=== PATIENT | male | born 1950 | race Caucasian/White ===

== ENCOUNTER → 2019-12-13 14:56 | Outpatient (BNVA) | payer MEDICARE, OTHER, SELFPAY | PROVIDERS: PCP Family Medicine; Referring Provider Family Medicine; Visit Provider Internal Medicine Cardiovascular Disease | DX: I49.5 Sick sinus syndrome (principal); I48.0 Paroxysmal atrial fibrillation; I10 Essential (primary) hypertension; Z79.01 Long term (current) use of anticoagulants | CPT/HCPCS: 99212 ==

== ENCOUNTER → 2020-01-29 14:05 | Outpatient (REF) | payer MEDICARE, OTHER, SELFPAY | LOC: HO.SL 14:05 | PROVIDERS: PCP Family Medicine; Visit Provider Family Medicine | DX: G47.30 Sleep apnea, unspecified (principal); R53.83 Other fatigue | CPT/HCPCS: 95806 ==

== ENCOUNTER 2020-05-28 13:26 | Outpatient (REF) | payer MEDICARE, OTHER, SELFPAY ==
--- NOTE | ~2020-05-28 | CT_ITS ---
EXAMINATION: CT CHEST WITHOUT CONTRAST CLINICAL INFORMATION: History cryoablation lower pole lesion left kidney. History benign pulmonary nodules. COMPARISON: CT chest 07/04/2019, 12/25/2018, 04/05/2017; CT abdomen and pelvis 01/26/2019. TECHNIQUE: Multidetector volumetric CT imaging of the chest is performed without intravenous contrast. Axial MIP volume rendering provided. Sagittal and coronal reformatted images were obtained. This CT examination was performed using dose optimization techniques as appropriate, variously including the following: *Automated exposure control *Adjustment of mA and/or kV according to patient size (this includes techniques or standardized protocols for targeted exams where dose is matched to indication/reason for exam; i.e. 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 There is no endobronchial lesion or bronchiectasis. There is no airspace consolidation or groundglass opacities. Some accentuated reticular markings are again noted posterior lateral upper zones. Small bilateral nodularity are stable from both prior exam and remote CT dating back to 04/05/2017 consistent with benign nodules. There is no new nodule or increasing size or mass. Right lung has stable nodularity along the right minor fissure and small nodule subpleural posterior apical upper lobe as before (series 5 images 98, 240, 283). Left lung has 6 small nodules stable from prior exams, two not previously described, punctate calcified granuloma lateral apex series 6/51 and subpleural anterior apex under 4 mm series 6 image 67. Other small nodularity stable as before (series 6 images 98, 116, 138, 313). MEDIASTINUM: No hilar or mediastinal adenopathy. Thoracic aorta normal in caliber. PLEURA: There is no pleural effusion. No pleural mass or thickening. AXILLA: No lymphadenopathy. UPPER ABDOMEN: Unremarkable. OSSEOUS STRUCTURES: No acute bony abnormality. Prior vertebral augmentation L1. CT/CT chest wo con IMPRESSION: Stable nodularity dating back to 2018 consistent with benign nodules. No adenopathy or effusion.
== END 2020-05-28 13:27 | disposition home or self-care (01) ==
LOC: HO.CT 13:26
PROVIDERS: PCP Family Medicine; Visit Provider Family Medicine
DX: R91.8 Other nonspecific abnormal finding of lung field (principal)
CPT/HCPCS: 71250

== ENCOUNTER 2020-07-01 16:19 | Outpatient (REF) | payer MEDICARE, OTHER, SELFPAY ==
--- NOTE | ~2020-07-01 | MR_ITS ---
EXAMINATION: MR LUMBAR SPINE WITHOUT CONTRAST CLINICAL INFORMATION: Worsening severe low back pain. Bilateral lower extremity pain and weakness. COMPARISON: Lumbar spine radiographs 01/22/2015. TECHNIQUE: MRI of the lumbar spine was obtained using routine sequences without contrast. FINDINGS: There is a chronic wedge compression deformity of the L1 vertebral body with impaction of the upper endplate resulting in 50% vertebral height loss centrally. There is bone cement material within the L1 vertebral body represent chronic changes of a vertebral augmentation. Alignment is otherwise normal. There is disc desiccation at multiple levels without substantial loss of intervertebral disc height. The tip of the conus medullaris is located at the level of L1. No mass effect on the conus. Visualized distal cord signal intensity is normal. At L1-L2 the annular contour is normal. No canal or neuroforaminal compromise. At L2-L3 there is an asymmetrically bulging disc to the left. No canal stenosis. No mass effect on the traversing or foraminal nerve roots. At L3-L4 there is a slightly bulging disc. Bilateral facet degenerative change. No canal stenosis. No mass effect the traversing or foraminal nerve roots. At L4-L5 there is a diffusely bulging disc. Bilateral facet degenerative change. No canal stenosis. No mass effect on the traversing or foraminal nerve roots. At L5-S1 there is a slightly bulging disc. Bilateral facet degenerative change. No canal stenosis. No mass effect on the traversing or foraminal nerve roots. Limited visualization the retroperitoneal anatomy reveals no abnormal finding. Psoas and paraspinal muscle groups are symmetric. 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 No canal stenosis. No mass effect on the traversing or foraminal nerve roots. Of note there is a chronic compression deformity of the L1 vertebral body.
== END 2020-07-01 16:20 | disposition home or self-care (01) ==
LOC: HO.MRI 16:19
PROVIDERS: Visit Provider Family Medicine
DX: M54.5 Low back pain (principal)
CPT/HCPCS: 72148

== ENCOUNTER → 2020-07-21 13:24 | Outpatient (BNVA) | payer MEDICARE, OTHER, SELFPAY | PROVIDERS: PCP Family Medicine; Referring Provider Family Medicine; Visit Provider Internal Medicine Cardiovascular Disease | DX: I48.91 Unspecified atrial fibrillation (principal); R06.02 Shortness of breath; Z79.899 Other long term (current) drug therapy | CPT/HCPCS: 93005; 99212 ==

== ENCOUNTER 2020-07-21 14:06 | Emergency (ER) | payer MEDICARE, OTHER, SELFPAY ==
--- NOTE | ~2020-07-21 | XR_ITS ---
EXAMINATION: XR CHEST CLINICAL INFORMATION: Atrial fibrillation COMPARISON: Chest x-ray 08/09/2019. CT chest 05/28/2020 TECHNIQUE: Frontal view of the chest was obtained. 2:42 PM FINDINGS: No significant abnormality is noted involving the heart, lungs, mediastinum, bony thorax or soft tissues. XR/XR chest 1V IMPRESSION: Unremarkable examination.
[2020-07-21 14:20] VITALS: BP 74/57; PULSE 112; RESP 22; TEMP 36.9; O2SAT 96; BMI 35.2
--- NOTE | 2020-07-21 14:29 | ECG_ITS ---
Test Reason : CHEST PAIN Blood Pressure : / mmHG Vent. Rate : 138 BPM Atrial Rate : 120 BPM P-R Int : 000 ms QRS Dur : 082 ms QT Int : 336 ms P-R-T Axes : 000 -18 009 degrees QTc Int : 509 ms Atrial fibrillation with rapid ventricular response Abnormal ECG When compared with ECG of 09-AUG-2019 19:35, Atrial fibrillation has replaced Sinus rhythm Vent. rate has increased BY 73 BPM Referred By: Generic ED Physician Electronically Signed By:PAZ DAVIS
[2020-07-21 15:30] VITALS: BP 104/74; PULSE 130
[2020-07-21] MEDS: dilTIAZem HCL 50 MG/10 ML VIAL 20 MG IVPUSH (15:30)
[2020-07-21 15:35] VITALS: BP 97/63; PULSE 96; RESP 14; O2SAT 99
[2020-07-21 15:43] LABS: MANUAL DIFF FLAG NO
[2020-07-21 15:44] VITALS: BP 104/69; PULSE 87; RESP 10; O2SAT 96
[2020-07-21 15:48] LABS: Basophils Absolute Auto 0.1 X10*3/uL (0.0-0.2); Basophils Percent Auto 0.9 % (0-2); Eosinophils Absolute Auto 2.1 X10*3/uL (0.0-0.4); Eosinophils Percent Auto 22.2 % (0-4); Hematocrit 43.9 % (42-52); Hemoglobin 14.9 g/dl (14.0-18.0); Imm Gran Abs Auto 0.03 X10*3/uL (0.00-0.03); Imm Gran Pct Auto 0.3 % (0.0-0.4); Lymphocytes Absolute Auto 1.4 X10*3/uL (1.2-4.9); Mean Corpuscular HGB Conc 33.9 g/dl (31.0-36.0); Mean Corpuscular Volume 94.2 fL (80-98); Mean Platelet Volume 11.7 fL (9.4-12.4); Monocytes Absolute Auto 0.7 X10*3/uL (0.1-1.2); Monocytes Percent Auto 7.8 % (2-11); Neutrophils Absolute Auto 5.1 X10*3/uL (2.0-8.3); Neutrophils Percent Auto 53.8 % (45-73); Platelet Count 169 X10*3/uL (160-400); Red Blood Count 4.66 X10*6/uL (4.60-5.80); Red Cell Distribution Width 12.8 % (11.0-16.0); White Blood Count 9.5 X10*3/uL (4.8-10.8)
[2020-07-21 16:05] LABS: Anion Gap 14 (12-20); Blood Urea Nitrogen 18 mg/dL (9-16); Carbon Dioxide 26 mmol/L (22-29); Chloride 105 mmol/L (96-108); Creatinine Clr Calc Pharmacy 91.6; Estimated Glomerular Filt Rate > 60; Glucose Random 95 mg/dL (60-115); Potassium 3.9 mmol/L (3.3-5.1); Sodium 141 mmol/L (135-145)
[2020-07-21 16:13] LABS: B Type Natriuretic Peptide 193 pg/mL (<100); Troponin-I High Sensitivity < 3.5 ng/L (<3.5-35.0)
--- NOTE | 2020-07-21 16:55 | ED_ITS ---
HPI - Arrhythmia/Palpitations General Chief Complaint: Arrhythmia/Palpitations Stated Complaint: rapid A fib Time Seen by Provider: 07/21/20 14:57 Source: patient Mode of arrival: ambulatory Limitations: no limitations History of Present Illness HPI narrative: 69-year-old male who was sent to the emergency department from his feed project engineer's office for evaluation of atrial fibrillation with a rapid ventricular response. Patient states that he has been feeling sick for approximately 3 days secondary to an asthma exacerbation. He states that he has had a cough which has been mainly nonproductive with an occasional clear to yellow sputum. He has been having shortness of breath at rest as well as dyspnea on exertion. He denied chest pain or palpitations. He has not noticed any swelling in his lower extremities. He states however he had 2 bouts of gout over the last 2 weeks which was treated with steroids. The patient had a routine visit today with his feed project engineer, Dr Vides. The patient has a history of paroxysmal atrial fibrillation he was found to be in atrial fibrillation with a rapid ventricular response, therefore he was sent to the emergency department for evaluation. The patient does take Xareltor (rivaroxaban). Related Data Home Medications Medication Instructions Recorded Confirmed atorvastatin 10 mg tablet 10 mg PO DAILY tab 12/13/19 07/21/20 gabapentin 300 mg capsule 300 mg PO cap 12/13/19 07/21/20 hydrochlorothiazide 12.5 mg tablet 12.5 mg PO DAILY tab 12/13/19 07/21/20 tamsulosin 0.4 mg capsule 0.4 mg PO DAILY cap 12/13/19 07/21/20 budesonide-formoterol HFA 160 INHALATION 07/21/20 07/21/20 mcg-4.5 mcg/actuation aerosol inhaler fluoxetine 20 mg capsule 20 mg PO cap 07/21/20 07/21/20 naloxone 4 mg/actuation nasal spray INTRANASAL 07/21/20 07/21/20 oxycodone-acetaminophen 7.5 mg-325 tab PO 07/21/20 07/21/20 mg tablet Previous Rx's Medication Instructions Recorded rivaroxaban 20 mg tablet 20 mg PO DAILY #30 tab 02/11/20 amlodipine 2.5 mg tablet 2.5 mg PO DAILY #90 tab 05/01/20 diltiazem HCl 120 mg PO DAILY #30 cap 07/21/20 Allergies Allergy/AdvReac Type Severity Reaction Status Date / Time No Known Allergies Allergy Unverified 10/25/19 15:01 [No Known Allergies*] Review of Systems Review of Systems: Yes all other systems are reviewed and are negative [facility] Past Medical History [facility] Narrative: Social history: The patient denies tobacco use, he is a former smoker. He states that he drinks alcohol daily anywhere from 2-4 beers, occasional hard liquor as well. He denies drug use. Medical History HTN (hypertension) Paroxysmal atrial fibrillation Sick sinus syndrome Surgical History History of back surgery History of tonsillectomy and adenoidectomy Hx of sinus surgery Family History Family History Father Lung cancer Mother Cancer Social History Social History Years Smoked: stopped 30 years ago Advance Directives: Yes Advance Directives Information Provided: No Advance Directives on File: No Physical Exam Vital Signs: Vital Signs: Last Vital Signs Temp 98.4 F 07/21/20 14:20 Pulse 87 07/21/20 15:44 Resp 10 L 07/21/20 15:44 BP 104/69 07/21/20 15:44 Pulse Ox 96 07/21/20 15:44 Body Mass Index 35.2 Const: General: cooperative and healthy appearing Orientation/consciousness: oriented to person and oriented to place Limitations: no limitations HENMT: Head: Yes normal to inspection, Yes normocephalic and Yes atraumatic Ears: external ears normal General nose exam: Normal external nose present Face and sinus: Yes normal facial exam Mouth: Normal oral and palatal mucosa present Throat: Yes posterior oropharynx normal Eyes: Periorbital: periorbital findings normal Eyelids: Yes eyelids normal Conjunctivae: conjunctivae normal Sclerae: sclerae normal Corneas: corneas normal Pupils: Equal, round and reactive pupils present Direct Ophthalmoscopy: normal light reflex Neck: Neck: Yes full ROM, Yes no lymphadenopathy, Yes no meningeal signs, Yes trachea midline and Yes supple Chest: Chest palpation & inspection: normal inspection of the chest and normal palpation of entire chest wall Resp: Effort & Inspection: normal respiratory effort and able to speak in complete sentences Auscultation: rales bilateral in the lower lung samaniego (Bases) and rhonchi throughout Cardio: Rate: tachycardic Rhythm: abnormal rhythm irregularly irregular Heart sounds: S1 normal heart sound present, S2 normal heart sound present and no murmurs GI: Inspection: Yes normal to inspection Palpation (GI): Soft to palpation, nontender, no guarding, not rigid and No hepatosplenomegaly present : General: Yes no CVA tenderness Back/Spine/Pelvis: Back: no CVA tenderness Cervical Spine: normal cervical lordosis Thoracic/Lumbar Spine: thoracic and lumbar spine normal to inspection Skin: Lesions: no lesions Rashes: no rashes Wounds: no wounds Neuro: General: oriented to person, oriented to place and no meningeal signs Cranial nerves: Yes CN's II-XII intact bilaterally and Yes Equal, round and reactive pupils present Cognition (Neuro): normal cognition Motor exam (neuro): 5/5 motor strength present throughout Extrem: Other: Trace pitting edema bilateral symmetric lower extremities General: Yes normal to inspection and Yes full ROM Psych: Appearance: well kempt Mental Status: mental status grossly normal Speech and movement: Normal speech and movement present Affect: normal affect Attitude: cooperative Thought process: Normal thought process present Thought content: Normal thought content present Course Course Course Narrative: 69-year-old male who presents emergency department for evaluation several days of ?asthma exacerbation ?with shortness of breath, dyspnea on exertion and cough which is occasionally productive. The patient saw his feed project engineer today for routine visit was found to be in atrial fibrillation with a rapid ventricular response and sent to emergency department. On presentation, the patient was hypotensive with a blood pressure of 74/57, pulse varied from 120-150 , he was tachypneic with a respiratory rate of 22, temperature no to saturation normal. Physical examination revealed rales at the bases with diffuse rhonchi in his lung exam and some trace pitting edema otherwise was unremarkable. I ordered a cardiac workup and chest x-ray. Patient's rapid ventricular rate was treated with diltiazem 20 mg IV. 1704: The patient's laboratory evaluation did reveal a slight elevation in his BNP of 193, troponin was below detectable limits. The patient's chest x-ray revealed no evidence of pneumonia or congestive heart failure. The patient is feeling better after he has had rate control with diltiazem. I will discuss the patient's presentation with the patient's feed project engineer. 1808: I did discuss the patient's presentation with the covering feed project engineer, Dr. Alvarez. He recommended that the patient stop his amlodipine and be started on Cardizem ER 120 mg daily. He was given his 1st dose here in the emergency department and discharged home. The patient was given verbal and printed instructions prior to discharge. The patient was advised to follow-up with their cardiology in 2 days and to return to the emergency department if the ir symptoms get worse or if they develop any new symptoms that are concerning to them MDM - Arrhythmia/Palpitations Lab Data Result diagrams: 07/21/20 15:28 07/21/20 15:28 Labs: Lab Results 07/21/20 07/21/20 07/21/20 Range/Units 15:28 15:28 15:28 WBC 9.5 (4.8-10.8) X10*3/uL RBC 4.66 (4.60-5.80) X10*6/uL Hgb 14.9 (14.0-18.0) g/dl Hct 43.9 (42-52) % MCV 94.2 (80-98) fL MCH 32.0 (27.0-33.0) pg MCHC 33.9 (31.0-36.0) g/dl RDW 12.8 (11.0-16.0) % Plt Count 169 (160-400) X10*3/uL MPV 11.7 (9.4-12.4) fL Immature Gran % (Auto) 0.3 (0.0-0.4) % Neut % (Auto) 53.8 (45-73) % Lymph % (Auto) 15.0 L (20-40) % Hand % (Auto) 7.8 (2-11) % Eos % (Auto) 22.2 H (0-4) % Baso % (Auto) 0.9 (0-2) % Lymph # (Auto) 1.4 (1.2-4.9) X10*3/uL Hand # (Auto) 0.7 (0.1-1.2) X10*3/uL Eos # (Auto) 2.1 H (0.0-0.4) X10*3/uL Baso # (Auto) 0.1 (0.0-0.2) X10*3/uL Abs Immat Gran (auto) 0.03 (0.00-0.03) X10*3/uL Absolute Neuts (auto) 5.1 (2.0-8.3) X10*3/uL Absolute Nucleated RBC 0.000 (0.0-0.012) X10*3/uL Nucleated RBC % (auto) 0.0 (0.0-0.2) /100WBC Hold Blue Top SEE NOTE Sodium 141 (135-145) mmol/L Potassium 3.9 (3.3-5.1) mmol/L Chloride 105 (96-108) mmol/L Carbon Dioxide 26 (22-29) mmol/L Anion Gap 14 (12-20) BUN 18 H (9-16) mg/dL Creatinine 0.98 (0.5-1.4) mg/dL Estim Creat Clear Calc 91.6 Estimated GFR > 60 Random Glucose 95 (60-115) mg/dL Calcium 9.0 (8.4-10.2) mg/dL Troponin I High Sens (<3.5-35.0) ng/L B-Natriuretic Peptide (<100) pg/mL 07/21/20 07/21/20 Range/Units 15:28 15:28 WBC (4.8-10.8) X10*3/uL RBC (4.60-5.80) X10*6/uL Hgb (14.0-18.0) g/dl Hct (42-52) % MCV (80-98) fL MCH (27.0-33.0) pg MCHC (31.0-36.0) g/dl RDW (11.0-16.0) % Plt Count (160-400) X10*3/uL MPV (9.4-12.4) fL Immature Gran % (Auto) (0.0-0.4) % Neut % (Auto) (45-73) % Lymph % (Auto) (20-40) % Hand % (Auto) (2-11) % Eos % (Auto) (0-4) % Baso % (Auto) (0-2) % Lymph # (Auto) (1.2-4.9) X10*3/uL Hand # (Auto) (0.1-1.2) X10*3/uL Eos # (Auto) (0.0-0.4) X10*3/uL Baso # (Auto) (0.0-0.2) X10*3/uL Abs Immat Gran (auto) (0.00-0.03) X10*3/uL Absolute Neuts (auto) (2.0-8.3) X10*3/uL Absolute Nucleated RBC (0.0-0.012) X10*3/uL Nucleated RBC % (auto) (0.0-0.2) /100WBC Hold Blue Top Sodium (135-145) mmol/L Potassium (3.3-5.1) mmol/L Chloride (96-108) mmol/L Carbon Dioxide (22-29) mmol/L Anion Gap (12-20) BUN (9-16) mg/dL Creatinine (0.5-1.4) mg/dL Estim Creat Clear Calc Estimated GFR Random Glucose (60-115) mg/dL Calcium (8.4-10.2) mg/dL Troponin I High Sens < 3.5 (<3.5-35.0) ng/L B-Natriuretic Peptide 193 H Cancelled (<100) pg/mL Discharge Plan Discharge Clinical Impression: Atrial fibrillation with RVR Patient Disposition: Home, Self-Care Instructions: A-fib (Atrial Fibrillation) (ED) Additional Instructions: Your laboratory evaluation was unremarkable. You had a slight elevation in your BNP of 193 which suggests you do not have significant amount of fluid in her lungs. Your troponin which is a marker of heart damage was below detectable limits which is reassuring. At this time I suspect that the symptoms that you are experiencing were caused by atrial fibrillation with a rapid heart rate. You received Cardizem (diltiazem) 20 mg IV and this did slow your heart rate down but your still in atrial fibrillation. I spoke to the on-call feed project engineer, Dr. Skelton who recommended that we stop your amlodipine and start you on Cardizem ER 120 mg daily. Your given a dose of Cardizem 120 mg orally. Start this prescription medication tomorrow evening. Call Dr. Vides's office in the morning to schedule a follow-up as soon as possible to determine how to get you out of atrial fibrillation. Please return to the emergency department if your symptoms get worse or if you develop any symptoms that are concerning to you. Prescriptions: New diltiazem HCl 120 mg capsule,extended release 24 hr 120 mg PO DAILY Qty: 30 RF: 0 No Action rivaroxaban 20 mg tablet 20 mg PO DAILY Qty: 30 RF: 5 amlodipine 2.5 mg tablet 2.5 mg PO DAILY Qty: 90 RF: 1 atorvastatin 10 mg tablet 10 mg PO DAILY RF: 0 gabapentin 300 mg capsule 300 mg PO RF: 0 hydrochlorothiazide 12.5 mg tablet 12.5 mg PO DAILY RF: 0 tamsulosin 0.4 mg capsule 0.4 mg PO DAILY RF: 0 fluoxetine 20 mg capsule 20 mg PO RF: 0 Narcan 4 mg/actuation spray,non-aerosol intranasal RF: 0 oxycodone-acetaminophen 7.5-325 mg tablet PO RF: 0 budesonide-formoterol 160-4.5 mcg/actuation HFA aerosol inhaler inhalation RF: 0
[2020-07-21 18:00] VITALS: BP 135/84; PULSE 105; RESP 16; O2SAT 99
[2020-07-21 18:22] VITALS: BP 135/84; PULSE 105
[2020-07-21] MEDS: dilTIAZem HCL CD 120 MG CAP.ER.DEG PO (18:22)
== END 2020-07-21 18:31 | disposition home or self-care (01) ==
PROVIDERS: Emergency Provider Emergency Medicine Emergency Medical Services; PCP Family Medicine
DX: I48.0 Paroxysmal atrial fibrillation (principal); R06.02 Shortness of breath; I10 Essential (primary) hypertension; Z79.01 Long term (current) use of anticoagulants
CPT/HCPCS: 36415; 71045; 80048; 83880; 84484; 85025; 93005; 96374; 99284

== ENCOUNTER 2020-07-23 17:39 | Emergency (ER) | payer MEDICARE, OTHER, SELFPAY ==
[2020-07-23] VITALS (7 sets, daily range): BP systolic 107–126; BP diastolic 53–76; PULSE 89–144; RESP 20–24; TEMP 36.6–36.8; O2SAT 94–95; BMI 35.2
--- NOTE | 2020-07-23 | ECG_ITS ---
Test Reason : CHEST PAIN Blood Pressure : / mmHG Vent. Rate : 125 BPM Atrial Rate : 125 BPM P-R Int : 000 ms QRS Dur : 084 ms QT Int : 340 ms P-R-T Axes : 000 -19 032 degrees QTc Int : 490 ms Atrial fibrillation with rapid ventricular response Nonspecific ST and T wave abnormality Abnormal ECG When compared with ECG of 21-JUL-2020 14:28, No significant change was found Referred By: Generic ED Physician Electronically Signed By:PAZ DAVIS
--- NOTE | ~2020-07-23 | XR_ITS ---
EXAMINATION: XR CHEST CLINICAL INFORMATION: Shortness of breath COMPARISON: Chest x-ray 07/21/2020 TECHNIQUE: 2 views of the chest were obtained. FINDINGS: Lungs are clear. No pulmonary vascular congestion. There is no pleural effusion. The heart size is normal. The cardiac and mediastinal contours are normal. There are multilevel degenerative changes of dorsal spine. Status post thoracoplasty of L1 vertebrae. XR/XR chest 2V IMPRESSION: Unremarkable examination.
--- NOTE | 2020-07-23 18:48 | ED.GENADULT ---
HPI - General Adult General Chief complaint: Dyspnea Stated complaint: sob Time Seen by Provider: 07/23/20 18:32 Source: patient Mode of arrival: ambulatory Limitations: no limitations History of Present Illness HPI narrative: 69-year-old male who presents emergency department for evaluation of shortness of breath and cough. Patient was seen in the emergency department by me 2 days prior, 07/21/2020 for 3 days of asthma exacerbation with shortness of breath dyspnea on exertion and occasional productive cough. The patient has a history of paroxysmal atrial fibrillation at that time was found to be in AFib with a rapid ventricular response. His workup revealed a slight elevated proBNP, nondetectable troponin and an unremarkable chest x-ray. The patient's ventricular rate improved with IV diltiazem and he was started on diltiazem ER 120 mg once a day. Patient states that he has taken 2 doses medication but is not feeling better. He states that he has continued to have a cough which is occasionally productive but mainly nonproductive. He states that he is feeling short of breath and is having dyspnea on exertion. He states that he occasionally feels palpitations. He has been using his albuterol nebulizer and used it 2 times today. He denied chest pain, fever, chills, myalgias, arthralgias, nausea, vomiting or diarrhea. The patient's son, Eliecer is here in the emergency department. He states that he and his mother were concerned since the patient had an episode where he was staring, his hands were shaking and he did not seem to respond. Patient states that he was in bed and he was falling asleep and he felt like everything was distant and had difficulty hearing his . This episode was brief and then resolved. Related Data Home Medications Medication Instructions Recorded Confirmed atorvastatin 10 mg tablet 10 mg PO DAILY tab 12/13/19 07/21/20 gabapentin 300 mg capsule 300 mg PO cap 12/13/19 07/21/20 hydrochlorothiazide 12.5 mg tablet 12.5 mg PO DAILY tab 12/13/19 07/21/20 tamsulosin 0.4 mg capsule 0.4 mg PO DAILY cap 12/13/19 07/21/20 budesonide-formoterol HFA 160 INHALATION 07/21/20 07/21/20 mcg-4.5 mcg/actuation aerosol inhaler fluoxetine 20 mg capsule 20 mg PO cap 07/21/20 07/21/20 naloxone 4 mg/actuation nasal spray INTRANASAL 07/21/20 07/21/20 oxycodone-acetaminophen 7.5 mg-325 tab PO 07/21/20 07/21/20 mg tablet Previous Rx's Medication Instructions Recorded rivaroxaban 20 mg tablet 20 mg PO DAILY #30 tab 02/11/20 amlodipine 2.5 mg tablet 2.5 mg PO DAILY #90 tab 05/01/20 diltiazem HCl 120 mg PO DAILY #30 cap 07/21/20 benzonatate 200 mg PO TID PRN #14 cap 07/23/20 doxycycline hyclate 100 mg PO Q12H 7 Days #14 tab 07/23/20 prednisone 60 mg PO DAILY 5 Days #15 tab 07/23/20 Allergies Allergy/AdvReac Type Severity Reaction Status Date / Time No Known Allergies Allergy Verified 07/23/20 17:58 [No Known Allergies*] Review of Systems Review of Systems: Yes all other systems are reviewed and are negative [facility] Past Medical History [facility] Narrative: Social history: The patient denies tobacco use, he is a former smoker and stop smoking 30 years prior. He states that he drinks alcohol daily anywhere from 2-4 beers, occasional hard liquor as well. He denies drug use. Medical History HTN (hypertension) Paroxysmal atrial fibrillation Sick sinus syndrome Surgical History History of back surgery History of tonsillectomy and adenoidectomy Hx of sinus surgery Family History Family History Father Lung cancer Mother Cancer Social History Social History Years Smoked: stopped 30 years ago Advance Directives: No Advance Directives Information Provided: Yes Physical Exam Vital Signs: Vital Signs: Last Vital Signs Temp 98.2 F 07/23/20 18:14 Pulse 89 07/23/20 19:31 Resp 20 07/23/20 19:31 BP 109/53 L 07/23/20 19:31 Pulse Ox 94 07/23/20 19:31 Body Mass Index 35.2 Const: General: cooperative Orientation/consciousness: oriented to person and oriented to place Limitations: no limitations HENMT: Head: Yes normal to inspection, Yes normocephalic and Yes atraumatic Ears: external ears normal General nose exam: Normal external nose present Face and sinus: Yes normal facial exam Mouth: Normal oral and palatal mucosa present Throat: Yes posterior oropharynx normal Eyes: Periorbital: periorbital findings normal Eyelids: Yes eyelids normal Conjunctivae: conjunctivae normal Sclerae: sclerae normal Corneas: corneas normal Pupils: Equal, round and reactive pupils present Direct Ophthalmoscopy: normal light reflex Neck: Neck: Yes full ROM, Yes no lymphadenopathy, Yes no meningeal signs, Yes trachea midline and Yes supple Chest: Chest palpation & inspection: normal inspection of the chest and normal palpation of entire chest wall Resp: Effort & Inspection: normal respiratory effort and able to speak in complete sentences Auscultation: rales bilateral at the base and wheezes expiratory wheezes and throughout Cardio: Rate: tachycardic Rhythm: abnormal rhythm irregularly irregular Heart sounds: S1 normal heart sound present, S2 normal heart sound present and no murmurs GI: Inspection: Yes normal to inspection Palpation (GI): Soft to palpation, nontender, no guarding, not rigid and No hepatosplenomegaly present : General: Yes no CVA tenderness Back/Spine/Pelvis: Back: no CVA tenderness Cervical Spine: normal cervical lordosis Thoracic/Lumbar Spine: thoracic and lumbar spine normal to inspection Skin: Lesions: no lesions Rashes: no rashes Wounds: no wounds Neuro: General: oriented to person, oriented to place and no meningeal signs Cranial nerves: Yes CN's II-XII intact bilaterally and Yes Equal, round and reactive pupils present Cognition (Neuro): normal cognition Motor exam (neuro): 5/5 motor strength present throughout Extrem: General: Yes normal to inspection and Yes full ROM Psych: Appearance: well kempt Mental Status: mental status grossly normal Speech and movement: Normal speech and movement present Affect: normal affect Attitude: cooperative Thought process: Normal thought process present Thought content: Normal thought content present Course Course Course Narrative: 69-year-old male with history of paroxysmal atrial fibrillation on Pradaxa, seen in the emergency department 2 days prior for atrial fibrillation with rapid ventricular response and shortness of breath treated with IV diltiazem and started on diltiazem 120 mg ER, who returns with increased cough, persistent shortness of breath and atrial fibrillation with rapid ventricular response. Patient's heart rate ranged from 110-140 beats per minute. Lung exam did reveal rales at the bases with expiratory wheezing throughout. Exam was otherwise unremarkable. I did order laboratory evaluation to include CBC, CMP, troponin, BNP, chest x-ray two view. Patient was ordered to get Solu-Medrol 120 mg IV, albuterol nebulizer and diltiazem 20 mg IV. 2107: The patient's laboratory evaluation did reveal a slight elevation in his white blood cell count 11,000, slightly low platelet count of a [id number] otherwise was unremarkable. BNP was normal. Troponin was below detectable limits. Patient's chest x-ray revealed no evidence of pneumonia congestive heart failure. Patient's heart rate did improve after the IV diltiazem. He is feeling better. The patient does have a history of asthma and at this time I suspect that he may have acute bronchitis which may be causing his cough. The patient will be treated with doxycycline 100 mg twice a day for 7 days, prednisone 60 mg once a day for 5 days and Tessalon Perles 1 pill 3 times a day for cough. He was given his 1st dose of these medications here in the emergency department. The patient was given verbal and printed instructions prior to discharge. The patient was advised to follow-up with their PCP in 2 days and to return to the emergency department if there symptoms get worse or if they develop any new symptoms that are concerning to them Medical Decision Making Lab Data Result diagrams: 07/23/20 19:08 07/23/20 19:08 Labs: Lab Results 07/23/20 07/23/20 07/23/20 Range/Units 19:08 19:08 19:08 WBC 11.0 H (4.8-10.8) X10*3/uL RBC 4.38 L (4.60-5.80) X10*6/uL Hgb 14.3 (14.0-18.0) g/dl Hct 41.2 L (42-52) % MCV 94.1 (80-98) fL MCH 32.6 (27.0-33.0) pg MCHC 34.7 (31.0-36.0) g/dl RDW 12.6 (11.0-16.0) % Plt Count 155 L (160-400) X10*3/uL MPV 11.3 (9.4-12.4) fL Immature Gran % (Auto) 0.4 (0.0-0.4) % Neut % (Auto) 60.2 (45-73) % Lymph % (Auto) 11.7 L (20-40) % Wilkes % (Auto) 9.3 (2-11) % Eos % (Auto) 17.5 H (0-4) % Baso % (Auto) 0.9 (0-2) % Lymph # (Auto) 1.3 (1.2-4.9) X10*3/uL Wilkes # (Auto) 1.0 (0.1-1.2) X10*3/uL Eos # (Auto) 1.9 H (0.0-0.4) X10*3/uL Baso # (Auto) 0.1 (0.0-0.2) X10*3/uL Abs Immat Gran (auto) 0.04 H (0.00-0.03) X10*3/uL Absolute Neuts (auto) 6.6 (2.0-8.3) X10*3/uL Absolute Nucleated RBC 0.000 (0.0-0.012) X10*3/uL Nucleated RBC % (auto) 0.0 (0.0-0.2) /100WBC Sodium 140 (135-145) mmol/L Potassium 3.5 (3.3-5.1) mmol/L Chloride 103 (96-108) mmol/L Carbon Dioxide 27 (22-29) mmol/L Anion Gap 14 (12-20) BUN 19 H (9-16) mg/dL Creatinine 0.98 (0.5-1.4) mg/dL Estim Creat Clear Calc 91.6 Estimated GFR > 60 Random Glucose 102 (60-115) mg/dL Calcium 8.8 (8.4-10.2) mg/dL Total Bilirubin 1.0 (0.0-1.0) mg/dL AST 23 (5-37) U/L ALT 24 (0-40) U/L Alkaline Phosphatase 86 (39-117) U/L Troponin I High Sens < 3.5 (<3.5-35.0) ng/L B-Natriuretic Peptide 92 (<100) pg/mL Total Protein 6.6 (6.5-8.0) g/dL Albumin 4.0 (3.5-5.0) g/dL Discharge Plan Discharge Clinical Impression: Atrial fibrillation with rapid ventricular response, Acute bronchitis Patient Disposition: Home, Self-Care Instructions: Acute Bronchitis (ED) Additional Instructions: Continue using your inhalers as prescribed by your doctor. Take prednisone 20 mg pills, 3 pills once a day for 5 days. Your given your 1st dose here in the emergency department. Take your next dose tomorrow morning. Take doxycycline 100 mg pills, 1 pill twice a day for 7 days. Your given your 1st dose here in the emergency department. Take your next dose tomorrow morning. Take Tessalon Perles 200 mg pills, 1 pill 3 times a day as needed for cough. Your given your 1st dose here in the emergency department. Your next dose tomorrow morning. Continue taking your diltiazem ER 120 mg once a day. Follow-up with your doctor in 2 days. Please return to the emergency department if your symptoms get worse or if you develop any symptoms that are concerning to you. Prescriptions: New doxycycline hyclate 100 mg tablet 100 mg PO Q12H 7 Days Qty: 14 RF: 0 prednisone 20 mg tablet 60 mg PO DAILY 5 Days Qty: 15 RF: 0 benzonatate 200 mg capsule 200 mg PO TID PRN (Reason: cough) Qty: 14 RF: 0 No Action rivaroxaban 20 mg tablet 20 mg PO DAILY Qty: 30 RF: 5 amlodipine 2.5 mg tablet 2.5 mg PO DAILY Qty: 90 RF: 1 diltiazem HCl 120 mg capsule,extended release 24 hr 120 mg PO DAILY Qty: 30 RF: 0 atorvastatin 10 mg tablet 10 mg PO DAILY RF: 0 gabapentin 300 mg capsule 300 mg PO RF: 0 hydrochlorothiazide 12.5 mg tablet 12.5 mg PO DAILY RF: 0 tamsulosin 0.4 mg capsule 0.4 mg PO DAILY RF: 0 fluoxetine 20 mg capsule 20 mg PO RF: 0 Narcan 4 mg/actuation spray,non-aerosol intranasal RF: 0 oxycodone-acetaminophen 7.5-325 mg tablet PO RF: 0 budesonide-formoterol 160-4.5 mcg/actuation HFA aerosol inhaler inhalation RF: 0
[2020-07-23] MEDS: methylPREDNISolone Sod Succ 125 MG/2 ML VIAL IVPUSH (19:09)
[2020-07-23] MEDS: dilTIAZem HCL 50 MG/10 ML VIAL 20 MG IVPUSH (19:16)
[2020-07-23 19:18] LABS: MANUAL DIFF FLAG NO
[2020-07-23 19:21] LABS: Basophils Absolute Auto 0.1 X10*3/uL (0.0-0.2); Basophils Percent Auto 0.9 % (0-2); Eosinophils Absolute Auto 1.9 X10*3/uL (0.0-0.4); Eosinophils Percent Auto 17.5 % (0-4); Hematocrit 41.2 % (42-52); Hemoglobin 14.3 g/dl (14.0-18.0); Imm Gran Abs Auto 0.04 X10*3/uL (0.00-0.03); Imm Gran Pct Auto 0.4 % (0.0-0.4); Lymphocytes Absolute Auto 1.3 X10*3/uL (1.2-4.9); Lymphocytes Percent Auto 11.7 % (20-40); Mean Corpuscular HGB Conc 34.7 g/dl (31.0-36.0); Mean Corpuscular Hemoglobin 32.6 pg (27.0-33.0); Mean Corpuscular Volume 94.1 fL (80-98); Mean Platelet Volume 11.3 fL (9.4-12.4); Monocytes Percent Auto 9.3 % (2-11); Neutrophils Absolute Auto 6.6 X10*3/uL (2.0-8.3); Neutrophils Percent Auto 60.2 % (45-73); Platelet Count 155 X10*3/uL (160-400); Red Blood Count 4.38 X10*6/uL (4.60-5.80); Red Cell Distribution Width 12.6 % (11.0-16.0)
--- NOTE | 2020-07-23 19:22 | PC.NURSE ---
IV established, labs obtained. Pt medicated per APR. VSS at this time. Continue to monitor.
[2020-07-23] MEDS: Albuterol Sulfate (0.083%) 2.5 MG/3 ML VIAL.NEB INHALE (19:52)
--- NOTE | 2020-07-23 19:54 | PC.NURSE ---
Pt medicated per MAR with Nebulizer. Per RT, no more viral nebulizers [place] [facility] [place].
[2020-07-23 19:56] LABS: Alanine Aminotransferase 24 U/L (0-40); Alkaline Phosphatase 86 U/L (39-117); Anion Gap 14 (12-20); Aspartate Amino Transferase 23 U/L (5-37); Blood Urea Nitrogen 19 mg/dL (9-16); Calcium 8.8 mg/dL (8.4-10.2); Carbon Dioxide 27 mmol/L (22-29); Chloride 103 mmol/L (96-108); Creatinine Clr Calc Pharmacy 91.6; Estimated Glomerular Filt Rate > 60; Glucose Random 102 mg/dL (60-115); Potassium 3.5 mmol/L (3.3-5.1); Sodium 140 mmol/L (135-145); Total Protein 6.6 g/dL (6.5-8.0)
[2020-07-23 20:00] LABS: B Type Natriuretic Peptide 92 pg/mL (<100); Troponin-I High Sensitivity < 3.5 ng/L (<3.5-35.0)
[2020-07-23] MEDS: predniSONE 20 MG TABLET 60 MG PO (21:29)
[2020-07-23] MEDS: Benzonatate 100 MG CAPSULE 200 MG PO (21:29)
--- NOTE | 2020-07-23 21:40 | PC.NURSE ---
Pt medicated per MAR. IV removed. VSS. Pt provided with DC paperwork. Pt calling son for a ride home.
== END 2020-07-23 21:47 | disposition home or self-care (01) ==
PROVIDERS: Emergency Provider Emergency Medicine Emergency Medical Services; PCP Family Medicine
DX: J20.9 Acute bronchitis, unspecified (principal); I48.0 Paroxysmal atrial fibrillation; R06.02 Shortness of breath; I10 Essential (primary) hypertension; Z79.02 Long term (current) use of antithrombotics/antiplatelets; Z79.899 Other long term (current) drug therapy
CPT/HCPCS: 36415; 71046; 80053; 83880; 84484; 85025; 93005; 96374; 96375; 99284; J2930

== ENCOUNTER → 2020-07-30 08:46 | Outpatient (BNVA) | payer MEDICARE, OTHER, SELFPAY | PROVIDERS: PCP Family Medicine; Referring Provider Family Medicine; Visit Provider Internal Medicine Cardiovascular Disease | DX: R06.02 Shortness of breath (principal); R53.83 Other fatigue; I48.0 Paroxysmal atrial fibrillation; I49.5 Sick sinus syndrome; I10 Essential (primary) hypertension; Z79.01 Long term (current) use of anticoagulants; Z79.52 Long term (current) use of systemic steroids; Z79.899 Other long term (current) drug therapy | CPT/HCPCS: 93005; 99212 ==

== ENCOUNTER 2020-08-01 11:35 | Day surgery (SDC) | payer MEDICARE, OTHER, SELFPAY ==
[2020-08-01 12:05] VITALS: BMI 35.2
--- NOTE | 2020-08-01 12:06 | MHC.SHP ---
Pre-Procedural Eval Section A Date of Service: 08/01/20 The patient is an INPATIENT: No Changes since office visit: Yes Patient answered all questions; No Cold of Flu in the past 2 weeks, No New Medical Problems and No Changes in Medication Section B Chief Complaint: afib Allergies: Allergies Allergy/AdvReac Type Severity Reaction Status Date / Time No Known Allergies Allergy Verified 08/01/20 11:42 [No Known Allergies*] Plan I have reviewed the history and physical and performed a pertinent physical examination on my patient. No changes have occurred unless specified.
--- NOTE | 2020-08-01 12:14 | PC.NURSE ---
Patient states he did not take his normal dose of Xarelto this am. He normally takes it daily at 1000. Last dose was yesterday, 07/31, at 1000am. Dr. Vides notified. New order for Xarelto 20mg PO Once. This to be administered as ordered.
[2020-08-01 12:17] VITALS: BP 118/73; PULSE 139; RESP 16; TEMP 36.3; O2SAT 96
[2020-08-01] MEDS: Rivaroxaban 20 MG TABLET PO (12:33)
[2020-08-01] MEDS: Lactated Ringers 500 ML 20 ML IVCONT (13:10)
--- NOTE | 2020-08-01 13:20 | P.CONAN_ITS ---
[facility] Active Problems Active Problems: All Active Problems (Updated 07/24/20 @ 00:01 by Corine Gallardo) SOB (shortness of breath) (Acute) Atrial fibrillation with RVR (Acute) Sick sinus syndrome (Acute) Paroxysmal atrial fibrillation (Acute) HTN (hypertension) (Acute) Past Medical History Medical History HTN (hypertension) Paroxysmal atrial fibrillation Sick sinus syndrome Family History Family History Father Lung cancer Mother Cancer Surgical History Surgical History History of back surgery History of tonsillectomy and adenoidectomy Hx of sinus surgery Social History Social History Patient Tobacco Use Status: Former Tobacco user Years Smoked: stopped 30 years ago Smoked in Last 30 Days: No Use of substances other than those prescribed or required for medical reasons: No Are you DNR?: No Advance Directives: No Advance Directives Information Provided: Yes Meds Allergies Allergy/AdvReac Type Severity Reaction Status Date / Time No Known Allergies Allergy Verified 08/01/20 11:42 [No Known Allergies*] Active Medications: Current Medications Generic Name Dose Route Start Last Admin Trade Name Freq PRN Reason Stop Dose Admin Sodium Chloride 3 ml 08/01/20 16:00 0.9 % Sodium Chloride Flush 3 Ml Syringe [facility] [place] Home Medications Medication Instructions Recorded Confirmed Last Taken Type atorvastatin 10 mg tablet 10 mg PO DAILY tab 12/13/19 07/30/20 Unknown History gabapentin 300 mg capsule 300 mg PO cap 12/13/19 07/30/20 Unknown History hydrochlorothiazide 12.5 mg tablet 12.5 mg PO DAILY tab 12/13/19 07/30/20 Unknown History tamsulosin 0.4 mg capsule 0.4 mg PO DAILY cap 12/13/19 07/30/20 Unknown History budesonide-formoterol HFA 160 INHALATION 07/21/20 07/30/20 Unknown History mcg-4.5 mcg/actuation aerosol inhaler fluoxetine 20 mg capsule 20 mg PO cap 07/21/20 07/30/20 Unknown History naloxone 4 mg/actuation nasal spray INTRANASAL 07/21/20 07/30/20 Unknown History oxycodone-acetaminophen 7.5 mg-325 tab PO 07/21/20 07/30/20 08/01/20 05:00 History mg tablet Exam Exam Date and Time: August 01, 2020 1320 Height,Weight and Vital Signs: Height 6 ft Weight 117.934 kg Last Vital Signs Temp 97.4 F 08/01/20 12:17 Pulse 139 H 08/01/20 12:17 Resp 16 08/01/20 12:17 BP 118/73 08/01/20 12:17 Pulse Ox 96 08/01/20 12:17 Airway TM Dist: >3cm Neck ROM: Full Denture: Upper and Lower Heart: Irreg. Lungs: CTA
--- NOTE | 2020-08-01 13:26 | HO.CARDIVERS ---
Cardioversion Procedure Note Cardioversion Date of Procedure: Today Ordering Provider: Myself Performing Provider: Myself Indication for Procedure: Symptomatic persistent atrial fibrillation with difficult to control rate Pre-Op Diagnosis: Same Post-Op Diagnosis: Sinus rhythm Performed with Transesophageal Echo: No History: See my note Consent: Verbal and Written consent was obtained from the patient before starting and after confirming oral anticoagulation dose. Patient was given 1 dose of Xarelto.. The patient was made aware of the risk of of the procedure including benefits, alternatives a 2nd opinion. Procedure: After consent obtained, cardioversion pads were attached in AP configuration and the patient was sedated by the anesthesia team. Once adequate sedation achieved, patient was delivered 200 joules of biphasic synchronized energy in anteroposterior configuration Complications: None Impression: Converted successfully to sinus rhythm Recommendations: 1. Continue full oral anticoagulation 2. Continue all other medical therapy 3. Twelve lead EKG 4. Follow up in the office in 4 weeks time
--- NOTE | 2020-08-01 13:28 | ECG_ITS ---
Test Reason : S/P CARDIOVERSION Blood Pressure : / mmHG Vent. Rate : 085 BPM Atrial Rate : 085 BPM P-R Int : 214 ms QRS Dur : 088 ms QT Int : 422 ms P-R-T Axes : 040 -15 028 degrees QTc Int : 502 ms Sinus rhythm with 1st degree A-V block with occasional Premature ventricular complexes Nonspecific ST abnormality Prolonged QT Abnormal ECG When compared with ECG of 23-JUL-2020 18:01, Sinus rhythm has replaced Atrial fibrillation Referred By: Oziel Vides Electronically Signed By:Destin Marin
[2020-08-01 13:30] VITALS: BP 136/77; PULSE 83; RESP 16; TEMP 36.4; O2SAT 99
[2020-08-01 13:35] VITALS: BP 118/82; PULSE 83; RESP 17; O2SAT 97
--- NOTE | 2020-08-01 13:38 | HO.POSTANES ---
Post Anesthesia Evaluation Post Anesthesia Evaluation Vital Signs: Vital Signs Temp Pulse Resp BP Pulse Ox 08/01/20 13:30 97.6 F 83 16 136/77 99 08/01/20 12:17 97.4 F 139 H 16 118/73 96 Anesthesia: General Mental Status: Awake Pain Control: Satisfactory Nausea/Vomiting: None Hydration: Adequate Anesthesia-Related Issues: No Anes. Related Issues
[2020-08-01 13:40] VITALS: BP 116/80; PULSE 86; RESP 17; O2SAT 98
[2020-08-01 13:45] VITALS: BP 109/75; PULSE 86; RESP 17; O2SAT 99
[2020-08-01 14:00] VITALS: BP 110/73; PULSE 81; RESP 17; TEMP 36.4; O2SAT 98
== END 2020-08-01 15:08 | disposition home or self-care (01) ==
PROVIDERS: PCP Family Medicine; Visit Provider Internal Medicine Cardiovascular Disease
PROC: 5A2204Z Restoration of Cardiac Rhythm, Single (ICD-10-PCS; principal; 2020-08-01 13:00)
DX: I48.19 Other persistent atrial fibrillation (principal); Z79.01 Long term (current) use of anticoagulants; I10 Essential (primary) hypertension; I49.5 Sick sinus syndrome; Z87.891 Personal history of nicotine dependence
CPT/HCPCS: 92960; 93005; J0461

== ENCOUNTER 2020-08-25 13:42 | Inpatient (IN) | payer MEDICARE, OTHER, SELFPAY ==
[2020-08-25] VITALS (13 sets, daily range): BP systolic 89–129; BP diastolic 44–81; PULSE 59–145; RESP 16–18; TEMP 36.4–36.9; O2SAT 94–98; BMI 33.5
--- NOTE | ~2020-08-25 | XR_ITS ---
EXAMINATION: XR CHEST CLINICAL INFORMATION: Atrial fibrillation COMPARISON: Previous chest x-ray most recent July 23 2020 TECHNIQUE: Frontal view of the chest was obtained. FINDINGS: The cardiac silhouette is enlarged but stable. Hilar and mediastinal contours are unremarkable. The lungs are clear. There is no pleural effusion or pneumothorax. There are degenerative changes of the spine. XR/XR chest 1V IMPRESSION: Stable enlargement of the cardiac silhouette. No evidence for acute disease in the chest.
--- NOTE | 2020-08-25 13:49 | ECG_ITS ---
Test Reason : RAPID A-FIB Blood Pressure : / mmHG Vent. Rate : 127 BPM Atrial Rate : 416 BPM P-R Int : 000 ms QRS Dur : 080 ms QT Int : 340 ms P-R-T Axes : 000 -14 083 degrees QTc Int : 494 ms Atrial fibrillation with rapid ventricular response Inferior-posterior infarct , age undetermined Abnormal ECG When compared with ECG of 01-AUG-2020 13:33, Atrial fibrillation has replaced Sinus rhythm Vent. rate has increased BY 42 BPM Nonspecific T wave abnormality now evident in Lateral leads Referred By: Giovanna Benavidez Electronically Signed By:MAGGI PRABHAKAR MD
--- NOTE | 2020-08-25 14:12 | ED.ARRPALP ---
HPI - Arrhythmia/Palpitations General Chief Complaint: Arrhythmia/Palpitations Stated Complaint: A FIB Time Seen by Provider: 08/25/20 13:56 Source: patient Mode of arrival: ambulatory History of Present Illness HPI narrative: 69-year-old female with a past medical history of HTN, proximal AFib on Cardizem and Xarelto, SSS, recently cardioverted on 08/01, presenting to the ED c/o generalized fatigue, lightheadedness since Tuesday noted to be in rapid AFib with RVR at [facility] [employer] sent to ED for further eval. Denies missing any doses of his Cardizem/Xarelto. Reports multiple near syncopal episodes over the past couple days. Also reports acute on chronic SOB, recently treated for bronchitis. Denies chest pain, abdominal pain, nausea/vomiting, LE edema MD complaint: atrial fibrillation Related Data Home Medications Medication Instructions Recorded Confirmed atorvastatin 10 mg tablet 10 mg PO DAILY tab 12/13/19 08/25/20 gabapentin 300 mg capsule 300 mg PO DAILY cap 12/13/19 08/25/20 hydrochlorothiazide 12.5 mg tablet 12.5 mg PO DAILY tab 12/13/19 08/25/20 tamsulosin 0.4 mg capsule 0.4 mg PO DAILY cap 12/13/19 08/25/20 budesonide-formoterol HFA 160 1 puff INHALATION BID 07/21/20 08/25/20 mcg-4.5 mcg/actuation aerosol inhaler fluoxetine 20 mg capsule 20 mg PO DAILY cap 07/21/20 08/25/20 naloxone 4 mg/actuation nasal spray 4 mg INTRANASAL DAILY PRN 07/21/20 08/25/20 oxycodone-acetaminophen 7.5 mg-325 1 tab PO Q12H 07/21/20 08/25/20 mg tablet albuterol sulfate [ProAir HFA] 2 puff PO Q4H PRN 08/25/20 08/25/20 budesonide 1 amp INHALATION BID 08/25/20 08/25/20 ergocalciferol (vitamin D2) 1 cap PO SA 08/25/20 08/25/20 lidocaine 1 patch TOPICAL DAILY PRN 08/25/20 08/25/20 loratadine 1 tab PO DAILY 08/25/20 08/25/20 oxybutynin chloride 1 tab PO QAM 08/25/20 08/25/20 Previous Rx's Medication Instructions Recorded rivaroxaban 20 mg tablet 20 mg PO DAILY #30 tab 02/11/20 diltiazem HCl 120 mg PO DAILY #30 cap 07/21/20 amlodipine 2.5 mg tablet 2.5 mg PO DAILY #90 tab 07/30/20 Allergies Allergy/AdvReac Type Severity Reaction Status Date / Time No Known Allergies Allergy Verified 08/01/20 11:42 [No Known Allergies*] Review of Systems Review of Systems: Constitutional: No Fever, No Chills, + Fatigue, + Malaise ENT/Mouth: No Ear Pain, No Rhinorrhea Eyes: No Eye Pain, No Vision Changes Cardiovascular: No Chest Pain, + SOB, No Dyspnea on Exertion, No Edema, No Palpitations Respiratory: No Cough, No Sputum, No Dyspnea Gastrointestinal: No Nausea, No Vomiting, No Diarrhea, No Constipation, No Abdominal pain Musculoskeletal: No joint pain, No Myalgias, No Joint Swelling Skin: No Skin Lesions, No rash Neuro: + Weakness, No Numbness, No Paresthesias, +Lightheadedness/ Dizziness, No Headache Yes all other systems are reviewed and are negative Neurologic: Denies Abnormal speech present PMFSH Past Medical History Attestation statement: The following information was validated with the patient. Medical History HTN (hypertension) Paroxysmal atrial fibrillation Sick sinus syndrome Surgical History History of back surgery History of tonsillectomy and adenoidectomy Hx of sinus surgery Family History Family History Father Lung cancer Mother Cancer Social History Social History Alcohol intake: current Alcohol intake frequency: holidays/special occasions only Patient Tobacco Use Status: Former Tobacco user Years Smoked: stopped 30 years ago Use of substances other than those prescribed or required for medical reasons: No Advance Directives: No Advance Directives Information Provided: No Physical Exam Vital Signs: Vital Signs: Last Vital Signs Temp 97.5 F 08/25/20 13:45 Pulse 83 08/25/20 15:41 Resp 18 08/25/20 14:31 BP 95/61 08/25/20 15:41 Pulse Ox 94 08/25/20 14:31 Body Mass Index 33.5 Const: General: cooperative, healthy appearing and no acute distress Orientation/consciousness: patient oriented x3 Limitations: no limitations HENMT: Head: Yes normal to inspection Ears: hearing grossly normal bilaterally General nose exam: Normal external nose present Face and sinus: Yes normal facial exam Eyes: General: appearance normal, both eyes and all related structures Pupils: Equal, round and reactive pupils present EOM: EOMs intact bilaterally Neck: Neck: Yes normal visual inspection and Yes no meningeal signs Resp: Effort & Inspection: normal respiratory effort Auscultation: clear to auscultation bilaterally, no rales, no rhonchi and no wheezes Cardio: Rate: tachycardic Rhythm: abnormal rhythm GI: Inspection: Yes normal to inspection Palpation (GI): Soft to palpation, nontender, no guarding and not rigid Skin: Rashes: no rashes Wounds: no wounds Neuro: General: patient oriented x3, gait normal, tone normal, moves all extremities, no meningeal signs, no focal motor deficits and CN's II-XI intact bilaterally Cranial nerves: Yes Equal, round and reactive pupils present Cognition (Neuro): normal cognition Speech: No Abnormal speech present Gait exam (Neuro): Normal gait present Motor exam (neuro): 5/5 motor strength present throughout and Pronator motor function not present Coordination: [id number] test normal Romberg Test: Negative Extrem: General: Yes normal to inspection, Yes no pedal edema and Yes no calf tenderness Course Course Course Narrative: Patient was given 20 mg of IV diet till as them with heart rate now ranging between 86-103. Patient hypotensive after administration of diltiazem, additional IVF ordered. Low concern for severe sepsis Contacted Dr. Vides make aware, he recommended admission -mild leukocytosis of 11.3, potassium low at 3.1 > p.o. repletion ordered, BUN elevated at 32, ALT mildly elevated at 48. Troponin negative. BNP mildly elevated at 260 XR chest 1V IMPRESSION: Stable enlargement of the cardiac silhouette. No evidence for acute disease in the chest. -1551-- very orthostatic MDM - Arrhythmia/Palpitations MDM Narrative Medical decision making narrative: 69-year-old female with a past medical history of HTN, proximal AFib on Cardizem and Xarelto, SSS, recently cardioverted on 08/01, presenting to the ED c/o generalized fatigue, lightheadedness since Tuesday noted to be in rapid AFib with RVR at [facility] [employer] sent to ED for further eval. Reports multiple near syncopal episodes over the past couple days. On exam in rapid AFib with RVR heart rate ranging between 120-150, NAD/nontoxic, lungs CTA, no pedal edema/calf tenderness, no focal neuro deficits. Concern for metabolic/infectious etiology vs ACS vs CHF Low concern for severe sepsis patient's vital sign abnormalities due to AFib Plan: EKG, labs, CXR, IV diltiazem, reassess Medical Records Attestation: I reviewed the patient's medical records. Lab Data Attestation: I reviewed the patient's lab results. Result diagrams: 08/25/20 14:21 08/25/20 14:21 Labs: Lab Results 08/25/20 08/25/20 08/25/20 Range/Units 14:21 14:21 14:21 WBC 11.3 H (4.8-10.8) X10*3/uL RBC 5.06 (4.60-5.80) X10*6/uL Hgb 16.4 (14.0-18.0) g/dl Hct 47.4 (42-52) % MCV 93.7 (80-98) fL MCH 32.4 (27.0-33.0) pg MCHC 34.6 (31.0-36.0) g/dl RDW 13.0 (11.0-16.0) % Plt Count 238 D (160-400) X10*3/uL MPV 11.6 (9.4-12.4) fL Immature Gran % (Auto) 1.1 H (0.0-0.4) % Neut % (Auto) 68.8 (45-73) % Lymph % (Auto) 21.6 (20-40) % Duval % (Auto) 6.4 (2-11) % Eos % (Auto) 1.1 (0-4) % Baso % (Auto) 1.0 (0-2) % Lymph # (Auto) 2.5 (1.2-4.9) X10*3/uL Duval # (Auto) 0.7 (0.1-1.2) X10*3/uL Eos # (Auto) 0.1 (0.0-0.4) X10*3/uL Baso # (Auto) 0.1 (0.0-0.2) X10*3/uL Abs Immat Gran (auto) 0.12 H (0.00-0.03) X10*3/uL Absolute Neuts (auto) 7.8 (2.0-8.3) X10*3/uL Absolute Nucleated RBC 0.000 (0.0-0.012) X10*3/uL Nucleated RBC % (auto) 0.0 (0.0-0.2) /100WBC PT 23.5 H (9.9-13.0) SEC INR 2.0 H (0.9-1.1) APTT 44.2 H (24.1-38.0) SEC Sodium 140 (135-145) mmol/L Potassium 3.1 L (3.3-5.1) mmol/L Chloride 101 (96-108) mmol/L Carbon Dioxide 28 (22-29) mmol/L Anion Gap 14 (12-20) BUN 32 H D (9-16) mg/dL Creatinine 1.40 (0.5-1.4) mg/dL Estim Creat Clear Calc 62.5 Estimated GFR 50 Random Glucose 120 H (60-115) mg/dL Calcium 9.4 D (8.4-10.2) mg/dL Magnesium 2.1 (1.6-2.6) mg/dL Total Bilirubin 1.0 (0.0-1.0) mg/dL Direct Bilirubin 0.4 (0.0-0.5) mg/dL AST 27 (5-37) U/L ALT 48 H (0-40) U/L Alkaline Phosphatase 73 (39-117) U/L Troponin I High Sens (<3.5-35.0) ng/L B-Natriuretic Peptide (<100) pg/mL Total Protein 6.9 (6.5-8.0) g/dL Albumin 4.1 (3.5-5.0) g/dL COVID-19 ([facility]) (Negative) COVID-19 Clin Com 08/25/20 08/25/20 Range/Units 14:21 14:55 WBC (4.8-10.8) X10*3/uL RBC (4.60-5.80) X10*6/uL Hgb (14.0-18.0) g/dl Hct (42-52) % MCV (80-98) fL MCH (27.0-33.0) pg MCHC (31.0-36.0) g/dl RDW (11.0-16.0) % Plt Count (160-400) X10*3/uL MPV (9.4-12.4) fL Immature Gran % (Auto) (0.0-0.4) % Neut % (Auto) (45-73) % Lymph % (Auto) (20-40) % Duval % (Auto) (2-11) % Eos % (Auto) (0-4) % Baso % (Auto) (0-2) % Lymph # (Auto) (1.2-4.9) X10*3/uL Duval # (Auto) (0.1-1.2) X10*3/uL Eos # (Auto) (0.0-0.4) X10*3/uL Baso # (Auto) (0.0-0.2) X10*3/uL Abs Immat Gran (auto) (0.00-0.03) X10*3/uL Absolute Neuts (auto) (2.0-8.3) X10*3/uL Absolute Nucleated RBC (0.0-0.012) X10*3/uL Nucleated RBC % (auto) (0.0-0.2) /100WBC PT (9.9-13.0) SEC INR (0.9-1.1) APTT (24.1-38.0) SEC Sodium (135-145) mmol/L Potassium (3.3-5.1) mmol/L Chloride (96-108) mmol/L Carbon Dioxide (22-29) mmol/L Anion Gap (12-20) BUN (9-16) mg/dL Creatinine (0.5-1.4) mg/dL Estim Creat Clear Calc Estimated GFR Random Glucose (60-115) mg/dL Calcium (8.4-10.2) mg/dL Magnesium (1.6-2.6) mg/dL Total Bilirubin (0.0-1.0) mg/dL Direct Bilirubin (0.0-0.5) mg/dL AST (5-37) U/L ALT (0-40) U/L Alkaline Phosphatase (39-117) U/L Troponin I High Sens < 3.5 (<3.5-35.0) ng/L B-Natriuretic Peptide 260 H (<100) pg/mL Total Protein (6.5-8.0) g/dL Albumin (3.5-5.0) g/dL COVID-19 ([facility]) Negative (Negative) COVID-19 Clin Com See Note Discharge Plan Discharge Prescriptions: No Action rivaroxaban 20 mg tablet 20 mg PO DAILY Qty: 30 RF: 5 amlodipine 2.5 mg tablet 2.5 mg PO DAILY Qty: 90 RF: 1 lidocaine 5 % adhesive patch,medicated 1 patch topical DAILY PRN (Reason: Pain) RF: 0 oxybutynin chloride 5 mg tablet extended release 24hr 1 tab PO QAM RF: 0 budesonide 0.5 mg/2 mL suspension for nebulization 1 amp inhalation BID RF: 0 ergocalciferol (vitamin D2) 1,250 mcg (50,000 unit) capsule 1 cap PO SA RF: 0 albuterol sulfate [ProAir HFA] 90 mcg/actuation HFA aerosol inhaler 2 puff PO Q4H PRN (Reason: wheezing) RF: 0 loratadine 10 mg tablet 1 tab PO DAILY RF: 0 diltiazem HCl 120 mg capsule,extended release 24 hr 120 mg PO DAILY Qty: 30 RF: 0 atorvastatin 10 mg tablet 10 mg PO DAILY RF: 0 gabapentin 300 mg capsule 300 mg PO DAILY RF: 0 hydrochlorothiazide 12.5 mg tablet 12.5 mg PO DAILY RF: 0 tamsulosin 0.4 mg capsule 0.4 mg PO DAILY RF: 0 fluoxetine 20 mg capsule 20 mg PO DAILY RF: 0 Narcan 4 mg/actuation spray,non-aerosol 4 mg intranasal DAILY PRN (Reason: Opioid Overdose) RF: 0 oxycodone-acetaminophen 7.5-325 mg tablet 1 tab PO Q12H RF: 0 budesonide-formoterol 160-4.5 mcg/actuation HFA aerosol inhaler 1 puff inhalation BID RF: 0
[2020-08-25] MEDS: 0.9 % Sodium Chloride 500 ML 999 ML IV ×2 (14:23→14:57)
[2020-08-25] MEDS: dilTIAZem HCL 50 MG/10 ML VIAL 20 MG IVPUSH (14:23)
[2020-08-25 14:38] LABS: MANUAL DIFF FLAG NO
[2020-08-25 14:39] LABS: Basophils Absolute Auto 0.1 X10*3/uL (0.0-0.2); Eosinophils Absolute Auto 0.1 X10*3/uL (0.0-0.4); Eosinophils Percent Auto 1.1 % (0-4); Hematocrit 47.4 % (42-52); Hemoglobin 16.4 g/dl (14.0-18.0); Imm Gran Abs Auto 0.12 X10*3/uL (0.00-0.03); Imm Gran Pct Auto 1.1 % (0.0-0.4); Lymphocytes Absolute Auto 2.5 X10*3/uL (1.2-4.9); Lymphocytes Percent Auto 21.6 % (20-40); Mean Corpuscular HGB Conc 34.6 g/dl (31.0-36.0); Mean Corpuscular Hemoglobin 32.4 pg (27.0-33.0); Mean Corpuscular Volume 93.7 fL (80-98); Mean Platelet Volume 11.6 fL (9.4-12.4); Monocytes Absolute Auto 0.7 X10*3/uL (0.1-1.2); Monocytes Percent Auto 6.4 % (2-11); Neutrophils Absolute Auto 7.8 X10*3/uL (2.0-8.3); Neutrophils Percent Auto 68.8 % (45-73); Platelet Count 238 X10*3/uL (160-400); Red Blood Count 5.06 X10*6/uL (4.60-5.80); White Blood Count 11.3 X10*3/uL (4.8-10.8)
[2020-08-25 14:45] LABS: Prothrombin Time 23.5 SEC (9.9-13.0)
[2020-08-25 14:48] LABS: Partial Thromboplastin Time 44.2 SEC (24.1-38.0)
[2020-08-25 15:01] LABS: Alanine Aminotransferase 48 U/L (0-40); Albumin Level 4.1 g/dL (3.5-5.0); Alkaline Phosphatase 73 U/L (39-117); Anion Gap 14 (12-20); Aspartate Amino Transferase 27 U/L (5-37); Bilirubin Direct 0.4 mg/dL (0.0-0.5); Blood Urea Nitrogen 32 mg/dL (9-16); Calcium 9.4 mg/dL (8.4-10.2); Carbon Dioxide 28 mmol/L (22-29); Chloride 101 mmol/L (96-108); Creatinine Clr Calc Pharmacy 62.5; Estimated Glomerular Filt Rate 50; Glucose Random 120 mg/dL (60-115); Magnesium 2.1 mg/dL (1.6-2.6); Potassium 3.1 mmol/L (3.3-5.1); Sodium 140 mmol/L (135-145); Total Protein 6.9 g/dL (6.5-8.0)
[2020-08-25 15:05] LABS: B Type Natriuretic Peptide 260 pg/mL (<100); Troponin-I High Sensitivity < 3.5 ng/L (<3.5-35.0)
[2020-08-25] MEDS: Potassium Chloride Packet 20 MEQ PACKET 40 MEQ PO (15:13)
[2020-08-25 15:26] LABS: COVID-19 Test Negative (Negative); IDNOW Serial# 9DD0AD1C
--- NOTE | 2020-08-25 15:28 | PHA.MEDREC ---
Pharmacy Consult ? Medication Reconciliation Pharmacy has completed the medication reconciliation. Patient unsure if taking Atorvastatin, diltiazem, budesonide nebulizer, and tamsulosin however he has recent fill history and he mentions that he takes any medication that has been filled. He only takes Gabapentin once daily, but think it should be TID. Raya Hope, PharmD
[2020-08-25 15:51] LABS: Glucose Urine UA NEG (NEG); Leukocyte Esterase Urine NEG (NEG); Nitrite Urine NEG (NEG); Specific Gravity - Urine 1.025 (1.005-1.025); Urine Blood NEG (NEG); Urine Ketones NEG (NEG); Urine Protein NEG (NEG-TRACE)
[2020-08-25 15:52] LABS: Appearance Urine CLEAR; Color Urine YELLOW
--- NOTE | 2020-08-25 17:39 | PM.IMHP ---
History of Present Illness Date of Service: 08/25/20 Chief Complaint: presyncope 69-year-old man presented to the ER with complaints of dizziness and feeling like he was going to pass out. He reports a history paroxysmal atrial fibrillation on Cardizem and Xarelto. He was recently cardioverted on August 01. He reports since Tuesday he has had generalized fatigue, dizziness and feeling like he was going to pass out as well as feeling off balance (this has been present for one year). He denied chest pain, nausea, vomiting, diarrhea. Did report some shortness of breath. Denied any loss of consciousness at any point. In the ER his heart rate ranged from 80s to low 150s and he was noted to be hypotensive with systolic blood pressure as low as 80s. He was given IV fluids and also given Cardizem IV for rapid heart rate. He was noted to have a low potassium of 3.1, other than that all his labs are within acceptable limits. Chest x-ray negative for consolidation effusion. COVID-19 negative. He be admitted for further management and treatment of atrial fibrillation with rapid ventricular response and hypotension. Review of Systems Review of Systems: Denies any recent fever chills or decrease in appetite respiratory denies any shortness of breath coverage production cardiovascular See HPI gastrointestinal denies any dysphagia abdominal pain nausea vomiting or diarrhea genitourinary denies any dysuria frequency or hematuria musculoskeletal denies any joint pain or swelling neuropsych denies any weakness or seizures all other systems reviewed are negative [facility] Medical History HTN (hypertension) Paroxysmal atrial fibrillation Sick sinus syndrome Family History Father Lung cancer Mother Cancer Surgical History History of back surgery History of tonsillectomy and adenoidectomy Hx of sinus surgery Social History Household Members: Spouse Housing: House Alcohol intake: current Alcohol intake frequency: holidays/special occasions only Patient Tobacco Use Status: Former Tobacco user Years Smoked: stopped 30 years ago Use of substances other than those prescribed or required for medical reasons: No Currently Displaying Signs/Symptoms of Drug Intoxication Withdrawal: No Have you been hit, kicked, punched, or otherwise hurt by someone within the past year? If so, by whom?: No Do you feel safe in your current relationship?: Yes Is there a partner from a previous relationship who is making you feel unsafe now?: No Are you made to feel afraid or neglected: No Advance Directives: No Advance Directives Information Provided: No Do you have thoughts of harming others: None Do you have a plan to hurt others: No Plan Recently lost weight without trying: Yes How much weight loss: 2-13 pounds Eating poorly because of decreased appetite: No Nutrition screen score: 3 Nutrition Risks: No Nutritional Risk service: No Meds Allergies Allergy/AdvReac Type Severity Reaction Status Date / Time No Known Allergies Allergy Verified 08/01/20 11:42 [No Known Allergies*] Active Medications: Current Medications Generic Name Dose Route Start Last Admin Trade Name Freq PRN Reason Stop Dose Admin Pharmacy Consult 1 each 08/25/20 14:49 Consult Rx Perform Med Rec MISCELLANE ONCE PRN Consult order Home Medications Medication Instructions Recorded Confirmed Last Taken Type atorvastatin 10 mg tablet 10 mg PO DAILY tab 12/13/19 08/25/20 Unknown History gabapentin 300 mg capsule 300 mg PO DAILY cap 12/13/19 08/25/20 08/25/20 History hydrochlorothiazide 12.5 mg tablet 12.5 mg PO DAILY tab 12/13/19 08/25/20 08/25/20 History tamsulosin 0.4 mg capsule 0.4 mg PO DAILY cap 12/13/19 08/25/20 08/25/20 History budesonide-formoterol HFA 160 1 puff INHALATION BID 07/21/20 08/25/20 Unknown History mcg-4.5 mcg/actuation aerosol inhaler fluoxetine 20 mg capsule 20 mg PO DAILY cap 07/21/20 08/25/20 08/25/20 History naloxone 4 mg/actuation nasal spray 4 mg INTRANASAL DAILY PRN 07/21/20 08/25/20 Unknown History oxycodone-acetaminophen 7.5 mg-325 1 tab PO Q12H 07/21/20 08/25/20 08/01/20 05:00 History mg tablet albuterol sulfate [ProAir HFA] 2 puff PO Q4H PRN 08/25/20 08/25/20 Unknown History budesonide 1 amp INHALATION BID 08/25/20 08/25/20 Unknown History ergocalciferol (vitamin D2) 1 cap PO SA 08/25/20 08/25/20 08/23/20 History lidocaine 1 patch TOPICAL DAILY PRN 08/25/20 08/25/20 Unknown History loratadine 1 tab PO DAILY 08/25/20 08/25/20 Unknown History oxybutynin chloride 1 tab PO QAM 08/25/20 08/25/20 08/25/20 History Physical Exam Vital Signs and Narrative: Vital Signs: Last Vital Signs Temp 97.5 F 08/25/20 13:45 Pulse 98 08/25/20 16:48 Resp 16 08/25/20 16:48 BP 110/63 08/25/20 16:48 Pulse Ox 95 08/25/20 16:48 Body Mass Index 33.5 Appearing in no acute distress head is normocephalic atraumatic eyes pupils are PERRLA sclera is anicteric mouth throat mucous membranes are intact and moist neck is supple no lymphadenopathy, no JVD noted lung sounds are clear to auscultation heart regular irregularly irregular positive bowel sounds, abdomen is soft, nontender neuro patient is alert x3, no focal deficits Results Labs CBC and Chem 7: 08/26/20 05:55 08/26/20 05:55 Labs: Laboratory Results - last 24 hr 08/25/20 08/25/20 08/25/20 14:21 14:21 14:21 MCV 93.7 MCH 32.4 MCHC 34.6 RDW 13.0 Plt Count 238 D MPV 11.6 Immature Gran % (Auto) 1.1 H Neut % (Auto) 68.8 Lymph % (Auto) 21.6 Gillespie % (Auto) 6.4 Eos % (Auto) 1.1 Baso % (Auto) 1.0 Lymph # (Auto) 2.5 Gillespie # (Auto) 0.7 Eos # (Auto) 0.1 Baso # (Auto) 0.1 Abs Immat Gran (auto) 0.12 H Absolute Neuts (auto) 7.8 Absolute Nucleated RBC 0.000 Nucleated RBC % (auto) 0.0 PT 23.5 H INR 2.0 H APTT 44.2 H Anion Gap 14 Estim Creat Clear Calc 62.5 Estimated GFR 50 Random Glucose 120 H Calcium 9.4 D Magnesium 2.1 Total Bilirubin 1.0 Direct Bilirubin 0.4 AST 27 ALT 48 H Alkaline Phosphatase 73 Troponin I High Sens B-Natriuretic Peptide Total Protein 6.9 Albumin 4.1 Urine Color Urine Appearance Urine pH Ur Specific Boyd Urine Protein Urine Glucose (UA) Urine Ketones Urine Blood Urine Nitrite Ur Leukocyte Esterase COVID-19 ([facility]) COVID-19 Clin Com 08/25/20 08/25/20 08/25/20 14:21 14:55 15:43 MCV MCH MCHC RDW Plt Count MPV Immature Gran % (Auto) Neut % (Auto) Lymph % (Auto) Gillespie % (Auto) Eos % (Auto) Baso % (Auto) Lymph # (Auto) Gillespie # (Auto) Eos # (Auto) Baso # (Auto) Abs Immat Gran (auto) Absolute Neuts (auto) Absolute Nucleated RBC Nucleated RBC % (auto) PT INR APTT Anion Gap Estim Creat Clear Calc Estimated GFR Random Glucose Calcium Magnesium Total Bilirubin Direct Bilirubin AST ALT Alkaline Phosphatase Troponin I High Sens < 3.5 B-Natriuretic Peptide 260 H Total Protein Albumin Urine Color YELLOW Urine Appearance CLEAR Urine pH 6.0 Ur Specific Boyd 1.025 Urine Protein NEG Urine Glucose (UA) NEG Urine Ketones NEG Urine Blood NEG Urine Nitrite NEG Ur Leukocyte Esterase NEG COVID-19 ([facility]) Negative COVID-19 Clin Com See Note Imaging Radiologist's Impressions: Impressions Chest X-Ray 08/25/20 14:07 IMPRESSION: Stable enlargement of the cardiac silhouette. No evidence for acute disease in the chest. Assessment and Plan (1) Atrial fibrillation with RVR: Status: Acute 69-year-old man admitted with atrial fibrillation with rapid ventricular response and noted to be hypotensive. Patient reports since Tuesday has had symptoms of feeling off balance and dizziness although the off balance feeling has been present for more than ER. He reports that he stopped drinking alcohol approximately 1 month ago. In the ER he was noted to be in atrial fibrillation with rapid ventricular response and given a dose of IV Cardizem. Atrial fibrillation with rapid ventricular response. Recent cardioversion on August 01. Noted to be in atrial fibrillation, heart rate little better controlled Continue Cardizem home dose consider Cardizem drip if he goes back into a rapid rate Cardiology to follow Echocardiogram continue rivaroxaban Hypotension. Will hold hydrochlorothiazide and amlodipine. Monitor blood pressure closely specially with administration of calcium channel kumar. Hypokalemia. Repleted in the ER Follow BMP. History of alcohol abuse. Patient reports his last drink was approximately 1 month ago Reports a history of feeling off balance over the last year denies more recent heavy alcohol abuse PT eval Obesity. BMI 33.5 Discussed the importance of weight loss as this may contribute to worsening of other comorbidities DVT prophylaxis with rivaroxaban Attending Dr. Moore Full code Quality Stroke Does the patient have a stroke diagnosis?: No VTE Prior VTE?: No VTE Risk Level:: Medical - moderate - high VTE Device Contraindication: Treatment Not Indicated VTE Drug Contraindication: N/A - Med Ordered
--- NOTE | 2020-08-25 18:30 | PM.EVENT ---
Event Note Date of Service: 08/25/20 Event Note: Patient seen examined case discussed with APC 69-year-old male with past medical history of HTN, proximal AFib on Cardizem and Xarelto, SSS, recently cardioverted on 08/01, presenting to the ED c/o generalized fatigue, lightheadedness, near syncopal episode, unsteady gait since Tuesday noted to be in rapid AFib with RVR in emergency room noted to have ventricular rate in 120-150 treated with IV Cardizem heart rate improved to 90s blood pressure dropped but stable On examination awake alert Lungs clear to auscultation Heart irregularly irregular Extremities no edema Assessment and plan Paroxysmal atrial fibrillation status post recent cardioversion presented with recurrent bout of atrial fibrillation with RVR/near syncopal episode, no evidence of acute coronary syndrome, no acute CHF patient also has history of unsteady gait for 1 year. Agree with above treatment plan as per APC will obtain orthostatic blood pressure, obtain TSH B12 folate rule out peripheral neuropathy, obtain care team eval for history of alcohol abuse question contributing to unsteady, further treatment plan as per Cardiology
[2020-08-26] VITALS (10 sets, daily range): BP systolic 120–137; BP diastolic 59–96; PULSE 78–113; RESP 17–20; TEMP 36.3–37.1; O2SAT 92–96
[2020-08-26] MEDS: 0.9 % Sodium Chloride Flush 3 ML SYRINGE IVFLUSH ×3 (00:13→16:44)
[2020-08-26 06:53] LABS: MANUAL DIFF FLAG NO
[2020-08-26 07:04] LABS: Basophils Absolute Auto 0.1 X10*3/uL (0.0-0.2); Eosinophils Absolute Auto 0.3 X10*3/uL (0.0-0.4); Hemoglobin 14.5 g/dl (14.0-18.0); Imm Gran Abs Auto 0.13 X10*3/uL (0.00-0.03); Imm Gran Pct Auto 1.5 % (0.0-0.4); Lymphocytes Absolute Auto 2.3 X10*3/uL (1.2-4.9); Lymphocytes Percent Auto 26.3 % (20-40); Mean Corpuscular HGB Conc 33.7 g/dl (31.0-36.0); Mean Corpuscular Hemoglobin 31.8 pg (27.0-33.0); Mean Corpuscular Volume 94.3 fL (80-98); Mean Platelet Volume 12.2 fL (9.4-12.4); Monocytes Absolute Auto 0.9 X10*3/uL (0.1-1.2); Monocytes Percent Auto 9.8 % (2-11); Neutrophils Absolute Auto 5.2 X10*3/uL (2.0-8.3); Neutrophils Percent Auto 58.4 % (45-73); Platelet Count 188 X10*3/uL (160-400); Red Blood Count 4.56 X10*6/uL (4.60-5.80); Red Cell Distribution Width 12.9 % (11.0-16.0); White Blood Count 8.9 X10*3/uL (4.8-10.8)
[2020-08-26 07:42] LABS: Anion Gap 12 (12-20); Blood Urea Nitrogen 21 mg/dL (9-16); Calcium 8.4 mg/dL (8.4-10.2); Carbon Dioxide 29 mmol/L (22-29); Chloride 103 mmol/L (96-108); Creatinine Clr Calc Pharmacy 87.5; Estimated Glomerular Filt Rate > 60; Glucose Random 90 mg/dL (60-115); Potassium 3.9 mmol/L (3.3-5.1); Sodium 140 mmol/L (135-145)
[2020-08-26 07:43] LABS: Thyroid Stimulating Hormone 1.05 uIU/mL (0.32-4.0)
[2020-08-26] MEDS: dilTIAZem HCL CD 120 MG CAP.ER.DEG PO (08:28)
[2020-08-26] MEDS: Rivaroxaban 20 MG TABLET PO (08:28)
[2020-08-26] MEDS: Gabapentin 300 MG CAPSULE PO (08:28)
[2020-08-26] MEDS: FLUoxetine HCl 20 MG CAPSULE PO (08:28)
[2020-08-26] MEDS: Loratadine 10 MG TABLET PO (08:28)
--- NOTE | 2020-08-26 09:30 | CA_ITS ---
Transthoracic Echocardiogram Patient (Last, First, Middle): Cirilo Ruiz A Gender: Male Date of : 1950 Age: 69 Procedure Date: 08/26/2020 Procedure Type: Transthoracic Echocardiogram Location: [facility] [place] Height: 182.88 cm Weight: 111.59 kg BSA: 2.33 m2 Heart Rate: bpm BP: 124 / 70 mmHg Lap Checker: CANDACE Smith MD: Vani Florian NP Protein Purification Scientist: Oziel Vides MD Symptoms: afib rvr Study Quality: Technically Difficult ECG Rhythm: Atrial Fibrillation Conclusions: - 1. Low normal LV ejection fraction with LVEF of 50-55% 2. Moderately dilated left atrium 3. Mild mitral regurgitation 4. Normal RV systolic pressure 5. No pericardial effusion Findings Left Ventricle Normal left ventricular cavity size. There is mildly increased left ventricular wall thickness. The left ventricular systolic function is low normal. The visually estimated ejection fraction is between 50-55%. Diastolic function is indeterminate on the basis of available data. Right Ventricle Mildly increased right ventricular cavity size. There is low normal right ventricular systolic function. Atria The left atrium is moderately dilated. Interatrial shunt cannot be excluded. The right atrium was not well visualized. Aortic Valve Normal aortic valve structure and function. There is no aortic valve stenosis. There is no aortic valve regurgitation. Mitral Valve There is mild anterior mitral leaflet thickening. There is mild mitral valve regurgitation. There is no mitral valve stenosis. Pulmonic Valve The pulmonic valve was not well visualized. Tricuspid Valve Likely normal tricuspid valve structure and function. There is trace tricuspid valve regurgitation. The right ventricular systolic pressure is normal. The right ventricular systolic pressure is 29 mmHg. Normal right atrial pressure. Great Vessels All visible segments of the aorta are normal in size. The pulmonary artery was not well visualized. Venous The inferior vena cava is normal in size and collapses greater than 50% with inspiration. Pericardium/Pleural There is no evidence of pericardial effusion. Prior Study Comparison Changes noted compared to prior study dated: 10/09/2019. LV systolic function is reduced to 50-55%. Left atrium appears moderately enlarged Measurements 2D Linear Measurements RVIDd: 3.30 RVIDd Index: 1.42 IVSd: 1.21 0.6-0.9/0.6-1.0 cm LVIDd: 5.09 3.9-5.3/4.2-5.9 cm LVIDd Index: 2.18 2.4-3.2/2.2-3.1 cm/m2 LVIDs: 3.77 2.0-3.6 cm LVPWd: 1.49 0.7-1.1 cm Ao Root: 3.60 2.1-3.5 cm LA Diam: 6.30 2.7-3.8/3.0-4.0 cm LAIDs Index: 2.70 1.5-2.3 cm/m2 LV Mass: 354.49 67-162/88-224 g LV Mass Index: 152.14 43-95/49-115 g/m2 LVOT Diam: 2.20 3.0+(-)1.3 cm 2D Systolic Function EF 4C: 53.20 >55% EF 2C: 46.00 >55% EF BiP: 49.70 >55% Aortic Valve AoV Pk Dex: 0.93 AoV Mn Dex: 0.81 AoV VTI: 0.18 AoV Pk Grad: 3.00 Aov Mn Grad: 3.00 VAIBHAV Cont.VTI: 2.32 LVOT LVOT Pk Dex: 0.59 LVOT Mn Dex: 0.40 LVOT VTI: 0.11 LVOT Pk Grad: 1.00 LVOT Mn Grad: 1.00 LVOT Diam: 2.20 LVOT Area: 3.80 Tricuspid Valve TR Pk Dex: 2.29 TR Pk Grad: 21.00 RA Press: 8.00 RVSP: 29.00 Great Vessels Aorta Ao Root-2D: 3.60 2.0-3.7 cm Ao Asc: 3.50 2.1-3.4 cm Ao Arch: 3.40 Updated in Other Vendor System with Status of Final Oziel Vides MD electronically signed on 08/26/2020 4:18:41 PM with status of Final
[2020-08-26 09:43] LABS: Folate 10.8 ng/mL (> or = 4.0); Vitamin B12 416 pg/mL (200-900)
--- NOTE | 2020-08-26 10:50 | PM.CNCAR ---
History of Present Illness History of Present Illness Date of Service: 08/26/20 Requesting physician: Vani Florian Consult reason: atrial fibrillation Chief complaint: AFIB RVR Narrative: I was requested to see Cirilo in cardiology consultation today for recurrent atrial fibrillation. He is a 69-year-old male with prior history of recurrent atrial fibrillation most recently cardioverted on 08/01/2020 for persistent difficult control atrial fibrillation with symptoms shortness of breath and fatigue. This last episode of atrial fibrillation seem to have been triggered by acute bronchitis for which she was treated. He never had significant overt congestive heart failure although his BMP on initial presentation with atrial fibrillation last time was mildly elevated. He comes to the hospital with symptoms of dizziness, near-syncope and may be palpitations he is not really clear about it. This symptoms started over the weekend. He says he has been drinking adequate amount of fluids. He has been taking amlodipine, Cardizem, hydrochlorothiazide as well as religiously taking Xarelto. He did not clearly over the weekend feel like his heart rate was in atrial fibrillation was monitored by his granddaughter with the nurse. But is not sure. He does feel rapid heart rate. Came to the hospital yesterday was noted to be in atrial fibrillation rapid ventricular response and with low blood pressure. He was hydrated and given IV Cardizem with better rate control. However still remains in atrial fibrillation and as soon as he got out of bed his heart rate up to 160 beats per minute. His amlodipine and hydrochlorothiazide have been appropriately withheld. He denies any lightheadedness currently. No orthopnea, PND, leg edema. No exertional chest pain. No full syncopal episodes. Review of Systems Constitutional: Constitutional: Denies body ache(s), Denies chills, Denies fever(s), Reports lethargy, Denies weight gain and Denies weight loss Cardiovascular: Cardiovascular: Denies chest pain, Reports irregular heart rhythm, Reports lightheadedness, Denies Loss of Consciousness and Reports dyspnea Respiratory: Respiratory: Reports cough, Denies excessive phlegm production and Reports dyspnea Gastrointestinal: Gastrointestinal: Reports no additional gastrointestinal complaints Genitourinary: Genitourinary: Reports no additional male genitourinary complaints Musculoskeletal: Musculoskeletal: Reports no additional musculoskeletal complaints Integumentary/Breasts: Skin/Breast: Reports system reviewed and no additional complaints, except as docu Neurologic: Reports system reviewed and no additional complaints, except as documented Psychiatric: Psychiatric: Reports no additional psychiatric complaints Endocrine: Endocrine: Reports no additional endocrine complaints Hematologic/Lymphatic: Hematologic/Lymphatic: Reports no additional hematologic/lymphatic complaints [facility] Past Medical History Medical History HTN (hypertension) Paroxysmal atrial fibrillation Sick sinus syndrome Family History Family History Father Lung cancer Mother Cancer Surgical History Surgical History History of back surgery History of tonsillectomy and adenoidectomy Hx of sinus surgery Social History Social History Household Members: Spouse Housing: House Alcohol intake: current Alcohol intake frequency: holidays/special occasions only Patient Tobacco Use Status: Former Tobacco user Years Smoked: stopped 30 years ago Use of substances other than those prescribed or required for medical reasons: No Currently Displaying Signs/Symptoms of Drug Intoxication Withdrawal: No Have you been hit, kicked, punched, or otherwise hurt by someone within the past year? If so, by whom?: No Do you feel safe in your current relationship?: Yes Is there a partner from a previous relationship who is making you feel unsafe now?: No Are you made to feel afraid or neglected: No Advance Directives: No Advance Directives Information Provided: No Do you have thoughts of harming others: None Do you have a plan to hurt others: No Plan Recently lost weight without trying: Yes How much weight loss: 2-13 pounds Eating poorly because of decreased appetite: No Nutrition screen score: 3 Nutrition Risks: No Nutritional Risk Meds Allergies Allergy/AdvReac Type Severity Reaction Status Date / Time No Known Allergies Allergy Verified 08/01/20 11:42 [No Known Allergies*] Active Medications: Current Medications Generic Name Dose Route Start Last Admin Trade Name Freq PRN Reason Stop Dose Admin Acetaminophen 650 mg 08/25/20 17:35 Acetaminophen 325 Mg Tablet PO Q6H PRN Pain, Mild (Pain Scale 1-3) Albuterol Sulfate 2 puff 08/25/20 17:36 Albuterol Sulfate 90 Mcg 8 Gm Inhaler INHALE Q4H PRN wheezing Albuterol/Ipratropium 1 ml 08/25/20 18:41 Albuterol/Iprat 2.5/0.5mg 3 Ml Ampul.Neb INHALE Q4H PRN Wheezing Atorvastatin Calcium 10 mg 08/26/20 21:00 Atorvastatin Calcium 10 Mg Tablet PO BEDTIME [facility] Diltiazem HCl 120 mg 08/26/20 09:00 08/26/20 08:28 Diltiazem Hcl Cd 120 Mg Cap.Er.Deg PO 120 mg DAILY RACHID Administration Protocol Dronedarone 400 mg 08/26/20 10:50 Dronedarone Hcl 400 Mg Tablet PO BID [facility] Ergocalciferol 1,250 mcg 08/30/20 09:00 Ergocalciferol (Vitamin D2) 1,250 Mcg Capsule PO SA [facility] Fluoxetine HCl 20 mg 08/26/20 09:00 08/26/20 08:28 Fluoxetine Hcl 20 Mg Capsule PO 20 mg DAILY [facility] Administration Fluticasone/Vilanterol 1 puff 08/26/20 08:00 08/26/20 08:13 Fluticasone/Vilanterol 200/25 Blst.W.Dev INHALE Not Given RDAILY [facility] Gabapentin 300 mg 08/26/20 09:00 08/26/20 08:28 Gabapentin 300 Mg Capsule PO 300 mg DAILY [facility] Administration Lidocaine 1 patch 08/25/20 17:46 Lidocaine 4 % Patch Adh..Patch TRANSDERMA DAILY PRN Pain Loratadine 10 mg 08/26/20 09:00 08/26/20 08:28 Loratadine 10 Mg Tablet PO 10 mg DAILY [facility] Administration Ondansetron HCl 4 mg 08/25/20 17:35 Ondansetron Hcl 4 Mg/2 Ml Vial IVPUSH Q8H PRN Nausea and Vomiting Oxycodone HCl 7.5 mg 08/25/20 17:50 Oxycodone Hcl Immed Release 5 Mg Tablet PO Q12H PRN Pain, Moderate (Pain Scale 4-6 Pharmacy Consult 1 each 08/25/20 14:49 Consult Rx Perform Med Rec MISCELLANE ONCE PRN Consult order Rivaroxaban 20 mg 08/26/20 09:00 08/26/20 08:28 Rivaroxaban 20 Mg Tablet PO 20 mg DAILY [facility] Administration Sodium Chloride 3 ml 08/26/20 00:00 08/26/20 08:28 0.9 % Sodium Chloride Flush 3 Ml Syringe IVFLUSH 3 ml QSHIFT [facility] Administration Tamsulosin HCl 0.4 mg 08/26/20 21:00 Tamsulosin Hcl 0.4 Mg Capsule PO BEDTIME [facility] Home Medications Medication Instructions Recorded Confirmed Last Taken Type atorvastatin 10 mg tablet 10 mg PO DAILY tab 12/13/19 08/25/20 Unknown History gabapentin 300 mg capsule 300 mg PO DAILY cap 12/13/19 08/25/20 08/25/20 History hydrochlorothiazide 12.5 mg tablet 12.5 mg PO DAILY tab 12/13/19 08/25/20 08/25/20 History tamsulosin 0.4 mg capsule 0.4 mg PO DAILY cap 12/13/19 08/25/20 08/25/20 History budesonide-formoterol HFA 160 1 puff INHALATION BID 07/21/20 08/25/20 Unknown History mcg-4.5 mcg/actuation aerosol inhaler fluoxetine 20 mg capsule 20 mg PO DAILY cap 07/21/20 08/25/20 08/25/20 History naloxone 4 mg/actuation nasal spray 4 mg INTRANASAL DAILY PRN 07/21/20 08/25/20 Unknown History oxycodone-acetaminophen 7.5 mg-325 1 tab PO Q12H 07/21/20 08/25/20 08/01/20 05:00 History mg tablet albuterol sulfate [ProAir HFA] 2 puff PO Q4H PRN 08/25/20 08/25/20 Unknown History budesonide 1 amp INHALATION BID 08/25/20 08/25/20 Unknown History ergocalciferol (vitamin D2) 1 cap PO SA 08/25/20 08/25/20 08/23/20 History lidocaine 1 patch TOPICAL DAILY PRN 08/25/20 08/25/20 Unknown History loratadine 1 tab PO DAILY 08/25/20 08/25/20 Unknown History oxybutynin chloride 1 tab PO QAM 08/25/20 08/25/20 08/25/20 History Physical Exam Vital Signs: Vital Signs: Last Vital Signs Temp 97.7 F 08/26/20 07:00 Pulse 97 08/26/20 09:30 Resp 18 08/26/20 07:00 BP 133/96 H 08/26/20 09:30 Pulse Ox 96 08/26/20 09:30 Body Mass Index 33.5 Const: General: cooperative, comfortable, no acute distress, alert and awake Nutritional Appearance: obese Orientation/consciousness: patient oriented x3 Limitations: no limitations HENMT: Head: Yes normocephalic and Yes atraumatic Neck: Neck: Yes trachea midline, Yes supple and Yes no JVD Resp: Effort & Inspection: normal respiratory effort Auscultation: clear to auscultation bilaterally and diminished lung sounds Cardio: Jugular venous distension: no JVD Palpation: normal PMI Rate: tachycardic Rhythm: abnormal rhythm irregularly irregular Heart sounds: S1 normal heart sound present and S2 normal heart sound present GI: Auscultation: normal bowel sounds Skin: General skin exam: no rashes or lesions noted Neuro: General: patient oriented x3 and no focal motor deficits Extrem: General: Yes no clubbing, cyanosis or edema Psych: Appearance: grossly normal Results Labs and Meds Result diagrams: 08/26/20 05:55 08/26/20 05:55 Lab results: Laboratory Results - last 24 hr 08/25/20 08/25/20 08/25/20 14:21 14:21 14:21 WBC 11.3 H RBC 5.06 Hgb 16.4 Hct 47.4 MCV 93.7 MCH 32.4 MCHC 34.6 RDW 13.0 Plt Count 238 D MPV 11.6 Immature Gran % (Auto) 1.1 H Neut % (Auto) 68.8 Lymph % (Auto) 21.6 [place] % (Auto) 6.4 Eos % (Auto) 1.1 Baso % (Auto) 1.0 Lymph # (Auto) 2.5 [place] # (Auto) 0.7 Eos # (Auto) 0.1 Baso # (Auto) 0.1 Abs Immat Gran (auto) 0.12 H Absolute Neuts (auto) 7.8 Absolute Nucleated RBC 0.000 Nucleated RBC % (auto) 0.0 PT 23.5 H INR 2.0 H APTT 44.2 H Sodium 140 Potassium 3.1 L Chloride 101 Carbon Dioxide 28 Anion Gap 14 BUN 32 H D Creatinine 1.40 Estim Creat Clear Calc 62.5 Estimated GFR 50 Random Glucose 120 H Calcium 9.4 D Magnesium 2.1 Total Bilirubin 1.0 Direct Bilirubin 0.4 AST 27 ALT 48 H Alkaline Phosphatase 73 Troponin I High Sens B-Natriuretic Peptide Total Protein 6.9 Albumin 4.1 Vitamin B12 Folate TSH Urine Color Urine Appearance Urine pH Ur Specific [place] Urine Protein Urine Glucose (UA) Urine Ketones Urine Blood Urine Nitrite Ur Leukocyte Esterase COVID-19 ([facility]) COVID-19 Clin Com 08/25/20 08/25/20 08/25/20 14:21 14:55 15:43 WBC RBC Hgb Hct MCV MCH MCHC RDW Plt Count MPV Immature Gran % (Auto) Neut % (Auto) Lymph % (Auto) [place] % (Auto) Eos % (Auto) Baso % (Auto) Lymph # (Auto) [place] # (Auto) Eos # (Auto) Baso # (Auto) Abs Immat Gran (auto) Absolute Neuts (auto) Absolute Nucleated RBC Nucleated RBC % (auto) PT INR APTT Sodium Potassium Chloride Carbon Dioxide Anion Gap BUN Creatinine Estim Creat Clear Calc Estimated GFR Random Glucose Calcium Magnesium Total Bilirubin Direct Bilirubin AST ALT Alkaline Phosphatase Troponin I High Sens < 3.5 B-Natriuretic Peptide 260 H Total Protein Albumin Vitamin B12 Folate TSH Urine Color YELLOW Urine Appearance CLEAR Urine pH 6.0 Ur Specific [place] 1.025 Urine Protein NEG Urine Glucose (UA) NEG Urine Ketones NEG Urine Blood NEG Urine Nitrite NEG Ur Leukocyte Esterase NEG COVID-19 ([facility]NA) Negative COVID-19 Clin Com See Note 08/26/20 08/26/20 08/26/20 05:55 05:55 05:55 WBC 8.9 RBC 4.56 L Hgb 14.5 Hct 43.0 MCV 94.3 MCH 31.8 MCHC 33.7 RDW 12.9 Plt Count 188 MPV 12.2 Immature Gran % (Auto) 1.5 H Neut % (Auto) 58.4 Lymph % (Auto) 26.3 [place] % (Auto) 9.8 Eos % (Auto) 3.0 Baso % (Auto) 1.0 Lymph # (Auto) 2.3 [place] # (Auto) 0.9 Eos # (Auto) 0.3 Baso # (Auto) 0.1 Abs Immat Gran (auto) 0.13 H Absolute Neuts (auto) 5.2 Absolute Nucleated RBC 0.000 Nucleated RBC % (auto) 0.0 PT INR APTT Sodium 140 Potassium 3.9 D Chloride 103 Carbon Dioxide 29 Anion Gap 12 BUN 21 H Creatinine 1.00 Estim Creat Clear Calc 87.5 Estimated GFR > 60 Random Glucose 90 Calcium 8.4 D Magnesium Total Bilirubin Direct Bilirubin AST ALT Alkaline Phosphatase Troponin I High Sens B-Natriuretic Peptide Total Protein Albumin Vitamin B12 Folate TSH 1.05 Urine Color Urine Appearance Urine pH Ur Specific [place] Urine Protein Urine Glucose (UA) Urine Ketones Urine Blood Urine Nitrite Ur Leukocyte Esterase COVID-19 (MENA) COVID-19 Clin Com 08/26/20 05:55 WBC RBC Hgb Hct MCV MCH MCHC RDW Plt Count MPV Immature Gran % (Auto) Neut % (Auto) Lymph % (Auto) [place] % (Auto) Eos % (Auto) Baso % (Auto) Lymph # (Auto) [place] # (Auto) Eos # (Auto) Baso # (Auto) Abs Immat Gran (auto) Absolute Neuts (auto) Absolute Nucleated RBC Nucleated RBC % (auto) PT INR APTT Sodium Potassium Chloride Carbon Dioxide Anion Gap BUN Creatinine Estim Creat Clear Calc Estimated GFR Random Glucose Calcium Magnesium Total Bilirubin Direct Bilirubin AST ALT Alkaline Phosphatase Troponin I High Sens B-Natriuretic Peptide Total Protein Albumin Vitamin B12 416 Folate 10.8 TSH Urine Color Urine Appearance Urine pH Ur Specific [place] Urine Protein Urine Glucose (UA) Urine Ketones Urine Blood Urine Nitrite Ur Leukocyte Esterase COVID-19 (MENA) COVID-19 Clin Com EKG shows atrial fibrillation rapid ventricular response with suggestion of infra posterior infarct Imaging Radiologist's impression: Impressions Chest X-Ray 08/25/20 14:07 IMPRESSION: Stable enlargement of the cardiac silhouette. No evidence for acute disease in the chest. Assessment and Plan (1) Near syncope: Status: Acute Near syncope which appears to be secondary to over corrected blood pressure as well as atrial fibrillation rapid ventricular response. He has been hydrated. Would agree with discontinuing hydrochlorothiazide as amlodipine in the group home. He is already on Cardizem therapy and there is no role for additional amlodipine therapy. Advised to maintain adequate hydration. Avoid alcohol and caffeine use. This was discussed with him. His blood pressure is currently optimal. (2) Atrial fibrillation with RVR: Status: Acute Recurrent atrial fibrillation with rapid ventricular response with possible symptoms of dizziness as near-syncope and low blood pressure as well as shortness of breath. Difficult control rate and recurrent atrial fibrillation despite Cardizem therapy. He does have mild left atrial enlargement and this recurrent atrial fibrillation most suggestive resistant atrial fibrillation. Will most likely require antiarrhythmic drug therapy to support rhythm control. Given his EKG although he had normal myocardial perfusion imaging in 2018 will prefer to use Multaq for rhythm control. Will start Multaq today. Plan for synchronized cardioversion tomorrow after initiation of Multaq therapy. This was discussed with him. He was not very happy overall due to recurrent atrial fibrillation but understands and agrees. Risks, benefits, alternatives 2nd opinion pursue was discussed. Continue Xarelto. Will continue Cardizem for now, post cardioversion will most likely require discontinuation Cardizem therapy due to prior history of bradycardia. Will follow-up closely. Workup for sleep apnea. His BNP is elevated most likely due to recurrent atrial fibrillation. Will follow with the patient. Thank you for allowing me to partake in his care Procedures Date of Service Date of Service: 08/26/20
--- NOTE | 2020-08-26 11:18 | MHC.CM.PN ---
met with pt who prior to admission had albert and jamarcus garciais thru [facility] he does not feel addiotnal services will be needed
[2020-08-26] MEDS: Dronedarone HCl 400 MG TABLET PO ×2 (12:31→20:49)
--- NOTE | 2020-08-26 14:59 | P.PNIM_ITS ---
Subjective Subjective Date of Service: 08/26/20 <Vani Florian NP - Last Filed: 08/26/20 15:07> 08/26/20 <Michael Ruelas MD - Last Filed: 08/26/20 15:12> Interval History: Follow up afib rvr Feeling fine today Still with afib and high hr <Vani Florian NP - Last Filed: 08/26/20 15:07> Physical Exam Vital Signs: Vital Signs: Last Vital Signs Temp 97.8 F 08/26/20 11:08 Pulse 113 H 08/26/20 11:08 Resp 20 08/26/20 11:08 BP 120/59 L 08/26/20 11:08 Pulse Ox 95 08/26/20 11:08 Body Mass Index 33.5 <Vani Florian NP - Last Filed: 08/26/20 15:07> Appearing in no acute distress lung sounds are clear to auscultation heart IRIR positive bowel sounds, abdomen is soft, nontender neuro patient is alert x3, no focal deficits <Vani Florian NP - Last Filed: 08/26/20 15:07> Objective Data Current Medications Generic Name Dose Route Start Last Admin Trade Name Freq PRN Reason Stop Dose Admin Acetaminophen 650 mg 08/25/20 17:35 Acetaminophen 325 Mg Tablet PO Q6H PRN Pain, Mild (Pain Scale 1-3) Albuterol Sulfate 2 puff 08/25/20 17:36 Albuterol Sulfate 90 Mcg 8 Gm Inhaler INHALE Q4H PRN wheezing Albuterol/Ipratropium 1 ml 08/25/20 18:41 Albuterol/Iprat 2.5/0.5mg 3 Ml Ampul.Neb INHALE Q4H PRN Wheezing Atorvastatin Calcium 10 mg 08/26/20 21:00 Atorvastatin Calcium 10 Mg Tablet PO BEDTIME RACHID Diltiazem HCl 120 mg 08/26/20 09:00 08/26/20 08:28 Diltiazem Hcl Cd 120 Mg Cap.Er.Deg PO 120 mg DAILY RACHID Administration Protocol Dronedarone 400 mg 08/26/20 10:50 08/26/20 12:31 Dronedarone Hcl 400 Mg Tablet PO 400 mg BID RACHID Administration Ergocalciferol 1,250 mcg 08/30/20 09:00 Ergocalciferol (Vitamin D2) 1,250 Mcg Capsule PO SA [facility] Fluoxetine HCl 20 mg 08/26/20 09:00 08/26/20 08:28 Fluoxetine Hcl 20 Mg Capsule PO 20 mg DAILY RACHID Administration Fluticasone/Vilanterol 1 puff 08/26/20 08:00 08/26/20 08:13 Fluticasone/Vilanterol 200/25 Blst.W.Dev INHALE Not Given RDAILY [facility] Gabapentin 300 mg 08/26/20 09:00 08/26/20 08:28 Gabapentin 300 Mg Capsule PO 300 mg DAILY RACHID Administration Lidocaine 1 patch 08/25/20 17:46 Lidocaine 4 % Patch Adh..Patch TRANSDERMA DAILY PRN Pain Loratadine 10 mg 08/26/20 09:00 08/26/20 08:28 Loratadine 10 Mg Tablet PO 10 mg DAILY RACHID Administration Oxycodone HCl 7.5 mg 08/25/20 17:50 Oxycodone Hcl Immed Release 5 Mg Tablet PO Q12H PRN Pain, Moderate (Pain Scale 4-6 Pharmacy Consult 1 each 08/25/20 14:49 Consult Rx Perform Med Rec MISCELLANE ONCE PRN Consult order Rivaroxaban 20 mg 08/26/20 09:00 08/26/20 08:28 Rivaroxaban 20 Mg Tablet PO 20 mg DAILY [facility] Administration Sodium Chloride 3 ml 08/26/20 00:00 08/26/20 08:28 0.9 % Sodium Chloride Flush 3 Ml Syringe IVFLUSH 3 ml QSHIFT [facility] Administration Tamsulosin HCl 0.4 mg 08/26/20 21:00 Tamsulosin Hcl 0.4 Mg Capsule PO BEDTIME [facility] <Vani Florian NP - Last Filed: 08/26/20 15:07> Labs CBC & Chem 7: : 08/26/20 05:55 08/26/20 05:55 <Vani Florian NP - Last Filed: 08/26/20 15:07> Labs: Laboratory Results - last 24 hr 08/25/20 08/25/20 08/25/20 14:21 14:21 14:55 MCV MCH MCHC RDW Plt Count MPV Immature Gran % (Auto) Neut % (Auto) Lymph % (Auto) [place] % (Auto) Eos % (Auto) Baso % (Auto) Lymph # (Auto) [place] # (Auto) Eos # (Auto) Baso # (Auto) Abs Immat Gran (auto) Absolute Neuts (auto) Absolute Nucleated RBC Nucleated RBC % (auto) Anion Gap 14 Estim Creat Clear Calc 62.5 Estimated GFR 50 Random Glucose 120 H Calcium 9.4 D Magnesium 2.1 Total Bilirubin 1.0 Direct Bilirubin 0.4 AST 27 ALT 48 H Alkaline Phosphatase 73 Troponin I High Sens < 3.5 B-Natriuretic Peptide 260 H Total Protein 6.9 Albumin 4.1 Vitamin B12 Folate TSH Urine Color Urine Appearance Urine pH Ur Specific [place] Urine Protein Urine Glucose (UA) Urine Ketones Urine Blood Urine Nitrite Ur Leukocyte Esterase COVID-19 (MENA) Negative COVID-19 Clin Com See Note 08/25/20 08/26/20 08/26/20 15:43 05:55 05:55 MCV 94.3 MCH 31.8 MCHC 33.7 RDW 12.9 Plt Count 188 MPV 12.2 Immature Gran % (Auto) 1.5 H Neut % (Auto) 58.4 Lymph % (Auto) 26.3 [place] % (Auto) 9.8 Eos % (Auto) 3.0 Baso % (Auto) 1.0 Lymph # (Auto) 2.3 [place] # (Auto) 0.9 Eos # (Auto) 0.3 Baso # (Auto) 0.1 Abs Immat Gran (auto) 0.13 H Absolute Neuts (auto) 5.2 Absolute Nucleated RBC 0.000 Nucleated RBC % (auto) 0.0 Anion Gap 12 Estim Creat Clear Calc 87.5 Estimated GFR > 60 Random Glucose 90 Calcium 8.4 D Magnesium Total Bilirubin Direct Bilirubin AST ALT Alkaline Phosphatase Troponin I High Sens B-Natriuretic Peptide Total Protein Albumin Vitamin B12 Folate TSH Urine Color YELLOW Urine Appearance CLEAR Urine pH 6.0 Ur Specific [place] 1.025 Urine Protein NEG Urine Glucose (UA) NEG Urine Ketones NEG Urine Blood NEG Urine Nitrite NEG Ur Leukocyte Esterase NEG COVID-19 (MENA) COVID-19 Clin Com 08/26/20 08/26/20 05:55 05:55 MCV MCH MCHC RDW Plt Count MPV Immature Gran % (Auto) Neut % (Auto) Lymph % (Auto) [place] % (Auto) Eos % (Auto) Baso % (Auto) Lymph # (Auto) [place] # (Auto) Eos # (Auto) Baso # (Auto) Abs Immat Gran (auto) Absolute Neuts (auto) Absolute Nucleated RBC Nucleated RBC % (auto) Anion Gap Estim Creat Clear Calc Estimated GFR Random Glucose Calcium Magnesium Total Bilirubin Direct Bilirubin AST ALT Alkaline Phosphatase Troponin I High Sens B-Natriuretic Peptide Total Protein Albumin Vitamin B12 416 Folate 10.8 TSH 1.05 Urine Color Urine Appearance Urine pH Ur Specific [place] Urine Protein Urine Glucose (UA) Urine Ketones Urine Blood Urine Nitrite Ur Leukocyte Esterase COVID-19 (MENA) COVID-19 Clin Com <Vani Florian NP - Last Filed: 08/26/20 15:07> Progress Note: A&P (1) Near syncope: Status: Acute <Vani Florian NP - Last Filed: 08/26/20 15:07> (2) Orthostatic hypotension: Status: Acute <Vani Florian NP - Last Filed: 08/26/20 15:07> Assessment and Plan: 69-year-old man admitted with atrial fibrillation with rapid ventricular response and noted to be hypotensive. Patient reports since Tuesday has had symptoms of feeling off balance and dizziness although the off balance feeling has been present for more than ER. He reports that he stopped drinking alcohol approximately 1 month ago. In the ER he was noted to be in atrial fibrillation with rapid ventricular response and given a dose of IV Cardizem. Atrial fibrillation with rapid ventricular response. Recent cardioversion on August 01. Noted to be in atrial fibrillation, heart rate little better controlled Continue Cardizem home dose, likely dc after cardioversion Multaq started cardioversion tomorrow, NPO continue rivaroxaban Hypotension. stable now Will hold hydrochlorothiazide and amlodipine. Monitor blood pressure closely specially with administration of calcium channel kumar. Hypokalemia. Repleted in the ER Follow BMP. History of alcohol abuse. Patient reports his last drink was approximately 1 month ago Reports a history of feeling off balance over the last year denies more recent heavy alcohol abuse PT eval Obesity. BMI 33.5 Discussed the importance of weight loss as this may contribute to worsening of other comorbidities DVT prophylaxis with rivaroxaban Attending Dr. Ruelas Full code <Vani Florian NP - Last Filed: 08/26/20 15:07> (3) Atrial fibrillation with RVR: Status: Acute <Vani Florian NP - Last Filed: 08/26/20 15:07> Assessment and Plan: I saw and examined patient and discussed finding, assessment, plan and disposition with mario and aries I agree with the above, except as otherwise stated <Michael Ruelas MD - Last Filed: 08/26/20 15:12> Quality Stroke Does the patient have a stroke diagnosis?: No <Vani Florian NP - Last Filed: 08/26/20 15:07> VTE Prior VTE?: No <Vani Florian NP - Last Filed: 08/26/20 15:07> VTE Risk Level:: Medical - moderate - high <Vani Florian NP - Last Filed: 08/26/20 15:07> VTE Device Contraindication: Treatment Not Indicated <Vani Florian NP - Last Filed: 08/26/20 1 5:07> VTE Drug Contraindication: N/A - Med Ordered <Vani Florian NP - Last Filed: 08/26/20 15:07>
[2020-08-26] MEDS: guaiFENesin 100 MG/5 ML LIQUID PO (18:01)
[2020-08-26] MEDS: Tamsulosin HCL 0.4 MG CAPSULE PO (20:49)
[2020-08-26] MEDS: Atorvastatin Calcium 10 MG TABLET PO (20:49)
[2020-08-27] VITALS (11 sets, daily range): BP systolic 99–143; BP diastolic 45–87; PULSE 52–95; RESP 17–20; TEMP 36.1–36.8; O2SAT 92–97
[2020-08-27] MEDS: 0.9 % Sodium Chloride Flush 3 ML SYRINGE IVFLUSH ×2 (00:01→10:34)
[2020-08-27 06:28] LABS: Hematocrit 40.5 % (42-52); Hemoglobin 13.7 g/dl (14.0-18.0); Mean Corpuscular HGB Conc 33.8 g/dl (31.0-36.0); Mean Corpuscular Hemoglobin 32.1 pg (27.0-33.0); Mean Corpuscular Volume 94.8 fL (80-98); Mean Platelet Volume 11.9 fL (9.4-12.4); Platelet Count 186 X10*3/uL (160-400); Red Blood Count 4.27 X10*6/uL (4.60-5.80); Red Cell Distribution Width 12.9 % (11.0-16.0); White Blood Count 8.9 X10*3/uL (4.8-10.8)
[2020-08-27 07:02] LABS: Anion Gap 13 (12-20); Blood Urea Nitrogen 19 mg/dL (9-16); Calcium 8.4 mg/dL (8.4-10.2); Carbon Dioxide 28 mmol/L (22-29); Chloride 104 mmol/L (96-108); Creatinine Clr Calc Pharmacy 86.6; Estimated Glomerular Filt Rate > 60; Glucose Random 93 mg/dL (60-115); Potassium 3.5 mmol/L (3.3-5.1); Sodium 141 mmol/L (135-145)
[2020-08-27] MEDS: Loratadine 10 MG TABLET PO (10:33)
[2020-08-27] MEDS: dilTIAZem HCL CD 120 MG CAP.ER.DEG PO (10:33)
[2020-08-27] MEDS: Gabapentin 300 MG CAPSULE PO (10:33)
[2020-08-27] MEDS: Dronedarone HCl 400 MG TABLET PO (10:33)
[2020-08-27] MEDS: FLUoxetine HCl 20 MG CAPSULE PO (10:33)
[2020-08-27] MEDS: Rivaroxaban 20 MG TABLET PO (10:33)
--- NOTE | 2020-08-27 11:28 | P.PNCA_ITS ---
Subjective Subjective Date of Service: 08/27/20 Principal diagnosis: Near syncope, atrial fibrillation Interval history: Patient does not have any more symptoms of lightheadedness or feeling like is going to pass out. Atrial fibrillation is persistent and with occasional rapid ventricular response especially when he is moving around. Blood pressure is stabilized. Denies any new neurologic symptoms. Review of Systems Constitutional: Reports no additional constitutional complaints Cardiovascular: Reports no additional cardiovascular complaints Respiratory: Reports no additional respiratory complaints Gastrointestinal: Reports no additional gastrointestinal complaints Reports system reviewed and no additional complaints, except as documented Psychiatric: Reports no additional psychiatric complaints Physical Exam Vital Signs: Last Vital Signs Temp 97.1 F 08/27/20 11:22 Pulse 72 08/27/20 11:22 Resp 20 08/27/20 11:22 BP 129/84 08/27/20 11:22 Pulse Ox 92 08/27/20 11:22 Body Mass Index 33.5 Const General: cooperative, comfortable, no acute distress, alert and awake Nutritional Appearance: obese Orientation/consciousness: patient oriented x3 Neck Neck: Yes trachea midline, Yes supple and Yes no JVD Resp Effort & Inspection: normal respiratory effort Cardio Jugular venous distension: no JVD Rate: tachycardic Rhythm: abnormal rhythm irregularly irregular Heart sounds: S1 normal heart sound present and S2 normal heart sound present GI Auscultation: normal bowel sounds Skin General skin exam: no rashes or lesions noted Neuro General: patient oriented x3 Extrem General: Yes pedal edema Results Labs and Meds Result diagrams: 08/27/20 05:14 08/27/20 05:14 Lab results: Laboratory Results - last 24 hr 08/27/20 08/27/20 05:14 05:14 WBC 8.9 RBC 4.27 L Hgb 13.7 L Hct 40.5 L MCV 94.8 MCH 32.1 MCHC 33.8 RDW 12.9 Plt Count 186 MPV 11.9 Absolute Nucleated RBC 0.000 Nucleated RBC % (auto) 0.0 Sodium 141 Potassium 3.5 Chloride 104 Carbon Dioxide 28 Anion Gap 13 BUN 19 H Creatinine 1.01 Estim Creat Clear Calc 86.6 Estimated GFR > 60 Random Glucose 93 Calcium 8.4 Progress Note: A&P Assessment and plan (1) Near syncope: Status: Acute Assessment and Plan: Near syncope due to low blood pressure probably due to dehydration and over medication. Hydrochlorothiazide amlodipine on hold. Continue to hold them on discharge. Will most likely require antihypertensive therapy with Cardizem on discharge unless he develops bradycardia post cardioversion. Will follow closely. Adequate hydration needs to be maintained. (2) Atrial fibrillation with RVR: Status: Acute Assessment and Plan: Persistent atrial fibrillation rapid ventricular response which is not tolerate in the past. Scheduled for cardioversion later today. Continue Multaq. Continue full oral anticoagulation with Xarelto. Risk and benefits of cardioversion were discussed with him. He understands agrees. Will follow the patient. Fall Risk Details Current Medications: Current Medications Generic Name Dose Route Start Last Admin Trade Name Freq PRN Reason Stop Dose Admin Acetaminophen 650 mg 08/25/20 17:35 Acetaminophen 325 Mg Tablet PO Q6H PRN Pain, Mild (Pain Scale 1-3) Albuterol Sulfate 2 puff 08/25/20 17:36 Albuterol Sulfate 90 Mcg 8 Gm Inhaler INHALE Q4H PRN wheezing Albuterol/Ipratropium 1 ml 08/25/20 18:41 Albuterol/Iprat 2.5/0.5mg 3 Ml Ampul.Neb INHALE Q4H PRN Wheezing Atorvastatin Calcium 10 mg 08/26/20 21:00 08/26/20 20:49 Atorvastatin Calcium 10 Mg Tablet PO 10 mg BEDTIME RACHID Administration Diltiazem HCl 120 mg 08/26/20 09:00 08/27/20 10:33 Diltiazem Hcl Cd 120 Mg Cap.Er.Deg PO 120 mg DAILY RACHID Administration Protocol Dronedarone 400 mg 08/26/20 10:50 08/27/20 10:33 Dronedarone Hcl 400 Mg Tablet PO 400 mg BID RACHID Administration Ergocalciferol 1,250 mcg 08/30/20 09:00 Ergocalciferol (Vitamin D2) 1,250 Mcg Capsule PO SA [facility] Fluoxetine HCl 20 mg 08/26/20 09:00 08/27/20 10:33 Fluoxetine Hcl 20 Mg Capsule PO 20 mg DAILY RACHID Administration Fluticasone/Vilanterol 1 puff 08/26/20 08:00 08/27/20 07:40 Fluticasone/Vilanterol 200/25 Blst.W.Dev INHALE Not Given RDAILY [facility] Gabapentin 300 mg 08/26/20 09:00 08/27/20 10:33 Gabapentin 300 Mg Capsule PO 300 mg DAILY RACHID Administration Guaifenesin 5 ml 08/26/20 17:48 08/26/20 18:01 Guaifenesin 100 Mg/5 Ml Liquid PO 5 ml Q6H PRN Administration Cough Lidocaine 1 patch 08/25/20 17:46 Lidocaine 4 % Patch Adh..Patch TRANSDERMA DAILY PRN Pain Loratadine 10 mg 08/26/20 09:00 08/27/20 10:33 Loratadine 10 Mg Tablet PO 10 mg DAILY RACHID Administration Oxycodone HCl 7.5 mg 08/25/20 17:50 Oxycodone Hcl Immed Release 5 Mg Tablet PO Q12H PRN Pain, Moderate (Pain Scale 4-6 Pharmacy Consult 1 each 08/25/20 14:49 Consult Rx Perform Med Rec MISCELLANE ONCE PRN Consult order Rivaroxaban 20 mg 08/26/20 09:00 08/27/20 10:33 Rivaroxaban 20 Mg Tablet PO 20 mg DAILY RACHID Administration Sodium Chloride 3 ml 08/26/20 00:00 08/27/20 10:34 0.9 % Sodium Chloride Flush 3 Ml Syringe IVFLUSH 3 ml QSHIFT RACHID Administration Tamsulosin HCl 0.4 mg 08/26/20 21:00 08/26/20 20:49 Tamsulosin Hcl 0.4 Mg Capsule PO 0.4 mg BEDTIME RACHID Administration Time Spent With Patient Time: Total time spent is greater than 50% in coordination of care (as documented) at patient's floor/unit and/or counseling patient: Time with patient: 15 - 24 minutes Progress Note: Quality Stroke Does the patient have a stroke diagnosis?: No Procedures Date of Service Date of Service: 08/27/20
--- NOTE | 2020-08-27 13:54 | HO.ANESPROP2 ---
HPI - Anesthesia Eval Consult details Narrative: afib [facility] Active Problems Active Problems: All Active Problems (Updated 08/26/20 @ 10:58 by Oziel Vides MD) Near syncope (Acute) Orthostatic hypotension (Acute) SOB (shortness of breath) (Acute) Atrial fibrillation with RVR (Acute) Sick sinus syndrome (Acute) Paroxysmal atrial fibrillation (Acute) HTN (hypertension) (Acute) Past Medical History Medical History HTN (hypertension) Paroxysmal atrial fibrillation Sick sinus syndrome Family History Family History Father Lung cancer Mother Cancer Surgical History Surgical History History of back surgery History of tonsillectomy and adenoidectomy Hx of sinus surgery Social History Social History Household Members: Spouse Housing: House Alcohol intake: current Alcohol intake frequency: holidays/special occasions only Patient Tobacco Use Status: Former Tobacco user Years Smoked: stopped 30 years ago Use of substances other than those prescribed or required for medical reasons: No Currently Displaying Signs/Symptoms of Drug Intoxication Withdrawal: No Have you been hit, kicked, punched, or otherwise hurt by someone within the past year? If so, by whom?: No Do you feel safe in your current relationship?: Yes Is there a partner from a previous relationship who is making you feel unsafe now?: No Are you made to feel afraid or neglected: No Are you DNR?: No Advance Directives: No Advance Directives Information Provided: No Do you have thoughts of harming others: None Do you have a plan to hurt others: No Plan Recently lost weight without trying: No How much weight loss: 2-13 pounds Eating poorly because of decreased appetite: No Nutrition screen score: 1 Nutrition Risks: No Nutritional Risk service: No Meds Allergies Allergy/AdvReac Type Severity Reaction Status Date / Time No Known Allergies Allergy Verified 08/01/20 11:42 [No Known Allergies*] Active Medications: Current Medications Generic Name Dose Route Start Last Admin Trade Name Freq PRN Reason Stop Dose Admin Acetaminophen 650 mg 08/25/20 17:35 Acetaminophen 325 Mg Tablet PO Q6H PRN Pain, Mild (Pain Scale 1-3) Albuterol Sulfate 2 puff 08/25/20 17:36 Albuterol Sulfate 90 Mcg 8 Gm Inhaler INHALE Q4H PRN wheezing Albuterol/Ipratropium 1 ml 08/25/20 18:41 Albuterol/Iprat 2.5/0.5mg 3 Ml Ampul.Neb INHALE Q4H PRN Wheezing Atorvastatin Calcium 10 mg 08/26/20 21:00 08/26/20 20:49 Atorvastatin Calcium 10 Mg Tablet PO 10 mg BEDTIME RACHID Administration Diltiazem HCl 120 mg 08/26/20 09:00 08/27/20 10:33 Diltiazem Hcl Cd 120 Mg Cap.Er.Deg PO 120 mg DAILY RACHID Administration Protocol Dronedarone 400 mg 08/26/20 10:50 08/27/20 10:33 Dronedarone Hcl 400 Mg Tablet PO 400 mg BID RACHID Administration Ergocalciferol 1,250 mcg 08/30/20 09:00 Ergocalciferol (Vitamin D2) 1,250 Mcg Capsule PO SA [facility] Fluoxetine HCl 20 mg 08/26/20 09:00 08/27/20 10:33 Fluoxetine Hcl 20 Mg Capsule PO 20 mg DAILY RACHID Administration Fluticasone/Vilanterol 1 puff 08/26/20 08:00 08/27/20 07:40 Fluticasone/Vilanterol 200/25 Blst.W.Dev INHALE Not Given RDAILY [facility] Gabapentin 300 mg 08/26/20 09:00 08/27/20 10:33 Gabapentin 300 Mg Capsule PO 300 mg DAILY RACHID Administration Guaifenesin 5 ml 08/26/20 17:48 08/26/20 18:01 Guaifenesin 100 Mg/5 Ml Liquid PO 5 ml Q6H PRN Administration Cough Lidocaine 1 patch 08/25/20 17:46 Lidocaine 4 % Patch Adh..Patch TRANSDERMA DAILY PRN Pain Loratadine 10 mg 08/26/20 09:00 08/27/20 10:33 Loratadine 10 Mg Tablet PO 10 mg DAILY RACHID Administration Oxycodone HCl 7.5 mg 08/25/20 17:50 Oxycodone Hcl Immed Release 5 Mg Tablet PO Q12H PRN Pain, Moderate (Pain Scale 4-6 Pharmacy Consult 1 each 08/25/20 14:49 Consult Rx Perform Med Rec MISCELLANE ONCE PRN Consult order Rivaroxaban 20 mg 08/26/20 09:00 08/27/20 10:33 Rivaroxaban 20 Mg Tablet PO 20 mg DAILY RACHID Administration Sodium Chloride 3 ml 08/26/20 00:00 08/27/20 10:34 0.9 % Sodium Chloride Flush 3 Ml Syringe IVFLUSH 3 ml QSHIFT RACHID Administration Tamsulosin HCl 0.4 mg 08/26/20 21:00 08/26/20 20:49 Tamsulosin Hcl 0.4 Mg Capsule PO 0.4 mg BEDTIME RACHID Administration Home Medications Medication Instructions Recorded Confirmed Last Taken Type atorvastatin 10 mg tablet 10 mg PO DAILY tab 12/13/19 08/25/20 Unknown History gabapentin 300 mg capsule 300 mg PO DAILY cap 12/13/19 08/25/20 08/25/20 History hydrochlorothiazide 12.5 mg tablet 12.5 mg PO DAILY tab 12/13/19 08/25/20 08/25/20 History tamsulosin 0.4 mg capsule 0.4 mg PO DAILY cap 12/13/19 08/25/20 08/25/20 History budesonide-formoterol HFA 160 1 puff INHALATION BID 07/21/20 08/25/20 Unknown History mcg-4.5 mcg/actuation aerosol inhaler fluoxetine 20 mg capsule 20 mg PO DAILY cap 07/21/20 08/25/20 08/25/20 History naloxone 4 mg/actuation nasal spray 4 mg INTRANASAL DAILY PRN 07/21/20 08/25/20 Unknown History oxycodone-acetaminophen 7.5 mg-325 1 tab PO Q12H 07/21/20 08/25/20 08/01/20 05:00 History mg tablet albuterol sulfate [ProAir HFA] 2 puff PO Q4H PRN 08/25/20 08/25/20 Unknown History budesonide 1 amp INHALATION BID 08/25/20 08/25/20 Unknown History ergocalciferol (vitamin D2) 1 cap PO SA 08/25/20 08/25/20 08/23/20 History lidocaine 1 patch TOPICAL DAILY PRN 08/25/20 08/25/20 Unknown History loratadine 1 tab PO DAILY 08/25/20 08/25/20 Unknown History oxybutynin chloride 1 tab PO QAM 08/25/20 08/25/20 08/25/20 History Exam Exam Date and Time: August 27, 2020 1354 Height,Weight and Vital Signs: Height 6 ft Weight 112 kg Last Vital Signs Temp 97.5 F 08/27/20 12:40 Pulse 78 08/27/20 12:40 Resp 18 08/27/20 12:40 BP 113/68 08/27/20 12:40 Pulse Ox 97 08/27/20 12:40 Pertinent Lab Results Pertinent Lab Results: Laboratory Tests 08/25/20 08/25/20 08/25/20 14:21 14:21 14:21 WBC 11.3 H RBC 5.06 Hgb 16.4 Hct 47.4 MCV 93.7 MCH 32.4 MCHC 34.6 RDW 13.0 Plt Count 238 D MPV 11.6 Immature Gran % (Auto) 1.1 H Neut % (Auto) 68.8 Lymph % (Auto) 21.6 [place] % (Auto) 6.4 Eos % (Auto) 1.1 Baso % (Auto) 1.0 Lymph # (Auto) 2.5 [place] # (Auto) 0.7 Eos # (Auto) 0.1 Baso # (Auto) 0.1 Abs Immat Gran (auto) 0.12 H Absolute Neuts (auto) 7.8 Absolute Nucleated RBC 0.000 Nucleated RBC % (auto) 0.0 PT 23.5 H INR 2.0 H APTT 44.2 H Sodium 140 Potassium 3.1 L Chloride 101 Carbon Dioxide 28 Anion Gap 14 BUN 32 H D Creatinine 1.40 Estim Creat Clear Calc 62.5 Estimated GFR 50 Random Glucose 120 H Calcium 9.4 D Magnesium 2.1 Total Bilirubin 1.0 Direct Bilirubin 0.4 AST 27 ALT 48 H Alkaline Phosphatase 73 Troponin I High Sens B-Natriuretic Peptide Total Protein 6.9 Albumin 4.1 Vitamin B12 Folate TSH Urine Color Urine Appearance Urine pH Ur Specific [place] Urine Protein Urine Glucose (UA) Urine Ketones Urine Blood Urine Nitrite Ur Leukocyte Esterase COVID-19 (MENA) COVID-19 Clin Com 08/25/20 08/25/20 08/25/20 14:21 14:55 15:43 WBC RBC Hgb Hct MCV MCH MCHC RDW Plt Count MPV Immature Gran % (Auto) Neut % (Auto) Lymph % (Auto) [place] % (Auto) Eos % (Auto) Baso % (Auto) Lymph # (Auto) [place] # (Auto) Eos # (Auto) Baso # (Auto) Abs Immat Gran (auto) Absolute Neuts (auto) Absolute Nucleated RBC Nucleated RBC % (auto) PT INR APTT Sodium Potassium Chloride Carbon Dioxide Anion Gap BUN Creatinine Estim Creat Clear Calc Estimated GFR Random Glucose Calcium Magnesium Total Bilirubin Direct Bilirubin AST ALT Alkaline Phosphatase Troponin I High Sens < 3.5 B-Natriuretic Peptide 260 H Total Protein Albumin Vitamin B12 Folate TSH Urine Color YELLOW Urine Appearance CLEAR Urine pH 6.0 Ur Specific [place] 1.025 Urine Protein NEG Urine Glucose (UA) NEG Urine Ketones NEG Urine Blood NEG Urine Nitrite NEG Ur Leukocyte Esterase NEG COVID-19 (MENA) Negative COVID-19 Clin Com See Note 08/26/20 08/26/20 08/26/20 05:55 05:55 05:55 WBC 8.9 RBC 4.56 L Hgb 14.5 Hct 43.0 MCV 94.3 MCH 31.8 MCHC 33.7 RDW 12.9 Plt Count 188 MPV 12.2 Immature Gran % (Auto) 1.5 H Neut % (Auto) 58.4 Lymph % (Auto) 26.3 [place] % (Auto) 9.8 Eos % (Auto) 3.0 Baso % (Auto) 1.0 Lymph # (Auto) 2.3 [place] # (Auto) 0.9 Eos # (Auto) 0.3 Baso # (Auto) 0.1 Abs Immat Gran (auto) 0.13 H Absolute Neuts (auto) 5.2 Absolute Nucleated RBC 0.000 Nucleated RBC % (auto) 0.0 PT INR APTT Sodium 140 Potassium 3.9 D Chloride 103 Carbon Dioxide 29 Anion Gap 12 BUN 21 H Creatinine 1.00 Estim Creat Clear Calc 87.5 Estimated GFR > 60 Random Glucose 90 Calcium 8.4 D Magnesium Total Bilirubin Direct Bilirubin AST ALT Alkaline Phosphatase Troponin I High Sens B-Natriuretic Peptide Total Protein Albumin Vitamin B12 Folate TSH 1.05 Urine Color Urine Appearance Urine pH Ur Specific [place] Urine Protein Urine Glucose (UA) Urine Ketones Urine Blood Urine Nitrite Ur Leukocyte Esterase COVID-19 (MENA) COVID-[employer] Com 08/26/20 08/27/20 08/27/20 05:55 05:14 05:14 WBC 8.9 RBC 4.27 L Hgb 13.7 L Hct 40.5 L MCV 94.8 MCH 32.1 MCHC 33.8 RDW 12.9 Plt Count 186 MPV 11.9 Immature Gran % (Auto) Neut % (Auto) Lymph % (Auto) [place] % (Auto) Eos % (Auto) Baso % (Auto) Lymph # (Auto) [place] # (Auto) Eos # (Auto) Baso # (Auto) Abs Immat Gran (auto) Absolute Neuts (auto) Absolute Nucleated RBC 0.000 Nucleated RBC % (auto) 0.0 PT INR APTT Sodium 141 Potassium 3.5 Chloride 104 Carbon Dioxide 28 Anion Gap 13 BUN 19 H Creatinine 1.01 Estim Creat Clear Calc 86.6 Estimated GFR > 60 Random Glucose 93 Calcium 8.4 Magnesium Total Bilirubin Direct Bilirubin AST ALT Alkaline Phosphatase Troponin I High Sens B-Natriuretic Peptide Total Protein Albumin Vitamin B12 416 Folate 10.8 TSH Urine Color Urine Appearance Urine pH Ur Specific [place] Urine Protein Urine Glucose (UA) Urine Ketones Urine Blood Urine Nitrite Ur Leukocyte Esterase COVID-19 (MENA) COVID-19 Clin Com Airway Mallampati Class: III TM Dist: >3cm Neck ROM: Full Denture: Upper and Lower Heart: irreg irreg s1s2 Lungs: cta b/l Assessment and Plan Assessment Anesthesia Assessment: Anesthesia Plan Discussed and Chart Reviewed Final Anesthetic Review NPO: Yes ASA Class: III Final Preanesthetic Review: No Changes in Pt Med Stat, Meds/Allgs Chart Reviewed, Consent Obtained/Reviewed and Anes Risks/Benef Reviewed Patient Risk: Intermediate Procedure Risk: Low Assessment/Block/Sedation in SS: Assess/Block/Sedation-SS Anesthetic Plan Anesthetic Plan: MAC: and Agree w/ Assess. and Plan Disposition: Standard PACU
--- NOTE | 2020-08-27 13:55 | P.PNIM_ITS ---
Subjective Subjective Date of Service: 08/27/20 Interval History: Follow up afibr rvr Cardioversion pending no dizziness Physical Exam Vital Signs: Vital Signs: Last Vital Signs Temp 97.5 F 08/27/20 12:40 Pulse 78 08/27/20 12:40 Resp 18 08/27/20 12:40 BP 113/68 08/27/20 12:40 Pulse Ox 97 08/27/20 12:40 Body Mass Index 33.5 Appearing in no acute distress lung sounds are clear to auscultation heart IRIR positive bowel sounds, abdomen is soft, nontender neuro patient is alert x3, no focal deficits Objective Data Current Medications Generic Name Dose Route Start Last Admin Trade Name Freq PRN Reason Stop Dose Admin Acetaminophen 650 mg 08/25/20 17:35 Acetaminophen 325 Mg Tablet PO Q6H PRN Pain, Mild (Pain Scale 1-3) Albuterol Sulfate 2 puff 08/25/20 17:36 Albuterol Sulfate 90 Mcg 8 Gm Inhaler INHALE Q4H PRN wheezing Albuterol/Ipratropium 1 ml 08/25/20 18:41 Albuterol/Iprat 2.5/0.5mg 3 Ml Ampul.Neb INHALE Q4H PRN Wheezing Atorvastatin Calcium 10 mg 08/26/20 21:00 08/26/20 20:49 Atorvastatin Calcium 10 Mg Tablet PO 10 mg BEDTIME RACHID Administration Diltiazem HCl 120 mg 08/26/20 09:00 08/27/20 10:33 Diltiazem Hcl Cd 120 Mg Cap.Er.Deg PO 120 mg DAILY RACHID Administration Protocol Dronedarone 400 mg 08/26/20 10:50 08/27/20 10:33 Dronedarone Hcl 400 Mg Tablet PO 400 mg BID RACHID Administration Ergocalciferol 1,250 mcg 08/30/20 09:00 Ergocalciferol (Vitamin D2) 1,250 Mcg Capsule PO [facility] Fluoxetine HCl 20 mg 08/26/20 09:00 08/27/20 10:33 Fluoxetine Hcl 20 Mg Capsule PO 20 mg DAILY RACHID Administration Fluticasone/Vilanterol 1 puff 08/26/20 08:00 08/27/20 07:40 Fluticasone/Vilanterol 200/25 Blst.W.Dev INHALE Not Given RDAILY [facility] Gabapentin 300 mg 08/26/20 09:00 08/27/20 10:33 Gabapentin 300 Mg Capsule PO 300 mg DAILY RACHID Administration Guaifenesin 5 ml 08/26/20 17:48 08/26/20 18:01 Guaifenesin 100 Mg/5 Ml Liquid PO 5 ml Q6H PRN Administration Cough Lidocaine 1 patch 08/25/20 17:46 Lidocaine 4 % Patch Adh..Patch TRANSDERMA DAILY PRN Pain Loratadine 10 mg 08/26/20 09:00 08/27/20 10:33 Loratadine 10 Mg Tablet PO 10 mg DAILY RACHID Administration Oxycodone HCl 7.5 mg 08/25/20 17:50 Oxycodone Hcl Immed Release 5 Mg Tablet PO Q12H PRN Pain, Moderate (Pain Scale 4-6 Pharmacy Consult 1 each 08/25/20 14:49 Consult Rx Perform Med Rec MISCELLANE ONCE PRN Consult order Rivaroxaban 20 mg 08/26/20 09:00 08/27/20 10:33 Rivaroxaban 20 Mg Tablet PO 20 mg DAILY RACHID Administration Sodium Chloride 3 ml 08/26/20 00:00 08/27/20 10:34 0.9 % Sodium Chloride Flush 3 Ml Syringe IVFLUSH 3 ml QSHIFT RACHID Administration Tamsulosin HCl 0.4 mg 08/26/20 21:00 08/26/20 20:49 Tamsulosin Hcl 0.4 Mg Capsule PO 0.4 mg BEDTIME RACHID Administration Labs CBC & Chem 7: 08/27/20 05:14 08/27/20 05:14 Labs: Laboratory Results - last 24 hr 08/27/20 08/27/20 05:14 05:14 MCV 94.8 MCH 32.1 MCHC 33.8 RDW 12.9 Plt Count 186 MPV 11.9 Absolute Nucleated RBC 0.000 Nucleated RBC % (auto) 0.0 Anion Gap 13 Estim Creat Clear Calc 86.6 Estimated GFR > 60 Random Glucose 93 Calcium 8.4 Progress Note: A&P (1) Atrial fibrillation with RVR: Status: Acute Assessment and Plan: 69-year-old man admitted with atrial fibrillation with rapid ventricular response and noted to be hypotensive. Patient reports since Tuesday has had symptoms of feeling off balance and dizziness although the off balance feeling has been present for more than ER. He reports that he stopped drinking alcohol approximately 1 month ago. In the ER he was noted to be in atrial fibrillation with rapid ventricular response and given a dose of IV Cardizem. Atrial fibrillation with rapid ventricular response. Recent cardioversion on August 01. Noted to be in atrial fibrillation, heart rate little better controlled Continue Cardizem home dose, likely dc after cardioversion Multaq started continue rivaroxaban Hypotension. stable now Will hold hydrochlorothiazide and amlodipine. Monitor blood pressure closely specially with administration of calcium channel kumar. Hypokalemia. Repleted in the ER Follow BMP. History of alcohol abuse. Patient reports his last drink was approximately 1 month ago Reports a history of feeling off balance over the last year denies more recent heavy alcohol abuse PT eval Obesity. BMI 33.5 Discussed the importance of weight loss as this may contribute to worsening of other comorbidities DISPO likely home tomorrow if stable after cardioversion DVT prophylaxis with rivaroxaban Attending Dr. Sims Full code Quality Stroke Does the patient have a stroke diagnosis?: No VTE Prior VTE?: No VTE Risk Level:: Medical - moderate - high VTE Device Contraindication: Treatment Not Indicated VTE Drug Contraindication: N/A - Med Ordered
--- NOTE | 2020-08-27 14:01 | ECG_ITS ---
Test Reason : CARDIOVERSION Blood Pressure : / mmHG Vent. Rate : 062 BPM Atrial Rate : 062 BPM P-R Int : 216 ms QRS Dur : 088 ms QT Int : 476 ms P-R-T Axes : 033 -21 008 degrees QTc Int : 483 ms Sinus rhythm with 1st degree A-V block with Premature atrial complexes Moderate voltage criteria for LVH, may be normal variant Prolonged QT Abnormal ECG When compared with ECG of 25-AUG-2020 13:49, Sinus rhythm has replaced Atrial fibrillation Vent. rate has decreased BY 65 BPM Nonspecific T wave abnormality no longer evident in Lateral leads Referred By: Oziel Vides Electronically Signed By:OZIEL VIDES MD
--- NOTE | 2020-08-27 14:02 | HO.CARDIVERS ---
Cardioversion Procedure Note Cardioversion Date of Procedure: 08/27/2020 Ordering Provider: myself Performing Provider: myself Indication for Procedure: Recurrent and persistent symptomatic atrial fibrillation with difficult control rate Pre-Op Diagnosis: Atrial fibrillation Post-Op Diagnosis: Normal sinus rhythm Performed with Transesophageal Echo: No History: See my consult note from yesterday Consent: Verbal and Written consent was obtained from the patient before starting and confirming oral anticoagulation. The patient was made aware of the risk of synchronized cardioversion including risks, benefits, alternatives a 2nd opinion to procedure. Procedure: After consent obtained, cardioversion pads were attached in AP configuration and the patient was sedated by the anesthesia team. Once adequate sedation achieved, patient was delivered 200 joules of biphasic synchronized energy in anteroposterior configuration. Complications: None Impression: Successful conversion to sinus rhythm Recommendations: 1. 12 lead EKG 2. Continue Multaq 400 mg b.i.d. 3. Continue full oral anticoagulation, Xarelto 20 mg daily 4. Patient may be discharged later today after 12 lead EKG and will set up for followup as outpatient.
--- NOTE | 2020-08-27 14:22 | P.DS_ITS ---
DS: Providers Provider Date of Service: 08/27/20 Date of admission: 08/25/20 17:30 Date of discharge: 08/27/20 Primary care physician: Isabel Ayala DO Admitting clinician: Vani Florian Attending physician on admission: Ashlyn Moore Consults: 08/25/20 17:54 Consult to Cardiology Routine Consulting Provider: Oziel Vides Reason for consultation: afib rvr Has provider been notified: No Attending physician on discharge: Binh Sims Discharging clinician: Vani Florian DS: Diagnosis Discharge Diagnosis (1) Atrial fibrillation with RVR: Status: Acute DS: Medications Discharge Medications Home Medications: Home Medications Medication Instructions Recorded Confirmed atorvastatin 10 mg tablet 10 mg PO DAILY tab 12/13/19 08/25/20 gabapentin 300 mg capsule 300 mg PO DAILY cap 12/13/19 08/25/20 tamsulosin 0.4 mg capsule 0.4 mg PO DAILY cap 12/13/19 08/25/20 budesonide-formoterol HFA 160 1 puff INHALATION BID 07/21/20 08/25/20 mcg-4.5 mcg/actuation aerosol inhaler fluoxetine 20 mg capsule 20 mg PO DAILY cap 07/21/20 08/25/20 naloxone 4 mg/actuation nasal spray 4 mg INTRANASAL DAILY PRN 07/21/20 08/25/20 oxycodone-acetaminophen 7.5 mg-325 1 tab PO Q12H 07/21/20 08/25/20 mg tablet albuterol sulfate [ProAir HFA] 2 puff PO Q4H PRN 08/25/20 08/25/20 budesonide 1 amp INHALATION BID 08/25/20 08/25/20 ergocalciferol (vitamin D2) 1 cap PO SA 08/25/20 08/25/20 lidocaine 1 patch TOPICAL DAILY PRN 08/25/20 08/25/20 loratadine 1 tab PO DAILY 08/25/20 08/25/20 oxybutynin chloride 1 tab PO QAM 08/25/20 08/25/20 Previous Rx's Medication Instructions Recorded rivaroxaban 20 mg tablet 20 mg PO DAILY #30 tab 02/11/20 diltiazem HCl 120 mg PO DAILY #30 cap 07/21/20 dronedarone [Multaq] 400 mg PO BID #60 tab 08/27/20 DS: Summary Hospital Course Hospital Course: 69-year-old man presented to the ER with complaints of dizziness and feeling like he was going to pass out. He reports a history paroxysmal atrial fibrillation on Cardizem and Xarelto. He was recently cardioverted on August 01. He reports since Tuesday he has had generalized fatigue, dizziness and fee ling like he was going to pass out as well as feeling off balance (this has been present for one year). He denied chest pain, nausea, vomiting, diarrhea. Did report some shortness of breath. Denied any loss of consciousness at any point. In the ER his heart rate ranged from 80s to low 150s and he was noted to be hypotensive with systolic blood pressure as low as 80s. He was given IV fluids and also given Cardizem IV for rapid heart rate. He was noted to have a low potassium of 3.1, other than that all his labs are within acceptable limits. Chest x-ray negative for consolidation effusion. COVID-19 negative. He be admitted for further management and treatment of atrial fibrillation with rapid ventricular response and hypotension. Afib rvr. Recent unsuccessful cardioversion in July. Patient reported dizziness and feeling off balance. He was started on Multaq while inpatient and had successful cardioversion back to normal sinus rhythm. He will be discharged home on Multaq and Cardizem and follow up with Cardiology. He was noted to be hypotensive during his admission a.m. hydrochlorothiazide and amlodipine were held and will be held on discharge. He can follow up with his primary care provider for medication management of his blood pressure. Time Spent with Patient Time attestation: Total time spent providing and/or coordinating discharge services: Discharge coordination time: Greater than 30 minutes Quality: Stroke Does the patient have a stroke diagnosis?: No Physical Exam Vital Signs: Vital Signs: Last Vital Signs Temp 97 F 08/27/20 14:04 Pulse 66 08/27/20 14:04 Resp 17 08/27/20 14:04 BP 128/74 08/27/20 14:04 Pulse Ox 92 08/27/20 14:04 Body Mass Index 33.5 Appearing in no acute distress head is normocephalic atraumatic eyes pupils are PERRLA sclera is anicteric mouth throat mucous membranes are intact and moist neck is supple no lymphadenopathy, no JVD noted lung sounds are clear to auscultation heart regular rate rhythm, clear S1, S2 positive bowel sounds, abdomen is soft, nontender neuro patient is alert x3, no focal deficits DS: Data Data Completed and Pending Labs on day of discharge: Laboratory Results - last 24 hr 08/27/20 08/27/20 05:14 05:14 WBC 8.9 RBC 4.27 L Hgb 13.7 L Hct 40.5 L MCV 94.8 MCH 32.1 MCHC 33.8 RDW 12.9 Plt Count 186 MPV 11.9 Absolute Nucleated RBC 0.000 Nucleated RBC % (auto) 0.0 Sodium 141 Potassium 3.5 Chloride 104 Carbon Dioxide 28 Anion Gap 13 BUN 19 H Creatinine 1.01 Estim Creat Clear Calc 86.6 Estimated GFR > 60 Random Glucose 93 Calcium 8.4 Discharge Plan Discharge Anticipated Discharge Date/Time: 08/27/20 14:08 Patient Disposition: Home, Self-Care Discharge Diagnosis: Atrial fibrillation with rapid ventricular response Referrals: Isabel Ayala DO [Primary Care Provider] - 1 Week ( follow-up regarding blood pressure medications) Oziel Vides MD [Physician] - 1 Week Discharge Medications: New Multaq 400 mg Tablet 400 mg PO BID Qty: 60 RF: 0 Continued rivaroxaban 20 mg tablet 20 mg PO DAILY Qty: 30 RF: 5 lidocaine 5 % adhesive patch,medicated 1 patch topical DAILY PRN (Reason: Pain) RF: 0 oxybutynin chloride 5 mg tablet extended release 24hr 1 tab PO QAM RF: 0 budesonide 0.5 mg/2 mL suspension for nebulization 1 amp inhalation BID RF: 0 ergocalciferol (vitamin D2) 1,250 mcg (50,000 unit) capsule 1 cap PO SA RF: 0 albuterol sulfate [ProAir HFA] 90 mcg/actuation HFA aerosol inhaler 2 puff PO Q4H PRN (Reason: wheezing) RF: 0 loratadine 10 mg tablet 1 tab PO DAILY RF: 0 diltiazem HCl 120 mg capsule,extended release 24 hr 120 mg PO DAILY Qty: 30 RF: 0 atorvastatin 10 mg tablet 10 mg PO DAILY RF: 0 gabapentin 300 mg capsule 300 mg PO DAILY RF: 0 tamsulosin 0.4 mg capsule 0.4 mg PO DAILY RF: 0 fluoxetine 20 mg capsule 20 mg PO DAILY RF: 0 naloxone 4 mg/actuation spray,non-aerosol 4 mg intranasal DAILY PRN (Reason: Opioid Overdose) RF: 0 oxycodone-acetaminophen 7.5-325 mg tablet 1 tab PO Q12H RF: 0 budesonide-formoterol 160-4.5 mcg/actuation HFA aerosol inhaler 1 puff inhalation BID RF: 0 Discontinued amlodipine 2.5 mg tablet 2.5 mg PO DAILY Qty: 90 RF: 1 hydrochlorothiazide 12.5 mg tablet 12.5 mg PO DAILY RF: 0 Discharge Orders: Discharge Order (Routine); Ordered 08/27/20 Ordered By: Vani Florian Diet: advance to usual diet Activity on Discharge: As tolerated Stand Alone Forms: Patient Portal Discharge page Care Plan Goals: Resolution of atrial fibrillation Health Concerns: Atrial fibrillation with rapid ventricular response Plan of Treatment: Continue all medications as prescribed 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
--- NOTE | 2020-08-27 15:07 | MHC.CM.PN ---
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
== END 2020-08-27 16:56 | disposition home or self-care (01) | DRG 310 ==
LOC: HO.ED 15:54 → HO.EDOVER 18:02 → HO.IMC 19:51
PROVIDERS: Internal Medicine Cardiovascular Disease; Physician Assistant; Admitting Provider Nurse Practitioner Acute Care; Emergency Provider Internal Medicine; PCP Family Medicine; Visit Provider Family Medicine
PROC: 5A2204Z Restoration of Cardiac Rhythm, Single (ICD-10-PCS; principal; 2020-08-27 13:30)
DX: I48.0 Paroxysmal atrial fibrillation (principal); I49.5 Sick sinus syndrome; I10 Essential (primary) hypertension; Z20.822 Contact with and (suspected) exposure to COVID-19; E87.6 Hypokalemia; I95.9 Hypotension, unspecified; F10.10 Alcohol abuse, uncomplicated; E66.9 Obesity, unspecified; Z87.891 Personal history of nicotine dependence; Z68.33 Body mass index [BMI] 33.0-33.9, adult; Z79.01 Long term (current) use of anticoagulants; Z79.899 Other long term (current) drug therapy
CPT/HCPCS: 36415; 71045; 80048; 80076; 81003; 82607; 82746; 83735; 83880; 84443; 84484; 85025; 85027; 85610; 85730; 87635; 92960; 93005; 93306; 99285

== ENCOUNTER → 2020-09-08 11:29 | Outpatient (REF) | payer MEDICARE, OTHER, SELFPAY ==
--- NOTE | 2020-09-08 11:34 | HM_ITS ---
Total monitoring. Three days and 1 hour. Underlying rhythm is sinus. Average heart rate 56/Min. Minimal 36/Min. Maximum 122/Min. No atrial fibrillation or flutter. No AV blocks. No pauses. No VT episodes. 26 supraventricular episodes. Longest 18 beats. Total burden of PACs-0.24%. [place] of PVCs-1%. Three morphologies noted. Sixteen couplets noted. No patient events. MTDD
== END ==
LOC: HO.CARD 11:29
PROVIDERS: Visit Provider Internal Medicine Cardiovascular Disease
DX: I48.0 Paroxysmal atrial fibrillation (principal)
CPT/HCPCS: 93242

== ENCOUNTER → 2020-09-29 11:19 | Outpatient (BNVA) | payer MEDICARE, OTHER, SELFPAY | PROVIDERS: PCP Family Medicine; Referring Provider Family Medicine; Visit Provider Internal Medicine Cardiovascular Disease | DX: I48.0 Paroxysmal atrial fibrillation (principal); I10 Essential (primary) hypertension; R42 Dizziness and giddiness; Z79.01 Long term (current) use of anticoagulants; Z79.899 Other long term (current) drug therapy | CPT/HCPCS: 93005; 99212 ==

== ENCOUNTER 2020-11-12 15:00 | Outpatient (REF) | payer MEDICARE, OTHER, SELFPAY ==
--- NOTE | ~2020-11-12 | MR_ITS ---
EXAMINATION: MR BRAIN WITHOUT CONTRAST CLINICAL INFORMATION: Dizziness and giddiness. COMPARISON: CT head from 08/09/2019. TECHNIQUE: MRI of the brain was obtained using routine sequences without contrast. FINDINGS: No focal restricted diffusion is demonstrated to suggest acute or subacute cerebral ischemia. No evidence of acute or chronic hemorrhagic products on heme-sensitive imaging. Scattered periventricular, deep white matter, and brainstem T2 FLAIR hyperintensities consistent with moderate underlying microangiopathy. Etat crible. Proportional prominence of the ventricles and sulcal spaces without evidence of obstructive hydrocephalus. No abnormal mass effect. No midline shift. Normal appearance of the pituitary gland. Normal positioning of the cerebellar tonsils. Normal arterial and venous vascular flow voids are present. Normal, homogeneous marrow signal. Moderate mucosal thickening of the paranasal sinuses. No signal abnormalities within the mastoids. MR/MR head/brain wo con IMPRESSION: 1. No acute intracranial abnormalities. 2. Moderate underlying microangiopathy and generalized cerebral volume loss. 3. Moderate sinonasal mucosal disease.
== END 2020-11-12 15:01 | disposition home or self-care (01) ==
LOC: HO.MRI 15:00
PROVIDERS: Visit Provider Family Medicine
DX: R42 Dizziness and giddiness (principal)
CPT/HCPCS: 70551

== ENCOUNTER 2020-12-09 14:00 | Outpatient (RCR) | payer MEDICARE, OTHER, SELFPAY ==
[2020-11-11 12:53] VITALS: BP 142/80; PULSE 50; O2SAT 96
== END 2021-02-23 10:16 | disposition home or self-care (01) ==
LOC: HO.PTWFD 14:00
PROVIDERS: PCP Family Medicine; Visit Provider Family Medicine
DX: R42 Dizziness and giddiness (principal)
CPT/HCPCS: 97110; 97163; 97535

== ENCOUNTER → 2020-12-30 13:18 | Outpatient (BNVA) | payer MEDICARE, OTHER, SELFPAY | PROVIDERS: PCP Family Medicine; Referring Provider Family Medicine; Visit Provider Internal Medicine Cardiovascular Disease | DX: I48.0 Paroxysmal atrial fibrillation (principal); I49.5 Sick sinus syndrome; I95.1 Orthostatic hypotension | CPT/HCPCS: 93005; 99212 ==

== ENCOUNTER 2021-02-24 14:01 | Outpatient (REF) | payer MEDICARE, OTHER, SELFPAY ==
--- NOTE | ~2021-02-24 | US_ITS ---
EXAMINATION: US EXTRACRANIAL CAROTID DUPLEX, BILATERAL CLINICAL INFORMATION: Dizziness COMPARISON: Ultrasound carotid from 09/04/2019 TECHNIQUE: Real-time ultrasound and Doppler techniques (integrating B-mode 2-D vascular images, Doppler spectral analysis and color-flow Doppler imaging) were utilized to interrogate the extracranial carotid arteries, the vertebral arteries and proximal subclavian arteries bilaterally. The degree of stenosis is determined by criteria similar to NASCET. FINDINGS: Right Side: 1. There is mild atherosclerotic plaque seen in the bifurcation/proximal ICA region. 2. The common carotid artery PSV proximally is 57.0 cm/s and distally 58.1 cm/s. 3. The proximal internal carotid artery velocities are 51.7 cm/s systolic and 12.1 cm/s diastolic. 4. The proximal external carotid artery PSV is 76.2 cm/s. 5. The vertebral artery shows antegrade flow. Left Side: 1. There is mild atherosclerotic plaque seen in the bifurcation/proximal ICA region. 2. The common carotid artery PSV proximally is 67.6 cm/s and distally 56.2 cm/s. 3. The proximal internal carotid artery velocities are 47.4 cm/s systolic and 11.7 cm/s diastolic. 4. The proximal external carotid artery PSV is 84.5 cm/s. 5. The vertebral artery shows antegrade flow. US/US carotid duplex BI IMPRESSION: 1. RIGHT: Minimal, non-hemodynamically significant stenosis of the proximal right internal carotid artery corresponding to a 0-49% stenosis by velocity criteria. 2. LEFT: Minimal, non-hemodynamically significant stenosis of the proximal left internal carotid artery corresponding to a 0-49% stenosis by velocity criteria.
== END 2021-02-24 14:02 | disposition home or self-care (01) ==
LOC: HO.US 14:01
PROVIDERS: PCP Family Medicine; Visit Provider Family Medicine
DX: R42 Dizziness and giddiness (principal)
CPT/HCPCS: 93880

== ENCOUNTER → 2021-03-20 12:51 | Outpatient (REF) | payer MEDICARE, OTHER, SELFPAY ==
--- NOTE | 2021-03-20 12:54 | CA_ITS ---
Transthoracic Echocardiogram Patient (Last, First, Middle): Cirilo Ruiz A Gender: Male Date of : 1950 Age: 70 Procedure Date: 03/20/2021 Procedure Type: Transthoracic Echocardiogram Location: OP Height: 182.88 cm Weight: 110.22 kg BSA: 2.31 m2 Heart Rate: bpm BP: 125 / 79 mmHg Retail Cashier: FREIDA Referring MD: Isabel Ayala DO Symptoms: R42 DIZZINESS GIDDINESS Study Quality: Fair Conclusions: - Normal left ventricular size and systolic function. There is mildly increased left ventricular wall thickness. The visually estimated ejection fraction is between 55-60%. - Normal right ventricular cavity size and systolic function. - The left atrium is severely dilated. - There is mild dilatation of the ascending aorta measuring 3.80 cm and mild dilatation of the aortic arch. Findings Left Ventricle Normal left ventricular size and systolic function. There is mildly increased left ventricular wall thickness. The visually estimated ejection fraction is between 55-60%. Diastolic function is normal for age. Spectral Doppler is indicative of an impaired relaxation filling pattern. E/E prime ratio is between 8 and 15 consistent with indeterminate filling pressures. Right Ventricle Normal right ventricular cavity size and systolic function. Atria The left atrium is severely dilated. Aortic Valve Normal aortic valve structure and function. There is no aortic valve stenosis. There is no aortic valve regurgitation. Mitral Valve There is no mitral valve regurgitation. There is no mitral valve stenosis. Pulmonic Valve Normal pulmonic valve structure and function. There is trace pulmonic valve regurgitation. Tricuspid Valve Normal tricuspid valve structure and function. There is no tricuspid valve regurgitation. The pulmonary artery systolic pressure is over estimated. Normal right atrial pressure. There is no evidence of pulmonary hypertension. Great Vessels There is mild dilatation of the ascending aorta measuring 3.80 cm and mild dilatation of the aortic arch. The visualized portions of the pulmonary artery and branches are normal. Venous The inferior vena cava is normal in size and collapses greater than 50% with inspiration. Pericardium/Pleural Normal pericardial structure. There is no evidence of pericardial effusion. Prior Study Comparison Changes noted compared to prior study dated: 08/26/2020. LA severely dilated. Measurements 2D Linear Measurements IVSd: 1.23 0.6-0.9/0.6-1.0 cm LVIDd: 4.95 3.9-5.3/4.2-5.9 cm LVIDd Index: 2.14 2.4-3.2/2.2-3.1 cm/m2 LVIDs: 3.00 2.0-3.6 cm LVPWd: 1.07 0.7-1.1 cm Ao Root: 4.10 2.1-3.5 cm LA Diam: 5.40 2.7-3.8/3.0-4.0 cm LAIDs Index: 2.34 1.5-2.3 cm/m2 LV Mass: 270.18 67-162/88-224 g LV Mass Index: 116.96 43-95/49-115 g/m2 LVOT Diam: 2.10 3.0+(-)1.3 cm 2D Systolic Function EF 4C: 57.10 >55% EF 2C: 67.00 >55% EF BiP: 63.70 >55% Mitral Valve MV Pk E: 0.70 MV PK A: 1.06 MV Decel Time: 256.00 E/A: 0.70 E'Lateral: 6.74 E'Medial: 6.53 E/E' Med: 10.70 E/E' Lat: 10.40 PHT: 75.00 MVA PHT: 2.93 Decel [place]: 2.73 Aortic Valve AoV Pk Dex: 1.14 AoV Mn Dex: 0.71 AoV VTI: 0.31 AoV Pk Grad: 5.00 Aov Mn Grad: 2.00 VAIBHAV Cont.VTI: 3.17 LVOT LVOT Pk Dex: 1.15 LVOT Mn Dex: 0.72 LVOT VTI: 0.28 LVOT Pk Grad: 5.00 LVOT Mn Grad: 3.00 LVOT Diam: 2.10 LVOT Area: 3.46 Diastolic Function MV Pk E: 0.70 MV Pk A: 1.06 E/A: 0.70 E'Medial: 6.53 E/E' Med: 10.70 E' Laterial: 6.74 E/E' Lat: 10.40 Right Ventricle TAPSE (mm): 20.80 TVS' Dex: 12.30 Tricuspid Valve TR Pk Dex: 2.32 TR Pk Grad: 22.00 RA Press: 3.00 RVSP: 25.00 Great Vessels Aorta Ao Root-2D: 4.10 2.0-3.7 cm Ao Asc: 3.80 2.1-3.4 cm Ao Arch: 3.70 Updated in Other Vendor System with Status of Final Destin Marin MD electronically signed on 03/23/2021 1:42:15 PM with status of Final
== END ==
LOC: HO.CARD 12:51
PROVIDERS: PCP Family Medicine; Visit Provider Family Medicine
DX: R42 Dizziness and giddiness (principal)
CPT/HCPCS: 93306

== ENCOUNTER → 2021-04-09 15:31 | Outpatient (BNVA) | payer MEDICARE, OTHER, SELFPAY | PROVIDERS: PCP Family Medicine; Referring Provider Family Medicine; Visit Provider Internal Medicine Cardiovascular Disease | DX: I10 Essential (primary) hypertension (principal); I48.0 Paroxysmal atrial fibrillation; I49.5 Sick sinus syndrome; R53.83 Other fatigue; Z87.891 Personal history of nicotine dependence | CPT/HCPCS: 93005; 99212 ==

== ENCOUNTER → 2021-06-09 14:10 | Outpatient (BNVA) | payer MEDICARE, OTHER, SELFPAY | PROVIDERS: PCP Family Medicine; Visit Provider Nurse Practitioner Family | DX: S32.010A Wedge compression fracture of first lumbar vertebra, initial encounter for closed fracture (principal); M47.816 Spondylosis without myelopathy or radiculopathy, lumbar region; M62.838 Other muscle spasm; M53.3 Sacrococcygeal disorders, not elsewhere classified; Z79.01 Long term (current) use of anticoagulants | CPT/HCPCS: 99202 ==

== ENCOUNTER 2021-08-12 06:14 | Outpatient (REF) | payer MEDICARE, SELFPAY ==
--- NOTE | ~2021-08-12 | FL_ITS ---
EXAMINATION: XR FLUOROSCOPY WITH IMAGES CLINICAL INFORMATION: Fluoroscopy for disc degeneration procedure COMPARISON: None. TECHNIQUE: Fluoroscopy performed by spine surgery. Fluoroscopy time: 0.4 minutes DAP: 4.83 Gycm2 Images: 3 FINDINGS: Submitted images demonstrate the presence of radiopaque contrast, overlying the left L4-L5 and L5-S1 and superior right and left SI joints disc spaces. FL/FL guidance in treatment room IMPRESSION: Intraoperative fluoroscopy provided.
== END 2021-08-12 06:15 | disposition home or self-care (01) ==
LOC: HO.RADIR 06:14
PROVIDERS: Visit Provider Internal Medicine
DX: M47.816 Spondylosis without myelopathy or radiculopathy, lumbar region (principal); M51.37 Other intervertebral disc degeneration, lumbosacral region
CPT/HCPCS: 64493; 64494; J2795

== ENCOUNTER → 2021-08-14 11:22 | Outpatient (BNVA) | payer MEDICARE, SELFPAY | PROVIDERS: PCP Family Medicine; Visit Provider Nurse Practitioner Family | DX: M47.816 Spondylosis without myelopathy or radiculopathy, lumbar region (principal); M62.838 Other muscle spasm; M53.3 Sacrococcygeal disorders, not elsewhere classified; S32.010A Wedge compression fracture of first lumbar vertebra, initial encounter for closed fracture | CPT/HCPCS: Q3014 ==

== ENCOUNTER 2021-10-14 06:18 | Outpatient (REF) | payer MEDICARE, OTHER, SELFPAY ==
--- NOTE | ~2021-10-14 | FL_ITS ---
EXAMINATION: XR FLUOROSCOPY WITH IMAGES CLINICAL INFORMATION: Spondylosis without myelopathy or radiculopathy. COMPARISON: None. TECHNIQUE: Fluoroscopy performed by Kelly Reynoso. Fluoroscopy time: 0.2 minutes. Cumulative Dose: 8.16 mGy. DAP: 1.26 Gy-cm2. Images: 3. FINDINGS: There are 3 digital images obtained revealing needle positioned adjacent to the bilateral L4, L5 and S1 pedicles and contrast opacifying the soft tissues. No gross bony pneumonitis seen on the visualized images. FL/FL guidance in treatment room IMPRESSION: Fluoroscopy guidance was provided to referrer for pain management.
== END 2021-10-14 06:19 | disposition home or self-care (01) ==
LOC: HO.RADIR 06:18
PROVIDERS: Visit Provider Internal Medicine
DX: M47.816 Spondylosis without myelopathy or radiculopathy, lumbar region (principal)
CPT/HCPCS: 64493; 64494

== ENCOUNTER → 2021-10-19 13:42 | Outpatient (BNVA) | payer MEDICARE, SELFPAY | PROVIDERS: PCP Family Medicine; Visit Provider Internal Medicine | DX: M47.816 Spondylosis without myelopathy or radiculopathy, lumbar region (principal); M54.50 Low back pain, unspecified; G89.29 Other chronic pain | CPT/HCPCS: Q3014 ==

== ENCOUNTER → 2021-10-22 13:41 | Outpatient (BNVA) | payer MEDICARE, OTHER, SELFPAY | PROVIDERS: PCP Family Medicine; Referring Provider Family Medicine; Visit Provider Internal Medicine Cardiovascular Disease | DX: I48.19 Other persistent atrial fibrillation (principal); Z79.01 Long term (current) use of anticoagulants | CPT/HCPCS: 93005; 99212 ==

== ENCOUNTER → 2021-11-13 07:20 | Outpatient (REF) | payer MEDICARE, OTHER, SELFPAY ==
--- NOTE | 2021-11-13 07:22 | HM_ITS ---
Conclusion: 1. Patient was monitored for total period of 3 days and 1 hour 2. Baseline was atrial fibrillation with average heart of 75 beats per minute with good rate control 3. No significant pauses noted 4. Total of 543 PVCs accounting for 0.17% of total beats accounting for occasional PVCs 5. No patient reported symptoms MTDD
== END ==
LOC: HO.CARD 07:20
PROVIDERS: PCP Family Medicine; Visit Provider Internal Medicine Cardiovascular Disease
DX: I48.19 Other persistent atrial fibrillation (principal)
CPT/HCPCS: 93242

== ENCOUNTER 2021-11-25 13:54 | Day surgery (SDC) | payer MEDICARE, OTHER, SELFPAY ==
--- NOTE | ~2021-11-25 | FL_ITS ---
EXAMINATION: XR FLUOROSCOPY WITH IMAGES CLINICAL INFORMATION: Spondylosis. Low back pain. Sprint PNS. COMPARISON: MR lumbar spine 07/01/2020 TECHNIQUE: Fluoroscopy performed by Dr. Julio César Alanis. Fluoroscopy time: 0.2 minutes. Cumulative Dose: 5.86 mGy. DAP: 1.59 Gycm2. Images: 3. FINDINGS: There is an electrode with tip overlying the right L5 lamina just inferior to the pedicle. The electrode wires shows no kinking or defect. FL/FL guidance in OR IMPRESSION: Fluoroscopy for pain management procedure.
[2021-11-25 13:48] VITALS: BMI 34.8
[2021-11-25 14:16] VITALS: BP 145/87; PULSE 81; RESP 18; TEMP 36.6; O2SAT 96
--- NOTE | 2021-11-25 14:55 | PC.NURSE ---
pt moved to pacu report to jennifer ramesh
[2021-11-25 16:26] VITALS: BP 156/81; PULSE 66; RESP 20; TEMP 36.5; O2SAT 96
--- NOTE | 2021-11-26 11:26 | PM.OP ---
Brief Operative Note Date of Service: 11/25/21 Pre-op diagnosis: Lumbar spondylosis, chronic low back pain Post-op diagnosis: same Procedure: Temporary right L3 medial branch nerve stimulator placement Implants: Sprint temporary PNS system Surgeon: Julio César Alanis MD Anesthesia: local Was an Air Pollution Control Engineer used for this Procedure?: No Estimated blood loss (mL): 3 Pathology: none sent Condition: stable Disposition: same day
--- NOTE | 2021-11-27 08:41 | MHC.SHP ---
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 Relevant Family History (Specify if Yes): No Relevant Social History: None Present Medications: see Short Stay Collaborative assessment Medical History: No relevant PMH History of Previous Operations: No relevant previous surgery Allergies: Allergies Allergy/AdvReac Type Severity Reaction Status Date / Time No Known Allergies Allergy Verified 10/14/21 08:41 [No Known Allergies*] Review of Systems Sugical H&P ROS: Negative: Constitution, Cardiovascular and Respiratory Exam Surgical H&P Exam: Normal: HEENT, Normal: Heart and Normal: Lungs Plan Diagnosis/Plan: Unchanged I have reviewed the history and physical and performed a pertinent physical examination on my patient. No changes have occurred unless specified.
--- NOTE | 2021-11-27 08:42 | W.PM.OPN ---
Operative Note Operative Note Date of Service: 11/25/21 Narrative: Lumbar Medial Branch Nerve Stimulation Lead Placement, SPR (Sprint) System, Right L4 Medial Branch Nerve ? After the risks, benefits and alternatives were discussed with the patient and informed consent was obtained, patient was placed in the prone position and padded to foster comfort. The skin overlying the lumbosacral spine was prepped and draped in sterile fashion. Fluoroscopy was used to identify the spinous process and lamina in the center of the patient?s region of pain. After identifying and marking the intended target along the course of the medial branch nerve, the skin around the planned entry point and the subcutaneous tissues were injected with lidocaine 0.75%. An introducer needle and stimulating probe were assembled, inserted and advanced along the intended course of the L4 medial branch nerve as it traverses the lamina medial and inferior to the zygapophyseal joint, taking care to maintain the proper depth of insertion as the introducer is advanced under fluoroscopic guidance. The introducer needle was delivered to a location in proximity to the nerve. Multiple stimulation parameters were used to deliver stimulation to the target medial branch nerve in concert with stimulating at multiple positions around the nerve. Nerve target acquisition was confirmed noting generation of paresthesias in the paravertebral regions corresponding to the level being stimulated. Various electrical parameter combinations were tested, and the lead location was adjusted (physically relocated) until the patient indicated paresthesia/muscle tension overlapping the distribution of the patient?s typical region of pain. The stimulating probe was removed from the introducer and a percutaneous lead was guided through the needle and delivered to a location in similar proximity to the nerve. Final location was verified with electrical stimulation and documented with fluoroscopy. The introducer needle was removed, and the exposed end of the percutaneous lead was attached to an external stimulator unit. Various electrical parameter combinations were again tested until the patient indicated paresthesia or muscle tension overlapping the distribution of the patient?s typical region of pain. After confirming that lead impedance was in the normal range, the external unit was detached, the needle was removed, and the lead was anchored at the skin. The lead was threaded into the connector block and electrical continuity and desired patient response was confirmed. The connector block was attached to the external stimulator unit. The site was covered with a sterile occlusive dressing. The patient was observed for stability of vital signs and comfort.
== END 2021-11-25 16:43 | disposition home or self-care (01) ==
PROVIDERS: PCP Family Medicine; Visit Provider Internal Medicine
PROC: (CPT 64555; principal; 2021-11-25 14:50)
DX: M47.816 Spondylosis without myelopathy or radiculopathy, lumbar region (principal); G89.29 Other chronic pain; M54.50 Low back pain, unspecified; I10 Essential (primary) hypertension; I48.0 Paroxysmal atrial fibrillation; I49.5 Sick sinus syndrome; Z79.899 Other long term (current) drug therapy; Z98.890 Other specified postprocedural states; Z87.891 Personal history of nicotine dependence
CPT/HCPCS: 64555; C1778

== ENCOUNTER → 2021-12-04 09:12 | Outpatient (BNVA) | payer MEDICARE, SELFPAY | PROVIDERS: PCP Family Medicine; Visit Provider Internal Medicine | DX: M54.50 Low back pain, unspecified (principal); M47.816 Spondylosis without myelopathy or radiculopathy, lumbar region; G89.29 Other chronic pain | CPT/HCPCS: 99212 ==

== ENCOUNTER → 2022-08-19 14:00 | Outpatient (REF) | payer MEDICARE, OTHER, SELFPAY ==
--- NOTE | ~2022-08-19 | CT_ITS ---
EXAMINATION: CT CHEST WITHOUT CONTRAST CLINICAL INFORMATION: Other nonspecific abnormal finding of lung field COMPARISON: Previous chest x-ray most recent August [address] May 2020 TECHNIQUE: Multidetector volumetric CT imaging of the chest was done. Axial MIP volume rendering provided. Sagittal and coronal reformatted images were obtained. This CT examination was performed using dose optimization techniques as appropriate, variously including the following: *Automated exposure control *Adjustment of mA and/or kV according to patient size (this includes techniques or standardized protocols for targeted exams where dose is matched to indication/reason for exam; i.e. 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 Very mild paraseptal emphysema. There are increased peripheral interstitial markings seen predominantly in the right lower lobe questionable for mild interstitial lung disease. The pulmonary nodules are stable going back to multiple old exams from 2018. Largest pulmonary nodule measures 5 x 10 mm in the right middle lobe adjacent to the minor fissure and is suggestive of a peripheral or subpleural lymph node. No new pulmonary nodules. MEDIASTINUM: Enlarged heart. No pericardial effusion. Tortuous slightly calcified thoracic aorta. No aneurysm. No enlarged hilar or mediastinal lymph nodes. Normal thyroid gland. CORONARY ARTERY CALCIFICATION: Mild PLEURA: There is no pleural effusion. No pleural mass or thickening. AXILLA: No lymphadenopathy. UPPER ABDOMEN: Unremarkable. OSSEOUS STRUCTURES: Degenerative changes of the spine. Post vertebroplasty change at L1. CT/CT chest wo IV con IMPRESSION: Stable pulmonary nodules. According to Fleischner criteria, chest CT follow-up no longer needed. Enlarged heart. Mild coronary artery calcification. Question developing peripheral interstitial lung disease. Fleischner guidelines were followed.
--- NOTE | 2022-08-19 14:05 | CA_ITS ---
Transthoracic Echocardiogram Patient (Last, First, Middle): Cirilo Ruiz A Gender: Male Date of : 1950 Age: 71 Procedure Date: 08/19/2022 Procedure Type: Transthoracic Echocardiogram Location: OP Height: 182.88 cm Weight: 120.2 kg BSA: 2.40 m2 Heart Rate: bpm BP: 120 / 84 mmHg Spanish Instructor: FREIDA Referring MD: Isabel Ayala DO Science Consultant: Oziel Vides MD Symptoms: R53.83 FATIGUE R68.89 Study Quality: Fair ECG Rhythm: Atrial Fibrillation Conclusions: - 1. Normal LV ejection fraction at 60 65% 2. Moderately dilated left atrium 3. Normal cardiac valvular Dopplers 4. Normal RV systolic pressure 5. Mildly dilated ascending aorta at 3.8 cm 6. No pericardial effusion Findings Left Ventricle Normal left ventricular size and systolic function. There is mildly increased left ventricular wall thickness. The visually estimated ejection fraction is between 60-65%. Diastolic function is indeterminate on the basis of available data. Right Ventricle Normal right ventricular cavity size and systolic function. Atria The left atrium is moderately dilated. Interatrial shunt cannot be excluded. The right atrium is likely dilated. Aortic Valve Normal aortic valve structure and function. There is no aortic valve stenosis. There is no aortic valve regurgitation. Mitral Valve Normal mitral valve structure and function. There is trace mitral valve regurgitation. There is no mitral valve stenosis. Pulmonic Valve The pulmonic valve was not well visualized. Tricuspid Valve Likely normal tricuspid valve structure and function. There is trace tricuspid valve regurgitation. The right ventricular systolic pressure is normal. The right ventricular systolic pressure is 24 mmHg. Normal right atrial pressure. There is no evidence of pulmonary hypertension. Great Vessels The pulmonary artery was not well visualized. There is mild dilatation of the ascending aorta measuring 3.80 cm. Venous The inferior vena cava is normal in size and collapses greater than 50% with inspiration. Pericardium/Pleural There is no evidence of pericardial effusion. Measurements 2D Linear Measurements IVSd: 1.26 0.6-0.9/0.6-1.0 cm LVIDd: 4.26 3.9-5.3/4.2-5.9 cm LVIDd Index: 1.78 2.4-3.2/2.2-3.1 cm/m2 LVIDs: 2.83 2.0-3.6 cm LVPWd: 1.29 0.7-1.1 cm LA Diam: 4.60 2.7-3.8/3.0-4.0 cm LAIDs Index: 1.92 1.5-2.3 cm/m2 LV Mass: 248.05 67-162/88-224 g LV Mass Index: 103.36 43-95/49-115 g/m2 LVOT Diam: 2.10 3.0+(-)1.3 cm 2D Systolic Function EF 4C: 56.90 >55% EF 2C: 61.00 >55% EF BiP: 60.70 >55% Mitral Valve MV Pk E: 0.71 MV Decel Time: 258.00 E'Lateral: 10.40 E'Medial: 7.31 E/E' Med: 9.70 E/E' Lat: 6.80 PHT: 76.00 MVA PHT: 2.89 Decel [place]: 2.78 Aortic Valve AoV Pk Dex: 0.83 AoV Pk Grad: 3.00 VAIBHAV: 2.59 LVOT LVOT Pk Dex: 0.62 LVOT Pk Grad: 2.00 LVOT Diam: 2.10 LVOT Area: 3.46 Diastolic Function MV Pk E: 0.71 E'Medial: 7.31 E/E' Med: 9.70 E' Laterial: 10.40 E/E' Lat: 6.80 Right Ventricle TAPSE (mm): 14.80 TVS' Dex: 8.90 Tricuspid Valve TR Pk Dex: 1.97 TR Pk Grad: 16.00 RA Press: 8.00 RVSP: 24.00 Great Vessels Aorta Sinus of Valsalva: 4.10 2.0-3.[address] [place]: 3.22 1.7-3.4 cm Ao Asc: 3.80 2.1-3.4 cm Updated in Other Vendor System with Status of Final Oziel Vides MD electronically signed on 08/20/2022 2:04:07 PM with status of Final
== END ==
LOC: HO.CARD 14:00
PROVIDERS: PCP Family Medicine; Visit Provider Family Medicine
DX: R91.8 Other nonspecific abnormal finding of lung field (principal); R53.83 Other fatigue; R68.89 Other general symptoms and signs
CPT/HCPCS: 71250; 93306

== ENCOUNTER → 2022-08-19 14:05 | Outpatient (BNV) | payer MEDICARE, SELFPAY | PROVIDERS: PCP Family Medicine; Visit Provider Internal Medicine Cardiovascular Disease | DX: R94.31 Abnormal electrocardiogram [ECG] [EKG] (principal) | CPT/HCPCS: 93306 ==

== ENCOUNTER 2022-08-26 13:40 | Outpatient (REF) | payer MEDICARE, OTHER, SELFPAY ==
--- NOTE | 2022-08-26 | PFT_ITS ---
FLOWS: 1. FEV1 45% of predicted at 1.54 L. 2. FVC 81% of predicted at 3.75 L. 3. FEV1 to FVC ratio of 0.41. 4. No bronchodilator response. LUNG VOLUMES: 1. Total lung capacity 89% of predicted at 6.65 L. 2. Residual volume 90% of predicted at 2.38 L. 3. Slow vital capacity 89% of predicted at 4.27 L. 4. Expiratory reserve volume 34% of predicted at 0.48 L. 5. Diffusion capacity is moderately decreased. IMPRESSION: Severe obstructive ventilatory defect with no bronchodilator response. Decreased expiratory reserve volume suggests extrathoracic restriction likely secondary to abdominal obesity. Decreased diffusion capacity suggests emphysema. MD CHRIS Taylor/MODL / [id number]
== END 2022-08-26 13:41 | disposition home or self-care (01) ==
LOC: HO.RESP 13:40
PROVIDERS: PCP Family Medicine; Visit Provider Family Medicine
DX: R53.83 Other fatigue (principal)
CPT/HCPCS: 94010; 94727; 94729

== ENCOUNTER → 2022-08-26 14:25 | Outpatient (BNV) | payer MEDICARE, SELFPAY | PROVIDERS: PCP Family Medicine; Visit Provider Internal Medicine Pulmonary Disease | DX: R06.09 Other forms of dyspnea (principal) | CPT/HCPCS: 94060; 94727; 94729 ==

== ENCOUNTER 2022-09-06 08:23 | Outpatient (AMB) | payer MEDICARE, SELFPAY ==
--- NOTE | 2022-09-06 08:24 | MHC.OFFVIS ---
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: No Allergies No Known Allergies [No Known Allergies*] Allergy (Verified 09/06/22 08:33) Medication List - Last Reconciled 09/06/22 by Sindhu Brannon NP-C albuterol sulfate 90 mcg/actuation (ProAir HFA) 2 puffs PO Q4H PRN atorvastatin 10 mg PO DAILY baclofen 10 mg PO BEDTIME budesonide 1 amp inhalation BID budesonide-formoterol 160-4.5 mcg/actuation 1 puff inhalation BID ergocalciferol (vitamin D2) 1 cap PO SA fluoxetine 20 mg PO DAILY gabapentin 300 mg PO DAILY lidocaine 5% 1 patch topical DAILY PRN loratadine 1 tab PO DAILY metoprolol tartrate 50 mg PO BID naloxone 4 mg/actuation 4 mg intranasal DAILY PRN oxybutynin chloride ER 1 tab PO QAM oxycodone-acetaminophen 7.5-325 mg 1 tab PO Q12H rivaroxaban (Xarelto) 20 mg PO DAILY tamsulosin 0.4 mg PO DAILY HPI f/u HPI Details Cirilo is a 71-year-old male with past medical history of hypertension, hyperlipidemia, persistent atrial fibrillation who presents for follow-up. His last prior visit to our office was 06/21/2021 Today he reports that he has been feeling generally well over the last year. He has noticed increasing fatigue and some shortness of breath which he relates to his COPD. No PND, orthopnea or edema. No chest discomfort, palpitations, dizziness, presyncope, syncope, falls. He has no bleeding issues. He did not take his metoprolol yet this morning. Reports compliance with meds daily. Admits to being mostly sedentary. [facility] Medical History HTN (hypertension) Paroxysmal atrial fibrillation Sick sinus syndrome Surgical History History of back surgery History of tonsillectomy and adenoidectomy Hx of sinus surgery Family History Father Lung cancer Mother Cancer Social History Household Members: Spouse Housing: House Alcohol intake: current Alcohol intake frequency: does not drink Patient Tobacco Use Status: Former Tobacco user Years Smoked: stopped 30 years ago service: No Review of Systems Const All systems reviewed & are unremarkable except as noted in HPI and below ENT Reports dizziness Card Denies chest pain, Denies chest pain at rest, Denies chest pain with activity, Denies rapid heart rate, Denies pedal edema, Denies edema, Denies leg edema, Denies lightheadedness, Denies palpitations, Denies dyspnea, Denies dyspnea on exertion and Denies orthopnea Resp Denies cough, Denies dyspnea and Denies dyspnea on exertion GI Denies hematochezia and Denies change in stool character Musc Denies abnormal gait, Reports limited range of motion, Reports muscle cramps, Denies muscle weakness, Denies numbness, Denies radiating pain into limb, Denies stiffness and Denies tingling Neuro Denies abnormal gait, Reports dizziness, Denies numbness and Denies tingling Endo Denies palpitations Physical Exam Vital Signs: Last Vital Signs Pulse 95 09/06/22 08:25 BP 120/70 09/06/22 08:25 BMI result Body Mass Index 35.5 Const General: cooperative, comfortable and no acute distress Orientation/consciousness: patient oriented x3 Neck Neck: Yes normal visual inspection Resp Effort & Inspection: normal respiratory effort Auscultation: clear to auscultation bilaterally, no rales, no rhonchi and no wheezes Cardio Jugular venous distension: no JVD Rate: regular rate Rhythm: regular rhythm Heart sounds: S1 normal heart sound present, S2 normal heart sound present, no murmurs and no rubs Neuro General: patient oriented x3 Extrem General: Yes normal to inspection, No no pedal edema and No calf tenderness Psych Appearance: grossly normal Mental Status: mental status grossly normal Speech and movement: Normal speech and movement present Office Procedures EKG Details: Today, read by me, atrial fibrillation, QTC 482 milliseconds, rate 95, no acute ST or T-wave abnormalities [id number], Complete Assessment & Plan Assessment & Plan (1) Persistent atrial fibrillation: Code(s): I48.19 - Other persistent atrial fibrillation Plan: History of chronic atrial fibrillation. Previously had attempts for rhythm control with cardioversion and antiarrhythmic therapy. Then had recurrent persistent AFib, now chronic. Patient asymptomatic with AFib. Holter monitor done 11/13/2021 for 3 days showed atrial fibrillation with controlled rate, 75 beats per minute, occasional PVCs. Recent echocardiogram done 08/19/2022 shows EF 60-65%, moderate dilation of the left atrium, no valve abnormalities, ascending aorta 3.8 cm. EKG done today shows atrial fibrillation, rate 95, QTC 482 millisecond. He will continue on metoprolol tartrate 50 mg b.i.d.. Continue Xarelto 20 mg daily for anticoagulation. He tells me his labs are followed by his PCP at the [facility]. Will reach out to them to see if we can obtain most recent results. If not will obtain at [facility] [place]. Cardiology follow-up in 1 year, sooner if needed (2) HTN (hypertension): Code(s): I10 - Essential (primary) hypertension Plan: Well controlled at present time. No medication changes being made (3) Hyperlipidemia: Code(s): E78.5 - Hyperlipidemia, unspecified Plan: Jakin LDL goal less than 100. Labs followed by his PCP. Continue atorvastatin. Orders: Orders Comprehensive Met. Panel Today I48.19 - Other persistent atrial fibrillation Lipid Panel Today E78.5 - Hyperlipidemia, unspecified Complete Blood Count Auto Diff Today I48.19 - Other persistent atrial fibrillation Coding Level of Care Code Est Pt Level 4 (74700) Diagnoses Persistent atrial fibrillation I48.19 HTN (hypertension) I10 Hyperlipidemia E78.5 CPT Codes EKG - CPT: [id number], Complete ([id number]) Time Spent (min) 26 Comment Chart review, documentation, interview, assess
[2022-09-06 08:25] VITALS: BP 120/70; PULSE 95; BMI 35.5
== END 2022-09-06 08:57 | disposition home or self-care (01) ==
PROVIDERS: PCP Family Medicine; Visit Provider Nurse Practitioner Family
DX: I48.19 Other persistent atrial fibrillation (principal); I10 Essential (primary) hypertension; E78.5 Hyperlipidemia, unspecified
CPT/HCPCS: 93010; 99214

== ENCOUNTER → 2022-09-06 08:23 | Outpatient (BNVA) | payer MEDICARE, SELFPAY | PROVIDERS: PCP Family Medicine; Visit Provider Nurse Practitioner Family | DX: I48.19 Other persistent atrial fibrillation (principal); I10 Essential (primary) hypertension; I49.5 Sick sinus syndrome; E78.5 Hyperlipidemia, unspecified; J44.9 Chronic obstructive pulmonary disease, unspecified; Z87.891 Personal history of nicotine dependence; Z79.891 Long term (current) use of opiate analgesic; Z79.899 Other long term (current) drug therapy | CPT/HCPCS: 93005; 99212 ==

== ENCOUNTER 2022-12-06 19:06 | Outpatient (REF) | payer MEDICARE, SELFPAY ==
[2022-12-13 12:11] LABS: Nordiazepam, GCMS Urine NEGATIVE
[2022-12-13 12:12] LABS: Alphahydroxymidazolam,GCMS Ur NEGATIVE; Alphahydroxytriazolam, GCMS Ur NEGATIVE; Alprazolam, GCMS Urine NEGATIVE; Aminoclonazepam, GCMS Urine NEGATIVE; Flurazepam Metabolite,GCMS Ur NEGATIVE; Lorazepam GCMS Urine NEGATIVE; Oxazepam, GCMS Urine NEGATIVE; Temazepam, GCMS Urine NEGATIVE
== END 2022-12-06 19:07 | disposition home or self-care (01) ==
LOC: HO.HHCLNP 19:06
PROVIDERS: Visit Provider Family Medicine
DX: M54.50 Low back pain, unspecified (principal); G89.29 Other chronic pain; F33.9 Major depressive disorder, recurrent, unspecified
CPT/HCPCS: 80346

== ENCOUNTER 2023-03-08 10:32 | Outpatient (REF) | payer MEDICARE, MEDICAID, SELFPAY ==
--- NOTE | ~2023-03-08 | XR_ITS ---
EXAMINATION: Abdomen. CLINICAL INDICATION: Pre-MRI screening. TECHNIQUE: Abdomen one view. There are no radiopaque metallic foreign body seen. There is cement augmentation of L1 vertebra for compression fracture. Mild degenerative disc changes L4-L5 and L5-S1 disc levels is noted. SI joints are symmetrical. XR/XR pre mri screening IMPRESSION: 1. No radiopaque metallic foreign body seen. 2. Cement augmentation of L1 vertebra for compression fracture. 3. Mild degenerative disc changes L4-L5 and L5-S1 disc levels.
--- NOTE | ~2023-03-08 | MR_ITS ---
EXAMINATION: MR LUMBAR SPINE WITHOUT CONTRAST CLINICAL INFORMATION: Severe low back pain intermittent radiation to the bilateral lower extremities COMPARISON: MRI lumbar spine 07/01/2020 TECHNIQUE: MRI of the lumbar spine was obtained using routine sequences without contrast. FINDINGS: Normal lumbar lordosis is preserved. Trace retrolisthesis at L2-L3 and trace anterolisthesis at L4-L5. Stable approximately 50% height loss associated with a chronic L1 wedge compression deformity with superior endplate impaction status post prior kyphoplasty. Stable minimal bony retropulsion of the L1 posterior upper endplate without significant spinal canal compromise. No new compression fractures. Multilevel disc desiccation with stable multilevel mild disc height loss in the upper to mid lumbar spine. New slight edematous edema along the L3 anterior upper endplates. Level by level detail as follows: L1-L2: Slight annular disc bulge and redemonstrated mild bilateral facet arthrosis. No spinal canal or neural foraminal stenosis. L2-L3: Annular disc bulge with mild to moderate bilateral facet arthrosis and ligamentum flavum thickening. No spinal canal or right neural foraminal stenosis. Stable minimal left neural foraminal encroachment.. L3-L4: Annular disc bulge and [id number] bilateral facet arthrosis with ligamentum flavum thickening. Redemonstrated ventral annular fissuring. No spinal canal stenosis. Stable minimal neural foraminal encroachment L4-L5: Redemonstrated moderate to advanced hypertrophic bilateral facet arthrosis and ligamentum flavum thickening. Annular disc bulge. Redemonstrated ventricle annular fissuring. No spinal canal stenosis. Stable mild bilateral neural foraminal stenosis. L5-S1: Annular disc bulge and advanced right with moderate left facet arthrosis. Redemonstrated ventral annular fissuring and adjacent edema within the ventral disc space. Either focally ossified ligamentum flavum thickening or ossified synovial cyst along the anteromedial margin of the right facet joint measuring 0.0 x 0.4 cm is stable. No spinal canal stenosis. Stable mild bilateral neural foraminal stenosis. The conus medullaris terminates at the level of L1-L2. The distal spinal cord is normal in appearance. No epidural fluid collection, hematoma, or mass. There is moderate fatty atrophy of the paraspinal musculature. Limited evaluation of the intra-abdominal structures without significant abnormalities. The abdominal aorta is of normal contour and caliber. MR/MR lumbar spine wo con IMPRESSION: Stable examination since prior. Stable approximately 50% height loss associated with a chronic L1 wedge compression deformity with superior endplate impaction status post prior kyphoplasty. Mild lumbar spondylosis without significant spinal canal or neural foraminal stenosis at any level. Multilevel mild neural foraminal narrowing in the mid to lower lumbar spine with multilevel ventral annular fissures from L3-L4 through L5-S1.
== END 2023-03-08 10:33 | disposition home or self-care (01) ==
LOC: HO.MRI 10:32
PROVIDERS: PCP Family Medicine; Visit Provider Family Medicine
DX: M54.50 Low back pain, unspecified (principal); G89.29 Other chronic pain
CPT/HCPCS: 72148

== ENCOUNTER 2023-05-19 13:58 | Outpatient (AMB) | payer MEDICARE, MEDICAID, SELFPAY ==
[2023-05-19 14:13] VITALS: BP 110/70; PULSE 76; O2SAT 97; BMI 35.0
--- NOTE | 2023-05-19 14:13 | A.OFFVIS_ITS ---
Intake Vital Signs 05/19/23 14:13 Height 6 ft 1 in Weight 265 lb BMI 35.0 BP 110/70 Blood Pressure Location Lt brachial Position Sitting Pulse 76 Pulse Source Pulse Oximeter Pulse Oximetry (%) 97 Oxygen Delivery Method Room Air Intake Visit Reasons: ILD Intake Note: pt is here as a new patient for shortness mostly with stairs and exertion, pt did have covid couple years ago, no hospital. Healthcare Business Analyst Required: No Allergies No Known Allergies [No Known Allergies*] Allergy (Verified 05/19/23 14:55) Medication List - Last Reconciled 05/19/23 by Dago Fall MD albuterol sulfate 90 mcg/actuation (ProAir HFA) 2 puffs PO Q4H PRN atorvastatin 10 mg PO DAILY baclofen 10 mg PO BEDTIME budesonide 0.5 mg inhalation BID PRN budesonide-formoterol 160-4.5 mcg/actuation 1 puff inhalation BID PRN ergocalciferol (vitamin D2) 1 cap PO SA fluoxetine 20 mg PO DAILY gabapentin 300 mg PO TID PRN lidocaine 5% 1 patch topical DAILY PRN loratadine 1 tab PO DAILY metoprolol tartrate 50 mg PO BID 90 days naloxone 4 mg/actuation 4 mg intranasal DAILY PRN oxybutynin chloride ER 1 tab PO QAM rivaroxaban (Xarelto) 20 mg PO DAILY tamsulosin 0.4 mg PO DAILY triamcinolone acetonide 2 sprays intranasal QAM Do you need a note to return to daycare/school/sports/work: No HPI ILD HPI Details 72 years old gentleman is being seen for the 1st time for pulmonary evaluation. He is relatively quiet, but can converse very well. Denies any specific complaints at this time, except for being short of breath on climbing stairs or walking fast. He does use albuterol inhaler only p.r.n., and claims that it does not help much. This gentleman had COVID infection back in 2019, treated at home and recovered. Since then he has been left with the breathing issue as described above. He is being treated with the Symbicort and also budesonide 0.5 mg inhalation p.r.n. but currently he is not using these agents claiming that they did not help his breathing. He does have Ventolin MDI on hand which he uses if he feels congested or has is some cough. Patient underwent sleep study back in 2019, for snoring and possible sleep apnea. The sleep study showed that he had moderate degree of obstructive sleep apnea with total sleep time AHI 21 and predominantly in supine position. He had lot of snoring, up to 75% of the sleep time. Patient was started on CPAP therapy with auto PAP mode where he which he tried for a while but then gave up using it, because he just could not tolerate the CPAP. He describes that his body was not compatible with using CPAP.. Recently he had pulmonary function test, which shows mild obstructive disorder and moderate decrease in DLCO. After bronchodilator therapy his flow volumes actually decreased . This patient is being treated for depression and he is on fluoxetine [facility] Medical History (Updated 05/19/23 @ 17:21 by Dago Fall MD) Dyspnea on exertion ELIZABETH (obstructive sleep apnea) Obesity (BMI 35.0-39.9 without comorbidity) HTN (hypertension) Paroxysmal atrial fibrillation Sick sinus syndrome Surgical History Hx of sinus surgery History of tonsillectomy and adenoidectomy History of back surgery Family History Father Lung cancer Mother Cancer Social History Household Members: Spouse Housing: House Alcohol intake: current Alcohol intake frequency: does not drink Patient Tobacco Use Status: Former Tobacco user Years Smoked: stopped 30 years ago service: No Review of Systems Const All systems reviewed & are unremarkable except as noted in HPI and below Eyes Reports no additional complaints ENT Reports no additional complaints Card Reports irregular heart rhythm (ATRIAL FIB) and Denies leg edema Resp Reports as per HPI GI Reports no additional complaints Reports no additional complaints Musc Reports myalgias (CHRONIC, SECONDARY TO COMPRESSION FRACTURES) Skin/Breast Reports system reviewed and no additional complaints, except as documented Neuro Reports no additional complaints Psych Reports depression (TREATED WITH MED) Endo Reports no additional complaints Josesito/Lymph Reports no additional complaints Physical Exam Vital Signs: Last Vital Signs Pulse 76 05/19/23 14:13 BP 110/70 05/19/23 14:13 Pulse Ox 97 05/19/23 14:13 Oxygen Delivery Method Room Air 05/19/23 14:13 BMI result Body Mass Index 35.0 Const General: healthy appearing (EXCEPT FOR BEING OVERWEIGHT), comfortable, no acute distress, alert and awake Orientation/consciousness: patient oriented x3 HEENT Head: Yes normal to inspection General nose exam: No nasal polyps present and No nasal discharge present Face and sinus: Yes sinuses nontender Mouth: oropharynx normal Throat: Yes posterior oropharynx normal Eyes General: appearance normal, both eyes and all related structures Neck Neck: Yes normal visual inspection, Yes no lymphadenopathy, Yes trachea midline and Yes no JVD Thyroid: Thyroid normal Chest Chest palpation & inspection: normal inspection of the chest, normal palpation of entire chest wall and no tenderness Resp Other: PERCUSSION NOTE IS RESONANT. BREATH SOUNDS ARE SLIGHTLY DISTANT ON BOTH SIDES ESPECIALLY OVER THE BASILAR AREAS. A FEW FINE INSPIRATORY CRACKLES HEARD OVER THE RIGHT BASE. NO WHEEZES. Cardio Palpation: normal PMI Rate: regular rate Rhythm: abnormal rhythm (ATRIAL FIBRILLATION) Heart sounds: no gallops and no murmurs GI Palpation (GI): Soft to palpation, Tenderness to palpation present (GI), No hepatosplenomegaly present and Palpable mass present Auscultation: normal bowel sounds Back/Spine/Pelvis Thoracic/Lumbar Spine: thoracic and lumbar spine normal to inspection and thoraco-lumbar ROM limited Skin General skin exam: no rashes or lesions noted Neuro General: patient oriented x3 and no focal motor deficits Cranial nerves: Yes CN's II-XII intact bilaterally Extrem General: Yes normal to inspection, Yes no clubbing, cyanosis or edema and Yes no calf tenderness Psych Appearance: grossly normal and well kempt Speech and movement: Normal speech and movement present Results Reviewed Results Reviewed: CT SCAN OF THE CHEST ON 08/19/2022. Stable pulmonary nodules. No need of follow-up CT scan. Question of minimal peripheral interstitial lung disease over the basilar areas PULMONARY FUNCTION TEST ON 08/26/2022. FVC 78%, FEV1 85%. FEF 25-75 116% POST BRONCHODILATOR THERAPY THERE WAS SOME DECLINE IN ALL THE NUMBERS. TLC 89% RV 90% DLCO 56%, DLCO/VA 69% HOME-BASED SLEEP STUDY ON 01/29/2020 OBSTRUCTIVE SLEEP APNEA WITH TOTAL SLEEP TIME AHI 20.7, PREDOMINANTLY IN SUPINE POSITION. SNORING WAS FOR 75% OF THE SLEEP TIME Assessment & Plan Assessment & Plan (1) Obesity (BMI 35.0-39.9 without comorbidity): Comment: HE IS A CASE OF MODERATE OBESITY BMI 35 Code(s): E66.9 - Obesity, unspecified Plan: DISCUSSED WITH HIM AND ADVISE THAT HE SHOULD BE IN A WEIGHT MANAGEMENT PROGRAM. OR HE SHOULD CUT DOWN THE CALORIES INTAKE. HE SHOULD WALK AT LEAST 2 MILES EVERY DAY AT A BRISK PACE. (2) ELIZABETH (obstructive sleep apnea): Comment: PATIENT HAS PHYSICAL FEATURES TYPICAL OF OBSTRUCTIVE SLEEP APNEA WITH EXCESSIVE SNORING. HE IS CONFIRMED CASE OF OBSTRUCTIVE SLEEP APNEA PER SLEEP STUDY IN 2019. OBSTRUCTIVE EVENTS WERE PREDOMINANTLY IN SUPINE POSITION. HE WAS TRIED ON CPAP THERAPY BUT DID NOT COPE WITH THIS THE THERAPY AT ALL. HAD A GOOD DISCUSSION AND HE DOES NOT WANT TO GO BACK ON CPAP THERAPY. Code(s): G47.33 - Obstructive sleep apnea (adult) (pediatric) Plan: I TOLD HIM THAT THE CONSERVATIVE MEASURES FOR TREATMENT WOULD BE FOLLOWS: 1- HE MUST ADHERE TO SLEEPING IN LATERAL POSITION, MAY USE A PILLOW ARE A WEDGE IF HE NEEDS TO DO THAT. 2- MUST LOSE 15-20 LB OF WEIGHT I ASKED HIM IF HE WOULD LIKE TO COME FOR FOLLOW-UP, BUT HE DOES NOT WANT TO DO THAT. (3) Dyspnea on exertion: Comment: DYSPNEA ON EXERTION IS MILD, HE DOES NOT WALK FAST ANYWAY. PULMONARY FUNCTION TEST DOES NOT SHOW ANY SIGNIFICANT OBSTRUCTIVE OR RESTRICTIVE PULMONARY DISORDER. HE DOES HAVE MILD DECREASE IN DIFFUSION CAPACITY, THIS MAY BE DUE TO MINIMAL INTERSTITIAL DISORDER RESIDUAL FROM HIS COVID INFECTION. Code(s): R06.09 - Other forms of dyspnea Plan: AGAIN WEIGHT REDUCTION , WILL HELP . ALSO ADVISED TO DO DEEP BREATHING EXERCISES 3 TIMES A DAY Coding Level of Care Code New Pt Level 4 (09417) Diagnoses Obesity (BMI 35.0-39.9 without comorbidity) E66.9 ELIZABETH (obstructive sleep apnea) G47.33 Dyspnea on exertion R06.09
== END 2023-05-19 14:53 | disposition home or self-care (01) ==
PROVIDERS: PCP Family Medicine; Visit Provider Internal Medicine
DX: E66.9 Obesity, unspecified (principal); G47.33 Obstructive sleep apnea (adult) (pediatric); R06.09 Other forms of dyspnea
CPT/HCPCS: 99204

== ENCOUNTER → 2023-05-19 13:58 | Outpatient (BNVA) | payer MEDICARE, SELFPAY | PROVIDERS: PCP Family Medicine; Visit Provider Internal Medicine | DX: J84.9 Interstitial pulmonary disease, unspecified (principal); G47.33 Obstructive sleep apnea (adult) (pediatric); R06.09 Other forms of dyspnea; E66.9 Obesity, unspecified; Z68.35 Body mass index [BMI] 35.0-35.9, adult | CPT/HCPCS: 99202 ==

== ENCOUNTER 2023-06-09 11:23 | Outpatient (AMB) | payer MEDICARE, MEDICAID, SELFPAY ==
--- NOTE | 2023-06-09 11:26 | MHC.OFFVIS ---
Vital Signs 06/09/23 11:37 Height 6 ft 1 in Weight 261 lb 6 oz BMI 34.5 BP 128/86 Blood Pressure Location Lt brachial Position Sitting Respiration 16 Pulse 76 Pulse Source Pulse Oximeter Pulse Oximetry (%) 94 Oxygen Delivery Method Room Air Intake Visit Reasons: PROCEDURE DISCUSSION Intake Note: Patient comes in to discuss procedure options. Reports pain 08/16. Allergies No Known Allergies [No Known Allergies*] Allergy (Verified 06/09/23 11:38) HPI Comments Details: Ubaldo is very pleasant 72 years old gentleman who presents in my office with complains on pain in the lower back. His pain is mostly axial and minimally radiates to the hip and right flank. Loading test is positive on the right. His pain is mostly axial and most likely facetogenic in nature. We administered to the patient Oswestry disability lower back pain : his disability scale is 19 / moderate disability. He was 2 years ago under care of Dr. Alanis who performed medial branch blocks and after that he did sprint PNS on the patient. Unfortunately sprint PNS remained working only for few days in the patient. He accidentally removed the device. He did not show up for the follow-up with this. Today he is in my office discussing his options. I offered him to repeat diagnostic medial branch block L3-L4 does ramus L5 bilateral after which I might consider sprint PNS versus cure on X PNS stimulation versus Nevro SCS. 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 [facility] Medical History (Updated 06/09/23 @ 13:04 by Rob Segundo MD) Dyspnea on exertion ELIZABETH (obstructive sleep apnea) Obesity (BMI 35.0-39.9 without comorbidity) HTN (hypertension) Paroxysmal atrial fibrillation Sick sinus syndrome Surgical History Hx of sinus surgery History of tonsillectomy and adenoidectomy History of back surgery Family History Father Lung cancer Mother Cancer Social History Household Members: Spouse Housing: House Alcohol intake: current Alcohol intake frequency: does not drink Patient Tobacco Use Status: Former Tobacco user Years Smoked: stopped 30 years ago service: No Review of Systems Const All systems reviewed & are unremarkable except as noted in HPI and below Physical Exam Vital Signs: Last Vital Signs Pulse 76 06/09/23 11:37 Resp 16 06/09/23 11:37 BP 128/86 06/09/23 11:37 Pulse Ox 94 06/09/23 11:37 Oxygen Delivery Method Room Air 06/09/23 11:37 BMI result Body Mass Index 34.5 Const General: cooperative and no acute distress Orientation/consciousness: patient oriented x3 Resp Effort & Inspection: normal respiratory effort, able to speak in complete sentences and no audible wheezes Back/Spine/Pelvis Other: Most of the tenderness is on palpation of paraspinal right lumbar region. Flexing forward alleviates his pain. Flexing backwards makes his pain stronger. Demonstrates normal strength of bilateral lower extremities. Loading test is positive on the right. Neuro General: patient oriented x3 Psych Mental Status: mental status grossly normal Speech and movement: Clear speech present Attitude: cooperative Thought process: Normal thought process present Thought content: Normal thought content present Insight: Good insight present (Psych) Judgement: Good judgement present (Psych) Assessment & Plan Assessment & Plan (1) Spondylosis of lumbar region without myelopathy or radiculopathy: Code(s): M47.816 - Spondylosis without myelopathy or radiculopathy, lumbar region Category: Medical (2) Chronic pain syndrome: Code(s): G89.4 - Chronic pain syndrome Category: Medical Plan I will schedule this patient for bilateral medial branch block L3-L4 dorsal ramus L5. His pain is predominantly axial without much of the radiation into the extremities. His Oswestry disability index is equal to 19 - moderate disability. His pain is most likely facetogenic in nature. After the procedure I will schedule him for the follow-up and we will consider what to do next with his pain sprint PNS versus cure on X PNS versus Nevro SCS will be discussed in the future. Coding Level of Care Code Est Pt Level 3 (41332) Diagnoses Spondylosis of lumbar region without myelopathy or radiculopathy M47.816 Chronic pain syndrome G89.4
[2023-06-09 11:37] VITALS: BP 128/86; PULSE 76; RESP 16; O2SAT 94; BMI 34.5
== END 2023-06-09 12:11 | disposition home or self-care (01) ==
PROVIDERS: PCP Family Medicine; Visit Provider Anesthesiology
DX: M47.816 Spondylosis without myelopathy or radiculopathy, lumbar region (principal); G89.4 Chronic pain syndrome
CPT/HCPCS: 99213

== ENCOUNTER → 2023-06-09 11:23 | Outpatient (BNVA) | payer MEDICARE, MEDICAID, SELFPAY | PROVIDERS: PCP Family Medicine; Visit Provider Anesthesiology | DX: M47.816 Spondylosis without myelopathy or radiculopathy, lumbar region (principal); G89.4 Chronic pain syndrome | CPT/HCPCS: 99212 ==

== ENCOUNTER 2023-06-16 14:17 | Outpatient (AMB) | payer MEDICARE, MEDICAID, SELFPAY ==
[2023-06-16 14:19] VITALS: BP 104/60; PULSE 79; BMI 35.2
--- NOTE | 2023-06-16 14:19 | A.OFFVIS_ITS ---
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: No Allergies No Known Allergies [No Known Allergies*] Allergy (Verified 06/16/23 14:21) Medication List - Last Reconciled 06/16/23 by Sindhu Brannon BATTERY LOADER-C albuterol sulfate 90 mcg/actuation (ProAir HFA) 2 puffs PO Q4H PRN atorvastatin 10 mg PO DAILY baclofen 10 mg PO BEDTIME budesonide 0.5 mg inhalation BID PRN budesonide-formoterol 160-4.5 mcg/actuation 1 puff inhalation BID PRN ergocalciferol (vitamin D2) 1 cap PO SA fluoxetine 20 mg PO DAILY gabapentin 300 mg PO TID PRN lidocaine 5% 1 patch topical DAILY PRN loratadine 1 tab PO DAILY metoprolol tartrate 50 mg PO BID 90 days naloxone 4 mg/actuation 4 mg intranasal DAILY PRN oxybutynin chloride ER 1 tab PO QAM rivaroxaban (Xarelto) 20 mg PO DAILY tamsulosin 0.4 mg PO DAILY triamcinolone acetonide 2 sprays intranasal QAM HPI HPI 3 month f/u: Details: Cirilo is a 72-year-old male with past medical history of hypertension, hyperlipidemia, persistent atrial fibrillation who presents for follow-up. His last prior visit to our office was 09/06/22. Today he reports that he has been feeling generally well since his last visit. He has not had any hospitalizations or ER trips. He has chronic issues with low back pain. He admits to being mostly sedentary. He does have issues with fatig ue and some shortness of breath with exertion which he relates to his COPD. No PND, orthopnea or edema. No chest discomfort, palpitations, dizziness, presyncope, syncope, falls. He has no bleeding issues. Reports taking meds as directed. 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 [facility] Medical History Dyspnea on exertion ELIZABETH (obstructive sleep apnea) Obesity (BMI 35.0-39.9 without comorbidity) HTN (hypertension) Paroxysmal atrial fibrillation Sick sinus syndrome Surgical History Hx of sinus surgery History of tonsillectomy and adenoidectomy History of back surgery Family History Father Lung cancer Mother Cancer Social History Household Members: Spouse Housing: House Alcohol intake: current Alcohol intake frequency: does not drink Patient Tobacco Use Status: Former Tobacco user Years Smoked: stopped 30 years ago service: No Review of Systems Const All systems reviewed & are unremarkable except as noted in HPI and below ENT Denies dizziness Card Denies chest pain, Denies chest pain at rest, Denies chest pain with activity, Denies rapid heart rate, Denies pedal edema, Denies edema, Denies leg edema, Denies lightheadedness, Denies palpitations, Denies dyspnea, Denies dyspnea on exertion and Denies orthopnea Resp Denies cough, Denies dyspnea and Denies dyspnea on exertion GI Denies hematochezia and Denies change in stool character Musc Details: chronic back pain Reports abnormal gait (slow), Denies limited range of motion, Denies muscle cramps, Reports muscle weakness, Denies numbness, Denies radiating pain into limb, Denies stiffness and Denies tingling Neuro Reports abnormal gait (slow), Denies dizziness, Denies numbness and Denies tingling Endo Denies palpitations Physical Exam Vital Signs: Last Vital Signs Pulse 79 06/16/23 14:19 BP 104/60 06/16/23 14:19 BMI result Body Mass Index 35.2 Const General: cooperative, comfortable and no acute distress Orientation/consciousness: patient oriented x3 Neck Neck: Yes normal visual inspection Resp Effort & Inspection: normal respiratory effort Auscultation: clear to auscultation bilaterally, no rales, no rhonchi and no wheezes Cardio Jugular venous distension: no JVD Rate: regular rate Rhythm: regular rhythm Heart sounds: S1 normal heart sound present, S2 normal heart sound present, no murmurs and no rubs Neuro General: patient oriented x3 Extrem General: Yes normal to inspection, No no pedal edema and No calf tenderness Psych Appearance: grossly normal Mental Status: mental status grossly normal Speech and movement: Normal speech and movement present Office Procedures EKG Details: Today, read by me, atrial fibrillation, rate 76, QTC 463 milliseconds [id number], Complete Assessment & Plan Assessment & Plan (1) Persistent atrial fibrillation: Code(s): I48.19 - Other persistent atrial fibrillation Category: Medical Plan: History of chronic atrial fibrillation. Previously had attempts for rhythm control with cardioversion and antiarrhythmic therapy. Then had recurrent persistent AFib, now chronic. Patient asymptomatic with AFib. Holter monitor done 11/13/2021 for 3 days showed atrial fibrillation with controlled rate, 75 beats per minute, occasional PVCs. Echocardiogram done 08/19/2022 shows EF 60- 65%, moderate dilation of the left atrium, no valve abnormalities, ascending aorta 3.8 cm. EKG done today shows atrial fibrillation, rate 79, QTC 463 millisecond. No reports of concerning heart palpitations. He will continue on metoprolol tartrate 50 mg b.i.d.. Continue Xarelto 20 mg daily for anticoagulation. He tells me his labs are followed by his PCP at the [facility]. He has an upcoming visit with his PCP. Will reach out to obtain most recent lab results for our system. He should have CBC and BMP at least twice yearly. Cardiology follow-up in 1 year, sooner if needed (2) HTN (hypertension): Code(s): I10 - Essential (primary) hypertension Category: Medical Plan: Well controlled at present time. No medication changes being made (3) Hyperlipidemia: Code(s): E78.5 - Hyperlipidemia, unspecified Category: Medical Plan: [place] LDL goal less than 100. Labs followed by his PCP. Continue atorvastatin. Plan Time spent on chart review, documentation, interview and assessment Coding Level of Care Code Est Pt Level 3 (37656) Diagnoses Persistent atrial fibrillation I48.19 HTN (hypertension) I10 Hyperlipidemia E78.5 CPT Codes EKG - CPT: [id number], Complete ([id number]) Time Spent (min) 24
== END 2023-06-16 14:53 | disposition home or self-care (01) ==
PROVIDERS: PCP Family Medicine; Visit Provider Nurse Practitioner Family
DX: I48.91 Unspecified atrial fibrillation (principal)
CPT/HCPCS: 93010; 99213

== ENCOUNTER → 2023-06-16 14:17 | Outpatient (BNVA) | payer MEDICARE, MEDICAID, SELFPAY | PROVIDERS: PCP Family Medicine; Visit Provider Nurse Practitioner Family | DX: I48.19 Other persistent atrial fibrillation (principal); I10 Essential (primary) hypertension; E78.5 Hyperlipidemia, unspecified | CPT/HCPCS: 93005; 99212 ==

== ENCOUNTER 2023-08-09 12:58 | Outpatient (REF) | payer MEDICARE, MEDICAID, SELFPAY ==
[2023-08-09 16:25] LABS: Hematocrit 47.1 % (42.0-52.0); Hemoglobin 15.4 g/dl (14.0-18.0); Mean Corpuscular HGB Conc 32.7 g/dl (31.0-36.0); Mean Corpuscular Hemoglobin 31.7 pg (27.0-33.0); Mean Corpuscular Volume 96.9 fL (80.0-98.0); Mean Platelet Volume 11.9 fL (9.4-12.4); Platelet Count 172 X10*3/uL (160-400); Red Blood Count 4.86 X10*6/uL (4.60-5.80); Red Cell Distribution Width 12.9 % (11.0-16.0); White Blood Count 7.3 X10*3/uL (4.8-10.8)
[2023-08-09 16:31] LABS: Estimated Average Glucose 103 mg/dL; Hemoglobin A1C 136.0215 umol/L; Hemoglobin A1c % 5.2 % (<6.0)
[2023-08-09 16:51] LABS: Anion Gap 12 (12-20); Blood Urea Nitrogen 21 mg/dL (9-16); Calcium 9.3 mg/dL (8.4-10.2); Carbon Dioxide 28 mmol/L (22-29); Chloride 105 mmol/L (96-108); Cholesterol 134 mg/dL (<200); Estimated Glomerular Filt Rate > 60; Glucose Random 103 mg/dL (60-115); HDL Cholesterol 44 mg/dL (>40); LDL Cholesterol Calculated 74 mg/dL (<100); Potassium 4.7 mmol/L (3.3-5.1); Sodium 140 mmol/L (135-145); Triglycerides 84 mg/dL (<150)
[2023-08-09 17:01] LABS: Free T4 (Free Thyroxine) 0.91 ng/dL (0.71-1.85); Thyroid Stimulating Hormone 1.81 uIU/mL (0.32-4.0); Vitamin D 25-OH Total 23.9 ng/mL (>30)
[2023-08-09 17:17] LABS: Microalbum/Creatinine Ratio Ur 5.9 ug/mg cr (<30)
[2023-08-10 08:15] LABS: HBS Num1 0.31 mIU/mL (0-7.99); HBc Num1 0.23 S/CO (0.00-0.79); HBsAGNum1 0.27 S/CO (0.00-0.99); HIV AB/AG Nonreactive (Nonreactive); HIV Num 1 0.06 S/CO (0.00-0.99); Hepatitis B Core Antibody Nonreactive (Nonreactive); Hepatitis B Surface Antigen Negative (Negative); ~HepC Num1 0.07 S/CO (0.00-0.79); ~Hepatitis B Surface Antibody NONREACTIVE (Nonreactive); ~Hepatitis C Antibody Nonreactive (Nonreactive)
[2023-08-10 08:16] LABS: Hepatitis A Antibody IgG REACTIVE (Nonreactive); ~Hepatitis A Antibody IgG 2.13 S/CO (0.00-0.99)
[2023-08-10 12:28] LABS: RPR Rapid Plasma Reagin NON-REACTIVE (NON-REACTIVE)
== END 2023-08-09 12:59 | disposition home or self-care (01) ==
LOC: HO.HHCL 12:58
PROVIDERS: Visit Provider Family Medicine
DX: Z00.00 Encounter for general adult medical examination without abnormal findings (principal); I10 Essential (primary) hypertension; Z11.59 Encounter for screening for other viral diseases; Z11.3 Encounter for screening for infections with a predominantly sexual mode of transmission; E55.9 Vitamin D deficiency, unspecified; R79.9 Abnormal finding of blood chemistry, unspecified
CPT/HCPCS: 36415; 80048; 80061; 82043; 82306; 82570; 83036; 84439; 84443; 85027; 86592; 86704; 86706; 86708; 86803; 87340; 87389

== ENCOUNTER 2023-12-05 14:36 | Outpatient (AMB) | payer MEDICARE, MEDICAID, SELFPAY ==
[2023-12-05 14:43] VITALS: BP 130/68; PULSE 77; O2SAT 96; BMI 33.0
--- NOTE | 2023-12-05 14:43 | A.OFFVIS_ITS ---
Vital Signs 12/05/23 14:43 Height 6 ft 1 in Weight 250 lb BMI 33.0 BP 130/68 Blood Pressure Location Lt brachial Position Sitting Pulse 77 Pulse Source Pulse Oximeter Pulse Oximetry (%) 96 Oxygen Delivery Method Room Air Intake Visit Reasons: FU Sprint discussion Intake Note: Pain today 06/16 Child Adolescent Psychiatrist Required: No Accompanied by: Self / Same As Patient Allergies No Known Allergies [No Known Allergies*] Allergy (Verified 12/05/23 14:44) HPI Comments Details: Ubaldo is very pleasant 72 years old gentleman who presents in my office with complains on pain in the lower back. His pain is mostly axial and minimally rad iates to the hip and right flank. Loading test is positive on the right. His pain is mostly axial and most likely facetogenic in nature. We administered to the patient Oswestry disability lower back pain : his disability scale is 19 / moderate disability. He was 2 and 1/2 years ago under care of Dr. Alanis who performed medial branch blocks and after that he did sprint PNS on the patient. The patient lost his PNS device soon after the implantation. Now he is in my office requesting me to reestablish care. I told him that I will go the same very way and schedule him for medial branch block L3-L4 dorsel ramus L5 bilaterally. After establishing that medial branch block helps his lower back pain we will go for Sprint PNS. [facility] Medical History Dyspnea on exertion ELIZABETH (obstructive sleep apnea) Obesity (BMI 35.0-39.9 without comorbidity) HTN (hypertension) Paroxysmal atrial fibrillation Sick sinus syndrome Surgical History Hx of sinus surgery History of tonsillectomy and adenoidectomy History of back surgery Family History Father Lung cancer Mother Cancer Social History Household Members: Spouse Housing: House Alcohol intake: current Alcohol intake frequency: does not drink Patient Tobacco Use Status: Former Tobacco user Years Smoked: stopped 30 years ago service: No Review of Systems Const All systems reviewed & are unremarkable except as noted in HPI and below Physical Exam Const General: cooperative and no acute distress Orientation/consciousness: patient oriented x3 Resp Effort & Inspection: normal respiratory effort, able to speak in complete sentences and no audible wheezes Back/Spine/Pelvis Other: Most of the tenderness is on palpation of paraspinal right lumbar region. Flexing forward alleviates his pain. Flexing backwards makes his pain stronger. Demonstrates normal strength of bilateral lower extremities. Loading test is positive on the right. Neuro General: patient oriented x3 Psych Mental Status: mental status grossly normal Speech and movement: Clear speech present Attitude: cooperative Thought process: Normal thought process present Thought content: Normal thought content present Insight: Good insight present (Psych) Judgement: Good judgement present (Psych) Assessment & Plan Assessment & Plan (1) Spondylosis of lumbar region without myelopathy or radiculopathy: Code(s): M47.816 - Spondylosis without myelopathy or radiculopathy, lumbar region Category: Medical (2) Chronic pain syndrome: Code(s): G89.4 - Chronic pain syndrome Category: Medical Plan I will schedule this patient for bilateral medial branch block L3-L4 dorsal ramus L5. His pain is predominantly axial without much of the radiation into the extremities. His Oswestry disability index is equal to 19 - moderate disability. His pain is most likely facetogenic in nature. After the procedure I will schedule him for the follow-up and we will consider what to do next with his pain sprint PNS versus cure on X PNS versus Nevro SCS will be discussed in the future. Coding Level of Care Code Est Pt Level 3 (23635) Diagnoses Spondylosis of lumbar region without myelopathy or radiculopathy M47.816 Chronic pain syndrome G89.4
== END 2023-12-05 14:56 | disposition home or self-care (01) ==
PROVIDERS: PCP Family Medicine; Visit Provider Anesthesiology
DX: M47.816 Spondylosis without myelopathy or radiculopathy, lumbar region (principal); G89.4 Chronic pain syndrome
CPT/HCPCS: 99213

== ENCOUNTER → 2023-12-05 14:36 | Outpatient (BNVA) | payer MEDICARE, MEDICAID, SELFPAY | PROVIDERS: PCP Family Medicine; Visit Provider Anesthesiology | DX: M47.816 Spondylosis without myelopathy or radiculopathy, lumbar region (principal); G89.4 Chronic pain syndrome | CPT/HCPCS: 99212 ==

== ENCOUNTER 2023-12-15 14:43 | Outpatient (AMB) | payer MEDICARE, MEDICAID, SELFPAY ==
--- NOTE | 2023-12-15 15:23 | MHC.OFFVIS ---
Intake Visit Reasons: BPH/PVR Intake Note: Patient is present for BPH/PVR Urology Medication:TAMSULOSIN,OXYBUTYNIN Antibiotic Allergy:NONE Blood Thinner:XARELTO TODAY'S PVR: 0ML'S Field Health Officer Required: No Allergies No Known Allergies [No Known Allergies*] Allergy (Verified 12/15/23 15:28) HPI Comments Details: Cirilo is a 73-year-old male with urinary symptoms of urgency and slowing of urinary stream. The patient has been on oxybutynin and tamsulosin, he is here as a new patient evaluation due to worsening urinary symptoms. He denies dysuria denies gross hematuria. History of AFib on anticoagulation. Patient has chronic low back pain, history of back surgery, comorbidity obesity. I have discussed further evaluation with ultrasound of kidney and bladder and follow-up office cystoscopy. [facility] Medical History Dyspnea on exertion ELIZABETH (obstructive sleep apnea) Obesity (BMI 35.0-39.9 without comorbidity) HTN (hypertension) Paroxysmal atrial fibrillation Sick sinus syndrome Surgical History Hx of sinus surgery History of tonsillectomy and adenoidectomy History of back surgery Family History Father Lung cancer Mother Cancer Social History Household Members: Spouse Housing: House Alcohol intake: current Alcohol intake frequency: does not drink Patient Tobacco Use Status: Former Tobacco user Years Smoked: stopped 30 years ago service: No Review of Systems Const All systems reviewed & are unremarkable except as noted in HPI and below Reports no additional complaints Eyes Reports no additional complaints ENT Reports no additional complaints Card Reports no additional complaints Resp Reports no additional complaints GI Reports no additional complaints Reports as per HPI Musc Reports no additional complaints Skin/Breast Reports system reviewed and no additional complaints, except as documented Neuro Reports no additional complaints Psych Reports no additional complaints Endo Reports no additional complaints Josesito/Lymph Reports no additional complaints Aller/Immun Reports no additional complaints Physical Exam Const General: healthy appearing, no acute distress and well developed Orientation/consciousness: patient oriented x3 HEENT Head: Yes normocephalic and Yes atraumatic Eyes Conjunctivae: conjunctivae normal Neck Neck: Yes normal visual inspection Chest Chest palpation & inspection: normal inspection of the chest Resp Effort & Inspection: normal respiratory effort GI Inspection: Yes normal to inspection Palpation (GI): Soft to palpation Neuro General: patient oriented x3 Psych Appearance: grossly normal Affect: normal affect Office Procedures Post Void Residual Post Residual Void Post Void Residual (PVR): 0 56839-Whml Void Residual by ultrasound Results AMB Urinalysis, Automated UA Leukoctes 0 Meka/uL Last Edit by NIKHIL Ureña on 12/15/23 15:38 UA Nitrite Negative Last Edit by Fred Katz [facility] on 12/15/23 15:38 UA Urobilinogen 2 mg/dL Last Edit by Fred Katz [facility] on 12/15/23 15:38 UA Protein 15 mg/dL Last Edit by Fred Katz [facility] on 12/15/23 15:38 UA pH 6.5 Last Edit by Fred Katz [facility] on 12/15/23 15:38 UA Blood 25 Rolo/uL Last Edit by Fred Katz [facility] on 12/15/23 15:38 UA Specific [place] 1.010 Last Edit by Fred Katz [facility] on 12/15/23 15:38 UA Ketone Positive Last Edit by Fred Katz [facility] on 12/15/23 15:38 UA Bilirubin 1 mg/dL Last Edit by Fred Katz [facility] on 12/15/23 15:38 UA Glucose 0 mg/dL Last Edit by Fred Katz [facility] on 12/15/23 15:38 Results Reviewed Results Reviewed: Laboratory Last Values Urine pH (Auto) 6.5 12/15/23 15:37 Specific [place] (Auto) 1.010 12/15/23 15:37 Urine Protein (Auto) 15 mg/dL 12/15/23 15:37 Glucose (UA)(Auto) 0 mg/dL 12/15/23 15:37 Urine Ketones (Auto) Positive 12/15/23 15:37 Urine Blood (Auto) 25 Rolo/uL 12/15/23 15:37 Urine Nitrite (Auto) Negative 12/15/23 15:37 Urine Bilirubin (Auto) 1 mg/dL 12/15/23 15:37 Urine Urobilinogen (Auto) 2 mg/dL 12/15/23 15:37 Leukocyte Esterase (Auto) 0 Meka/uL 12/15/23 15:37 Assessment & Plan Assessment & Plan (1) BPH loc w urin obs/LUTS: Code(s): N40.1 - Benign prostatic hyperplasia with lower urinary tract symptoms Category: Medical (2) Urinary urgency: Code(s): R39.15 - Urgency of urination Category: Medical (3) Chronic low back pain: Code(s): M54.50 - Low back pain, unspecified; G89.29 - Other chronic pain Category: Medical Plan Ultrasound retroperitoneum, follow-up office cystoscopy Orders: Orders AMB Urinalysis Automated 12/15/23 Z13.9 - Encounter for screening, unspecified Patient Instructions: The patient had an opportunity to ask questions regarding treatment plan. The patient expressed understanding and agreement with the above treatment plan. The patient is aware they should contact our office by phone for worsening of their current condition or the appearance of new symptoms. Compliance is encouraged with any medications and followup testing that is ordered. It is a privilege to be allowed the opportunity to participate in the urologic care of your patient. If you have any questions or concerns regarding treatment for the above conditions please do not hesitate to contact me. The office telephone contact is [phone]. This note is constructed in part using voice recognition software. While every effort has been made to ensure accuracy manager data warehouse errors may have been included. Yours sincerely, Reji Quijano MD Coding Level of Care Code New Pt Level 4 (18632) Diagnoses BPH loc w urin obs/LUTS N40.1 Urinary urgency R39.15 Chronic low back pain M54.50; G89.29 CPT Codes Post Residual Void - PVR CPT Code: 70484-Jprc Void Residual by ultrasound ([id number])
== END 2023-12-15 16:16 | disposition home or self-care (01) ==
LOC: HO.HUSH 14:43
PROVIDERS: PCP Family Medicine; Visit Provider Urology
DX: N40.1 Benign prostatic hyperplasia with lower urinary tract symptoms (principal); R39.15 Urgency of urination; M54.50 Low back pain, unspecified; G89.29 Other chronic pain
CPT/HCPCS: 99204

== ENCOUNTER → 2023-12-15 14:43 | Outpatient (BNVA) | payer MEDICARE, MEDICAID, SELFPAY | PROVIDERS: PCP Family Medicine; Visit Provider Urology | DX: N40.1 Benign prostatic hyperplasia with lower urinary tract symptoms (principal); R39.15 Urgency of urination; G89.29 Other chronic pain; M54.50 Low back pain, unspecified | CPT/HCPCS: 51798; 81003; 99202 ==

== ENCOUNTER 2023-12-27 13:31 | Outpatient (REF) | payer MEDICARE, OTHER, SELFPAY | END 2023-12-27 13:32 | disposition home or self-care (01) | LOC: HO.US 13:31 | PROVIDERS: PCP Family Medicine; Visit Provider Urology | DX: N40.0 Benign prostatic hyperplasia without lower urinary tract symptoms (principal) | CPT/HCPCS: 76770 ==

== ENCOUNTER 2024-02-02 03:45 | Inpatient (IN) | payer MEDICARE, OTHER, SELFPAY ==
[2024-02-02] VITALS (9 sets, daily range): BP systolic 121–160; BP diastolic 62–97; PULSE 80–115; RESP 15–20; TEMP 36.2–37.9; O2SAT 93–98; BMI 34.9; BMI 36.0
--- NOTE | 2024-02-02 | ECG_ITS ---
Test Reason : FALL Blood Pressure : / mmHG Vent. Rate : 106 BPM Atrial Rate : 000 BPM P-R Int : 000 ms QRS Dur : 086 ms QT Int : 364 ms P-R-T Axes : 000 001 -03 degrees QTc Int : 483 ms Atrial fibrillation with rapid ventricular response Nonspecific ST and T wave abnormality Abnormal ECG When compared with ECG of 27-AUG-2020 14:04, Atrial fibrillation has replaced Sinus rhythm Vent. rate has increased BY 44 BPM T wave inversion now evident in Anterior leads Referred By: Generic ED Physician Electronically Signed By:Destin Marin
--- NOTE | ~2024-02-02 | CT_ITS ---
EXAMINATION: CT HEAD WITHOUT CONTRAST CLINICAL INFORMATION: Headache. COMPARISON: August 09, 2019 TECHNIQUE: Contiguous axial imaging was performed from the skull base to vertex without intravenous administration of contrast. This CT examination was performed using dose optimization techniques as appropriate, variously including the following: *Automated exposure control *Adjustment of mA and/or kV according to patient size (this includes techniques or standardized protocols for targeted exams where dose is matched to indication/reason for exam; i.e. extremities or head) *Use of iterative reconstruction technique DLP: 846 mGy-cm FINDINGS: The lateral, third and fourth ventricles are normally outlined. The cortical sulci and basal cisterns are normally as well. There is mild to moderate bilateral periventricular and central white matter diminished attenuation. There is no acute territorial defects, hemorrhage or midline shift. The extra-axial spaces are unremarkable. Calvarium/scalp: Intact. Maxillofacial sinuses and mastoids: There is mucosal thickening throughout the maxillofacial sinuses with a right maxillary sinus opacity. The mastoids are clear. CT/CT head/brain wo IV con IMPRESSION: 1. No acute territorial infarct or hemorrhage. 2. Mild to moderate bilateral periventricular and central white matter diminished attenuation, nonspecific, most commonly represents chronic microangiopathy. 3. Sinus disease as described. Electronically signed by: Rashad Garcia MD 02/02/2024 06:23 AM [facility]
--- NOTE | ~2024-02-02 | XR_ITS ---
EXAMINATION: XR CHEST CLINICAL INFORMATION: Cough COMPARISON: CT chest 02/19/2022. TECHNIQUE: Frontal view of the chest was obtained. FINDINGS: There is cardiac enlargement. The mediastinal and hilar contours appear normal. The lungs appear clear bilaterally without evidence of consolidation, pneumothorax, or effusion. There is no focal osseous or soft tissue abnormality. XR/XR chest 1V IMPRESSION: Cardiac enlargement. Otherwise, no active disease. Electronically signed by: Irineo Jaeger MD 02/02/2024 09:04 AM [facility]
[2024-02-02 04:34] LABS: Hematocrit 42.3 % (42.0-52.0); Hemoglobin 14.5 g/dl (14.0-18.0); Mean Corpuscular HGB Conc 34.3 g/dl (31.0-36.0); Mean Corpuscular Hemoglobin 32.4 pg (27.0-33.0); Mean Corpuscular Volume 94.6 fL (80.0-98.0); Mean Platelet Volume 11.1 fL (9.4-12.4); Platelet Count 117 X10*3/uL (160-400); Red Blood Count 4.47 X10*6/uL (4.60-5.80); Red Cell Distribution Width 12.7 % (11.0-16.0); White Blood Count 6.8 X10*3/uL (4.8-10.8)
[2024-02-02 04:38] LABS: INTERNATIONAL NORM RATIO 1.9 (0.9-1.1); Prothrombin Time 21.6 SEC (10.9-12.4)
--- NOTE | 2024-02-02 04:38 | PC.NURSE ---
Py arrived via EMS from home after fall/slip oob, denies head strike, LOC, no thinners. chronic back pain, c/o pain. informed EMS increase in weakness, requiring increased assistance and assistive devices he does not have. is unable to care for him at this time. zpt is alert and oriented X4, slow to respond and vague on some of his responses. Pt SPO2 89-94% on room air, reporting he is sometimes short of breath. HR 90-110's afib. incontinent of urine on arrival. Hx afib, htn, ELIZABETH
[2024-02-02 04:40] LABS: Partial Thromboplastin Time 36.2 SEC (26.0-36.8)
--- NOTE | 2024-02-02 04:40 | ED_ITS ---
HPI - Fall General Chief Complaint: Fall Stated Complaint: Wit Fall, no hs, chronic back pain diff ambulating Time Seen by Provider: 02/02/24 04:40 Source: patient Mode of arrival: EMS Limitations: no limitations History of Present Illness ED Provider: HPI Narrative: Patient with history of AFib on Xarelto, hypertension been feeling weak for last few days usually can ambulate himself for last few days does not have any strength and had difficulty in walking also complaining of nasal congestion for last 3- 4 days no fever no chills no chest pain today while trying to get up from the bed to the go to the bathroom patient's slid and landed on his buttocks and could not get enough strength to get up off his own denies any loss of consciousness no head injury patient has been feeling palpitation for last few days but at this time he did not feel anything different no chest pain or palpitation Related Data Home Medications ?Medication ?Instructions ?Recorded ?Confirmed atorvastatin 10 mg tablet 10 mg PO DAILY 12/13/19 06/16/23 tamsulosin 0.4 mg capsule 0.4 mg PO DAILY 12/13/19 06/16/23 fluoxetine 20 mg capsule 20 mg PO DAILY 07/21/20 06/16/23 naloxone 4 mg/actuation nasal spray 4 mg intranasal DAILY PRN Opioid 07/21/20 06/16/23 Overdose albuterol sulfate 90 mcg/actuation 2 puff PO Q4H PRN wheezing 08/25/20 06/16/23 aerosol inhaler (ProAir HFA) oxybutynin chloride 5 mg 1 tab PO QAM 08/25/20 06/16/23 tablet,extended release 24 hr baclofen 10 mg tablet 10 mg PO BEDTIME 06/09/21 06/16/23 budesonide 0.5 mg/2 mL suspension 0.5 mg inhalation BID PRN 05/19/23 06/16/23 for nebulization budesonide-formoterol HFA 160 1 puff inhalation BID PRN 05/19/23 06/16/23 mcg-4.5 mcg/actuation aerosol inhaler gabapentin 300 mg capsule 300 mg PO TID PRN 05/19/23 06/16/23 triamcinolone acetonide 55 mcg 2 spray intranasal QAM 05/19/23 06/16/23 nasal spray aerosol cetirizine 10 mg tablet 10 mg PO DAILY 12/05/23 cholecalciferol (vitamin D3) 50 50 mcg PO DAILY 12/05/23 mcg (2,000 unit) capsule (Vitamin D3) fluticasone propionate 50 spray intranasal 12/05/23 mcg/actuation nasal spray,suspension oxycodone-acetaminophen 5 mg-325 1 tab PO QID PRN 12/05/23 mg tablet Previous Rx's ?Medication ?Instructions ?Recorded rivaroxaban 20 mg tablet (Xarelto) 20 mg PO DAILY #90 tabs 12/01/23 metoprolol tartrate 50 mg tablet 50 mg PO BID 90 days #180 tabs 01/09/24 Allergies Allergy/AdvReac Type Severity Reaction Status Date / Time No Known Allergies Allergy Verified 02/02/24 03:59 [No Known Allergies*] Review of Systems 2 Review of Systems: Yes all other systems are reviewed and are negative [facility] Past Medical History Medical History Dyspnea on exertion ELIZABETH (obstructive sleep apnea) Obesity (BMI 35.0-39.9 without comorbidity) HTN (hypertension) Paroxysmal atrial fibrillation Sick sinus syndrome Surgical History Hx of sinus surgery History of tonsillectomy and adenoidectomy History of back surgery Family History Family History Father Lung cancer Mother Cancer Social History Social History Household Members: Spouse Housing: House Alcohol intake: current Alcohol intake frequency: does not drink Patient Tobacco Use Status: Former Tobacco user Years Smoked: stopped 30 years ago Smoked in Last 30 Days: No Any prior treatment program specific to substance use: No Advance Directives: Yes Advance Directives on File: Yes Advance Directives Date on File: 08/28/20 service: No Physical Exam 2 Vital Signs: Vital Signs: Last Vital Signs Temp 99.1 F 02/02/24 06:05 Pulse 113 H 02/02/24 06:05 Resp 15 02/02/24 06:05 BP 153/97 H 02/02/24 06:05 Pulse Ox 95 02/02/24 06:05 O2 Del Method Room Air 02/02/24 06:05 BMI result Body Mass Index 34.9 Appearance: Alert. Oriented X3. No acute distress. Eyes: PERRLA, No Nystagmus ENT: Pharynx normal. Oral Mucosa moist Neck: Normal inspection. Neck supple. CVS: Normal heart rate and rhythm. Pulses normal. Respiratory: No respiratory distress. Equal air entry bilateral, no wheezing/rales/rhonchi Abdomen: Soft and nontender. Bowel sounds are present, no mass palpable, no CVA tenderness Skin: Skin warm and dry. Normal skin color. Normal skin turgor. Extremities: No lower extremity edema. No calf tenderness Neuro: Oriented X 3. No motor deficit. No sensory deficit.No cerebellar signs , cranial nerves II-XII intact Medical Decision Making Medical Decision Making [facility] Narrative: Patient with history of AFib on Xarelto, hypertension been feeling weak for last few days usually can ambulate himself for last few days does not have any strength and had difficulty in walking unable to take care of him comes here for near fall when he slid down from the bed will get PT OT consultation for rehab placement labs are stable CT scan of the head is negative for acute Patient is signed out to Dr. Katz pending COVID flu and RSV panel and disposition Patient noted to have temperature of 100.2 degrees etiology not clear awaiting for the flu panel and chest x-ray will do blood culture and lactic acid level Differential Diagnosis Differential Diagnoses: The differential diagnosis associated with the presentation includes Deconditioning/viral syndrome/weakness Admission/Observation Consideration of admission/observation: Escalation of care including admission/observation considered Lab Data [facility] Lab Attestation statement: I reviewed the patient's lab results. 02/02/24 04:26 02/02/24 04:26 Labs: Lab Results 02/02/24 02/02/24 Range/Units 04:26 04:36 WBC 6.8 (4.8-10.8) X10*3/uL RBC 4.47 L (4.60-5.80) X10*6/uL Hgb 14.5 (14.0-18.0) g/dl Hct 42.3 (42.0-52.0) % MCV 94.6 (80.0-98.0) fL MCH 32.4 (27.0-33.0) pg MCHC 34.3 (31.0-36.0) g/dl RDW 12.7 (11.0-16.0) % Plt Count 117 L D (160-400) X10*3/uL MPV 11.1 (9.4-12.4) fL Absolute Nucleated RBC 0.000 (0.0-0.012) X10*3/uL Nucleated RBC % (auto) 0.0 (0.0-0.2) /100WBC PT 21.6 H (10.9-12.4) SEC INR 1.9 H (0.9-1.1) APTT 36.2 (26.0-36.8) SEC Sodium 137 (135-145) mmol/L Potassium 4.1 (3.3-5.1) mmol/L Chloride 103 (96-108) mmol/L Carbon Dioxide 23 (22-29) mmol/L Anion Gap 15 (12-20) BUN 24 H (9-16) mg/dL Creatinine 0.89 (0.5-1.4) mg/dL Estim Creat Clear Calc 94.5 Estimated GFR > 60 Random Glucose 113 (60-115) mg/dL Calcium 8.8 (8.4-10.2) mg/dL Magnesium 2.0 (1.6-2.6) mg/dL Total Bilirubin 0.7 (0.0-1.0) mg/dL Direct Bilirubin 0.3 (0.0-0.5) mg/dL AST 40 H (5-37) U/L ALT 33 (0-40) U/L Alkaline Phosphatase 72 (39-117) U/L Troponin I High Sens < 2.7 (<3.5-35.0) ng/L Total Protein 7.0 (6.5-8.0) g/dL Albumin 3.9 (3.5-5.0) g/dL Urine Color Yellow Urine Appearance Clear Urine pH 5.5 (5.0-9.0) Ur Specific [place] 1.025 (1.005-1.025) Urine Protein Trace (Neg-Trace) mg/dL Urine Glucose (UA) Negative (Negative) mg/dL Urine Ketones Trace (Negative) mg/dL Urine Blood Small (1+) H (Negative) Urine Nitrite Negative (Negative) Ur Leukocyte Esterase Negative (Negative) Urine RBC 6-10 H (0-2) /HPF Urine WBC 0-5 (0-5) /HPF Ur Squamous Epith Cells 0-2 (0-2) /HPF Urine Bacteria None Seen (None Seen) Hyaline Casts 0-2 (0-2) /LPF Independent Interpretation I performed an independent interpretation of an: EKG and CT Scan Interpretation: Atrial fibrillation with ventricular rate of 106 nonspecific STT wave changes no acute ischemia Radiology Impression Discussion of test interpretation with radiology: I have reviewed the radiologist's reading. Radiologist Impression: CT/CT head/brain wo IV con IMPRESSION: 1. No acute territorial infarct or hemorrhage. 2. Mild to moderate bilateral periventricular and central white matter diminished attenuation, nonspecific, most commonly represents chronic microangiopathy. 3. Sinus disease as described. Electronically signed by: Rashad Garcia MD 02/02/2024 06:23 AM [facility] Discharge Plan Discharge Clinical Impression: Weakness, Atrial fibrillation, Fall Patient Disposition: Still a Patient Prescriptions: No Action Xarelto 20 mg tablet 20 mg PO DAILY Qty: 90 3RF metoprolol tartrate 50 mg tablet 50 mg PO BID 90 Days Qty: 180 3RF oxybutynin chloride 5 mg tablet extended release 24hr 1 tab PO QAM albuterol sulfate [ProAir HFA] 90 mcg/actuation HFA aerosol inhaler 2 puff PO Q4H PRN (Reason: wheezing) budesonide 0.5 mg/2 mL suspension for nebulization 0.5 mg inhalation BID PRN atorvastatin 10 mg tablet 10 mg PO DAILY tamsulosin 0.4 mg capsule 0.4 mg PO DAILY fluoxetine 20 mg capsule 20 mg PO DAILY gabapentin 300 mg capsule 300 mg PO TID PRN naloxone 4 mg/actuation spray,non-aerosol 4 mg intranasal DAILY PRN (Reason: Opioid Overdose) budesonide-formoterol 160-4.5 mcg/actuation HFA aerosol inhaler 1 puff inhalation BID PRN baclofen 10 mg tablet 10 mg PO BEDTIME triamcinolone acetonide 55 mcg aerosol,spray 2 spray intranasal QAM oxycodone-acetaminophen 5-325 mg tablet 1 tab PO QID PRN cholecalciferol (vitamin D3) [Vitamin D3] 50 mcg (2,000 unit) capsule 50 mcg PO DAILY cetirizine 10 mg tablet 10 mg PO DAILY fluticasone propionate 50 mcg/actuation spray,suspension intranasal Print Language: Azerbaijani
[2024-02-02 04:42] LABS: Appearance Urine Clear; Color Urine Yellow; Glucose Urine UA Negative (Negative); Leukocyte Esterase Urine Negative (Negative); Nitrite Urine Negative (Negative); PH 5.5 (5.0-9.0); Specific Gravity - Urine 1.025 (1.005-1.025); UMIC TRIGGER UACC YES; Urine Blood Small (1+) (Negative); Urine Ketones Trace mg/dL (Negative); Urine Protein Trace mg/dL (Neg-Trace)
[2024-02-02 04:45] LABS: Bacteria Urine None Seen (None Seen); Hyaline Casts Urine 0-2 /LPF (0-2); Squamous Epithelial Cell Urine 0-2 /HPF (0-2); WBC Urine 0-5 /HPF (0-5)
[2024-02-02 04:48] LABS: Anion Gap 15 (12-20); Blood Urea Nitrogen 24 mg/dL (9-16); Calcium 8.8 mg/dL (8.4-10.2); Carbon Dioxide 23 mmol/L (22-29); Chloride 103 mmol/L (96-108); Creatinine Clr Calc Pharmacy 94.5; Estimated Glomerular Filt Rate > 60; Glucose Random 113 mg/dL (60-115); Potassium 4.1 mmol/L (3.3-5.1); Sodium 137 mmol/L (135-145)
[2024-02-02 05:00] LABS: Troponin-I High Sensitivity < 2.7 ng/L (<3.5-35.0)
[2024-02-02 05:26] LABS: Alanine Aminotransferase 33 U/L (0-40); Albumin Level 3.9 g/dL (3.5-5.0); Alkaline Phosphatase 72 U/L (39-117); Aspartate Amino Transferase 40 U/L (5-37); Bilirubin Direct 0.3 mg/dL (0.0-0.5); Bilirubin Total 0.7 mg/dL (0.0-1.0)
[2024-02-02] MEDS: Acetaminophen 325 MG TABLET 650 MG PO (07:27)
[2024-02-02] MEDS: cefTRIAXone sodium 1 GM VIAL IVPUSH (07:28)
[2024-02-02 07:42] LABS: Lactic Acid 1.8 mmol/L (0.5-2.0)
[2024-02-02 07:42] LABS: Influenza A PCR POSITIVE (Negative); Influenza B PCR NEGATIVE (Negative); Resp Syncy Virus RNA Qual PCR NEGATIVE (Negative); SARS COV2 PCR INHOUSE NEGATIVE (Negative)
[2024-02-02] MEDS: Oseltamivir Phosphate 75 MG CAPSULE PO ×2 (09:03→20:36)
--- NOTE | 2024-02-02 10:27 | PC.NURSE ---
Pt out of bed with tech for ambulation trial, unsteady gait/weakness. Pt desat into high 80s while standing, O2 sat able to recover to mid 90s while sitting.
--- NOTE | 2024-02-02 11:22 | P.HPHOSP_ITS ---
History of Present Illness Date of Service: 02/02/24 Attending physician on admission: Binh Sims Chief Complaint: Fall at home Pt is a 73-year-old male with a PMH significant for persistent AFib on Xarelto, COPD, HTN, HLD, and BPH?who presents to the ED after falling out of bed earlier this morning. Patient reports he has been experiencing increased shortness of breath and difficulty breathing with productive cough for the past 3-4 days. Has been feeling weak, fatigued, and had difficulty ambulating. Earlier this morning attempted to get out of bed to use the bathroom when he slid to the floor landing on his buttocks. Was unable to pull himself up or stand, thus prompting called to EMS. Denies chest pain/pressure, palpitations. No fever, chills, nausea, vomiting, abdominal pain. Denies lightheadedness or dizziness. No headache. In the ED patient was seen by PT and declined short-term rehab. Was also noted to be desatting into the 80s on ambulation on room air and had an unsteady gait. In the ED pt was tachycardic up to 115, hypertensive up to 153/97, with elevated temp of 100.2 degrees, and desatting into the 80s on RA with ambulation. Labs were significant for testing positive for flu and platelets 117, otherwise grossly unremarkable and baseline for patient. No leukocytosis. Stable H&H. No significant electrolyte abnormalities. Renal function baseline. UA negative for UTI. CXR showed cardiac enlargement but no active disease. CT?of head negative for acute territorial infarct or hemorrhage. EKG demonstrated AFib with RVR of [address] and T-wave abnormalities. Pt was treated with acetaminophen, ceftriaxone, and Tamiflu. Pt will be admitted to the hospital for treatment and further evaluation of acute hypoxic respiratory failure in the setting of acute flu infection. Review of Systems 2 Review of Systems: Negative except for that which is stated in the [facility] Medical History Dyspnea on exertion ELIZABETH (obstructive sleep apnea) Obesity (BMI 35.0-39.9 without comorbidity) HTN (hypertension) Paroxysmal atrial fibrillation Sick sinus syndrome Family History Father Lung cancer Mother Cancer Surgical History Hx of sinus surgery History of tonsillectomy and adenoidectomy History of back surgery Social History Household Members: Spouse Housing: House Alcohol intake: current Alcohol intake frequency: does not drink Patient Tobacco Use Status: Former Tobacco user Years Smoked: stopped 30 years ago Smoked in Last 30 Days: No Any prior treatment program specific to substance use: No Advance Directives: Yes Advance Directives on File: Yes Advance Directives Date on File: 08/28/20 Nutrition Risks: No Nutritional Risk service: No Meds Allergies Allergy/AdvReac Type Severity Reaction Status Date / Time No Known Allergies Allergy Verified 02/02/24 03:59 [No Known Allergies*] Home Medications ?Medication ?Instructions ?Recorded ?Confirmed ?Last Taken ?Type atorvastatin 10 mg tablet 10 mg PO BEDTIME 12/13/19 02/02/24 01/31/24 History tamsulosin 0.4 mg capsule 0.4 mg PO DAILY 12/13/19 02/02/24 02/01/24 History fluoxetine 20 mg capsule 60 mg PO DAILY 07/21/20 02/02/24 02/01/24 History baclofen 10 mg tablet 10 mg PO TID 06/09/21 02/02/24 02/01/24 History gabapentin 300 mg capsule 300 mg PO TID 05/19/23 02/02/24 02/01/24 History triamcinolone acetonide 55 mcg 2 spray intranasal DAILY 05/19/23 02/02/24 02/01/24 History nasal spray aerosol cetirizine 10 mg tablet 10 mg PO DAILY 12/05/23 02/02/24 02/01/24 History cholecalciferol (vitamin D3) 50 50 mcg PO DAILY 12/05/23 02/02/24 02/01/24 History mcg (2,000 unit) capsule (Vitamin D3) oxycodone-acetaminophen 5 mg-325 1 tab PO QID PRN Sever Pain 12/05/23 02/02/24 Unknown History mg tablet albuterol sulfate 90 mcg/actuation 2 puff inhalation Q4H PRN WHEEZING 02/02/24 02/02/24 02/01/24 History aerosol inhaler (Ventolin HFA) OR SHORTNESS OF BREATH rivaroxaban 20 mg tablet (Xarelto) 20 mg PO DAILY@1700 02/02/24 02/02/24 02/01/24 History Physical Exam 2 Vital Signs and Narrative: Vital Signs: Last Vital Signs Temp 99.2 F 02/02/24 09:05 Pulse 85 02/02/24 09:05 Resp 20 02/02/24 09:05 BP 144/89 H 02/02/24 09:05 Pulse Ox 97 02/02/24 09:05 O2 Del Method Room Air 02/02/24 09:05 BMI result Body Mass Index 34.9 General: AOx3, no acute distress Resp: CTA bilaterally, slightly diminised CVS: Irregularly irregular rhythm, tachycardic GI: +BS, NT, no distention Skin: Warm, dry Neuro: Cranial nerves II-XII grossly intact bilaterally. Motor grossly intact bilaterally Extremities: No edema Psych: Appropriate affect Results Labs 02/02/24 04:26 02/02/24 04:26 Labs: Laboratory Results - last 24 hr 02/02/24 02/02/24 02/02/24 04:26 04:36 06:52 MCV 94.6 MCH 32.4 MCHC 34.3 RDW 12.7 Plt Count 117 L D MPV 11.1 Absolute Nucleated RBC 0.000 Nucleated RBC % (auto) 0.0 PT 21.6 H INR 1.9 H APTT 36.2 Anion Gap 15 Estim Creat Clear Calc 94.5 Estimated GFR > 60 Random Glucose 113 Lactic Acid Calcium 8.8 Magnesium 2.0 Total Bilirubin 0.7 Direct Bilirubin 0.3 AST 40 H ALT 33 Alkaline Phosphatase 72 Troponin I High Sens < 2.7 Total Protein 7.0 Albumin 3.9 Urine Color Yellow Urine Appearance Clear Urine pH 5.5 Ur Specific [place] 1.025 Urine Protein Trace Urine Glucose (UA) Negative Urine Ketones Trace Urine Blood Small (1+) H Urine Nitrite Negative Ur Leukocyte Esterase Negative Urine RBC 6-10 H Urine WBC 0-5 Ur Squamous Epith Cells 0-2 Urine Bacteria None Seen Hyaline Casts 0-2 Influenza Type A (PCR) POSITIVE A Influenza Type B (PCR) NEGATIVE RSV RNA Qual (PCR) NEGATIVE SARS-CoV-2 RNA (RT-PCR) NEGATIVE 02/02/24 07:19 MCV MCH MCHC RDW Plt Count MPV Absolute Nucleated RBC Nucleated RBC % (auto) PT INR APTT Anion Gap Estim Creat Clear Calc Estimated GFR Random Glucose Lactic Acid 1.8 Calcium Magnesium Total Bilirubin Direct Bilirubin AST ALT Alkaline Phosphatase Troponin I High Sens Total Protein Albumin Urine Color Urine Appearance Urine pH Ur Specific [place] Urine Protein Urine Glucose (UA) Urine Ketones Urine Blood Urine Nitrite Ur Leukocyte Esterase Urine RBC Urine WBC Ur Squamous Epith Cells Urine Bacteria Hyaline Casts Influenza Type A (PCR) Influenza Type B (PCR) RSV RNA Qual (PCR) SARS-CoV-2 RNA (RT-PCR) Imaging Radiologist's Impressions: Impressions Head CT 02/02/24 05:22 IMPRESSION: 1. No acute territorial infarct or hemorrhage. 2. Mild to moderate bilateral periventricular and central white matter diminished attenuation, nonspecific, most commonly represents chronic microangiopathy. 3. Sinus disease as described. Electronically signed by: Rashad Garcia MD 02/02/2024 06:23 AM Navigating Cancer RP Chest X-Ray 02/02/24 07:31 IMPRESSION: Cardiac enlargement. Otherwise, no active disease. Electronically signed by: Irineo Jaeger MD 02/02/2024 09:04 AM EST RP Assessment and Plan (1) Hypoxia: Status: Acute (2) Influenza A: Status: Acute Plan Pt is a 73-year-old male with a PMH significant for persistent AFib on Xarelto, COPD, HTN, HLD, and BPH?who presents to the ED after falling out of bed earlier this morning. Patient reports he has been experiencing increased shortness of breath and difficulty breathing with productive cough for the past 3-4 days. Pt will be admitted to the hospital for treatment and further evaluation of acute hypoxic respiratory failure and generalized weakness in the setting of acute flu infection. Acute hypoxic respiratory failure in the setting of acute flu infection Patient desatting to the 80s with ambulation on RA Cough, SOB, FRANK, weakness x3-4 days, unable to ambulate Will treat with Tamiflu, guaifenesin, DuoNebs p.r.n. Will give Solu-Medrol 40 mg IV daily due to underlying COPD Titrate supplemental O2 >92, wean as tolerated Generalized weakness/fall at home Check orthostatics Will place on maintenance fluids PT consult Persistent AFib Continue metoprolol, Xarelto COPD Not in acute exacerbation Continue home inhalers HLD Continue statin BPH Continue tamsulosin Full Code Attending:?Dr. Sims DVT Prophylaxis: On Xarelto Pt will require a hospitalization of at least two nights for treatment of?acute hypoxic respiratory failure and generalized weakness in the setting of acute fluid infection. Given that patient is not on home O2 and is unable to ambulate on his own, will require hospital level care for treatment with supplemental oxygen, Tamiflu, and physical therapy evaluation. Quality Stroke Does the patient have a stroke diagnosis?: No VTE Prior VTE?: No VTE Risk Level:: Medical - moderate - high VTE Device Contraindication: Treatment Not Indicated VTE Drug Contraindication: N/A - Med Ordered
--- NOTE | 2024-02-02 11:34 | PHA.MEDREC ---
Addendum entered by Orly Billy RPh 02/02/24 11:41: Reviewed by [facility]. Original Note: Pharmacy Consult ? Medication Reconciliation Pharmacy has completed the medication reconciliation. Spoke with patient and he was not so sure of his medications but stated his should be able to confirm the medications. I called the patients and she confirmed his medications with Rx bottles they had at home. The patient confirmed he took his medications last yesterday around noon.
[2024-02-02] MEDS: FLUoxetine HCl 20 MG CAPSULE 60 MG PO (12:42)
[2024-02-02] MEDS: Tamsulosin HCL 0.4 MG CAPSULE PO (12:42)
[2024-02-02] MEDS: methylPREDNISolone Sod Succ 40 MG/ML VIAL IVPUSH (14:02)
[2024-02-02] MEDS: oxyCODONE HCl Immed Release 5 MG TABLET PO (14:02)
[2024-02-02] MEDS: Gabapentin 300 MG CAPSULE PO ×2 (14:40→20:36)
[2024-02-02] MEDS: Baclofen 10 MG TABLET PO ×2 (14:40→20:36)
[2024-02-02] MEDS: Rivaroxaban 20 MG TABLET PO (16:35)
[2024-02-02] MEDS: 0.9 % Sodium Chloride Flush 3 ML SYRINGE IVFLUSH ×2 (16:36→20:37)
[2024-02-02] MEDS: Atorvastatin Calcium 10 MG TABLET PO (20:36)
[2024-02-02] MEDS: Metoprolol Tartrate 50 MG TABLET PO (20:36)
[2024-02-02 20:44] LABS: B Type Natriuretic Peptide 122 pg/mL (<100)
--- NOTE | 2024-02-03 03:29 | PC.NURSE ---
pt refusing bed alarm.
[2024-02-03 03:42] VITALS: BP 141/71; PULSE 74; RESP 16; TEMP 36.8; O2SAT 95
[2024-02-03 07:10] LABS: Hematocrit 43.4 % (42.0-52.0); Hemoglobin 14.7 g/dl (14.0-18.0); Mean Corpuscular HGB Conc 33.9 g/dl (31.0-36.0); Mean Corpuscular Hemoglobin 32.5 pg (27.0-33.0); Mean Corpuscular Volume 95.8 fL (80.0-98.0); Mean Platelet Volume 11.5 fL (9.4-12.4); Platelet Count 132 X10*3/uL (160-400); Red Blood Count 4.53 X10*6/uL (4.60-5.80); Red Cell Distribution Width 12.6 % (11.0-16.0); White Blood Count 5.5 X10*3/uL (4.8-10.8)
[2024-02-03 08:00] VITALS: BP 148/88; BP 157/85; PULSE 89; PULSE 94; RESP 12; TEMP 36; O2SAT 95
[2024-02-03 08:36] VITALS: BP 148/88; PULSE 89
[2024-02-03 08:37] VITALS: BP 150/111; PULSE 87
[2024-02-03] MEDS: Baclofen 10 MG TABLET PO (09:01)
[2024-02-03] MEDS: Cholecalciferol (Vitamin D3) 25 MCG TABLET 50 MCG PO (09:01)
[2024-02-03] MEDS: Tamsulosin HCL 0.4 MG CAPSULE PO (09:01)
[2024-02-03] MEDS: oxyCODONE HCl Immed Release 5 MG TABLET PO (09:02)
[2024-02-03] MEDS: Oseltamivir Phosphate 75 MG CAPSULE PO (09:02)
[2024-02-03] MEDS: Metoprolol Tartrate 50 MG TABLET PO (09:02)
[2024-02-03] MEDS: Gabapentin 300 MG CAPSULE PO (09:03)
[2024-02-03] MEDS: Loratadine 10 MG TABLET PO (09:03)
[2024-02-03] MEDS: 0.9 % Sodium Chloride Flush 3 ML SYRINGE IVFLUSH (09:04)
[2024-02-03] MEDS: FLUoxetine HCl 20 MG CAPSULE 60 MG PO (09:04)
[2024-02-03 09:50] VITALS: BP 150/111; PULSE 87; O2SAT 91
--- NOTE | 2024-02-03 11:09 | PM.DS ---
DS: Providers Provider Date of Service: 02/03/24 Date of admission: 02/02/24 11:49 Date of discharge: 02/03/24 Primary care physician: Unknown Physician Consults: 02/02/24 06:58 Consult to Case Management Stat Comment: Attending physician on discharge: Binh Sims DS: Diagnosis Discharge Diagnosis (1) Hypoxia: Status: Acute (2) Influenza A: Status: Acute DS: Summary Hospital Course Hospital Course: HPI From admission H&P: 'Pt is a 73-year-old male with a PMH significant for persistent AFib on Xarelto, COPD, HTN, HLD, and BPH?who presents to the ED after falling out of bed earlier this morning. Patient reports he has been experiencing increased shortness of breath and difficulty breathing with productive cough for the past 3-4 days. Has been feeling weak, fatigued, and had difficulty ambulating. Earlier this morning attempted to get out of bed to use the bathroom when he slid to the floor landing on his buttocks. Was unable to pull himself up or stand, thus prompting called to EMS. Denies chest pain/pressure, palpitations. No fever, chills, nausea, vomiting, abdominal pain. Denies lightheadedness or dizziness. No headache. In the ED patient was seen by PT and declined short-term rehab. Was also noted to be desatting into the 80s on ambulation on room air and had an unsteady gait. In the ED pt was tachycardic up to 115, hypertensive up to 153/97, with elevated temp of 100.2 degrees, and desatting into the 80s on RA with ambulation. Labs were significant for testing positive for flu and platelets 117, otherwise grossly unremarkable and baseline for patient. No leukocytosis. Stable H&H. No significant electrolyte abnormalities. Renal function baseline. UA negative for UTI. CXR showed cardiac enlargement but no active disease. CT?of head negative for acute territorial infarct or hemorrhage. EKG demonstrated AFib with RVR of [address] and T-wave abnormalities. Pt was treated with acetaminophen, ceftriaxone, and Tamiflu. Pt will be admitted to the hospital for treatment and further evaluation of acute hypoxic respiratory failure in the setting of acute flu infection. Hospital Course: Patient was started on IV Solu-Medrol and Tamiflu for his influenza and mild COPD exacerbation. He was given as needed oxygen which he primarily did not require. Over the course of 24 hours, the patient's respiratory symptoms have improved as has his weakness. He has been evaluated by Physical therapy and deemed appropriate for home. He has not desaturated with ambulation of greater than 100 ft, maintaining saturations over 90. The patient improved faster than expected and is eager for discharge home, therefore we will send him home on 7 more doses of Tamiflu as well as 4 more days of prednisone. He should follow up with his outpatient providers. Time Attestation Discharge Coordination Time (in mins): 35 Quality: Safe Use of Opioids Does Pt have an Active Cancer Diagnosis on the Problem List?: No Quality: Stroke Does the patient have a stroke diagnosis?: No Physical Exam Vital Signs: Vital Signs: Last Vital Signs Temp 96.8 F 02/03/24 08:00 Pulse 87 02/03/24 09:50 Resp 12 02/03/24 08:00 BP 150/111 H 02/03/24 09:50 Pulse Ox 91 L 02/03/24 09:50 O2 Del Method Room Air 02/03/24 08:00 BMI result Body Mass Index 36.0 Const: Other: General - no acute distress, appears comfortable Cardiovascular - regular rate and rhythm, S1-S2 Lungs - normal respiratory effort, clear to auscultation bilaterally, no wheezing Abdomen - soft, nontender, no rebound or guarding Extremities - no edema bilaterally Neuro - awake and alert, no focal deficits DS: Data Data Completed and Pending Completed studies during hospitalization [Text1]: Procedures Zoroastrianism of Cardiac Rhythm, Single (08/25/20) Labs on day of discharge: Laboratory Results - last 24 hr 02/02/24 02/03/24 04:26 05:31 WBC 5.5 RBC 4.53 L Hgb 14.7 Hct 43.4 MCV 95.8 MCH 32.5 MCHC 33.9 RDW 12.6 Plt Count 132 L MPV 11.5 Absolute Nucleated RBC 0.000 Nucleated RBC % (auto) 0.0 B-Natriuretic Peptide 122 H Preliminary micro results at discharge 02/02/24 07:19 Blood Culture - Preliminary Blood - Venous No growth after 24 hours. 02/02/24 07:19 Blood Culture - Preliminary Blood - Venous No growth after 24 hours. Discharge Plan Discharge Anticipated Discharge Date/Time: 02/03/24 11:05 Patient Disposition: Home, Self-Care Discharge Diagnosis: Flu Hypoxia Referrals: Physician,Unknown J [Primary Care Provider] - 1 Week Discharge Medications: New oseltamivir [Tamiflu] 75 mg Capsule 75 mg PO Q12H Qty: 7 0RF prednisone 20 mg tablet 40 mg PO DAILY Qty: 8 0RF Continued metoprolol tartrate 50 mg tablet 50 mg PO BID 90 Days Qty: 180 3RF albuterol sulfate [Ventolin HFA] 90 mcg/actuation HFA aerosol inhaler 2 puff INHALATION Q4H PRN (Reason: WHEEZING OR SHORTNESS OF BREATH) Xarelto 20 mg tablet 20 mg PO DAILY@1700 atorvastatin 10 mg tablet 10 mg PO BEDTIME tamsulosin 0.4 mg capsule 0.4 mg PO DAILY fluoxetine 20 mg capsule 60 mg PO DAILY gabapentin 300 mg capsule 300 mg PO TID baclofen 10 mg tablet 10 mg PO TID triamcinolone acetonide 55 mcg aerosol,spray 2 spray intranasal DAILY oxycodone-acetaminophen 5-325 mg tablet 1 tab PO QID PRN (Reason: Sever Pain) cholecalciferol (vitamin D3) [Vitamin D3] 50 mcg (2,000 unit) capsule 50 mcg PO DAILY cetirizine 10 mg tablet 10 mg PO DAILY Discharge Orders: Discharge Order (Routine); Ordered 02/03/24 Ordered By: Binh Sims Diet: Advance to usual diet Activity on Discharge: As tolerated Stand Alone Forms: Patient Portal Discharge page Print Language: Czech Care Plan Goals: Finish treatment for Flu Health Concerns: see d/c summary Plan of Treatment: see d/c summary Assessment: see d/c summary
--- NOTE | 2024-02-03 12:46 | MHC.CM.PN ---
PT REPORTS HE LIVES WITH HIS AND IS INDEPENDENT WITH CARE HE HAS NO DME AND IS ACTIVE WITH [facility] FOR [facility] HCP ON FILE PCP: ANG SANTIAGO IMM DELIVERED PT DISCHARGED HOME TODAY WITH NO SERVICES [facility] OFFERED AND DECLINED FAMILY PROVIDED TRANSPORT
== END 2024-02-03 12:37 | disposition home or self-care (01) | DRG 193 ==
LOC: HO.ED 06:59 → HO.EDOVER 12:04 → HO.S3 13:09
PROVIDERS: Admitting Provider Student in an Organized Health Care Education/Training Program; Emergency Provider Internal Medicine; PCP Family Medicine; Visit Provider Internal Medicine
DX: J10.1 Influenza due to other identified influenza virus with other respiratory manifestations (principal); J96.01 Acute respiratory failure with hypoxia; I48.19 Other persistent atrial fibrillation; J44.1 Chronic obstructive pulmonary disease with (acute) exacerbation; N40.0 Benign prostatic hyperplasia without lower urinary tract symptoms; E78.5 Hyperlipidemia, unspecified; Z20.822 Contact with and (suspected) exposure to COVID-19; Z87.891 Personal history of nicotine dependence; Z79.01 Long term (current) use of anticoagulants; Z79.899 Other long term (current) drug therapy
CPT/HCPCS: 0241U; 36415; 70450; 71045; 80048; 80076; 81001; 83605; 83735; 83880; 84484; 85027; 85610; 85730; 87040; 93005; 97116; 97161; 97162; 99285; J0696; J2919

== ENCOUNTER → 2024-02-02 04:10 | Outpatient (BNV) | payer MEDICARE, SELFPAY | PROVIDERS: Admitting Provider Student in an Organized Health Care Education/Training Program; Emergency Provider Internal Medicine; Visit Provider Internal Medicine Cardiovascular Disease | DX: R94.31 Abnormal electrocardiogram [ECG] [EKG] (principal) | CPT/HCPCS: 93010 ==

== ENCOUNTER → 2024-02-02 06:57 | Outpatient (BNV) | payer MEDICARE, SELFPAY | PROVIDERS: Emergency Provider Internal Medicine; Visit Provider Radiology Diagnostic Radiology | DX: R05.9 Cough, unspecified (principal) | CPT/HCPCS: 71045 ==

== ENCOUNTER → 2024-02-02 11:49 | Outpatient (BNV) | payer MEDICARE, SELFPAY | PROVIDERS: Admitting Provider Student in an Organized Health Care Education/Training Program; Emergency Provider Internal Medicine; Visit Provider Student in an Organized Health Care Education/Training Program | DX: J96.01 Acute respiratory failure with hypoxia (principal); J10.1 Influenza due to other identified influenza virus with other respiratory manifestations | CPT/HCPCS: 99222; 99239 ==

== ENCOUNTER 2024-03-30 13:24 | Outpatient (AMB) | payer MEDICARE, SELFPAY ==
--- NOTE | 2024-03-30 13:37 | A.OFFVIS_ITS ---
Intake Visit Reasons: Cysto Intake Note: Patient is present for Cystoscopy Urology Meds: Tamsulosin Antibiotic Allergies: NKA Blood Thinners: Xaralto URO G-HD Disposable Cystoscope LOT: [id number] EXP: 05/18/26 Medical Office Secretary Required: No Accompanied by: Self / Same As Patient Allergies No Known Allergies [No Known Allergies*] Allergy (Verified 03/30/24 13:51) Medication List - Last Reconciled 03/30/24 by Reji Quijano MD albuterol sulfate 90 mcg/actuation (Ventolin HFA) 2 puffs inhalation Q4H PRN atorvastatin 10 mg PO BEDTIME baclofen 10 mg PO TID cetirizine 10 mg PO DAILY cholecalciferol (vitamin D3) (Vitamin D3) 50 mcg PO DAILY dutasteride (Avodart) 0.5 mg PO DAILY fluoxetine 60 mg PO DAILY gabapentin 300 mg PO TID metoprolol tartrate 50 mg PO BID 90 days oxycodone-acetaminophen 5-325 mg 1 tab PO QID PRN rivaroxaban (Xarelto) 20 mg PO DAILY@1700 tamsulosin 0.4 mg PO DAILY triamcinolone acetonide 2 sprays intranasal DAILY HPI Comments Details: 03/30/2024--Cirilo is a 73-year-old male who presents for follow-up. He was initially evaluated on 12/15/2023. The patient is on tamsulosin. In review he states he is on oxycodone not oxybutynin. I have reviewed renal ultrasound 12/22/2023. History of cryotherapy left renal mass 2012. Cystoscopy findings: No suspicious bladder lesions, trilobar enlargement of the prostate. Discussed starting Avodart, alternatively consider GreenLight laser. The patient agreeable to starting the Avodart and will consider further intervention pending changes/improvement in symptoms. 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 12/15/23 --Cirilo is a 73-year-old male with urinary symptoms of urgency and slow ing of urinary stream. The patient has been on oxybutynin and tamsulosin, he is here as a new patient evaluation due to worsening urinary symptoms. He denies dysuria denies gross hematuria. History of AFib on anticoagulation. Patient has chronic low back pain, history of back surgery, comorbidity obesity. I have discussed further evaluation with ultrasound of kidney and bladder and follow-up office cystoscopy. [facility] Medical History Influenza A Atrial fibrillation Dyspnea on exertion ELIZABETH (obstructive sleep apnea) Obesity (BMI 35.0-39.9 without comorbidity) HTN (hypertension) Paroxysmal atrial fibrillation Sick sinus syndrome Surgical History Hx of sinus surgery History of tonsillectomy and adenoidectomy History of back surgery Family History Father Lung cancer Mother Cancer Social History Household Members: Spouse Housing: House Do you presently have visiting nurse or other home services: No Alcohol intake: current Alcohol intake frequency: does not drink Patient Tobacco Use Status: Former Tobacco user Years Smoked: stopped 30 years ago e-Cigarette/Vaping Use: Former Use Second Hand Smoke Exposure: No Advance Directives Date on File: 08/28/20 service: No Review of Systems Const All systems reviewed & are unremarkable except as noted in HPI and below Reports no additional complaints Eyes Reports no additional complaints ENT Reports no additional complaints Card Reports no additional complaints Resp Reports no additional complaints GI Reports no additional complaints Reports as per HPI Musc Reports no additional complaints Skin/Breast Reports system reviewed and no additional complaints, except as documented Neuro Reports no additional complaints Psych Reports no additional complaints Endo Reports no additional complaints Josesito/Lymph Reports no additional complaints Aller/Immun Reports no additional complaints Office Procedures Cystoscopy Consent Discussed risk and benefit or proposed procedure with the patient. Information consent for procedure given to the patient. Discussed technical aspects, risks, benefits and alternatives in full. Addressed all of the patient's questions and concerns regarding the procedure. The patient demonstrated knowledge and understanding. They wish to proceed with this procedure. Preparation The patient was prepped in the usual manner. A warping mill operator was present and in the room. Genitalia was prepped with betadine solution in a sterile manner. Lidocaine Jelly 2% was placed into the urethra and 16Fr flexible Olympus cystoscope was inserted into the meatus after adequate lubrication. Procedure Time out per protocol performed. Bladder Inspection Bladder Inspection: The bladder was inspected in its entirety with utilization retroflexion displaying: Tumor(s): no suspicious bladder lesions visualized Trabeculation: Mild to Moderate Mucosal Erthema: NA Orifices: normal shape and position Urethra: normal Cystoscopy findings: prostatic urethra trilobar, bulbous urethra WNL, no suspic ious bladder lesions visualized [id number] DISPOSABLE SCOPE URO-G FLEXIBLE SCOPE Procedure code (CPT) selection complete Office Meds lidocaine HCl 2 % mucosal jelly in applicator Performing Provider: Reji Quijano MD Performing Location[facility] Administered by: Alba Boyce RN on 03/30/24 13:55 Dose Route Admin Location Dispensed Lot Number Expiration Date ND Retail Solar Advisor 10 mL intra-urethral 10 mL ciprofloxacin HCl 500 mg tablet Performing Provider: Reji Quijano MD Performing Location: [facility] Administered by: Alba Boyce RN on 03/30/24 13:55 Dose Route Admin Location Dispensed Lot Number Expiration Date ND Retail Solar Advisor 500 mg PO 1 tab Results AMB Urinalysis, Automated UA Leukoctes 0 Meka/uL Last Edit by Santa Khan MA on 03/30/24 13:55 UA Nitrite Negative Last Edit by Santa Khan MA on 03/30/24 13:55 UA Urobilinogen 0.2 mg/dL Last Edit by Santa Khan MA on 03/30/24 13:55 UA Protein 15 mg/dL Last Edit by Santa Khan MA on 03/30/24 13:55 UA pH 6.0 Last Edit by Santa Khan MA on 03/30/24 13:55 UA Blood 25 Rolo/uL Last Edit by Santa Khan MA on 03/30/24 13:55 UA Specific [place] 1.015 Last Edit by Santa Khan MA on 03/30/24 13:55 UA Ketone Negative Last Edit by Santa Khan MA on 03/30/24 13:55 UA Bilirubin 0 mg/dL Last Edit by Santa Khan MA on 03/30/24 13:55 UA Glucose 0 mg/dL Last Edit by Santa Khan MA on 03/30/24 13:55 Results Reviewed Results Reviewed: Laboratory Last Values Urine pH (Auto) 6.0 03/30/24 13:38 Specific [place] (Auto) 1.015 03/30/24 13:38 Urine Protein (Auto) 15 mg/dL 03/30/24 13:38 Glucose (UA)(Auto) 0 mg/dL 03/30/24 13:38 Urine Ketones (Auto) Negative 03/30/24 13:38 Urine Blood (Auto) 25 Rolo/uL 03/30/24 13:38 Urine Nitrite (Auto) Negative 03/30/24 13:38 Urine Bilirubin (Auto) 0 mg/dL 03/30/24 13:38 Urine Urobilinogen (Auto) 0.2 mg/dL 03/30/24 13:38 Leukocyte Esterase (Auto) 0 Meka/uL 03/30/24 13:38 Date of Service: 12/27/23 US RETROPERITONEAL COMPLETE (RENAL) CLINICAL INFORMATION: Follow-up renal mass status-post cryoablation in 2012. COMPARISON: CT abdomen and pelvis dated 01/26/2019; abdominal ultrasound dated 11/24/2018. TECHNIQUE: Real-time imaging of the kidneys and bladder. FINDINGS: RIGHT KIDNEY: 11.1 x 6.3 x 7.4 cm (SAG x AP x TRV). The kidney is normal in size, contour, and echogenicity. Renal cortical thickness is normal. No calculi or focal parenchymal lesions. No hydronephrosis. LEFT KIDNEY: 11.9 x 5.7 x 7.8 cm (SAG x AP x TRV). The kidney is normal in size, contour, and echogenicity. Renal cortical thickness is normal. No calculi or hydronephrosis. At the lower pole, a 9 mm benign, simple exophytic cyst seen. Arising exophytically from the lower pole, a 3.1 x 2.2 x 2.9 cm heterogeneous cystic and solid collection is seen, with shadowing calcifications. On the ultrasound examination of 12/25/2018, this measured 2.7 x 1.9 x 3.2 cm. IMPRESSION: There is a similar ultrasound appearance of a previously characterized exophytic left renal lower pole mass, status-post cryotherapy. Assessment & Plan Assessment & Plan (1) BPH loc w urin obs/LUTS: Code(s): N40.1 - Benign prostatic hyperplasia with lower urinary tract symptoms Category: Medical (2) Urinary urgency: Code(s): R39.15 - Urgency of urination Category: Medical (3) Chronic low back pain: Code(s): M54.50 - Low back pain, unspecified; G89.29 - Other chronic pain Category: Medical Plan Continue tamsulosin, Avodart 0.5 mg daily. Follow-up in 4 months consider Gre enLight laser future Orders: Orders AMB Urinalysis Automated Today Z13.9 - Encounter for screening, unspecified AMB Cystoscopy Today N40.1 - Benign prostatic hyperplasia with lower urinary tract symptoms Medications: New dutasteride (Avodart) 0.5 mg PO DAILY 90 caps 3RF Patient Instructions: The patient had an opportunity to ask questions regarding treatment plan. The patient expressed understanding and agreement with the above treatment plan. The patient is aware they should contact our office by phone for worsening of their current condition or the appearance of new symptoms. Compliance is encouraged with any medications and followup testing that is ordered. It is a privilege to be allowed the opportunity to participate in the urologic care of your patient. If you have any questions or concerns regarding treatment for the above conditions please do not hesitate to contact me. The office telephone contact is [phone]. This note is constructed in part using voice recognition software. While every effort has been made to ensure accuracy deportation officer errors may have been included. Yours sincerely, Reji Quijano MD Coding Level of Care Code Est Pt Level 4 (45038) Diagnoses BPH loc w urin obs/LUTS N40.1 Urinary urgency R39.15 Chronic low back pain M54.50; G89.29 CPT Codes Cystoscopy - CPT: [id number] ([id number])
--- OUTSIDE RECORDS SUMMARY | 2024-03-30 13:47 | XMS_ITS | Encounter Summary ---
Author Organization [employer] Address [address] [facility] [address] [place] [address] Care Team Providers Care Chemical Treatment Operator Name Role Phone Isabel Ayala DO Primary Care Provider + [phone] Encounter Details Date Type Department Care Team (Late st Contact Info) Description 02/10/2022 Orders Only [facility] CHC MED & PEDS [address] [place], [place] [phone] Isabel Paz LPN Social History Tobacco Use Types Packs/Day Years Used Date Smoking Tobacco: Never Assessed Sex and Gender Information Value Date Recorded Sex Assigned at Male 12/07/2021 10:22 AM EDT Legal Sex Male 10:22 AM EDT Gender Identity Male 12/07/2021 10:22 AM EDT Sexual Orientation Straight 12/07/2021 10 :22 AM EDT documented as of this encounter Plan of Treatment Upcoming Encounters Date Type Department Care Team (Late st Contact Info) Description 04/02/2024 1:00 PM EST Office Visit [facility] OPTOMETRY [address] [place] [address] Rama Junior, OD [address] [place] [address] 04/13/2024 10:00 AM EST Telemedicine [facility] MEDICINE [address] [place] [address] Brea Bender RN documented as of this encounter Visit Diagnoses Not on filedocumented in this encounter Care Teams Chemical Treatment Operator Relationship Specialty Start Date End Date Isabel Ayala DO [address] [place] [address] PCP - General Family Medicine 03/31/11 documented as of this encounter
--- OUTSIDE RECORDS SUMMARY | 2024-03-30 13:47 | XMS_ITS | Encounter Summary ---
Author Organization [employer] Address [address] [facility] [address] [place] [address] Care Team Providers Care Ingot Supervisor Name Role Phone Isabel Ayala DO Primary Care Provider + [phone] Reason for Visit * Reason Comments Med Refill Encounter Details Date Type Department Care Team ([facility] st Contact Info) Description 12/13/2023 Refill [facility] MEDICINE [address] [place], [place] [phone] Isabel Ayala DO [address] [place] [address] Depression, unspecified depression type Social History Tobacco Use Types Packs/Day Years Used Date Smoking Tobacco: Never Smokeless Tobacco: Never Alcohol Use Standard Drinks/Week Comments Yes 0 (1 standard drink = 0.6 oz pur e alcohol) Depression Answer Date Recorded Patient Health Questionnaire-9 Score 0 10/12/2022 Housing Stability Answer Date Recorded What is your housing situation today? I have armando arellano 12/02/[address] you li ve. Do you have problems with any of the following? None of the above 12/02/2022 Food Insecurity Answer Date Recorded Within the past 12 months, y ou worried that your food would run out before you got money to buy more: Never True 12/02/2022 Within the past 12 months,th e food you bought just didn't last and you didn't have enough money to get more: Never True Transportation Answer Date Recorded In the past 12 months, has l ack of transportation kept you from medical appts, meetings, work or from getting things needed for daily living? No 12/02/2022 Utilities Answer Date Recorded In the past 12 months, has t he electric, gas, oil or water company threatened to shut off services in your home? No 12/02/2022 Depression Answer Date Recorded Patient Health Questionnaire-2 Score 0 10/12/2022 Sex and Gender Information Value Date Recorded Sex Assigned at Male 12/07/2021 10:22 AM EDT Legal Sex Male 10:22 AM EDT Gender Identity Male 12/07/2021 10:22 AM EDT Sexual Orientation Straight 12/07/2021 10 :22 AM EDT documented as of this encounter Plan of Treatment Upcoming Encounters Date Type Department Care Team (Late st Contact Info) Description 04/02/2024 1:00 PM EST Office Visit [facility] OPTOMETRY [address] [place], [place] [phone] Rama Junior, OD [address] [place] [address] 04/13/2024 10:00 AM EST Telemedicine [facility] MEDICINE [address] [place] [address] Brea Bender, YARI documented as of this encounter Visit Diagnoses Diagnosis Depression, unspecified depression type documented in this encounter Additional Health Concerns Assessment Noted Time PHQ-9 Depression Total Score: 0 10/13/19 23 11:41 AM EDT documented as of this encounter Care Teams Ingot Supervisor Relationship Specialty Start Date End Date Isabel Ayala DO [address] [place] [address] PCP - General Family Medicine 03/31/11 documented as of this encounter
--- OUTSIDE RECORDS SUMMARY | 2024-03-30 13:47 | XMS_ITS | Encounter Summary ---
Author Organization [email or web address] Address [address] [facility] [address] [place] [address] Care Team Providers Care Waste Transportation Technician Name Role Phone Isabel Ayala DO Primary Care Provider + [phone] Encounter Details Date Type Department Care Team (Late st Contact Info) Description 01/22/2022 Orders Only [facility] CHC MED & PEDS [address] [place], [place] [phone] Isabel Paz LPN Social History Tobacco Use [...] 1:00 PM EST Office Visit [facility] OPTOMETRY [address] [place] [address] Rama Junior, OD [address] [place] [address] 04/13/2024 10:00 AM EST Telemedicine [facility] MEDICINE [address] [place] [address] Brea Bender RN documented as of this encounter Visit Diagnoses Not on filedocumented in this encounter Care Teams Waste Transportation Technician Relationship Specialty Start Date End Date Isabel Ayala DO [address] [place] [address] PCP - General Family Medicine 03/31/11 documented as of this encounter
--- OUTSIDE RECORDS SUMMARY | 2024-03-30 13:47 | XMS_ITS | Encounter Summary ---
Author Organization [email or web address] Address [address] [facility] [address] [address] Care Team Providers Care Operator Coating Furnace Name Role Phone KarlIsabel dunaway Primary Care Provider + [phone] Reason for Visit * Reason Comments Med Refill Encounter Details Date Type Department Care Team (Late st Contact Info) Description 09/27/2022 Refill [facility] MEDICINE [address] [place] [address] [facility] [address] [place] [address] Seasonal allergies Social History Tobacco Use Types Packs/Day Years Used Date Smoking Tobacco: Never Smokeless Tobacco: Never Alcohol Use Standard Drinks/Week Comments Yes 0 (1 standard drink = 0.6 oz pur e alcohol) Sex and Gender Information Value Date Recorded Sex Assigned at Male 12/07/2021 10:22 AM EDT Legal Sex Male 10:22 AM EDT Gender Identity Male 12/07/2021 10:22 AM EDT Sexual Orientation Straight 12/07/2021 10 :22 AM EDT documented as of this encounter Plan of Treatment Upcoming Encounters Date Type Department Care Team (Late st Contact Info) Description 04/02/2024 1:00 PM EST Office Visit [facility] OPTOMETRY [address] [place] [address] Rama Junior OD [address] [place] [address] 04/13/2024 10:00 AM EST Telemedicine [facility] MEDICINE [address] [place] [address] Brea Bender, YARI documented as of this encounter Visit Diagnoses Diagnosis Seasonal allergies Allergic rhinitis, cause unspecified documented in this encounter Care Teams Operator Coating Furnace Relationship Specialty Start Date End Date Isabel Ayala DO [address] [place] [address] PCP - General Family Medicine 03/31/11 documented as of this encounter
--- OUTSIDE RECORDS SUMMARY | 2024-03-30 13:47 | XMS_ITS | Encounter Summary ---
Author Organization [email or web address] Address [address] [facility] [address] [place] [address] Care Team Providers Care Admitting Manager Name Role Phone Isabel Ayala DO Primary Care Provider + [phone] Reason for Visit * Reason Comments Med Refill Encounter Details Date Type Department Care Team ([facility] st Contact Info) Description 08/02/2022 Refill [facility] MEDICINE [address] [place], [place] [phone] Isabel Ayala DO [address] [place] [address] Chronic bilateral low back pain, unspecified whether sciatica present Social History Tobacco Use Types Packs/Day Years [...] Orientation Straight 12/07/2021 10 :22 AM EDT COVID-19 Exposure Response Date Recorded In the last 10 days, have yo u been in contact with someone who was confirmed or suspected to have Coronavirus/COVID-19? No / Unsure 07/09/2022 11:20 AM EDT documented as of this encounter Miscellaneous Notes * Telephone Encounter - Taylor Garcia RN - 08/05/2022 9:55 AM EDT Pended new order documented in this encounter Plan of Treatment Upcoming Encounters Date Type Department Care Team (Late st Contact Info) Description 04/02/2024 1:00 PM EST Office Visit [facility] OPTOMETRY [address] [place] [address] [place], Rama, OD [address] [place] [address] 04/13/2024 10:00 AM EST Telemedicine [facility] MEDICINE [address] [place] [address] Brea Bender RN documented as of this encounter Visit Diagnoses Diagnosis Chronic bilateral low back pain, unspecified whether sciatica present documented in this encounter Care Teams Admitting Manager Relationship Specialty Start Date End Date Isabel Ayala DO [address] [place] [address] PCP - General Family Medicine 03/31/11 documented as of this encounter
--- OUTSIDE RECORDS SUMMARY | 2024-03-30 13:48 | XMS_ITS | Encounter Summary ---
Author Organization [employer] Address [address] [facility] [address] [address] Care Team Providers Care Breaker Table Worker Name Role Phone Isabel Ayala DO Primary Care Provider + [phone] Reason for Visit * Reason Comments Med Refill Encounter Details Date Type Department Care Team (Late st Contact Info) Description 11/04/2022 Refill [facility] CHC MED & PEDS [address] [place], [place] [phone] Isabel Ayala DO [address] [place] [address] Social History Tobacco Use Types Packs/Day Years Used Date Smoking Tobacco: Never Smokeless Tobacco: Never Alcohol Use Standard Drinks/Week Comments Yes 0 (1 standard drink = 0.6 oz pur e alcohol) Depression Answer Date Recorded Patient Health Questionnaire-9 Score 0 10/12/2022 Depression Answer Date Recorded Patient Health Questionnaire-2 [...] Description 04/02/2024 1:00 PM EST Office Visit [facility] OPTOMETRY [address] [facility], [place] [phone] Rama Junior, OD [address] [place], [place] [phone] 04/13/2024 10:00 AM EST Telemedicine [facility] MEDICINE [address] [place] [address] Brea Bender RN documented as of this encounter Visit Diagnoses Not on filedocumented in this encounter Additional Health Concerns Assessment Noted Time PHQ-9 Depression Total Score: 0 10/13/19 23 11:41 AM EDT documented as of this encounter Care Teams Breaker Table Worker Relationship Specialty Start Date End Date Isabel Ayala DO [address] [place] [address] PCP - General Family Medicine 03/31/11 documented as of this encounter
--- OUTSIDE RECORDS SUMMARY | 2024-03-30 13:48 | XMS_ITS | Encounter Summary ---
Author Organization [employer] Address [address] [place] [address] Care Team Providers Care Airport Refueling Handler Name Role Phone Isabel Ayala DO Primary Care Provider + [phone] Reason for Visit * Reason Comments Med Refill Encounter Details Date Type Department Care Team ([facility] st Contact Info) Description 07/29/2023 Refill [facility] CHC MED & PEDS [address] [place], [place] [phone] Isabel Ayala DO [address] [facility] [place] [address] Chronic bilateral low back pain, unspecified whether [...] Description 04/02/2024 1:00 PM EST Office Visit [facility] OPTOMETRY [address] [place] [address] [place], Rama, OD [address] [place] [address] 04/13/2024 10:00 AM EST Telemedicine [facility] MEDICINE [address] [place] [address] Brea Bender, YARI documented as of this encounter Visit Diagnoses Diagnosis Chronic bilateral low back pain, unspecified whether sciatica present documented in this encounter Additional Health Concerns Assessment Noted Time PHQ-9 Depression Total Score: 0 10/13/19 23 11:41 AM EDT documented as of this encounter Care Teams Airport Refueling Handler Relationship Specialty Start Date End Date Isabel Ayala DO [address] [place] [address] PCP - General Family Medicine 03/31/11 documented as of this encounter
--- OUTSIDE RECORDS SUMMARY | 2024-03-30 13:48 | XMS_ITS | Encounter Summary ---
Author Organization [email or web address] Address [address] [place] [address] Care Team Providers Care Glaze Sprayer Name Role Phone TrishIsabel kyle Primary Care Provider + [phone] Encounter Details Date Type Department Care Team (Latest Contact Info) Description 03/06/2024 Travel Social History Tobacco Use Types Packs/Day Years Used Date Smoking Tobacco: Never Smokeless Tobacco: Never Alcohol Use Standard Drinks/Week Comments Yes 3 (1 standard drink = 0.6 oz pur e alcohol) Alcohol Answer Date Recorded How often do you have a drink containing alcohol ? 4 03/06/2024 How many drinks containing a lcohol do you have on a typical day when you are drinking? 1 03/06/2024 How often do you have six or more drinks on one occasion? 4 03/06/2024 Depression Answer Date Recorded Patient Health Questionnaire-9 Score 12 03/06/2024 Patient Health Questionnaire-9 Score 12 03/06/2024 Last PHQ-9: Questionnaire Data Not on file 0 03/06/2024 Housing Stability Answer Date Recorded What is your housing situation today? I have armando arellano 03/06/[address] you li ve. Do you have problems with any of the following? None of the above 03/06/2024 Food Insecurity Answer Date Recorded Within the past 12 months, y ou worried that your food would run out before you got money to buy more: Never True 03/06/2024 Within the past 12 months,th e food you bought just didn't last and you didn't have enough money to get more: Never True Transportation Answer Date Recorded In the past 12 months, has l ack of transportation kept you from medical appts, meetings, work or from getting things needed for daily living? No 03/06/2024 Utilities Answer Date Recorded In the past 12 months, has t he electric, gas, oil or water company threatened to shut off services in your home? No 03/06/2024 Depression Answer Date Recorded Patient Health Questionnaire-2 Score 2 03/06/2024 Internet Access Answer Date Recorded Internet Access Q1 Yes 03/06/2024 Internet Access Q2 Not on file 03/06/2024 Sex and Gender Information Value Date Recorded Sex Assigned at Male 12/07/2021 10:22 AM EDT Legal Sex Male 10:22 AM EDT Gender Identity Male 12/07/2021 10:22 AM EDT Sexual Orientation Straight 12/07/2021 10 :22 AM EDT documented as of this encounter Plan of Treatment Upcoming Encounters Date Type Department Care Team (Late st Contact Info) Description 04/02/2024 1:00 PM EST Office Visit [facility] OPTOMETRY [address] [place] [address] Rama Junior, OD [address] [place] [address] 04/13/2024 10:00 AM EST Telemedicine [facility] MEDICINE [address] [place] [address] Brea Bender RN documented as of this encounter Visit Diagnoses Not on filedocumented in this encounter Additional Health Concerns Assessment Noted Time PHQ-9 Depression Total Score: 12 025 11:28 AM EST documented as of this encounter Care Teams Glaze Sprayer Relationship Specialty Start Date End Date Isabel Ayala DO [address] [place] [address] PCP - General Family Medicine 03/31/11 documented as of this encounter
--- OUTSIDE RECORDS SUMMARY | 2024-03-30 13:48 | XMS_ITS | Encounter Summary ---
Author Organization [employer] Address [address] [place] [address] Care Team Providers Care Chicken Stuffer Name Role Phone Jamie Isabel Primary Care Provider + [phone] Encounter Details Date Type Department Care Team (Late st Contact Info) Description 12/27/2023 Orders Only [facility] External Provider, [facility] Social History Tobacco Use Types Packs/Day Years [...] PM EST Office Visit [facility] OPTOMETRY [address] [place] [address] VernonRama houston, OD [address] [place] [address] 04/13/2024 10:00 AM EST Telemedicine [facility] MEDICINE [address] [place], [place] [phone] Brea Bender, YARI documented as of this encounter Procedures Procedure Name Priority Date/Time Associated Diagnosis Comments US RETROPERITONEAL COMPLETE Routine 12/27/2023 1:46 PM EST documented in this encounter Results * US Retroperitoneal Complete (12/27/2023 1:46 PM EST) Anatomical Region Laterality Modality Ultrasound 12/27/2023 1:46 PM EST Narrative 03/10/2024 2:50 PM EST ? [facility] ?[address] ?[place] [address] ? Ultrasound Report ? Signed ? Patient: Ruiz,Chicho ?MR#: [id number] ?? 9 ? : 1950 ?Acct:[id number] ? Age/Sex: 73 / M ?ADM Date: 11/19/24 ? Loc: HO.US ? Attending Dr: Reji Quijano MD ? Ordering Physician: Reji Quijano MD ?? Date of Service: 12/27/23 ?? Procedure(s): US retroperitoneal comp ?? Accession Number(s): [id number] ? cc: Reji Quijano MD; Isabel Ayala DO ? EXAMINATION: ?? US RETROPERITONEAL COMPLETE (RENAL) ? CLINICAL INFORMATION: ?? Follow-up renal mass status-post cryoablation in 2012. ? COMPARISON: ?? CT abdomen and pelvis dated 01/26/2019; abdominal ultrasound dated ?? 11/24/2018. ? TECHNIQUE: ?? Real-time imaging of the kidneys and bladder. ? FINDINGS: ? RIGHT KIDNEY: 11.1 x 6.3 x 7.4 cm (SAG x AP x TRV). The kidney is ?? normal in size, contour, and echogenicity. Renal cortical thickness is ?? normal. No calculi or focal parenchymal lesions. No hydronephrosis. ? LEFT KIDNEY: 11.9 x 5.7 x 7.8 cm (SAG x AP x TRV). The kidney is normal ?? in size, contour, and echogenicity. Renal cortical thickness is normal. ?? No calculi or hydronephrosis. ? At the lower pole, a 9 mm benign, simple exophytic cyst seen. ? Arising exophytically from the lower pole, a 3.1 x 2.2 x 2.9 cm ?? heterogeneous cystic and solid collection is seen, with shadowing ?? calcifications. On the ultrasound examination of 12/25/2018, this ?? measured 2.7 x 1.9 x 3.2 cm. ? US/US retroperitoneal comp ?? IMPRESSION: ?? There is a similar ultrasound appearance of a previously characterized ?? exophytic left renal lower pole mass, status-post cryotherapy. ? Electronically signed by: ??Jayro Slade MD ??03/10/2024 02:47 PM EST RP ? Dictated By: ?Jayro Slade MD ? Signed By: ?<Electronically signed by Jayro Slade MD in OV> ? 03/10/247 ? DD/ 1346 ? TD/TT: 12/26/24 1417 ? Warp Splitter: ALIREZA ? Procedure Note Donotuseinterpreter, Image - 03/10/[address] [address] Ultrasound Report Signed Patient: Cirilo Ruiz AMR#: [id number] 9 : 9Acct:[id number] Age/Sex: 73 / MADM Date: 12/27/23 Loc: HO.US Attending Dr: Reji Quijano MD Ordering Physician: Reji Quijano MD Date of Service: 12/27/23 Procedure(s): US retroperitoneal comp Accession Number(s): [id number] cc: Reji Quijano MD; Isabel Ayala DO EXAMINATION: US RETROPERITONEAL COMPLETE (RENAL) CLINICAL INFORMATION: Follow-up renal mass status-post cryoablation in 2012. COMPARISON: CT abdomen and pelvis dated 01/26/2019; abdominal ultrasound dated 11/24/2018. TECHNIQUE: Real-time imaging of the kidneys and bladder. FINDINGS: RIGHT KIDNEY: 11.1 x 6.3 x 7.4 cm (SAG x AP x TRV). The kidney is normal in size, contour, and echogenicity. Renal cortical thickness is normal. No calculi or focal parenchymal lesions. No hydronephrosis. LEFT KIDNEY: 11.9 x 5.7 x 7.8 cm (SAG x AP x TRV). The kidney is normal in size, contour, and echogenicity. Renal cortical thickness is normal. No calculi or hydronephrosis. At the lower pole, a 9 mm benign, simple exophytic cyst seen. Arising exophytically from the lower pole, a 3.1 x 2.2 x 2.9 cm heterogeneous cystic and solid collection is seen, with shadowing calcifications. On the ultrasound examination of 12/25/2018, this measured 2.7 x 1.9 x 3.2 cm. US/US retroperitoneal comp IMPRESSION: There is a similar ultrasound appearance of a previously characterized exophytic left renal lower pole mass, status-post cryotherapy. Electronically signed by: Jayro Slade MD 03/10/2024 02:47 PM EST RP Dictated By: Jayro Slade MD Signed By: <Electronically signed by Jayro Slade MD in OV> 03/10/24 1447 DD/ 1346 TD/TT: 12/27/23 1417 Warp Splitter: ALIREZA [facility] External Provider IMG US PROCEDURES Edited Result - Final documented in this encounter Visit Diagnoses Not on filedocumented in this encounter Additional Health Concerns Assessment Noted Time PHQ-9 Depression Total Score: 0 10/13/19 23 11:41 AM EDT documented as of this encounter Care Teams Chicken Stuffer Relationship Specialty Start Date End Date Isabel Ayala DO [address] [place] [address] PCP - General Family Medicine 03/31/11 documented as of this encounter
--- OUTSIDE RECORDS SUMMARY | 2024-03-30 13:48 | XMS_ITS | Encounter Summary ---
Author Organization [employer] Address [address] [address] [facility] [place] [address] Care Team Providers Care Qa Lead Name Role Phone Isabel Ayala DO Primary Care Provider + [phone] Encounter Details Date Type Department Care Team ([facility] st Contact Info) Description 09/05/2023 Telephone [facility] MEDICINE [address] [place] [address] Isabel Ayala DO [address] [place], [place] [phone] Social History Tobacco Use Types Packs/Day Years [...] t he electric, gas, oil or water [employer] threatened to shut off services in your [...] 1:00 PM EST Office Visit [facility] OPTOMETRY [address] [place], [place] [phone] Rama Junior, OD [address] [place] [address] 04/13/2024 10:00 AM EST Telemedicine [facility] MEDICINE [address] [place], [place] [phone] Brea Bender RN documented as of this encounter Visit Diagnoses Not on filedocumented in this encounter Additional Health Concerns Assessment Noted Time PHQ-9 Depression Total Score: 0 10/13/19 23 11:41 AM EDT documented as of this encounter Care Teams Qa Lead Relationship Specialty Start Date End Date Isabel Ayala DO [address] [place] [address] PCP - General Family Medicine 03/31/11 documented as of this encounter
--- OUTSIDE RECORDS SUMMARY | 2024-03-30 13:48 | XMS_ITS | Encounter Summary ---
Author Organization [employer] Address [address] [facility] [address] [place] [address] Care Team Providers Care Market Analysis Director Name Role Phone Isabel Ayala DO Primary Care Provider + [phone] Encounter Details Date Type Department Care Team (Late st Contact Info) Description 03/30/2022 Orders Only [facility] MED & PEDS [address] [place], [place] [phone] Isabel Paz LPN Social History Tobacco Use [...] 1:00 PM EST Office Visit [facility] OPTOMETRY [address] [place] [address] Rama Junior, OD [address] [place] [address] 04/13/2024 10:00 AM EST Telemedicine [facility] MEDICINE [address] [place] [address] Brea Bender RN documented as of this encounter Visit Diagnoses Not on filedocumented in this encounter Care Teams Market Analysis Director Relationship Specialty Start Date End Date Isabel Ayala DO [address] [place] [address] PCP - General Family Medicine 03/31/11 documented as of this encounter
--- OUTSIDE RECORDS SUMMARY | 2024-03-30 13:48 | XMS_ITS | Encounter Summary ---
Author Organization [employer] Address [address] [facility] [address] [place] [address] Care Team Providers Care Plush Brusher Name Role Phone Isabel Ayala DO Primary Care Provider + [phone] Reason for Visit * Reason Comments Med Refill Encounter Details Date Type Department Care Team ([facility] st Contact Info) Description 02/26/2023 Refill [facility] MEDICINE [address] [place], [place] [phone] Isabel Ayala DO [address] [place], [place] [phone] Social History Tobacco Use Types Packs/Day Years [...] Description 04/02/2024 1:00 PM EST Office Visit [facility] OPTOMETRY [address] [place], [place] [phone] Rama Junior, OD [address] [place] [address] 04/13/2024 10:00 AM EST Telemedicine [facility] MEDICINE [address] [place] [address] Brea Bender, YARI documented as of this encounter Visit Diagnoses Not on filedocumented in this encounter Additional Health Concerns Assessment Noted Time PHQ-9 Depression Total Score: 0 10/13/19 23 11:41 AM EDT documented as of this encounter Care Teams Plush Brusher Relationship Specialty Start Date End Date Isabel Ayala DO [address] [place] [address] PCP - General Family Medicine 03/31/11 documented as of this encounter
--- OUTSIDE RECORDS SUMMARY | 2024-03-30 13:48 | XMS_ITS | Encounter Summary ---
Author Organization [employer] Address [address] [facility] 7t [place] [address] Care Team Providers Care Nephrology Social Worker Name Role Phone Isabel Ayala DO Primary Care Provider + [phone] Reason for Visit * Reason Onset Date Comments Nurse Triage 01/28/2023 Encounter Details Date Type Department Care Team ([facility] st Contact Info) Description 01/28/2023 Telephone [facility] MEDICINE [address] [place], [place] [phone] Isabel Ayala DO [address] [place], [place] [phone] Nurse Triage Social History Tobacco Use Types Packs/Day Years [...] encounter Miscellaneous Notes * Telephone Encounter - Sandra John RN - 01/28/2023 3:00 PM EST Called pt. He states that he was referred to a Chief Operating Officer in the past and he has been thinking about PCP suggestion and he is ready to get referral to Chief Operating Officer. Pt. States he feels fine at rest but does develop SOB doing easy tasks and ADL's such as washing dishes walking long distances etc. So he has 3 requests Referral to Chief Operating Officer that he states you have suggested several times in past and he declined. Wants nasal pillows for Cpap machine to try because mask irritates him. Pt. Wants copy of most recent MRI of his back mailed to him. Pt. Has a stimulator in his back from pain management and he is unsure how he feels about it. States that it doesn't relieve his pain like he would like it to. Pt. Is skeptical about stimulator because he had some problems with the line (fish hook) according to him falling out when it was not supposed to and he Feels like a guinea pig for this new experimental device. I do not see any upcoming appts with PCP available within the next month so he is requesting I send this message to PCP. Please advise. * Telephone Encounter - Betina Duncan - 01/28/2023 2:54 PM EST Symptoms: Wheezing, Breathing Trouble Outcome: Schedule an urgent appointment (within 1 hour) or talk to a nurse or provider soon Reason: Caller denied all higher acuity questions The caller accepted this outcome documented in this encounter Plan of Treatment Upcoming Encounters Date Type Department Care Team (Late st Contact Info) Description 04/02/2024 1:00 PM EST Office Visit [facility] OPTOMETRY [address] [place] [address] Rama Junior, OD 230 [place] [address] 04/13/2024 10:00 AM EST Telemedicine [facility] MEDICINE [address] [place], [place] [phone] Brea Bender RN documented as of this encounter Visit Diagnoses Not on filedocumented in this encounter Additional Health Concerns Assessment Noted Time PHQ-9 Depression Total Score: 0 10/13/19 23 11:41 AM EDT documented as of this encounter Care Teams Nephrology Social Worker Relationship Specialty Start Date End Date Isabel Ayala DO [address] [place], [place] [phone] PCP - General Family Medicine 03/31/11 documented as of this encounter
--- OUTSIDE RECORDS SUMMARY | 2024-03-30 13:48 | XMS_ITS | Encounter Summary ---
Author Organization [employer] Address [address] [facility] 7t [place] [address] Care Team Providers Care Equipment Service Lead Name Role Phone Isabel yAala DO Primary Care Provider + [phone] Reason for Visit * Reason Comments Med Refill Encounter Details Date Type Department Care Team ([facility] st Contact Info) Description 02/29/2024 Refill [facility] MEDICINE [address] [place], [place] [phone] Isabel Ayala DO [address] [place] [address] Depression, unspecified depression type Social History Tobacco [...] 1:00 PM EST Office Visit [facility] OPTOMETRY [address] [place], [place] [phone] Rama Junior, OD [address] [place] [address] 04/13/2024 10:00 AM EST Telemedicine [facility] MEDICINE [address] [place] [address] Brea Bender, YARI documented as of this encounter Visit Diagnoses Diagnosis Depression, unspecified depression type documented in this encounter Additional Health Concerns Assessment Noted Time PHQ-9 Depression Total Score: 0 10/13/19 23 11:41 AM EDT documented as of this encounter Care Teams Equipment Service Lead Relationship Specialty Start Date End Date Isabel Ayala DO [address] [place] [address] PCP - General Family Medicine 03/31/11 documented as of this encounter
--- OUTSIDE RECORDS SUMMARY | 2024-03-30 13:48 | XMS_ITS | Encounter Summary ---
Author Organization [employer] Address [address] [facility] 7t [place] [address] Care Team Providers Care Visualizer Name Role Phone Isabel Ayala DO Primary Care Provider + [phone] Reason for Visit * Reason Comments Med Refill Encounter Details Date Type Department Care Team ([facility] st Contact Info) Description 06/20/2023 Refill [facility] MEDICINE [address] [place], [place] [phone] Isabel Ayala DO [address] [place], [place] [phone] Urinary frequency Social History Tobacco Use Types Packs/Day Years [...] Description 04/02/2024 1:00 PM EST Office Visit [facility] OPTOMETRY [address] [place], [place] [phone] Rama Junior, OD [address] [place] [address] 04/13/2024 10:00 AM EST Telemedicine [facility] MEDICINE [address] [place] [address] Brea Bender, YARI documented as of this encounter Visit Diagnoses Diagnosis Urinary frequency documented in this encounter Additional Health Concerns Assessment Noted Time PHQ-9 Depression Total Score: 0 10/13/19 23 11:41 AM EDT documented as of this encounter Care Teams Visualizer Relationship Specialty Start Date End Date Isabel Ayala DO [address] [place] [address] PCP - General Family Medicine 03/31/11 documented as of this encounter
--- OUTSIDE RECORDS SUMMARY | 2024-03-30 13:48 | XMS_ITS | Encounter Summary ---
Author Organization [employer] Address [address] [facility] [address] [address] Care Team Providers Care Hadoop Software Engineer Name Role Phone Isabel Ayala DO Primary Care Provider + [phone] Encounter Details Date Type Department Care Team (Late st Contact Info) Description 03/11/2022 Orders Only [facility] CHC MED & PEDS [address] [place], [place] [phone] Isabel Paz LPN Social History Tobacco Use [...] Description 04/02/2024 1:00 PM EST Office Visit [facility] OPTOMETRY [address] [place] [address] Rama Junior, OD [address] [place] [address] 04/13/2024 10:00 AM EST Telemedicine [facility] MEDICINE [address] [place] [address] Brea Bender RN documented as of this encounter Visit Diagnoses Not on filedocumented in this encounter Care Teams Hadoop Software Engineer Relationship Specialty Start Date End Date Isabel Ayala DO [address] [place] [address] PCP - General Family Medicine 03/31/11 documented as of this encounter
--- OUTSIDE RECORDS SUMMARY | 2024-03-30 13:48 | XMS_ITS | Encounter Summary ---
Author Organization [employer] Address [address] [place] [address] Care Team Providers Care Floor Sweeper Name Role Phone Isabel Ayala DO Primary Care Provider + [phone] Encounter Details Date Type Department Care Team (Late st Contact Info) Description 03/06/2024 10:45 AM EST Office Visit [facility] [address], [place] [phone] Isabel Ayala DO [address] [place] [address] Essential hypertension (Primary Dx); Other hyperlipidemia; Major depression, recurrent, chronic (CMS/HCC); Atrial fibrillation, unspecified type (CMS/HCC); Benign prostatic hyperplasia with lower urinary tract symptoms, symptom details unspecified; Chronic bilateral low back pain without sciatica; Pulmonary nodules; Abnormal chest CT; Obstructive sleep apnea; Chronic nasal congestion; Healthcare maintenance; Chronic bilateral low back pain, unspecified whether sciatica present; Encounter for immunization Social History Tobacco Use Types Packs/Day Years Used Date Smoking Tobacco: Never Smokeless Tobacco: Never Tobacco Cessation:Counseling Given: Not Answered Alcohol Use Standard Drinks/Week Comments Yes 3 [...] AM EDT documented as of this encounter Last Filed Vital Signs Vital Sign Reading Time Taken Comments Blood Pressure 129/78 03/06/2024 11:23 AM EST Pulse 85 03/06/2024 11:23 AM EST Temperature 36.2 ??C (97.1 ??F) 03/06/2024 11:[address] Respiratory Rate 17 03/06/2024 11:23 AM EST Oxygen Saturation - - Inhaled Oxygen Concentration - - Weight 121 kg (267 lb 2 oz) 03/06/2024 11:23 AM EST Height 182.9 cm (6') 03/06/2024 11:23 AM EST Body Mass Index 36.23 03/06/2024 11:23 AM EST documented in this encounter Progress Notes * Isabel Ayala, DO - 03/06/2024 10:45 AM EST SUBJECTIVE Cirilo Ruiz is a 73 y.o. male who presents for Office Visit. He had f/u with PM in NOV and was scheduled for MBB which was successful. PM was attempting to repeat SPRINT PNS device trial. He says he has appt upcoming for some sort of test involving injections.He says he isn't very hot re: SPRINT PNS trial, as his has one and it isn't working well forher. He says his back isn't doing well. He says his sx are worse when he is stressing it, even in small ways (lifting a gallon of milk or a small box, doing laundry, etc). He says he doesn't have much stamina. He says the percocet helps pretty well, but it makes him drowsy. He says he doesn't use the lidocaine patches any longer d/t them not staying in-place. He needs RF oxycodone. He was seen by urology in DEC for BPH sx. He was sent for renal/bladder US and cystoscopy. He says he isn't sure when his next appt is with urology. He says he missed an appt while in the hospital, but he has it rescheduled, he just can't recall exactly when. He is scheduled for appt with ENT in APR. He was referred to [facility] for therapist. He says he does not think he was ever contacted by them for an appt. He says he wants to switch his prozac. He says he doesn't feel it is doing its job any longer. He NS to his eye appt in NOV. He has rescheduled for next mos. He says he was admitted to the hospital a few m/a. He says he went to bed one night and as he went to the bathroom, he felt weak and attempted to stabilize himself against the wall with his arm, but he fell to the floor. He says his called EMS and he was kept in the hospital with a dx of influenza. He was given prednisone taper and tamiflu. He says he is feeling much better now. He says he has not yet completed his cologuard test. He says he still has the kit. He says his breathing has been ok. Review of Systems Constitutional: Negative for activity change, appetite change, fever and unexpected weight change. Respiratory: Negative for cough and chest tightness. Cardiovascular: Negative for chest pain and palpitations. Gastrointestinal: Negative for abdominal pain, diarrhea, nausea and vomiting. Musculoskeletal: Positive for arthralgias, back pain and myalgias. Neurological: Positive for weakness. Negative for dizziness and headaches. Psychiatric/Behavioral: Positive for dysphoric mood. The patient is nervous/anxious. Patient Active Problem List Diagnosis Benign prostatic hyperplasia Diverticulosis Essential hypertension Hypertensive heart disease Interstitial lung disease (CMS/HCC) Chronic low back pain BMI 35.0-35.9,adult Obstructive sleep apnea Atrial fibrillation (CMS/HCC) PVCs (premature ventricular contractions) Major depression, recurrent, chronic (CMS/HCC) Tubular adenoma of colon Vitamin D deficiency Hyperlipidemia No Known Allergies OBJECTIVE Visit Vitals BP 129/78 (BP Location: Left arm, Patient Position: Sitting, BP Cuff Size: Adult) Pulse 85 Temp 97.1 ??F (36.2 ??C) (Temporal) Resp 17 Ht 6' (1.829 m) Wt 267 lb 2 oz (121 kg) BMI 36.23 kg/m?? Smoking Status Never BSA 2.48 m?? Physical Exam Constitutional: General: He is not in acute distress. Appearance: Normal appearance. Cardiovascular: Rate and Rhythm: Normal rate and regular rhythm. Heart sounds: Normal heart sounds. No murmur heard. Pulmonary: Effort: Pulmonary effort is normal. Breath sounds: Normal breath sounds. No wheezing or rhonchi. Neurological: General: No focal deficit present. Mental Status: He is alert and oriented to person, place, and time. Cranial Nerves: No cranial nerve deficit. Motor: No weakness. Gait: Gait normal. Psychiatric: Mood and Affect: Mood normal. Assessment/Plan Diagnoses and all orders for this visit: Essential hypertension BP controlled -cont toprol BID -Cr/GFR, and urine microalbumin wnl AUG 2023 -there is a screening EKG in his chart -s/p optho eval OCT 2021 at [facility] for annual f/u, appt next mos Other hyperlipidemia LDL at-goal AUG 2023 -cont lipitor nightly Major depression, recurrent, chronic (CMS/HCC) -he denies any current SI/HI -he has the number for crisis -cont prozac daily -he will meet with clinician to check status of referral to therapist and schedule eval with Cpsychiatrist Atrial fibrillation, unspecified type (CMS/HCC) Persistent A-fib -cont xarelto daily -cont toprol BID -nuclear stress test with nml myocardial perfusion DEC 2017 -f/u with cards as scheduled, due JUNE 2024 Benign prostatic hyperplasia with lower urinary tract symptoms, symptom details unspecified -cont flomax daily -cont ditropan daily -keep renal/bladder US as scheduled -f/u with urology as scheduled Chronic bilateral low back pain without sciatica Sx unchanged -MRI L-spine with mild lumbar spondylosis without significant spinal canal or neural foraminal stenosis at any level, stable since prior FEB 2023 -continue percocet for pain control -cont lidocaine patches daily -cont baclofen prn -cont diclofenac gel -encouraged ice/heat therapy -consider PT after MBB -f/u with PM as scheduled Pulmonary nodules -CT chest with stable pulmonary nodules, no need for repeat AUG [address] Mild ILD, sx controlled -CT chest with stable nodules and possible interstitial lung disease AUG 2022 -cont arnuity daily -cont albuterol prn -f/u with pulm prn Obstructive sleep apnea -he declines CPAP use at this time Chronic nasal congestion With intermittent L-sided sinus pain and PND -encouraged zyrtec daily -encouraged flonase nightly -keep upcoming eval with ENT as scheduled Healthcare maintenance -s/p flu vaccine FEB 2023, repeat today -s/p COVID vaccine FEB 2023, repeat today -encouraged RSV vaccine -s/p Tdap NOV 2013, repeat next visit* -s/p pneumovax NOV 2013 -s/p PCV20 JUL 2023 -s/p zoster vaccine AUG 2015 -s/p shingrix JAN 2020 -s/p prevnar AUG 2015 -Hep A immune -s/p Hep B vaccine -colonoscopy with diverticulosis, hemorrhoids and tubular adenoma MAY 2015, he declines repeat colonoscopy, check cologuard prior to next visit as not yet done -A1c 5.2% AUG 2023 -STI/HIV screen negative AUG 2023 --Follow-up with me in 4 mos or sooner prn-- Current Outpatient Medications: albuterol 108 (90 Base) MCG/ACT inhaler, Inhale 2 puffs every 4 (four) hours if needed for wheezingor shortness of breath., Disp: 18 g, Rfl: 1 atorvastatin (Lipitor) 10 MG tablet, TAKE 1 TABLET BY MOUTH EVERY DAY AT BEDTIME, Disp: 90 tablet, Rfl: 1 baclofen (Lioresal) 10 MG tablet, Take 1 tablet (10 mg) by mouth if needed in the morning, at noon,and at bedtime for muscle spasms., Disp: 60 tablet, Rfl: 3 cetirizine (ZyrTEC) 10 MG tablet, Take 1 tablet (10 mg) by mouth Once per day., Disp: 30 tablet, Rfl: 11 D3 Super Strength 50 MCG (2000 UT) capsule, TAKE 1 CAPSULE BY MOUTH ONCE DAILY, Disp: 90 capsule, Rfl: 3 Diclofenac Sodium 1 % gel, Apply 2 g topically if needed in the morning, at noon, in the evening, and at bedtime (pain)., Disp: 150 g, Rfl: 3 FLUoxetine (PROzac) 20 MG capsule, TAKE 3 CAPSULES BY MOUTH EVERY DAY IN THE MORNING, Disp: 90 capsule, Rfl: 2 fluticasone (Flonase) 50 MCG/ACT nasal spray, Administer 2 sprays into each nostril Once per day. Shake gently. Before first use, prime pump. After use, clean tip and replace cap., Disp: 16 g, Rfl: 11 fluticasone furoate (Arnuity Ellipta) 100 MCG/ACT inhaler, Inhale 1 puff Once per day. Rinse mouth with water after use to reduce aftertaste and incidence of candidiasis. Do not swallow., Disp: 1 each, Rfl: 11 gabapentin (Neurontin) 300 MG capsule, TAKE 1 CAPSULE BY MOUTH THREE TIMES DAILY, Disp: 90 capsule,Rfl: 5 Lidoderm 5 % patch, APPLY 1 PATCH TOPICALLY TO SKIN, LEAVE ON FOR 12 HOURS AND OFF FOR 12 HOURS DIRECTED, Disp: 30 patch, Rfl: 5 metoprolol tartrate (Lopressor) 50 MG tablet, TAKE 1 TABLET BY MOUTH TWICE DAILY. MUST MAKE CARDIOLOGY APPOINTMENT FOR MORE REFILLS, Disp: , Rfl: oxybutynin XL (Ditropan XL) 10 MG 24 hr tablet, TAKE 1 TABLET BY MOUTH EVERY DAY., Disp: 90 tablet,Rfl: 0 oxyCODONE-acetaminophen (Percocet) 5-325 MG tablet, Take 1 tablet by mouth every 6 (six) hours if needed for severe pain for up to 28 days., Disp: 112 tablet, Rfl: 0 tamsulosin (Flomax) 0.4 MG 24 hr capsule, TAKE 1 CAPSULE BY MOUTH EVERY DAY, Disp: 30 capsule, Rfl:5 Xarelto 20 MG tablet, TAKE 1 TABLET BY MOUTH ONCE DAILY PLEASE CALL [phone] TO SCHEDULE FOLLOW UP FOR 2022., Disp: , Rfl: Scribe Attestation: Ramírez Brasher, am serving as a scribe to document services personally performed by Isabel Zarate, based on the patient's response to questions by provider and provider's statements to me. 03/06/24 1:13 PM Physicians Attestation: Isabel Brasher DO, have reviewed the information by the scribe, Ramírez Francisco, for accuracy and agree with its content. documented in this encounter Plan of Treatment Upcoming Encounters Date Type Department Care Team (Late st Contact Info) Description 04/02/2024 1:00 PM EST Office Visit [facility] [address] [place] [address] Rama Junior, ERIC [address] [place] [address] 04/13/2024 10:00 AM EST Telemedicine [facility] [address] [place] [address] Brea Bender, YARI documented as of this encounter Visit Diagnoses Diagnosis Essential hypertension- Primary Unspecified essential hypertension Other hyperlipidemia Major depression, recurrent, chronic (CMS/HCC) Atrial fibrillation, unspecified type (CMS/HCC) Benign prostatic hyperplasia with lower urinary tract symptoms, symptom details unspecified Chronic bilateral low back pain, unspecified whether sciatica present Pulmonary nodules Other diseases of lung, not elsewhere classified Abnormal chest CT Nonspecific (abnormal) findings on radiological and other examination of other intrathoracic organs Obstructive sleep apnea Obstructive sleep apnea (adult) (pediatric) Chronic nasal congestion Other diseases of nasal cavity and sinuses Healthcare maintenance Encounter for immunization documented in this encounter Additional Health Concerns Assessment Noted Time PHQ-9 Depression Total Score: 12 03/06/ 025 11:28 AM EST documented as of this encounter Care Teams Floor Sweeper Relationship Specialty Start Date End Date Isabel Ayala DO [address] [place] [address] PCP - General Family Medicine 03/31/11 documented as of this encounter
--- OUTSIDE RECORDS SUMMARY | 2024-03-30 13:48 | XMS_ITS | Clinical Summary ---
Author Organization [employer] Address [address] [facility] 7t [place] [address] Care Team Providers Care Dispatcher Street Department Name Role Phone Jamie Isabel MABRY Primary Care Provider + [phone] Allergies No known active allergies Medications * This document contains information received from the source organization and may not represent a complete record from that organization. Lidoderm 5 % patchIndications: Chronic low back pain, unspecified back pain laterality, unspecified whether sciatica present APPLY 1 PATCH TOPICALLY TO SKIN, LEAVE ON FOR 12 HOURS AND OFF FOR 12 HOURS DIRECTED 30 patch 5 023 Active metoprolol tartrate (Lopressor) 50 MG tablet TAKE 1 TABLET BY MOUTH TWICE DAILY. MUST MAKE CARDIOLOGY APPOINTMENT FOR MORE REFILLS 023 Active Xarelto 20 MG tablet TAKE 1 TABLET BY MOUTH ONCE DAILY PLEASE CALL [phone] TO SCHEDULE FOLLOW UP FOR 2022. 023 Active albuterol 108 (90 Base) MCG/ACT inhaler Inhale 2 puffs every 4 (four) hours if needed for wheezing or shortness of breath. 18 g 1 023 Active cetirizine (ZyrTEC) 10 MG tablet Take 1 tablet (10 mg) by mouth Once per day. 30 tablet 11 024 2024 Active baclofen (Lioresal) 10 MG tablet Take 1 tablet (10 mg) by mouth if needed in the morning, at noon, and at bedtime for muscle spasms. 60 tablet 3 024 Active Diclofenac Sodium 1 % gel Apply 2 g topically if needed in the morning, at noon, in the evening, and at bedtime (pain). 150 g 3 024 Active fluticasone (Flonase) 50 MCG/ACT nasal spray Administer 2 sprays into each nostril Once per day. Shake gently. Before first use, prime pump. After use, clean tip and replace cap. 16 g 11 024 2024 Active fluticasone furoate (Arnuity Ellipta) 100 MCG/ACT inhaler Inhale 1 puff Once per day. Rinse mouth with water after use to reduce aftertaste and incidence of candidiasis. Do not swallow. 1 each 024 2024 Active oxybutynin XL (Ditropan XL) 10 MG 24 hr tablet TAKE 1 TABLET BY MOUTH EVERY DAY. 90 tablet 024 Active gabapentin (Neurontin) 300 MG capsuleIndication s:Other chronic pain TAKE 1 CAPSULE BY MOUTH THREE TIMES DAILY 90 capsule 5 024 Active D3 Super Strength 50 MCG (2000 UT) capsule TAKE 1 CAPSULE BY MOUTH ONCE DAILY 90 capsule 3 024 Active atorvastatin (Lipitor) 10 MG tabletIndications :Hyperlipidemia, unspecified hyperlipidemia type TAKE 1 TABLET BY MOUTH EVERY DAY AT BEDTIME 90 tablet 1 025 Active FLUoxetine (PROzac) 20 MG capsuleIndication s:Depression, unspecified depression type TAKE 3 CAPSULES BY MOUTH EVERY DAY IN THE MORNING 90 capsule 2 025 Active oxyCODONE-acetami nophen (Percocet) 5-325 MG tabletIndications :Chronic bilateral low back pain, unspecified whether sciatica present Take 1 tablet by mouth every 6 (six) hours if needed for severe pain for up to 28 days. 112 tablet 025 2024 Active tamsulosin (Flomax) 0.4 MG 24 hr capsule TAKE 1 CAPSULE BY MOUTH EVERY DAY 30 capsule 5 025 Active tamsulosin (Flomax) 0.4 MG 24 hr capsule TAKE 1 CAPSULE BY MOUTH EVERY DAY 30 capsule 5 024 2024 Discontinued FLUoxetine (PROzac) 20 MG capsuleIndication s:Depression, unspecified depression type TAKE 3 CAPSULES BY MOUTH EVERY DAY IN THE MORNING 90 capsule 1 024 2024 Discontinued oxyCODONE-acetami nophen (Percocet) 5-325 MG tabletIndications :Chronic bilateral low back pain, unspecified whether sciatica present Take 1 tablet by mouth every 6 (six) hours if needed for severe pain for up to 28 days. Do not start before February 06, 2024. 112 tablet 024 2024 Discontinued(R eorder (will not trigger notification to Pharmacy)) Active Problems Problem Noted Date Diagnosed Date Hyperlipidemia 07/26/2023 Atrial fibrillation 06/24/2021 Interstitial lung disease 03/11/2016 Benign prostatic hyperplasia 01/29/2015 Diverticulosis 01/29/2015 Essential hypertension 01/29/2015 Hypertensive heart disease 01/29/2015 BMI 35.0-35.9,adult 01/29/2015 Obstructive sleep apnea 01/29/2015 PVCs (premature ventricular contractions) 2014 Major depression, recurrent, chronic 01/29/2015 Assessment & Plan (03/08/2024 12:29 PM EST): During IBH Consult Cirilo presenting with depressed mood, Tearful, crying spells , hopelessness, irritable mood, loss of interests/pleasure , sense of isolation/loneliness , isolating, changes in sleep difficulty falling asleep, psychomotor retardation, fatigue/loss of energy, worthlessness, inappropriate/excessive guilt , difficulty concentrating, indecisiveness; for a period of 18+ mo, for most or all symptoms in the context of family issues, financial concern, and illness or family illness. Cirilo reports long history of depression. He identified a back injury he had six years ago as the main trigger. Although, he states he has always been depressed. Not being able to complete tasks and his inability to do things is consistently triggering sxs. PCP is prescribing current meds and requested evaluation with psychiatrist to adjust/change doses. Pt agrees with referral for psychopharmacology. clinician engaged patient with active/reflective listening. Reviewed and assessed for risk, current stressors and protective factors using open-ended questions. Validated and normalized patient's emotions. Provided contact information for [facility] crisis programs. Pt agreed with plan to be referred for psychiatry services. Declined OP referral for now. Tubular adenoma of colon 01/29/2015 Vitamin D deficiency 01/29/2015 Chronic low back pain 08/07/2013 Overview (07/09/2022): Low back pain Resolved Problems Problem Noted Date Diagnosed Date Resolved Date Pain in wrist 01/29/2015 07/09/2022 Encounters * This document contains information received from the source organization and may not represent a complete record from that organization. Date Type Department Care Team Description 03/27/2024 Refill [facility] [place] [address] Isabel Ayala DO 03/06/2024 10:45 AM EST Office Visit [facility] [place] [address] Isabel Ayala DO Essential hypertension (Primary Dx); Other hyperlipidemia; Major depression, recurrent, chronic (CMS/HCC); Atrial fibrillation, unspecified type (CMS/HCC); Benign prostatic hyperplasia with lower urinary tract symptoms, symptom details unspecified; Chronic bilateral low back pain without sciatica; Pulmonary nodules; Abnormal chest CT; Obstructive sleep apnea; Chronic nasal congestion; Healthcare maintenance; Chronic bilateral low back pain, unspecified whether sciatica present; Encounter for immunization 03/06/2024 Travel 02/29/2024 Refill [facility] MED[facility]INE [address] [place] [address] Isabel Ayala DO Depression, unspecified depression type 02/23/2024 Patient Outreach [facility] [address] [place] [id number] Isabel Ayala DO Pre-visit Planning ((Unable to reach for PVP screening, LVM)) 02/21/2024 Refill [facility] MED[facility]INE [address] [place] [address] Isabel Ayala DO Hyperlipidemia, unspecified hyperlipidemia type 02/07/2024 Telephone [facility] [address] [place] [address] Isabel Ayala DO telephone call 02/06/2024 Patient Outreach [facility] [address] [place] [address] Isabel Ayala DO Transition Of Care (Tcm) (HDF unscheduled. ) 02/03/2024 Refill [facility] [address] [place] [address] Isabel Ayala, Chronic bilateral low back pain, unspecified whether sciatica present 01/31/2024 Patient Outreach [address] [address] Isabel Ayala DO Pre-visit Planning ((Unable to reach for PVP screening or LVM)) 01/27/2024 1:30 PM EST Telemedicine [address] [address] Brea Bender RN Chronic bilateral low back pain without sciatica 01/27/[address] [address] Brea Bender, YARI Percocet count discrepancy 01/27/2024 Travel 01/27/[address] [address] Brea Bender, YARI Recommend Tele SALES FLOOR TEAM MEMBER Tier 2 01/17/[address] [address] Alexandru Tamayo, [place] Denisse recall 01/04/2024 Refill [facility] [address] [place] [address] Isabel Ayala DO Chronic bilateral low back pain, unspecified whether sciatica present from Last 3 Months Immunizations Name Administration Dates Next Due Hep A, Adult 03/22/2017,03/11/2016 Hep B, adult 03/22/2017,05/03/2016,03/11/2016 Influenza High-dose Quadriva lent Preservative Free 10/30/2021,11/26/2020,11/30/2019 Influenza injectable quadriv alent IIV4 with preservative 11/10/2017,03/22/2017,12/30/2015 Influenza injectable quadriv alent preservative free 02/11/2023 Influenza, High Dose Seasona l, Preservative Free 11/27/2018,11/29/2014 Influenza, IIV3, injectable 11/26/2013, 1 Influenza, Split (incl. stephanie fied surface antigen) 11/03/2012,10/29/2011 Influenza, seasonal, injecta ble, preservative free 03/06/2024 Pfizer Covid-19 Vaccine 12+ 03/06/2024, Pneumococcal Conjugate PCV 13 08/29/2015, 015 Pneumococcal Conjugate PCV 20 07/26/2023 Pneumococcal Polysaccharide PPSV23 12/06/2013 Tdap 12/06/2013,08/09/2011 Zoster, Recombinant 01/16/2020,11/14/2019 Zoster, live 08/29/2015 Social History Tobacco Use Types Packs/Day Years [...] is your housing situation today? I have armandobrenna arellano 03/06/[address] you [...] Orientation Straight 12/07/2021 10 :22 AM EDT Last Filed Vital Signs Vital Sign Reading Time Taken Comments Blood Pressure 129/78 03/06/2024 11:23 AM EST Pulse 85 03/06/2024 11:23 AM EST Temperature 36.2 ??C (97.1 ??F) 03/06/2024 11:[address] Respiratory Rate 17 03/06/2024 11:23 AM EST Oxygen Saturation 98% 02/11/2023 10:17 AM EST Inhaled Oxygen Concentration - - Weight 121 kg (267 lb 2 oz) 03/06/2024 11:23 AM EST Height 182.9 cm (6') 03/06/2024 11:23 AM EST Body Mass Index 36.23 03/06/2024 11:23 AM EST Plan of Treatment Upcoming Encounters Date Type Department Care Team (Late st Contact Info) Description 04/02/2024 1:00 PM EST Office Visit [facility] OPTOMETRY [address] [place] [address] Vernon, Rama, OD [address] [place] [address] 04/13/2024 10:00 AM EST Telemedicine [facility] MEDICINE [address] [place] [address] Brea Bender, RN Health Maintenance Due Date Last Done Comments CT Colonography 1948 FIT DNA/Cologuard 1948 FIT 1948 FOBT 1948 Sigmoidoscopy 1950 Colonoscopy 05/18/2020 05/19/2015 Colorectal Cancer Screening 05/18/2020 RSV Patients and Patients Aged 60 years or older (1 - 1-dose 75+ series) 10/21/2023 DTaP/Tdap/Td Vaccines (3 - Td or Tdap) 12/07/2023 12/06/2013, 08/09/2011 Depression Monitoring (PHQ-9) 09/03/2024 03/06/2024, 03/06/2024 Alcohol/Substance Use Screening 03/06/2025 03/06/2024 Depression Screening 03/06/2025 03/06/2024, 03/06/19 SDOH Screening 03/06/2025 03/06/2024 Tobacco Screening 03/06/2025 03/06/2024 Lipid Panel 08/08/2028 08/09/2023, 03/2022, 12/11/2021, Additional history exists Hepatitis A Vaccines Aged Out 03/22/2017, 03/11/19 17 No longer eligible based on patient's age to complete this topic Hepatitis B Vaccines Completed 03/22/2017, 05/03/2016, 03/11/2016 Zoster Vaccines Completed 01/16/2020, 08/2019, 08/29/2015 Pneumococcal Vaccine: 50+ Years Completed 07/26/2023, 08/29/2015, 11/29/2014, Additional history exists Hepatitis C Screening Completed 08/09/2023, 020 COVID-19 Vaccine Completed 03/06/2024, 06/2023, 12/10/2021, Additional history exists Influenza Vaccine Completed 03/06/2024, , 10/30/2021, Additional history exists HIB Vaccines Aged Out No longer eligi ble based on patient's age to complete this topic HPV Vaccines Aged Out No longer eligi ble based on patient's age to complete this topic IPV Vaccines Aged Out No longer eligi ble based on patient's age to complete this topic Meningococcal Vaccine Aged Out No maria victoria taiwo eligible based on patient's age to complete this topic RSV under 20 months Aged Out No longe r eligible based on patient's age to complete this topic Rotavirus Vaccines Aged Out No longer eligible based on patient's age to complete this topic Procedures Procedure Name Priority Date/Time Associated Diagnosis Comments HEPATITIS C AB W/REFL TO HCV RNA, QN, PCR Routine 08/09/2023 1:05 PM EDT Healthcare maintenance LIPID PANEL, STANDARD Routine 08/09/2023 1:05 PM EDT Essential hypertension HM COLONOSCOPY Routine 05/19/2015 9:47 AM EDT from Last 3 Months or Most Recently Relevant to Health Maintenance Results * Hepatitis C Antibody with Reflex to HCV, RNA, Quantitative, Real-Time PCR (08/09/2023 1:05 PM EDT) Hepatitis C Antibody Nonreactive Nonreactive [facility] Comment:Antibodies to HCV no t detected; does not exclude early acuteHCV infection. Blood Venous blood specimen / Unknown 08/09/2023 1:05 PM EDT 08/09/2023 4:08 PM EDT us Isabel Ayala DO LAB BLOOD ORDERABLES Final R esult [facility] [address] [place] [address] [phone] * Lipid Panel, Standard (08/09/2023 1:05 PM EDT) Triglycerides 84 <150 mg/dL [facility] Comment:Desirable Triglyceri de: less than 150 mg/dLBorderline High Triglyceride 150-199 mg/dLHigh Triglyceride: 200-499 mg/dLVery High Triglyceride: greater than or equal to 5OO mg/dL Cholesterol 134 <200 mg/dL [facility] Comment:Desirable Cholestero l: less than 200 mg/dLBorderline High Cholesterol: 200-239 mg/dLHigh Cholesterol: greater than 239 mg/dL LDL Cholesterol Calculated 74 <100 mg/dL [facility] Comment:Desirable LDL: less than 100 mg/dLNear Optimal/Above Optimal LDL: 110- 129 mg/dLBorderline High LDL: 130-159 mg/dLHigh LDL: 160-189 mg/dLVery High LDL: greater than or equal to 190 mg/dL HDL Cholesterol 44 >40 mg/dL [facility] Comment:Desirable HDL: great er than 40 mg/dL Note: This HDL assay may give artificially low results in patients with liver disease. Blood Venous blood specimen / Unknown 08/09/2023 1:05 PM EDT 08/09/2023 4:08 PM EDT Isabel Ayala DO LAB BLOOD ORDERABLES Final R esult [facility] [address] [place] [address] [phone] * Hm Colonoscopy (05/19/2015 9:47 AM EDT) us Historical Provider HEALTH MAINTENANCE Final Result from Last 3 Months or Most Recently Relevant to Health Maintenance Insurance MEDICARE [facility] MEDICARE Care Teams Dispatcher Street Department Relationship Specialty Start Date End Date Isabel Ayala DO [address] [place] [phone] PCP - General Family Medicine 03/31/11
--- OUTSIDE RECORDS SUMMARY | 2024-03-30 13:48 | XMS_ITS | Encounter Summary ---
Author Organization [employer] Address [address] [place] [address] Care Team Providers Care Child Psychologist Name Role Phone Isabel Ayala DO Primary Care Provider + [phone] Encounter Details Date Type Department Care Team (Late st Contact Info) Description 05/19/2023 Orders Only [facility] MEDICINE [address] [place] [address] ProviderPhill MD Social History Tobacco Use Types Packs/Day Years [...] Description 04/02/2024 1:00 PM EST Office Visit [facility] OPTOMETRY [address] [place] [address] Vernon, Rama, OD [address] [place] [address] 04/13/2024 10:00 AM EST Telemedicine [facility] MEDIC[facility] [address] [place] [address] Brea Bender RN documented as of this encounter Procedures Procedure Name Priority Date/Time Associated Diagnosis Comments HM COLONOSCOPY Routine 05/19/2015 9:47 AM EDT documented in this encounter Results * Hm Colonoscopy (05/19/2015 9:47 AM EDT) us Historical Provider HEALTH MAINTENANCE Final Result documented in this encounter Visit Diagnoses Not on filedocumented in this encounter Additional Health Concerns Assessment Noted Time PHQ-9 Depression Total Score: 0 10/13/19 23 11:41 AM EDT documented as of this encounter Care Teams Child Psychologist Relationship Specialty Start Date End Date Isabel Ayala DO [address] [place] [address] PCP - General Family Medicine 03/31/11 documented as of this encounter
--- OUTSIDE RECORDS SUMMARY | 2024-03-30 13:48 | XMS_ITS | Encounter Summary ---
Author Organization [employer] Address [address] [facility] 7t [place] [address] Care Team Providers Care Early Head Start Teacher Name Role Phone Isabel Ayala DO Primary Care Provider + [phone] Reason for Visit * Reason Comments Med Refill Encounter Details Date Type Department Care Team ([facility] st Contact Info) Description 03/27/2024 Refill [facility] MEDICINE [address] [place], [place] [phone] Isabel Ayala DO [address] [place], [place] [phone] Social History Tobacco Use Types Packs/Day Years [...] Description 04/02/2024 1:00 PM EST Office Visit [facility] OPTOMETRY [address] [place] [address] Rama Junior, OD [address] [place] [address] 04/13/2024 10:00 AM EST Telemedicine [facility] MEDICINE [address] [place] [address] Brea Bender, YARI documented as of this encounter Visit Diagnoses Not on filedocumented in this encounter Additional Health Concerns Assessment Noted Time PHQ-9 Depression Total Score: 12 025 11:28 AM EST documented as of this encounter Care Teams Early Head Start Teacher Relationship Specialty Start Date End Date Isabel Ayala DO [address] [place] [address] PCP - General Family Medicine 03/31/11 documented as of this encounter
== END 2024-03-30 14:33 | disposition home or self-care (01) ==
LOC: HO.HUSH 13:24
PROVIDERS: PCP Family Medicine; Visit Provider Urology
DX: N40.1 Benign prostatic hyperplasia with lower urinary tract symptoms (principal); R39.15 Urgency of urination; M54.50 Low back pain, unspecified; G89.29 Other chronic pain; Z13.9 Encounter for screening, unspecified
CPT/HCPCS: 52000; 99214

== ENCOUNTER → 2024-03-30 13:24 | Outpatient (BNVA) | payer MEDICARE, SELFPAY | PROVIDERS: PCP Family Medicine; Visit Provider Urology | DX: N40.1 Benign prostatic hyperplasia with lower urinary tract symptoms (principal); R39.15 Urgency of urination; M54.50 Low back pain, unspecified; G89.29 Other chronic pain | CPT/HCPCS: 52000; 81003; 99212 ==

== ENCOUNTER 2024-04-17 06:28 | Outpatient (REF) | payer MEDICARE, SELFPAY ==
--- OUTSIDE RECORDS SUMMARY | 2024-04-17 06:31 | XMS_ITS | Encounter Summary ---
Author Organization [employer] Address [address] [facility] 7t [place] [address] Care Team Providers Care Health Policy Analyst Name Role Phone Isabel Ayala DO Primary Care Provider [phone] Encounter Details Date Type Department Care Team (Late st Contact Info) Description 02/10/2022 Orders Only [facility] MED & PEDS [address] [place] [address] Isabel Paz LPN Social History Tobacco Use [...] Care Team (Late st Contact Info) Description 06/29/2024 1:30 PM EDT Telemedicine [facility] MEDICINE [address] [place] [address] Brea Bender, RN documented as of this encounter Visit Diagnoses Not on filedocumented in this encounter Care Teams Health Policy Analyst Relationship Specialty Start Date End Date Isabel Ayala DO [address] [place] [address] PCP - General Family Medicine 03/31/11 documented as of this encounter
--- OUTSIDE RECORDS SUMMARY | 2024-04-17 06:31 | XMS_ITS | Encounter Summary ---
Author Organization [employer] Address [address] [facility] [address] [place] [address] Care Team Providers Care E Business Specialist Name Role Phone Isabel Ayala DO Primary Care Provider + [phone] Reason for Visit * Reason Comments Med Refill Encounter Details Date Type Department Care Team ([facility] st Contact Info) Description 12/13/2023 Refill [facility] MEDICINE [address] [place], [place] [phone] Isabel Ayala DO [address] [place] [address] Depression, unspecified depression type Social History Tobacco [...] Info) Description 06/29/2024 1:30 PM EDT Telemedicine [facility] MEDICINE [address] [place] [address] Brea Bender RN documented as of this encounter Visit Diagnoses Diagnosis Depression, unspecified depression type documented in this encounter Additional Health Concerns Assessment Noted Time PHQ-9 Depression Total Score: 0 10/13/19 11:41 AM EDT documented as of this encounter Care Teams E Business Specialist Relationship Specialty Start Date End Date Isabel Ayala DO [address] [place] [address] PCP - General Family Medicine 03/31/11 documented as of this encounter
--- OUTSIDE RECORDS SUMMARY | 2024-04-17 06:31 | XMS_ITS | Encounter Summary ---
Author Organization [employer] Address [address] [facility] [address] [place] [address] Care Team Providers Care Brine Process Operator Name Role Phone Isabel Ayala DO Primary Care Provider [phone] Encounter Details Date Type Department Care Team (Late st Contact Info) Description 03/11/2022 Orders Only [facility] CHC MED & PEDS [address] [place] [address] Isabel Paz LPN Social History Tobacco Use [...] Description 06/29/2024 1:30 PM EDT Telemedicine [facility] MEDICINE [address] [place] [address] Brea Bender, RN documented as of this encounter Visit Diagnoses Not on filedocumented in this encounter Care Teams Brine Process Operator Relationship Specialty Start Date End Date Isabel Ayala DO [address] [place] [address] PCP - General Family Medicine 03/31/11 documented as of this encounter
--- OUTSIDE RECORDS SUMMARY | 2024-04-17 06:31 | XMS_ITS | Encounter Summary ---
Author Organization [employer] Address [address] [place] [address] Care Team Providers Care Insurance Policy Issue Clerk Name Role Phone KarlIsabel dunaway Primary Care Provider + [phone] Reason for Visit * Reason Onset Date Comments BPI Scoring 04/13/2024 Encounter Details Date Type Department Care Team ([facility] st Contact Info) Description 04/13/2024 Telephone [facility] MEDICINE [address] [place], [place] [phone] Brea Bender RN BPI Scoring Social History Tobacco Use Types Packs/Day Years [...] encounter Miscellaneous Notes * Telephone Encounter - Brea Bender RN - 04/13/2024 9:59 AM EST Pt had Tele [employer] RV appt today BPI updated Pain severity score of 4, activity interference score of 7.4. Previous BPI completed 11/04/23 with pain severity score of 3.8, activity interference score of 7.4. documented in this encounter Plan of Treatment Upcoming Encounters Date Type Department Care Team (Late st Contact Info) Description 06/29/2024 1:30 PM EDT Telemedicine [facility] MEDICINE [address] [place] [address] Brea Bender, RN documented as of this encounter Visit Diagnoses Not on filedocumented in this encounter Additional Health Concerns Assessment Noted Time PHQ-9 Depression Total Score: 12 025 11:28 AM EST documented as of this encounter Care Teams Insurance Policy Issue Clerk Relationship Specialty Start Date End Date Isabel Ayala DO [address] [place] [address] PCP - General Family Medicine 2/22/12 documented as of this encounter
--- OUTSIDE RECORDS SUMMARY | 2024-04-17 06:31 | XMS_ITS | Encounter Summary ---
Author Organization [employer] Address [address] [facility] 7t [place] [address] Care Team Providers Care Rugby Union Footballer Name Role Phone Isabel Ayala DO Primary Care Provider + [phone] Reason for Visit * Reason Comments Med Refill Encounter Details Date Type Department Care Team ([facility] st Contact Info) Description 02/26/2023 Refill [facility] MEDICINE [address] [place], [place] [phone] Isabel Ayala DO [address] [place], [place] [phone] Social History Tobacco Use Types Packs/Day Years [...] Info) Description 06/29/2024 1:30 PM EDT Telemedicine [facility] MEDICINE [address] [place] [address] Brea Benedr RN documented as of this encounter Visit Diagnoses Not on filedocumented in this encounter Additional Health Concerns Assessment Noted Time PHQ-9 Depression Total Score: 0 10/13/19 23 11:41 AM EDT documented as of this encounter Care Teams Rugby Union Footballer Relationship Specialty Start Date End Date Isabel Ayala DO [address] [place] [address] PCP - General Family Medicine 03/31/11 documented as of this encounter
--- OUTSIDE RECORDS SUMMARY | 2024-04-17 06:31 | XMS_ITS | Encounter Summary ---
Author Organization [employer] Address [address] [facility] 7t [place] [address] Care Team Providers Care Fire Investigation Manager Name Role Phone Isabel Ayala DO Primary Care Provider [phone] Encounter Details Date Type Department Care Team (Late st Contact Info) Description 01/22/2022 Orders Only [facility] MED & PEDS [address] [place] [address] Isabel Paz LPN Social History Tobacco Use [...] Info) Description 06/29/2024 1:30 PM EDT Telemedicine [facility] MEDICINE [address] [place] [address] Brea Bender, RN documented as of this encounter Visit Diagnoses Not on filedocumented in this encounter Care Teams Fire Investigation Manager Relationship Specialty Start Date End Date Isabel Ayala DO [address] [place] [address] PCP - General Family Medicine 03/31/11 documented as of this encounter
--- OUTSIDE RECORDS SUMMARY | 2024-04-17 06:31 | XMS_ITS | Encounter Summary ---
Author Organization [employer] Address [address] [facility] [address] 7[address] [place] [address] Care Team Providers Care Head Cleaning Porter Name Role Phone KarlIsabel dunaway Primary Care Provider + [phone] Encounter Details Date Type Department Care Team (Latest Contact Info) Description 04/02/2024 Travel Social History Tobacco Use Types Packs/Day [...] Info) Description 06/29/2024 1:30 PM EDT Telemedicine [facility] MEDICINE [address] [place] [address] Brea Bender RN documented as of this encounter Visit Diagnoses Not on filedocumented in this encounter Additional Health Concerns Assessment Noted Time PHQ-9 Depression Total Score: 12 025 11:28 AM EST documented as of this encounter Care Teams Head Cleaning Porter Relationship Specialty Start Date End Date Isabel Ayala DO [address] [place] [address] PCP - General Family Medicine 03/31/11 documented as of this encounter
--- OUTSIDE RECORDS SUMMARY | 2024-04-17 06:31 | XMS_ITS | Encounter Summary ---
Author Organization [employer] Address [address] [facility] [address] 7[address] [place] [address] Care Team Providers Care Physiological Chemist Name Role Phone Isabel Ayala DO Primary Care Provider + [phone] Reason for Visit * Reason Comments Med Refill Encounter Details Date Type Department Care Team ([facility] st Contact Info) Description 07/29/2023 Refill [facility] CHC MED & PEDS [address] [place], [place] [phone] Isabel Ayala DO [address] [facility] [place] [address] Chronic bilateral low back pain, unspecified whether [...] Info) Description 06/29/2024 1:30 PM EDT Telemedicine [facility] MEDICINE [address] [place] [address] Brea Bender RN documented as of this encounter Visit Diagnoses Diagnosis Chronic bilateral low back pain, unspecified whether sciatica present documented in this encounter Additional Health Concerns Assessment Noted Time PHQ-9 Depression Total Score: 0 10/13/19 11:41 AM EDT documented as of this encounter Care Teams Physiological Chemist Relationship Specialty Start Date End Date Isabel Ayala DO [address] [place] [address] PCP - General Family Medicine 03/31/11 documented as of this encounter
--- OUTSIDE RECORDS SUMMARY | 2024-04-17 06:31 | XMS_ITS | Encounter Summary ---
Author Organization [employer] Address [address] [facility] 7[address] [place] [address] Care Team Providers Care Crematorium Operator Name Role Phone Isabel Ayala DO Primary Care Provider + [phone] Reason for Visit * Reason Comments Med Refill Encounter Details Date Type Department Care Team (Late Contact Info) Description 09/27/2022 Refill [facility] MEDICINE [address] [place], [place] [phone] [place] Magdalene [facility] [address] [place] [address] Seasonal allergies Social History Tobacco Use Types [...] [facility] MEDICINE [address] [place] [address] Brea Bender RN documented as of this encounter Visit Diagnoses Diagnosis Seasonal allergies Allergic rhinitis, cause unspecified documented in this encounter Care Teams Crematorium Operator Relationship Specialty Start Date End Date Isabel Ayala DO [address] [place] [phone] PCP - General Family Medicine 03/31/11 documented as of this encounter
--- OUTSIDE RECORDS SUMMARY | 2024-04-17 06:31 | XMS_ITS | Encounter Summary ---
Author Organization [employer] Address [address] [facility] 7t [place] [address] Care Team Providers Care Local Government Legislator Name Role Phone Isabel Ayala DO Primary Care Provider + [phone] Reason for Visit * Reason Comments Med Refill Encounter Details Date Type Department Care Team ([facility] st Contact Info) Description 08/02/2022 Refill [facility] MEDICINE [address] [place], [place] [phone] Isabel Ayala DO [address] [place] [address] Chronic bilateral low back pain, unspecified whether [...] Info) Description 06/29/2024 1:30 PM EDT Telemedicine [facility] MEDICINE [address] [place] [address] Brea Bender RN documented as of this encounter Visit Diagnoses Diagnosis Chronic bilateral low back pain, unspecified whether sciatica present documented in this encounter Care Teams Local Government Legislator Relationship Specialty Start Date End Date Isabel Ayala DO [address] [place] [id number] PCP - General Family Medicine 03/31/11 documented as of this encounter
--- OUTSIDE RECORDS SUMMARY | 2024-04-17 06:31 | XMS_ITS | Encounter Summary ---
Author Organization [employer] Address [address] [facility] [address] 7[address] [place] [address] Care Team Providers Care Installer Technician Name Role Phone Isabel Ayala DO Primary Care Provider + [phone] Encounter Details Date Type Department Care Team ([facility] st Contact Info) Description 09/05/2023 Telephone [facility] MEDICINE [address] [place] [address] Isabel Ayala DO [address] [place], [place] [phone] Social History Tobacco Use Types Packs/Day Years [...] t he electric, gas, oil or water [employer] threatened to shut off services in your [...] Info) Description 06/29/2024 1:30 PM EDT Telemedicine [facility] MEDICINE [address] [place] [address] Brea Bender RN documented as of this encounter Visit Diagnoses Not on filedocumented in this encounter Additional Health Concerns Assessment Noted Time PHQ-9 Depression Total Score: 0 10/13/19 23 11:41 AM EDT documented as of this encounter Care Teams Installer Technician Relationship Specialty Start Date End Date Isabel Ayala DO [address] [place] [id number] PCP - General Family Medicine 03/31/11 documented as of this encounter
--- OUTSIDE RECORDS SUMMARY | 2024-04-17 06:31 | XMS_ITS | Encounter Summary ---
Author Organization [employer] Address 75 [facility] 7t [place] [address] Care Team Providers Care Staffing Coordinator Name Role Phone Isabel Ayala DO Primary Care Provider + [phone] Reason for Visit * Reason Comments Med Refill Encounter Details Date Type Department Care Team ([facility] st Contact Info) Description 03/27/2024 Refill [facility] MEDICINE [address] [place], [place] [phone] Isabel Ayala DO 230 [place], [place] [phone] Social History Tobacco Use Types Packs/Day Years [...] Info) Description 06/29/2024 1:30 PM EDT Telemedicine [facility] MEDICINE [address] [place] [address] Brea Bender RN documented as of this encounter Visit Diagnoses Not on filedocumented in this encounter Additional Health Concerns Assessment Noted Time PHQ-9 Depression Total Score: 12 025 11:28 AM EST documented as of this encounter Care Teams Staffing Coordinator Relationship Specialty Start Date End Date Isabel Ayala DO [address] [place] [address] PCP - General Family Medicine 03/31/11 documented as of this encounter
--- OUTSIDE RECORDS SUMMARY | 2024-04-17 06:31 | XMS_ITS | Encounter Summary ---
Author Organization [employer] Address 75 [facility] 7t [place] [address] Care Team Providers Care Repossession Agent Name Role Phone Isabel Ayala DO Primary Care Provider + [phone] Reason for Visit * Reason Comments Med Refill Encounter Details Date Type Department Care Team ([facility] st Contact Info) Description 06/20/2023 Refill [facility] [address] [place], [place] [phone] Isabel Ayala DO [address] [place], [place] [phone] Urinary frequency Social History Tobacco Use Types [...] Info) Description 06/29/2024 1:30 PM EDT Telemedicine [facility] [address] [place] [address] Brea Bender RN documented as of this encounter Visit Diagnoses Diagnosis Urinary frequency documented in this encounter Additional Health Concerns Assessment Noted Time PHQ-9 Depression Total Score: 0 10/13/19 11:41 AM EDT documented as of this encounter Care Teams Repossession Agent Relationship Specialty Start Date End Date Isabel Ayala DO [address] [place] [address] PCP - General Family Medicine 03/31/11 documented as of this encounter
--- OUTSIDE RECORDS SUMMARY | 2024-04-17 06:31 | XMS_ITS | Encounter Summary ---
Author Organization [employer] Address [address] [facility] [facility] [address] 7[address] [place] [address] Care Team Providers Care Allergy Specialist Name Role Phone Isabel Ayala DO Primary Care Provider + [phone] Reason for Visit * Reason Onset Date Comments Med Refill 04/03/2024 Encounter Details Date Type Department Care Team (Late st Contact Info) Description 04/03/2024 Refill [facility] CH[facility] MED & PEDS [address] [place] [address] Isabel Ayala DO 230 [facility] [place] [address] Chronic bilateral low back pain, unspecified whether [...] as of this encounter Miscellaneous Notes * Addendum Note - Yulia Bender RN - 04/03/2024 12:52 PM ESTAddended by: YULIA BENDER on: 04/03/2024 12:52 PM Modules accepted: Orders * Telephone Encounter - Kelly Licona LPN - 04/03/2024 8:29 AM EST Received request on oxyCODONE-acetaminophen (Percocet) 5-325 MG tablet documented in this encounter Plan of Treatment Upcoming Encounters Date Type Department Care Team (Late st Contact Info) Description 06/29/2024 1:30 PM EDT Telemedicine [facility] MEDICINE [address] [place] [phone] Yulia Bender RN documented as of this encounter Visit Diagnoses Diagnosis Chronic bilateral low back pain, unspecified whether sciatica present documented in this encounter Additional Health Concerns Assessment Noted Time PHQ-9 Depression Total Score: 12 025 11:28 AM EST documented as of this encounter Care Teams Allergy Specialist Relationship Specialty Start Date End Date Isabel Ayala DO [address] [place] [address] PCP - General Family Medicine 03/31/11 documented as of this encounter
--- OUTSIDE RECORDS SUMMARY | 2024-04-17 06:31 | XMS_ITS | Encounter Summary ---
Author Organization [employer] Address [address] [facility] [address] 7t [place] [address] Care Team Providers Care Senior Bioinformatics Specialist Name Role Phone Alyse Ayalafer Primary Care Provider + [phone] Reason for Visit * Reason Comments Choroidal nevus OS Encounter Details Date Type Department Care Team ([facility] st Contact Info) Description 04/02/2024 1:00 PM EST Office Visit [facility] OPTOMETRY [address] [place] [address] Vernon, Rama, OD [address] [place] [address] Choroidal nevus, left eye (Primary Dx); Soreness of eye; Combined forms of age-related cataract of both eyes; 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 male. Chief Complaint Choroidal nevus OS HPI Here for a complete eye exam to monitor a choroidal nevus in the left eye. Today the patient complains of blur at distance and near. He does use OTC readers (rx unknown) which help at near but does not have distance glasses. He also complains of chronic soreness in left eye. He states he feels it is linked to hemifacial pain that he has had for many years. He states he had a cyst removed from hissinuses on the left side of his face years ago and has had pain ever since then. He states he uses nasal medication to help when pain bothers him. Last exam was here in 10/2021. Last edited by Rama Junior, OD on 04/02/2024 3:32 PM. Current Outpatient Medications Medication Sig Dispense Refill dutasteride (Avodart) 0.5 MG capsule albuterol 108 (90 Base) MCG/ACT inhaler Inhale 2 puffs every 4 (four) hours if needed for wheezing or shortness of breath. 18 g 1 atorvastatin (Lipitor) 10 MG tablet TAKE 1 TABLET BY MOUTH EVERY DAY AT BEDTIME 90 tablet 1 baclofen (Lioresal) 10 MG tablet Take 1 tablet (10 mg) by mouth if needed in the morning, at noon, and at bedtime for muscle spasms. 60 tablet 3 cetirizine (ZyrTEC) 10 MG tablet Take 1 tablet (10 mg) by mouth Once per day. 30 tablet 11 D3 Super Strength 50 MCG (2000 UT) capsule TAKE 1 CAPSULE BY MOUTH ONCE DAILY 90 capsule 3 Diclofenac Sodium 1 % gel Apply 2 g topically if needed in the morning, at noon, in the evening, and at bedtime (pain). 150 g 3 FLUoxetine (PROzac) 20 MG capsule TAKE 3 CAPSULES BY MOUTH EVERY DAY IN THE MORNING 90 capsule 2 fluticasone (Flonase) 50 MCG/ACT nasal spray Administer 2 sprays into each nostril Once per day. Shake gently. Before first use, prime pump. After use, clean tip and replace cap. 16 g 11 fluticasone furoate (Arnuity Ellipta) 100 MCG/ACT inhaler Inhale 1 puff Once per day. Rinse mouth with water after use to reduce aftertaste and incidence of candidiasis. Do not swallow. 1 each 11 gabapentin (Neurontin) 300 MG capsule TAKE 1 CAPSULE BY MOUTH THREE TIMES DAILY 90 capsule 5 Lidoderm 5 % patch APPLY 1 PATCH TOPICALLY TO SKIN, LEAVE ON FOR 12 HOURS AND OFF FOR 12 HOURS DIRECTED 30 patch 5 metoprolol tartrate (Lopressor) 50 MG tablet TAKE 1 TABLET BY MOUTH TWICE DAILY. MUST MAKE CARDIOLOGY APPOINTMENT FOR MORE REFILLS oxybutynin XL (Ditropan XL) 10 MG 24 hr tablet TAKE 1 TABLET BY MOUTH EVERY DAY. 90 tablet 0 oxyCODONE-acetaminophen (Percocet) 5-325 MG tablet Take 1 tablet by mouth every 6 (six) hours if needed for severe pain for up to 28 days. 112 tablet 0 tamsulosin (Flomax) 0.4 MG 24 hr capsule TAKE 1 CAPSULE BY MOUTH EVERY DAY 30 capsule 5 Xarelto 20 MG tablet TAKE 1 TABLET BY MOUTH ONCE DAILY PLEASE CALL [phone] TO SCHEDULE FOLLOW UP FOR 2022. No current facility-administered medications for this visit. 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 No pertinent surgical history. No family history on file. Social History Socioeconomic History Marital status: Spouse name: Not on file Number of children: Not on file Years of education: Not on file Highest education level: Not on file Occupational History Not on file Tobacco Use Smoking status: Never Smokeless tobacco: Never Substance and Sexual Activity Alcohol use: Yes Alcohol/week: 3.0 standard drinks of alcohol Types: 3 Cans of beer per week Drug use: Never Sexual activity: Not on file Other Topics Concern Not on file Social History Narrative Not on file Social Drivers of Health Food Insecurity: Low Risk (03/06/2024) Food Insecurity Within the past 12 months, you worried that your food would run out before you got money to buy more:: Never True Within the past 12 months,the food you bought just didn't last and you didn't have enough money to get more: : Never True Transportation Needs: Low Risk (03/06/2024) Transportation In the past 12 months, has lack of transportation kept you from medical appts, meetings, work or from getting things needed for daily living? : No Intimate Partner Violence: Not on file Housing Stability: Low Risk (03/06/2024) Housing Stability What is your housing situation today?: I have housing Think about the place you live. Do you have problems with any of the following? : None of the above No Known Allergies ROS Positive for: Eyes Negative for: Constitutional, Gastrointestinal, Neurological, Skin, Genitourinary, Musculoskeletal,HENT, Endocrine, Cardiovascular, Respiratory, Psychiatric, Allergic/Imm, Heme/Lymph Last edited by Rama Junior OD on 04/02/2024 1:11 PM. Base Eye Exam Visual Acuity (Snellen - Linear) Right Left Dist cc 20/30 +2 20/40 -2 Correction: Glasses Tonometry (iCare , 1:24 PM) Right Left Pressure 9 10 Pupils Pupils APD Right PERRL None Left PERRL None Visual Ortega (Counting fingers) Left Right Full Full Extraocular Movement Right Left Full Full Neuro/Psych Oriented x3: Yes Mood/Affect: Normal Dilation Both eyes: 1.0% Tropicamide @ 1:26 PM Slit Lamp and Fundus Exam External Exam Right Left External Normal Normal Slit Lamp Exam Right Left Lids/Lashes Normal Normal Conjunctiva/Sclera White and quiet White and quiet Cornea Clear Clear Anterior Chamber Deep and quiet Deep and quiet Iris Flat Flat Lens 1-2+ NS, 1-2+ PSC 1-2+ NS, 1-2+ PSC, 1+ cortical changes Fundus Exam Right Left Vitreous Clear Clear Disc Heimdal and Distinct Heimdal and Distinct C/D Ratio Vertical 0.2 0.2 C/D Ratio Horizontal 0.2 0.2 Macula Flat and Intact Diffuse ERM, no CME/SRF Vessels Normal Normal Periphery Reticular degeneration scattered 360, No Holes/Breaks/Tears 360 degrees 1/4 DD flat choroidal nevus, no drusen or lipofuscin inferior to the macula, scattered reticular degeneration 360, NoHoles/Breaks/Tears 360 degrees Refraction Wearing Rx Sphere Cylinder Warnock Add Right +1.25 -0.75 105 +2.75 Left +1.00 -1.00 095 +2.75 Age: 2023 Manifest Refraction Sphere Cylinder Warnock Dist VA Add Right +0.50 -1.00 088 20/30 -2 +2.75 Left +0.25 -1.50 097 20/25 -2 +2.75 Dist VA Both: 20/25 Near VA Both: 20/20 Final Rx Sphere Cylinder Warnock Dist VA Add Right +0.50 -1.00 088 20/30 +2.75 Left +0.25 -1.50 097 20/25 +2.75 Expiration Date: 04/02/2025 Assessment/plan: Diagnoses and all orders for this visit: Choroidal nevus, left eye Small and stable in appearance. The patient was educated that the lesion appears benign and small at this time. He was educated that less than 2% of choroidal nevi can metastasize to melanoma over a lifetime. He was educated that annual exams are important to monitor for any changes in the appearance or size of the nevus as melanoma is sight and life-threatening. He stated his understanding. Willmonitor in 1 year with a complete eye exam. Soreness of eye No obvious findings to suggest a cause of his discomfort. He has an appointment with a specialist to evaluate potential causes of his hemifacial/eye pain. Combined forms of age-related cataract of both eyes Visually significant right eye (OD)>left eye (OS). The patient was educated that he can be referred for cataract surgery now, or he can wait until his vision worsens. He was educated on the progressive nature for cataracts. He would like to wait on an evaluation at this time, but will call if hechanges his mind. Otherwise, will monitor at his next exam. 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 The finding is generally benign but it is possible for the retina to thin enough to break/tear. There were no tears/breaks in the retinatoday. The patient was educated to [facility] with any sudden onset of flashes of lights, floaters, or decreased vision. Otherwise, will monitor at their next complete eye exam. Epiretinal membrane (ERM) of left eye Chronic and stable. This condition causes wrinkles, creases, or bulges to form on the retina. An epiretinal membrane can make things look wavy, or make it difficult to see fine details. It can also cause a valente or cloudy area in a person's central vision. His vision is not affected at this time andno treatment is recommended. Will monitor at his next full eye exam. Presbyopia Glasses prescription updated and given. Will monitor at the patient's next full eye exam. Rama Junior, OD 04/02/2024, 3:45 PM Water Softener Service Supervisor Source: _X__ None ___ Bilingual Staff ___ Qualified Staff Medical Insurance Biller ___ Telephone Water Softener Service Supervisor; ID# ___ Water Softener Service Supervisor brought by patient (family member, friend, COMPLIANCE ASSOCIATE, etc) ___ In person milk of lime slaker ___ Ipad Water Softener Service Supervisor; ID#: Language Spoken During Exam: ___English documented in this encounter Plan of Treatment Upcoming Encounters Date Type Department Care Team (Late st Contact Info) Description 06/29/2024 1:30 PM EDT Telemedicine [facility] MEDICINE [address] [place] [address] Brea Bender RN documented as of this encounter Visit Diagnoses Diagnosis Choroidal nevus, left eye- Primary Benign neoplasm of choroid Soreness of eye 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
--- OUTSIDE RECORDS SUMMARY | 2024-04-17 06:31 | XMS_ITS | Encounter Summary ---
Author Organization [employer] Address [address] [facility] 7[place] [address] Care Team Providers Care Liquor Grinding Mill Operator Name Role Phone Isabel Ayala DO Primary Care Provider + [phone] Reason for Visit * Reason Comments Med Refill Encounter Details Date Type Department Care Team (Late st Contact Info) Description 11/04/2022 Refill [facility] CHC MED & PEDS [address] [place] [address] Isabel Ayala DO [address] [place], [place] [phone] Social History Tobacco Use Types Packs/Day Years [...] Description 06/29/2024 1:30 PM EDT Telemedicine [facility] MEDICINE [address] [place], [place] [phone] Brea Bender RN documented as of this encounter Visit Diagnoses Not on filedocumented in this encounter Additional Health Concerns Assessment Noted Time PHQ-9 Depression Total Score: 0 10/13/19 11:41 AM EDT documented as of this encounter Care Teams Liquor Grinding Mill Operator Relationship Specialty Start Date End Date Isabel Ayala DO [address] [place] [address] PCP - General Family Medicine 03/31/11 documented as of this encounter
--- OUTSIDE RECORDS SUMMARY | 2024-04-17 06:31 | XMS_ITS | Encounter Summary ---
Author Organization [employer] Address [address] [facility] [address] [place] [address] Care Team Providers Care Mail Processing Clerk Name Role Phone KarlIsabel dunaway Primary Care Provider + [phone] Encounter Details Date Type Department Care Team (Latest Contact Info) Description 04/13/2024 Travel Social History Tobacco Use Types Packs/Day [...] Info) Description 06/29/2024 1:30 PM EDT Telemedicine [facility] MEDICINE [address] [place] [address] Brea Bender RN documented as of this encounter Visit Diagnoses Not on filedocumented in this encounter Additional Health Concerns Assessment Noted Time PHQ-9 Depression Total Score: 12 025 11:28 AM EST documented as of this encounter Care Teams Mail Processing Clerk Relationship Specialty Start Date End Date Isabel Ayala DO [address] [place] [address] PCP - General Family Medicine 03/31/11 documented as of this encounter
--- OUTSIDE RECORDS SUMMARY | 2024-04-17 06:31 | XMS_ITS | Encounter Summary ---
Author Organization [employer] Address [address] [facility] 7t [place] [address] Care Team Providers Care Archival Records Clerk Name Role Phone Isabel Ayala DO Primary Care Provider + [phone] Reason for Visit * Reason Onset Date Comments Nurse Triage 01/28/2023 Encounter Details Date Type Department Care Team ([facility] st Contact Info) Description 01/28/2023 Telephone [facility] MEDICINE [address] [place], [place] [phone] Isabel Ayaal DO [address] [place], [place] [phone] Nurse Triage Social History Tobacco Use Types [...] states that he was referred to a Grading Clerk in the past and he has been thinking about PCP suggestion and he is ready to get referral to Grading Clerk. Pt. States he feels fine at rest but does develop SOB doing easy tasks and ADL's such as washing dishes walking long distances etc. So he has 3 requests Referral to Grading Clerk that he states you have suggested several [...] Info) Description 06/29/2024 1:30 PM EDT Telemedicine [facility] MEDICINE [address] [place] [address] Brea Bender, RN documented as of this encounter Visit Diagnoses Not on filedocumented in this encounter Additional Health Concerns Assessment Noted Time PHQ-9 Depression Total Score: 0 10/13/19 11:41 AM EDT documented as of this encounter Care Teams Archival Records Clerk Relationship Specialty Start Date End Date Isabel Ayala DO [address] [place] [address] PCP - General Family Medicine 03/31/11 documented as of this encounter
--- OUTSIDE RECORDS SUMMARY | 2024-04-17 06:31 | XMS_ITS | Encounter Summary ---
Author Organization [email or web address] Address 75 [facility] 7t [place] [address] Care Team Providers Care Assembled Wood Products Repairer Name Role Phone KarlIsabel dunaway Primary Care Provider + [phone] Reason for Visit * Reason Comments PARK INTERPRETIVE RANGER RV PARK INTERPRETIVE RANGER RV Encounter Details Date Type Department Care Team ([facility] st Contact Info) Description 04/13/2024 10:00 AM EST Telemedicine [facility] MEDICINE [address] [place] [address] Brea Bender RN Chronic bilateral low back pain without sciatica Social History Tobacco Use Types Packs/Day Years [...] as of this encounter Progress Notes * Brea Bender RN - 04/13/2024 10:00 AM EST S: Pt called for PARK INTERPRETIVE RANGER Revisit. Prescribed Percocet 5mg Q6hr PRN. States he has been taking 4 doses aday, last dose taken today @ 9a. Continues to deny smoking cigarettes and illicit drug use. He drinks 2 drinks a day, could be a glass of wine, beer or mixed drinks. He uses edible marijuana weekly. States he gets his marijuana from a dispensary and does not have a medical marijuana card. Currentlyrates pain a 4 and states medication is 75% effective at alleviating pain. Current pain sites are his lower back and his left wrist. O: PARK INTERPRETIVE RANGER Tele Tier 2. Pt currently prescribed Percocet 5mg Q6hr PRN. BATCH PLANT OPERATOR verified today. Rx last filled on 04/05/24. Pill count performed over the phone. Pt reports having 81 pills at this time, 79 at least expected. Medication is not over used by patient. BPI updated today. Pain severity score of 4, activity interference score of 7.4. Previous BPI completed 11/04/23 with pain severity score of 3.8, activity interference score of 7.4. Will update PCP with BPI scoring. Last PCP visit was 03/06/24. A: PARK INTERPRETIVE RANGER Contract Revsit: Chronic Opioid use related to pain. P: Pt to continue taking medication only as prescribed; Next Tele PARK INTERPRETIVE RANGER RV appointment scheduled for 06/29/24 @ 1:30p, F/U sooner PRN. Appointment reminder mailed. Pt verbalized understanding and agreedto plan documented in this encounter Plan of Treatment Upcoming Encounters Date Type Department Care Team (Late st Contact Info) Description 06/29/2024 1:30 PM EDT Telemedicine [facility] MEDICINE [address] [place] [address] Brea Bender, YARI documented as of this encounter Visit Diagnoses Diagnosis Chronic bilateral low back pain without sciatica documented in this encounter Additional Health Concerns Assessment Noted Time PHQ-9 Depression Total Score: 12 025 11:28 AM EST documented as of this encounter Care Teams Assembled Wood Products Repairer Relationship Specialty Start Date End Date Isabel Ayala DO [address] [place] [address] PCP - General Family Medicine 03/31/11 documented as of this encounter
--- OUTSIDE RECORDS SUMMARY | 2024-04-17 06:31 | XMS_ITS | Encounter Summary ---
Author Organization [employer] Address [address] [facility] [address] 7[address] [place] [address] Care Team Providers Care Hat Cone Inspector Name Role Phone Isabel Ayala DO Primary Care Provider + [phone] Encounter Details Date Type Department Care Team (Late st Contact Info) Description 05/19/2023 Orders Only [facility] MEDICINE [address] [place] [address] ProviderPhill MD Social History Tobacco Use Types [...] 06/29/2024 1:30 PM EDT Telemedicine [facility] MEDICINE [address] [place] [address] Brea Bender, YARI documented as of this encounter Procedures Procedure Name Priority Date/Time Associated Diagnosis Comments HM COLONOSCOPY Routine 05/19/2015 9:47 AM EDT documented in this encounter Results * Hm Colonoscopy (05/19/2015 9:47 AM EDT) Historical Provider HEALTH MAINTENANCE Final Result documented in this encounter Visit Diagnoses Not on filedocumented in this encounter Additional Health Concerns Assessment Noted Time PHQ-9 Depression Total Score: 0 10/13/19 11:41 AM EDT documented as of this encounter Care Teams Hat Cone Inspector Relationship Specialty Start Date End Date Isabel Ayala DO [address] [place] [address] PCP - General Family Medicine 03/31/11 documented as of this encounter
--- OUTSIDE RECORDS SUMMARY | 2024-04-17 06:31 | XMS_ITS | Clinical Summary ---
Author Organization [employer] Address 75 [facility] 7t [place] [address] Care Team Providers Care Assistant Principal Name Role Phone Jamie Isabel MABRY Primary Care Provider + [phone] Allergies No known active allergies Medications * [...] TABLET BY MOUTH ONCE DAILY PLEASE CALL [phone] TO SCHEDULE FOLLOW UP FOR 2022. 023 [...] THE MORNING 90 capsule 2 025 Active tamsulosin (Flomax) 0.4 MG 24 hr capsule TAKE 1 CAPSULE BY MOUTH EVERY DAY 30 capsule 5 025 Active dutasteride (Avodart) 0.5 MG capsule 025 Active oxyCODONE-acetami nophen (Percocet) 5-325 MG tabletIndications :Chronic bilateral low back pain, unspecified whether sciatica present Take 1 tablet by mouth every 6 (six) hours if needed for severe pain for up to 28 days. 112 tablet 025 2024 Active tamsulosin (Flomax) 0.4 MG 24 hr capsule TAKE 1 CAPSULE BY MOUTH EVERY DAY 30 capsule 5 024 2024 Discontinued oxyCODONE-acetami nophen (Percocet) 5-325 MG tabletIndications :Chronic bilateral low back pain, unspecified whether sciatica present Take 1 tablet by mouth every 6 (six) hours if needed for severe pain for up to 28 days. 112 tablet 025 2024 Discontinued(R eorder (will not trigger notification [...] normalized patient's emotions. Provided contact information for [facility] crisis programs. Pt agreed with plan [...] organization. Date Type Department Care Team Description 04/13/2024 10:00 AM EST Telemedicine [facility] MEDICINE [address] [place] [address] Brea Bender, line department supervisor bilateral low back pain without sciatica 04/13/2024 Telephone [facility] MEDICINE [address] [place] [address] Brea Bender, RN BPI Scoring 04/13/2024 Travel 04/03/2024 Refill [facility] MED & PEDS [address] [place], [place] [phone] Isabel Ayala DO Chronic bilateral low back pain, unspecified whether sciatica present 04/02/2024 1:00 PM EST Office Visit [facility] OPTOMETRY [address] [place] [address] Vernon, Rama, OD Choroidal nevus, left eye (Primary Dx); Soreness of eye; Combined forms of age-related cataract of both eyes; 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; Epiretinal membrane (ERM) of left eye; Presbyopia 04/02/2024 Travel 03/27/2024 Refill [facility] MEDICINE [address] [place] [address] Isabel Ayala DO 03/06/2024 10:45 AM EST Office Visit [facility] MEDICINE [address] [place] [address] Isabel Ayala DO Essential hypertension (Primary Dx); [...] Encounter for immunization 03/06/2024 Travel 02/29/2024 Refill [facility] MEDICINE [address] [place] [address] Isabel Ayala DO Depression, unspecified depression type 02/23/2024 Patient Outreach [address] [address] Isabel Ayala DO Pre-visit Planning ((Unable to reach for PVP screening, LVM)) 02/21/[address] [address] Isabel Ayala DO Hyperlipidemia, unspecified hyperlipidemia type 02/07/[address] [address] Isabel Ayala DO telephone call 02/06/2024 Patient Outreach [facility] MED & PEDS [address] [place], [place] [phone] Isabel Ayala DO Transition Of Care (Tcm) (HDF unscheduled. ) 02/03/2024 Refill [facility] MED [facility] PED[facility] [address] [place], [place] [phone] Isabel Ayala DO Chronic bilateral low back pain, unspecified whether sciatica present 01/31/2024 Patient Outreach [address] [address] Isabel Ayala DO Pre-visit Planning ((Unable to reach for PVP screening or LVM)) 01/27/2024 1:30 PM EST Telemedicine [address] [address] Brea Bender RN Chronic bilateral low back pain without sciatica 01/27/[address] [address] Brea Bender, RN Percocet count discrepancy 01/27/2024 Travel 01/27/[address] [phone] Brea Bender RN Recommend Tele ALUMINUM SIDING INSTALLER Tier 2 from Last 3 Months Immunizations Name Administration [...] Info) Description 06/29/2024 1:30 PM EDT Telemedicine [facility] MEDICINE [address] [place] [phone] Brea Bender, RN Health Maintenance Due Date [...] 03/06/2025 03/06/2024 Depression Screening 03/06/2025 03/06/2024, 03/06/19 25 SDOH Screening 03/06/2025 03/06/2024 Tobacco Screening 04/02/2025 04/02/2024 Lipid Panel 08/08/2028 08/09/2023, 03/2022, 12/11/2021, Additional [...] PM EDT) Hepatitis C Antibody Nonreactive Nonreactive [facility] Comment:Antibodies to HCV no t detected; does not exclude early acuteHCV infection. Blood Venous blood specimen / Unknown 08/09/2023 1:05 PM EDT 08/09/2023 4:08 PM EDT us Isabel Ayala DO LAB BLOOD ORDERABLES Final R esult [facility] [address] [place] [phone] * Lipid Panel, Standard (08/09/2023 1:05 PM EDT) Triglycerides 84 <150 mg/dL [facility] Comment:Desirable Triglyceri de: less than 150 mg/dLBorderline High Triglyceride 150-199 mg/dLHigh Triglyceride: 200-499 mg/dLVery High Triglyceride: greater than or equal to 5OO mg/dL Cholesterol 134 <200 mg/dL [facility] Comment:Desirable Cholestero l: less than 200 mg/dLBorderline High Cholesterol: 200-239 mg/dLHigh Cholesterol: greater than 239 mg/dL LDL Cholesterol Calculated 74 <100 mg/dL [facility] Comment:Desirable LDL: less than 100 mg/dLNear Optimal/Above Optimal LDL: 110- 129 mg/dLBorderline High LDL: 130-159 mg/dLHigh LDL: 160-189 mg/dLVery High LDL: greater than or equal to 190 mg/dL HDL Cholesterol 44 >40 mg/dL [facility] Comment:Desirable HDL: great er than 40 mg/dL Note: This HDL assay may give artificially low results in patients with liver disease. Blood Venous blood specimen / Unknown 08/09/2023 1:05 PM EDT 08/09/2023 4:08 PM EDT Isabel Ayala DO LAB BLOOD ORDERABLES Final R esult [facility] [address] [place] [address] [phone] * Hm Colonoscopy (05/19/2015 9:47 AM EDT) us Historical Provider HEALTH MAINTENANCE Final Result from Last 3 Months or Most Recently Relevant to Health Maintenance Insurance MEDIC[place] [address] [place] [id number] [facility] FULL [facility] MEDICARE Care Teams Assistant Principal Relationship Specialty Start Date End Date Isabel Ayala DO [address] [place] [phone] PCP - General Family Medicine 03/31/11
--- OUTSIDE RECORDS SUMMARY | 2024-04-17 06:31 | XMS_ITS | Encounter Summary ---
Author Organization [employer] Address 75 [facility] 7t [place] [address] Care Team Providers Care Electrical Tests Supervisor Name Role Phone Isabel Ayala DO Primary Care Provider +[phone] Encounter Details Date Type Department Care Team (Late st Contact Info) Description 03/30/2022 Orders Only [facility] CHC MED & PEDS [address] [place] [address] Isabel Paz LPN Social History Tobacco Use [...] Info) Description 06/29/2024 1:30 PM EDT Telemedicine [facility] MEDICINE [address] [place] [address] Brea Bender, RN documented as of this encounter Visit Diagnoses Not on filedocumented in this encounter Care Teams Electrical Tests Supervisor Relationship Specialty Start Date End Date Isabel Ayala DO [address] [place] [address] PCP - General Family Medicine 03/31/11 documented as of this encounter
== END 2024-04-17 06:29 | disposition home or self-care (01) ==
LOC: CF 06:28
PROVIDERS: Visit Provider Anesthesiology
DX: Z13.89 Encounter for screening for other disorder (principal)

== ENCOUNTER 2024-05-22 06:36 | Outpatient (REF) | payer MEDICARE, SELFPAY ==
--- NOTE | ~2024-05-22 | FL_ITS ---
EXAMINATION: FL GUIDANCE ONLY HISTORY: M47.816 - Spondylosis without myelopathy or radiculopathy, lumbar region COMPARISON: None available. TECHNIQUE: Fluoroscopy time: 0.7 minutes. Cumulative Dose: 24.3 mGy. DAP: 6.14 mGym2 Images: 12. FINDINGS: Images demonstrate needles and contrast material in the regions of the bilateral L3-4, L4-5, and L5-S1 facet joints. FL/FL guidance in treatment room IMPRESSION: Fluoroscopy during procedure. Please see procedure report for additional information. Electronically signed by: Dae Schuler MD 05/23/2024 07:08 AM EDT
--- OUTSIDE RECORDS SUMMARY | 2024-05-22 06:39 | XMS_ITS | Clinical Summary ---
Author Organization [employer] Address 75 [facility] 7t [place] [address] Care Team Providers Care Slot Machine Mechanic Name Role Phone Jamie Isabel MABRY Primary Care Provider + [phone] Allergies No known active allergies Medications * [...] TABLET BY MOUTH ONCE DAILY PLEASE CALL [phone] TO SCHEDULE FOLLOW UP FOR 2022. 023 [...] MOUTH EVERY DAY. 90 tablet 024 Active D3 Super Strength 50 MCG [...] 28 days. 112 tablet 025 2024 Active gabapentin (Neurontin) 300 MG capsuleIndication s:Other chronic pain TAKE 1 CAPSULE BY MOUTH THREE TIMES DAILY 90 capsule 5 025 Active gabapentin (Neurontin) 300 MG capsuleIndication s:Other chronic pain TAKE 1 CAPSULE BY MOUTH THREE TIMES DAILY 90 capsule 5 024 2024 Discontinued oxyCODONE-acetami nophen [...] normalized patient's emotions. Provided contact information for [facility] crisis programs. Pt agreed with plan to [...] organization. Date Type Department Care Team Description 05/06/2024 Refill [facility] MEDICINE [address] [place] [phone] Jennifer Bauman MD Other chronic pain 05/03/2024 Refill [facility] MED & PEDS [address] [place] [address] Isabel Ayala DO Chronic bilateral low back pain, unspecified whether sciatica present 04/20/2024 Population Health Risk Score Community [facility] ([facility]) Department [address] [phone] Provider, Population Health Generic 04/13/2024 10:00 AM EST Telemedicine [address] [address] Brea Bender RN Chronic bilateral low back pain without sciatica 04/13/[address] [address] Brea Bender RN BPI Scoring 04/13/2024 Travel 04/03/2024 Refill [facility] MED & PEDS [address] [place] [address] Isabel Ayala DO Chronic bilateral low back pain, unspecified whether sciatica present 04/02/2024 1:00 PM EST Office Visit [facility] OPTOMETRY [address] [place] [address] Vernon, Rama, OD Choroidal nevus, left eye (Primary Dx); Soreness of eye; Combined forms of age-related cataract of both eyes; 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; Epiretinal membrane (ERM) of left eye; Presbyopia 04/02/2024 Travel 03/27/2024 Refill [facility] MEDICINE [address] [place] [address] Isabel Ayala DO 03/06/2024 10:45 AM EST Office Visit [facility] MEDICINE [address] [place] [phone] Isabel Ayala DO Essential hypertension (Primary Dx); [...] Encounter for immunization 03/06/2024 Travel 02/29/2024 Refill [facility] MEDICINE [address] [place] [phone] Isabel Ayala DO Depression, unspecified depression type 02/23/2024 Patient Outreach [facility] MEDICINE [address] [place] [address] Isabel Ayala DO Pre-visit Planning ((Unable to reach for PVP screening, LVM)) from Last 3 Months Immunizations Name Administration [...] Info) Description 06/29/2024 1:30 PM EDT Telemedicine [facility] MEDICINE [address] [place] [address] Brea Bender, RN Health Maintenance Due Date Last Done Comments CT Colonography 1948 FIT DNA/Cologuard 1948 FIT 1948 FOBT 1948 Sigmoidoscopy 1950 Colonoscopy 05/18/2020 05/19/2015 Colorectal Cancer Screening 05/18/2020 RSV Patients and Patients Aged 60 years or older (1 - 1-dose 75+ series) 10/21/2023 DTaP/Tdap/Td Vaccines (3 - Td or Tdap) 12/07/2023 12/06/2013, 08/09/2011 Depression Monitoring 09/03/2024 03/06/2024, 025 Alcohol/Substance Use Screening 03/06/2025 03/06/2024 Depression Screening 03/06/2025 03/06/2024, 03/06/19 25 SDOH Screening 03/06/2025 03/06/2024 Tobacco Screening 04/02/2025 04/02/2024 Lipid Panel 08/08/2028 08/09/2023, 06/0 03/2022, 12/11/2021, Additional history exists Hepatitis A [...] PM EDT) Hepatitis C Antibody Nonreactive Nonreactive [facility] Comment:Antibodies to HCV no t detected; does not exclude early acuteHCV infection. Blood Venous blood specimen / Unknown 08/09/2023 1:05 PM EDT 08/09/2023 4:08 PM EDT us Isabel Ayala DO LAB BLOOD ORDERABLES Final R esult [facility] [address] [place] [phone] [phone] * Lipid Panel, Standard (08/09/2023 1:05 PM EDT) Triglycerides 84 <150 mg/dL [facility] Comment:Desirable Triglyceri de: less than 150 mg/dLBorderline High Triglyceride 150-199 mg/dLHigh Triglyceride: 200-499 mg/dLVery High Triglyceride: greater than or equal to 5OO mg/dL Cholesterol 134 <200 mg/dL [facility] Comment:Desirable Cholestero l: less than 200 mg/dLBorderline High Cholesterol: 200-239 mg/dLHigh Cholesterol: greater than 239 mg/dL LDL Cholesterol Calculated 74 <100 mg/dL [facility] Comment:Desirable LDL: less than 100 mg/dLNear Optimal/Above Optimal LDL: 110- 129 mg/dLBorderline High LDL: 130-159 mg/dLHigh LDL: 160-189 mg/dLVery High LDL: greater than or equal to 190 mg/dL HDL Cholesterol 44 >40 mg/dL [facility] Comment:Desirable HDL: great er than 40 mg/dL Note: This HDL assay may give artificially low results in patients with liver disease. Blood Venous blood specimen / Unknown 08/09/2023 1:05 PM EDT 08/09/2023 4:08 PM EDT Isabel Ayala DO LAB BLOOD ORDERABLES Final R esult Performing Organization Address [facility] Co de Phone Number [facility] [address] [place] [address] [phone] * Hm Colonoscopy (05/19/2015 9:47 AM EDT) us Historical Provider HEALTH MAINTENANCE Final Result from Last 3 Months or Most Recently Relevant to Health Maintenance Insurance [place] [id number] [facility] FULL [facility] MEDICARE Care Teams Slot Machine Mechanic Relationship Specialty Start Date End Date Isabel Ayala DO [address] [place] [phone] PCP - General Family Medicine 03/31/11
--- OUTSIDE RECORDS SUMMARY | 2024-05-22 06:39 | XMS_ITS | Encounter Summary ---
Author Organization [employer] Address 75 [facility] 7t [place] [address] Care Team Providers Care Local City Driver Name Role Phone Isabel Ayala DO Primary Care Provider [phone] Encounter Details Date Type Department Care Team (Late st Contact Info) Description 03/30/2022 Orders Only [facility] CHC MED & PEDS [address] [place] [address] Isabel Paz LPN Social History Tobacco Use [...] Info) Description 06/29/2024 1:30 PM EDT Telemedicine [facility] MEDICINE [address] [place] [address] Brea Bender, RN documented as of this encounter Visit Diagnoses Not on filedocumented in this encounter Care Teams Local City Driver Relationship Specialty Start Date End Date Isabel Ayala DO [address] [place] [address] PCP - General Family Medicine 03/31/11 documented as of this encounter
--- OUTSIDE RECORDS SUMMARY | 2024-05-22 06:39 | XMS_ITS | Encounter Summary ---
Author Organization [employer] Address [address] [facility] [address] [place] [address] Care Team Providers Care Commercial Account Executive Name Role Phone Isabel Ayala DO Primary Care Provider + [phone] Reason for Visit * Reason Comments Med Refill Encounter Details Date Type Department Care Team ([facility] st Contact Info) Description 07/29/2023 Refill [facility] CHC MED & PEDS [address] [place], [place] [phone] Isabel Ayala DO [address] [place] [address] Chronic bilateral low back pain, unspecified whether [...] Info) Description 06/29/2024 1:30 PM EDT Telemedicine [facility] MEDICINE [address] [place] [address] Brea Bender RN documented as of this encounter Visit Diagnoses Diagnosis Chronic bilateral low back pain, unspecified whether sciatica present documented in this encounter Additional Health Concerns Assessment Noted Time PHQ-9 Depression Total Score: 0 10/13/19 11:41 AM EDT documented as of this encounter Care Teams Commercial Account Executive Relationship Specialty Start Date End Date Isabel Ayala DO [address] [place] [address] PCP - General Family Medicine 03/31/11 documented as of this encounter
--- OUTSIDE RECORDS SUMMARY | 2024-05-22 06:39 | XMS_ITS | Encounter Summary ---
Author Organization [employer] Address 75 [facility] 7t [place] [address] Care Team Providers Care Electromechanical Engineer Name Role Phone Isabel Ayala DO Primary Care Provider + [phone] Reason for Visit * Reason Comments Med Refill Encounter Details Date Type Department Care Team ([facility] st Contact Info) Description 06/20/2023 Refill [facility] MEDICINE [address] [place], [place] [phone] Isabel Ayala DO [address] [place], [place] [phone] Urinary frequency Social History Tobacco Use Types [...] Description 06/29/2024 1:30 PM EDT Telemedicine [facility] MEDICINE [address] [place] [address] Brea Bender RN documented as of this encounter Visit Diagnoses Diagnosis Urinary frequency documented in this encounter Additional Health Concerns Assessment Noted Time PHQ-9 Depression Total Score: 0 10/13/19 11:41 AM EDT documented as of this encounter Care Teams Electromechanical Engineer Relationship Specialty Start Date End Date Isabel Ayala DO [address] [place] [address] PCP - General Family Medicine 03/31/11 documented as of this encounter
--- OUTSIDE RECORDS SUMMARY | 2024-05-22 06:39 | XMS_ITS | Encounter Summary ---
Author Organization [employer] Address [address] [facility] [address] [place] [address] Care Team Providers Care Clinic Licensed Practical Nurse Name Role Phone Isabel Ayala DO Primary Care Provider + [phone] Encounter Details Date Type Department Care Team ([facility] st Contact Info) Description 09/05/2023 Telephone [facility] MEDICINE [address] [place] [address] Isabel Ayala DO [address] [place], [place] [phone] Social History Tobacco Use Types Packs/Day Years [...] t he electric, gas, oil or water [employer] threatened to shut off services in your [...] Description 06/29/2024 1:30 PM EDT Telemedicine [facility] MEDICINE [address] [place] [address] Brea Bender RN documented as of this encounter Visit Diagnoses Not on filedocumented in this encounter Additional Health Concerns Assessment Noted Time PHQ-9 Depression Total Score: 0 10/13/19 23 11:41 AM EDT documented as of this encounter Care Teams Clinic Licensed Practical Nurse Relationship Specialty Start Date End Date Isabel Ayala DO [address] [place] [address] PCP - General Family Medicine 03/31/11 documented as of this encounter
--- OUTSIDE RECORDS SUMMARY | 2024-05-22 06:39 | XMS_ITS | Encounter Summary ---
Author Organization [email or web address] Address 75 [facility] 7t [place] [address] Care Team Providers Care Benefit Specialist Name Role Phone Isabel Ayala DO Primary Care Provider +[phone] Encounter Details Date Type Department Care Team (Late st Contact Info) Description 03/11/2022 Orders Only [facility] MED & PEDS [address] [place] [address] Isabel Paz LPN Social History Tobacco Use [...] Info) Description 06/29/2024 1:30 PM EDT Telemedicine [facility] MEDICINE [address] [place] [address] Brea Bender, RN documented as of this encounter Visit Diagnoses Not on filedocumented in this encounter Care Teams Benefit Specialist Relationship Specialty Start Date End Date Isabel Ayala DO [address] [place] [address] PCP - General Family Medicine 03/31/11 documented as of this encounter
--- OUTSIDE RECORDS SUMMARY | 2024-05-22 06:39 | XMS_ITS | Encounter Summary ---
Author Organization [employer] Address 75 [facility] 7t [place] [address] Care Team Providers Care Ophthalmic Pathologist Name Role Phone Isabel Ayala DO Primary Care Provider +[phone] Encounter Details Date Type Department Care Team (Late st Contact Info) Description 01/22/2022 Orders Only [facility] CHC MED & PEDS [address] [place] [address] Isabel Paz LPN Social History Tobacco Use [...] Description 06/29/2024 1:30 PM EDT Telemedicine [facility] MEDICINE 230 [place] [address] Brea Bender, RN documented as of this encounter Visit Diagnoses Not on filedocumented in this encounter Care Teams Ophthalmic Pathologist Relationship Specialty Start Date End Date Isabel Ayala DO 230 [place] [address] PCP - General Family Medicine 03/31/11 documented as of this encounter
--- OUTSIDE RECORDS SUMMARY | 2024-05-22 06:39 | XMS_ITS | Encounter Summary ---
Author Organization [employer] Address 75 [facility] 7t [place] [address] Care Team Providers Care Job Coach/Job Developer Name Role Phone Isabel Ayala DO Primary Care Provider [phone] Encounter Details Date Type Department Care Team (Late st Contact Info) Description 02/10/2022 Orders Only [facility] CHC MED & PEDS [address] [place] [address] Isabel Paz LPN Social History Tobacco Use [...] [facility] MEDICINE [address] [place] [address] Brea Bender, RN documented as of this encounter Visit Diagnoses Not on filedocumented in this encounter Care Teams Job Coach/Job Developer Relationship Specialty Start Date End Date Isabel Ayala DO 230 [place] [address] PCP - General Family Medicine 03/31/11 documented as of this encounter
--- OUTSIDE RECORDS SUMMARY | 2024-05-22 06:39 | XMS_ITS | Encounter Summary ---
Author Organization [employer] Address 75 [facility] 7t [place] [address] Care Team Providers Care Key Cutter Name Role Phone Isabel Ayala DO Primary Care Provider + [phone] Reason for Visit * Reason Comments Med Refill Encounter Details Date Type Department Care Team ([facility] st Contact Info) Description 08/02/2022 Refill [facility] MEDICINE [address] [place], [place] [phone] Isabel Ayala DO 230 [place] [address] Chronic bilateral low back pain, unspecified whether [...] EDT Telemedicine [facility] MEDICINE [address] [place] [address] Brea Bender RN documented as of this encounter Visit Diagnoses Diagnosis Chronic bilateral low back pain, unspecified whether sciatica present documented in this encounter Care Teams Key Cutter Relationship Specialty Start Date End Date Isabel Ayala DO [address] [place] [address] PCP - General Family Medicine 03/31/11 documented as of this encounter
--- OUTSIDE RECORDS SUMMARY | 2024-05-22 06:39 | XMS_ITS | Encounter Summary ---
Author Organization [employer] Address 75 [facility] 7t [place] [address] Care Team Providers Care Tax Revenue Officer Name Role Phone Isabel Ayala DO Primary Care Provider + [phone] Reason for Visit * Reason Onset Date Comments Nurse Triage 01/28/2023 Encounter Details Date Type Department Care Team ([facility] st Contact Info) Description 01/28/2023 Telephone [facility] MEDICINE 230 [place], [place] [phone] Isabel Ayala DO 230 [place], [place] [phone] Nurse Triage Social History Tobacco Use Types [...] states that he was referred to a Real Estate Leasing Manager in the past and he has been thinking about PCP suggestion and he is ready to get referral to Real Estate Leasing Manager. Pt. States he feels fine at rest but does develop SOB doing easy tasks and ADL's such as washing dishes walking long distances etc. So he has 3 requests Referral to Real Estate Leasing Manager that he states you have suggested several [...] Info) Description 06/29/2024 1:30 PM EDT Telemedicine [facility] MEDICINE 230 [place] [address] Brea Bender, RN documented as of this encounter Visit Diagnoses Not on filedocumented in this encounter Additional Health Concerns Assessment Noted Time PHQ-9 Depression Total Score: 0 10/13/19 11:41 AM EDT documented as of this encounter Care Teams Tax Revenue Officer Relationship Specialty Start Date End Date Isabel Ayala DO 230 [place] [address] PCP - General Family Medicine 03/31/11 documented as of this encounter
--- OUTSIDE RECORDS SUMMARY | 2024-05-22 06:39 | XMS_ITS | Encounter Summary ---
Author Organization [employer] Address [address] [facility] [address] 7[address] [place] [address] Care Team Providers Care Take Off Man Name Role Phone Isabel Ayala DO Primary Care Provider + [phone] Encounter Details Date Type Department Care Team (Late st Contact Info) Description 05/19/2023 Orders Only [facility] MEDICINE [address] [place] [address] ProviderPhill MD Social History Tobacco Use Types [...] Info) Description 06/29/2024 1:30 PM EDT Telemedicine [facility] MEDICINE 230 [place] [address] Brea Bender, YARI documented as of this [...] documented as of this encounter Care Teams Take Off Man Relationship Specialty Start Date End Date Isabel Ayala DO 230 [place] [address] PCP - General Family Medicine 03/31/11 documented as of this encounter
--- OUTSIDE RECORDS SUMMARY | 2024-05-22 06:39 | XMS_ITS | Encounter Summary ---
Author Organization [employer] Address 75 [facility] 7t [place] [address] Care Team Providers Care Radiology Clerk Name Role Phone Isabel Ayala DO Primary Care Provider + [phone] Reason for Visit * Reason Comments Med Refill Encounter Details Date Type Department Care Team ([facility] st Contact Info) Description 02/26/2023 Refill [facility] MEDICINE 230 [place], [place] [phone] Isabel Ayala DO 230 [place], [place] [phone] Social History Tobacco Use Types Packs/Day Years [...] Info) Description 06/29/2024 1:30 PM EDT Telemedicine [facility] MEDICINE [address] [place] [address] Brea Bender RN documented as of this encounter Visit Diagnoses Not on filedocumented in this encounter Additional Health Concerns Assessment Noted Time PHQ-9 Depression Total Score: 0 10/13/19 23 11:41 AM EDT documented as of this encounter Care Teams Radiology Clerk Relationship Specialty Start Date End Date Isabel Ayala DO [address] [place] [address] PCP - General Family Medicine 03/31/11 documented as of this encounter
--- OUTSIDE RECORDS SUMMARY | 2024-05-22 06:39 | XMS_ITS | Encounter Summary ---
Author Organization [employer] Address 75 [facility] 7[address] [place] [address] Care Team Providers Care Auditing Control Clerk Name Role Phone Isabel Ayala DO Primary Care Provider + [phone] Reason for Visit * Reason Comments Med Refill Encounter Details Date Type Department Care Team (Late Contact Info) Description 09/27/2022 Refill [facility] MEDICINE [address] [place] [address] [facility] 230 [place] [address] Seasonal allergies Social History Tobacco Use Types [...] Description 06/29/2024 1:30 PM EDT Telemedicine [facility] MEDICINE [address] [place] [address] Brea Bender RN documented as of this encounter Visit Diagnoses Diagnosis Seasonal allergies Allergic rhinitis, cause unspecified documented in this encounter Care Teams Auditing Control Clerk Relationship Specialty Start Date End Date Isabel Ayala DO [address] [place] [phone] PCP - General Family Medicine 03/31/11 documented as of this encounter
--- OUTSIDE RECORDS SUMMARY | 2024-05-22 06:39 | XMS_ITS | Encounter Summary ---
Author Organization [employer] Address 75 [facility] 7[address] [place] [address] Care Team Providers Care Hot Packer Name Role Phone Isabel Ayala DO Primary Care Provider + [phone] Reason for Visit * Reason Comments Med Refill Encounter Details Date Type Department Care Team (Late st Contact Info) Description 11/04/2022 Refill [facility] CHC MED & PEDS 505 [place] [address] Isabel Ayala DO 230 [place], [place] [phone] Social History Tobacco Use Types Packs/Day Years [...] Info) Description 06/29/2024 1:30 PM EDT Telemedicine [facility] MEDICINE 230 [place], [place] [phone] Brea Bender RN documented as of this encounter Visit Diagnoses Not on filedocumented in this encounter Additional Health Concerns Assessment Noted Time PHQ-9 Depression Total Score: 0 10/13/19 11:41 AM EDT documented as of this encounter Care Teams Hot Packer Relationship Specialty Start Date End Date Isabel Ayala DO 230 [place] [address] PCP - General Family Medicine 03/31/11 documented as of this encounter
--- OUTSIDE RECORDS SUMMARY | 2024-05-22 06:39 | XMS_ITS | Encounter Summary ---
Author Organization [employer] Address 75 [facility] 7t [place] [address] Care Team Providers Care Software Licensing Analyst Name Role Phone Isabel Ayala DO Primary Care Provider + [phone] Reason for Visit * Reason Comments Med Refill Encounter Details Date Type Department Care Team ([facility] st Contact Info) Description 12/13/2023 Refill [facility] MEDICINE 230 [place], [place] [phone] Isabel Ayala DO 230 [place] [address] Depression, unspecified depression type Social History Tobacco [...] 06/29/2024 1:30 PM EDT Telemedicine [facility] MEDICINE 230 [place] [address] Brea Bender RN documented as of this encounter Visit Diagnoses Diagnosis Depression, unspecified depression type documented in this encounter Additional Health Concerns Assessment Noted Time PHQ-9 Depression Total Score: 0 10/13/19 11:41 AM EDT documented as of this encounter Care Teams Software Licensing Analyst Relationship Specialty Start Date End Date Isabel Ayala DO 230 [place] [address] PCP - General Family Medicine 03/31/11 documented as of this encounter
== END 2024-05-22 06:37 | disposition home or self-care (01) ==
LOC: CF 06:36
PROVIDERS: Visit Provider Anesthesiology
DX: M47.816 Spondylosis without myelopathy or radiculopathy, lumbar region (principal); G89.4 Chronic pain syndrome
CPT/HCPCS: 64493; 64494; J2003; J2795; Q9967

== ENCOUNTER 2024-05-22 13:53 | Outpatient (AMB) | payer MEDICARE, SELFPAY ==
[2024-05-22 14:03] VITALS: BP 128/75; PULSE 63; RESP 16; O2SAT 95
--- NOTE | 2024-05-22 14:03 | A.OFFVIS_ITS ---
Vital Signs 05/22/24 14:03 05/22/24 14:39 BP 128/75 146/88 H Blood Pressure Location Lt brachial Lt brachial Position Sitting Sitting Respiration 16 16 Pulse 63 80 Pulse Source Pulse Oximeter Pulse Oximeter Pulse Oximetry (%) 95 97 Oxygen Delivery Method Room Air Room Air Intake Visit Reasons: BILATERAL DIAGNOSTIC L3, L4, DRL5 MBB Email Specialist Required: No Allergies No Known Allergies [No Known Allergies*] Allergy (Verified 05/22/24 14:04) Medication List - Last Reconciled 05/22/24 by Floridalma Tamayo LPN albuterol sulfate 90 mcg/actuation (Ventolin HFA) 2 puffs inhalation Q4H PRN atorvastatin 10 mg PO BEDTIME baclofen 10 mg PO TID cetirizine 10 mg PO DAILY cholecalciferol (vitamin D3) (Vitamin D3) 50 mcg PO DAILY dutasteride (Avodart) 0.5 mg PO DAILY fluoxetine 60 mg PO DAILY gabapentin 300 mg PO TID metoprolol tartrate 50 mg PO BID 90 days oxycodone-acetaminophen 5-325 mg 1 tab PO QID PRN rivaroxaban (Xarelto) 20 mg PO DAILY@1700 tamsulosin 0.4 mg PO DAILY triamcinolone acetonide 2 sprays intranasal DAILY PFSH Medical History Influenza A Atrial fibrillation Dyspnea on exertion ELIZABETH (obstructive sleep apnea) Obesity (BMI 35.0-39.9 without comorbidity) HTN (hypertension) Paroxysmal atrial fibrillation Sick sinus syndrome Surgical History Hx of sinus surgery History of tonsillectomy and adenoidectomy History of back surgery Family History Father Lung cancer Mother Cancer Social History Household Members: Spouse Housing: House Do you presently have visiting nurse or other home services: No Alcohol intake: current Alcohol intake frequency: does not drink Patient Tobacco Use Status: Former Tobacco user Years Smoked: stopped 30 years ago e-Cigarette/Vaping Use: Former Use Second Hand Smoke Exposure: No Advance Directives Date on File: 08/28/20 service: No Physical Exam Vital Signs: Last Vital Signs Pulse 80 05/22/24 14:39 Resp 16 05/22/24 14:39 BP 146/88 H 05/22/24 14:39 Pulse Ox 97 05/22/24 14:39 Oxygen Delivery Method Room Air 05/22/24 14:39 Assessment & Plan Assessment & Plan (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 Informed consent was thoroughly explained to the patient before the procedure.? The patient came to the operating room.? He was positioned prone on operating table with a pillow under her abdomen.? Time-out was performed delineating correct site and side of the procedure, nature of the injection, name and date o f of the patient. The lower back and upper buttocks of the patient was prepped with ChloraPrep and draped with sterile utility towels.? C-arm was brought over the operating field and sq picture of L4, L5, S1 vertebra was demonstrated on the screen. The point of interest were delineated as confluence of superior articular process of L4 vertebra bilaterally with the corresponding transverse process as well as confluence of superior articular process of L5 vertebra bilaterally with corresponding transverse process as well as confluence of the superior articular process of S1 vertebra with sacral ala. the points of interest projection to the skin was injected with small amount of lidocaine mixed 2% mixed with ropivacaine 0.5% one-to-one no more than 1 cc. After that 22 gauge 3-1/2 inch needle was driven to were the point of interest in tunnel vision fashion. When needle gently contacted the bone injection of the contrast was performed delineating no intravascular and no intrathecal spread of the contrast. . When the image was satisfactory obtain injection of the ropivacaine 0.5% no more than 1 cc was performed at each needle positioned. Upon completion of the injections needle was removed sterile Band-Aids were applied. The patient tolerated the procedure very poorly. He was not able to stay still and responded with body motion to needle injections. This patient would be unlikely a good candidate for any procedure were intraoperative wake-up test would be required or procedures which would require minimal sedation. Orders: Orders [place] guidance in treatment room Today M47.816 - Spondylosis without myelopathy or radiculopathy, lumbar region Coding Level of Care Code Procedure Only Diagnoses Spondylosis of lumbar region without myelopathy or radiculopathy M47.816 Chronic pain syndrome G89.4
[2024-05-22 14:39] VITALS: BP 146/88; PULSE 80; RESP 16; O2SAT 97
--- OUTSIDE RECORDS SUMMARY | 2024-05-22 17:05 | XMS_ITS | Encounter Summary ---
Author Organization [employer] Address 75 [facility] 7t [place] [address] Care Team Providers Care Manager Book Name Role Phone Isabel Ayala DO Primary Care Provider [phone] Encounter Details Date Type Department Care Team (Late st Contact Info) Description 02/10/2022 Orders Only [facility] CHC MED & PEDS [address] [place] [address] Isabel Paz LPN Social History Tobacco Use [...] Info) Description 06/29/2024 1:30 PM EDT Telemedicine [facility] MEDICINE 230 [place] [address] Brea Bender, RN documented as of this encounter Visit Diagnoses Not on filedocumented in this encounter Care Teams Manager Book Relationship Specialty Start Date End Date Isabel Ayala DO [address] [place] [address] PCP - General Family Medicine 03/31/11 documented as of this encounter
--- OUTSIDE RECORDS SUMMARY | 2024-05-22 17:05 | XMS_ITS | Encounter Summary ---
Author Organization [employer] Address 75 [facility] [address] [place] [address] Care Team Providers Care Memory Care Program Resident Name Role Phone Isabel Ayala DO Primary Care Provider + [phone] Reason for Visit * Reason Comments Med Refill Encounter Details Date Type Department Care Team (Late Contact Info) Description 09/27/2022 Refill [facility] MEDICINE [address] [place] [address] [place] [facility] [address] [place] [address] Seasonal allergies Social History Tobacco Use Types [...] Info) Description 06/29/2024 1:30 PM EDT Telemedicine [facility] MEDICINE [address] [place] [address] Brea Bender RN documented as of this encounter Visit Diagnoses Diagnosis Seasonal allergies Allergic rhinitis, cause unspecified documented in this encounter Care Teams Memory Care Program Resident Relationship Specialty Start Date End Date Isabel Ayala DO [address] [place] [phone] PCP - General Family Medicine 03/31/11 documented as of this encounter
--- OUTSIDE RECORDS SUMMARY | 2024-05-22 17:05 | XMS_ITS | Encounter Summary ---
Author Organization [employer] Address 75 [facility] 7t [place] [address] Care Team Providers Care Supervisor Order Takers Name Role Phone Isabel Ayala DO Primary Care Provider +[phone] Encounter Details Date Type Department Care Team (Late st Contact Info) Description 01/22/2022 Orders Only [facility] CHC MED & PEDS [address] [place] [address] Isabel Paz LPN Social History Tobacco Use [...] EDT Telemedicine [facility] MEDICINE [address] [place] [address] Brea Bender, RN documented as of this encounter Visit Diagnoses Not on filedocumented in this encounter Care Teams Supervisor Order Takers Relationship Specialty Start Date End Date Isabel Ayala DO 230 [place] [address] PCP - General Family Medicine 03/31/11 documented as of this encounter
--- OUTSIDE RECORDS SUMMARY | 2024-05-22 17:06 | XMS_ITS | Clinical Summary ---
Author Organization [employer] Address 75 [facility] 7t [place] [address] Care Team Providers Care Aircraft Design Engineer Name Role Phone Jamie Isabel MABRY Primary Care Provider + [phone] Allergies No known active allergies Medications * [...] TABLET BY MOUTH ONCE DAILY PLEASE CALL [phone] TO SCHEDULE FOLLOW UP FOR 2022. 023 [...] normalized patient's emotions. Provided contact information for [facility] crisis programs. Pt agreed with plan to [...] Type Department Care Team Description 05/06/2024 Refill [facility] MEDICINE [address] [place] [id number] Jennifer Bauman MD Other chronic pain 05/03/2024 Refill [facility] MED & PEDS [address] [place] [address] Isabel Ayala DO Chronic bilateral low back pain, unspecified whether sciatica present 04/20/2024 Population Health Risk Score Community Care [facility] ([facility] Department [address] [phone] Provider, Population Health Generic 04/13/2024 10:00 AM EST Telemedicine [address] [address] Brea Bender RN Chronic bilateral low back pain without sciatica 04/13/[address] [address] Brea Bender RN BPI Scoring 04/13/2024 Travel 04/03/2024 Refill [facility] MED & PEDS [address] [place] [address] Isabel Ayala DO Chronic bilateral low back pain, unspecified whether sciatica present 04/02/2024 1:00 PM EST Office Visit [facility]OM[facility] [address] [place] [address] Vernon, Rama, OD Choroidal nevus, left eye (Primary Dx); Soreness of eye; Combined forms of age-related cataract of both eyes; 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; Epiretinal membrane (ERM) of left eye; Presbyopia 04/02/2024 Travel 03/27/2024 Refill [facility]INE [address] [place] [address] Isabel Ayala DO 03/06/2024 10:45 AM EST Office Visit [facility] [address] [place] [phone] Isabel Aylaa DO Essential hypertension (Primary Dx); Other hyperlipidemia; [...] Encounter for immunization 03/06/2024 Travel 02/29/2024 Refill [facility] [address] [place] [address] Isabel Ayala DO Depression, unspecified depression type 02/23/2024 Patient Outreach [facility] [address] [place] [address] Isabel Ayala DO Pre-visit Planning ((Unable [...] Info) Description 06/29/2024 1:30 PM EDT Telemedicine [facility] [address] [place] [address] Brea Bender, RN Health Maintenance Due Date [...] PM EDT) Hepatitis C Antibody Nonreactive Nonreactive [facility] Comment:Antibodies to HCV no t detected; does not exclude early acuteHCV infection. Blood Venous blood specimen / Unknown 08/09/2023 1:05 PM EDT 08/09/2023 4:08 PM EDT us Isabel Ayala DO LAB BLOOD ORDERABLES Final R esult [facility] [address] [place] [address] [phone] * Lipid Panel, Standard (08/09/2023 1:05 PM EDT) Triglycerides 84 <150 mg/dL [facility] Comment:Desirable Triglyceri de: less than 150 mg/dLBorderline High Triglyceride 150-199 mg/dLHigh Triglyceride: 200-499 mg/dLVery High Triglyceride: greater than or equal to 5OO mg/dL Cholesterol 134 <200 mg/dL [facility] Comment:Desirable Cholestero l: less than 200 mg/dLBorderline High Cholesterol: 200-239 mg/dLHigh Cholesterol: greater than 239 mg/dL LDL Cholesterol Calculated 74 <100 mg/dL [facility] Comment:Desirable LDL: less than 100 mg/dLNear Optimal/Above Optimal LDL: 110- 129 mg/dLBorderline High LDL: 130-159 mg/dLHigh LDL: 160-189 mg/dLVery High LDL: greater than or equal to 190 mg/dL HDL Cholesterol 44 >40 mg/dL [facility] Comment:Desirable HDL: great er than 40 mg/dL Note: This HDL assay may give artificially low results in patients with liver disease. Blood Venous blood specimen / Unknown 08/09/2023 1:05 PM EDT 08/09/2023 4:08 PM EDT Isabel Ayala DO LAB BLOOD ORDERABLES Final R esult Performing Organization Address [facility] Co de Phone Number [facility] [address] [place] [address] [phone] * Hm Colonoscopy (05/19/2015 9:47 AM EDT) us Historical Provider HEALTH MAINTENANCE Final Result from Last 3 Months or Most Recently Relevant to Health Maintenance Insurance [place] [id number] [facility] FULL [facility] MEDICARE Care Teams Aircraft Design Engineer Relationship Specialty Start Date End Date Isabel Ayala DO [address] [place] [address] PCP - General Family Medicine 03/31/11
--- OUTSIDE RECORDS SUMMARY | 2024-05-22 17:06 | XMS_ITS | Encounter Summary ---
Author Organization [employer] Address [address] [facility] 7t [place] [address] Care Team Providers Care Diversified Crops Farmer Name Role Phone Isabel Ayala DO Primary Care Provider [phone] Encounter Details Date Type Department Care Team (Late st Contact Info) Description 03/11/2022 Orders Only [facility] MED & PEDS [address] [place] [address] Isabel Paz LPN Social History Tobacco Use [...] Telemedicine [facility] MEDICINE [address] [place] [address] Brea Bender, RN documented as of this encounter Visit Diagnoses Not on filedocumented in this encounter Care Teams Diversified Crops Farmer Relationship Specialty Start Date End Date Isabel Ayala DO [address] [place] [address] PCP - General Family Medicine 03/31/11 documented as of this encounter
--- OUTSIDE RECORDS SUMMARY | 2024-05-22 17:06 | XMS_ITS | Encounter Summary ---
Author Organization [employer] Address [address] [facility] 7t [place] [address] Care Team Providers Care Onsite Case Manager Name Role Phone Isabel Ayala DO Primary Care Provider + [phone] Reason for Visit * Reason Comments Med Refill Encounter Details Date Type Department Care Team ([facility] st Contact Info) Description 06/20/2023 Refill [facility] MEDICINE [address] [place], [place] [phone] Isabel Ayala DO [address] [place], [place] [phone] Urinary frequency Social History Tobacco Use Types [...] 06/29/2024 1:30 PM EDT Telemedicine [facility] MEDICINE [address] [place] [address] Brea Bender RN documented as of this encounter Visit Diagnoses Diagnosis Urinary frequency documented in this encounter Additional Health Concerns Assessment Noted Time PHQ-9 Depression Total Score: 0 10/13/19 11:41 AM EDT documented as of this encounter Care Teams Onsite Case Manager Relationship Specialty Start Date End Date Isabel Ayala DO [address] [place] [address] PCP - General Family Medicine 03/31/11 documented as of this encounter
--- OUTSIDE RECORDS SUMMARY | 2024-05-22 17:06 | XMS_ITS | Encounter Summary ---
Author Organization [employer] Address [address] [facility] 7t [place] [address] Care Team Providers Care Experimental Mechanic Electrical Name Role Phone Isabel Ayala DO Primary Care Provider [phone] Encounter Details Date Type Department Care Team (Late st Contact Info) Description 03/30/2022 Orders Only [facility] CH[facility] MED & PEDS [address] [place] [address] Isabel Paz LPN Social History Tobacco Use [...] Info) Description 06/29/2024 1:30 PM EDT Telemedicine [facility] MEDICINE [address] [place] [address] Brea Bender, RN documented as of this encounter Visit Diagnoses Not on filedocumented in this encounter Care Teams Experimental Mechanic Electrical Relationship Specialty Start Date End Date Isabel Ayala DO [address] [place] [address] PCP - General Family Medicine 03/31/11 documented as of this encounter
--- OUTSIDE RECORDS SUMMARY | 2024-05-22 17:06 | XMS_ITS | Encounter Summary ---
Author Organization [employer] Address [address] [facility] [address] [place] [address] Care Team Providers Care Telegraph Messenger Name Role Phone Isabel Ayala DO Primary Care Provider + [phone] Reason for Visit * Reason Comments Med Refill Encounter Details Date Type Department Care Team (Late st Contact Info) Description 11/04/2022 Refill [facility] [address] [place] [address] Isabel Ayala DO [address] [place], [place] [phone] Social History Tobacco Use Types Packs/Day Years [...] 06/29/2024 1:30 PM EDT Telemedicine [facility] [address] [place], [place] [phone] Brea Bender RN documented as of this encounter Visit Diagnoses Not on filedocumented in this encounter Additional Health Concerns Assessment Noted Time PHQ-9 Depression Total Score: 0 10/13/19 11:41 AM EDT documented as of this encounter Care Teams Telegraph Messenger Relationship Specialty Start Date End Date Isabel Ayala DO [address] [place] [address] PCP - General Family Medicine 03/31/11 documented as of this encounter
--- OUTSIDE RECORDS SUMMARY | 2024-05-22 17:06 | XMS_ITS | Encounter Summary ---
Author Organization [employer] Address [address] [facility] [address] 7[address] [place] [address] Care Team Providers Care Spanish Medical Interpreter Name Role Phone Isabel Ayala DO Primary Care Provider + [phone] Reason for Visit * Reason Comments Med Refill Encounter Details Date Type Department Care Team ([facility] st Contact Info) Description 07/29/2023 Refill [facility] CHC MED & PEDS [address] [place], [place] [phone] Isabel Ayala DO [address] [facility] [place] [address] Chronic bilateral low back pain, unspecified whether [...] Info) Description 06/29/2024 1:30 PM EDT Telemedicine [facility] MEDICINE [address] [place] [address] Brea Bender RN documented as of this encounter Visit Diagnoses Diagnosis Chronic bilateral low back pain, unspecified whether sciatica present documented in this encounter Additional Health Concerns Assessment Noted Time PHQ-9 Depression Total Score: 0 10/13/19 11:41 AM EDT documented as of this encounter Care Teams Spanish Medical Interpreter Relationship Specialty Start Date End Date Isabel Ayala DO [address] [place] [address] PCP - General Family Medicine 03/31/11 documented as of this encounter
--- OUTSIDE RECORDS SUMMARY | 2024-05-22 17:06 | XMS_ITS | Encounter Summary ---
Author Organization [employer] Address 75 [facility] 7t [place] [address] Care Team Providers Care Gaming Table Operator Name Role Phone Isabel Ayala DO Primary Care Provider + [phone] Reason for Visit * Reason Comments Med Refill Encounter Details Date Type Department Care Team ([facility] st Contact Info) Description 08/02/2022 Refill [facility] MEDICINE [address] [place], [place] [phone] Isabel Ayala DO [address] [place] [address] Chronic bilateral low back pain, unspecified whether [...] 06/29/2024 1:30 PM EDT Telemedicine [facility] MEDICINE [address] [place] [address] Brea Bender RN documented as of this encounter Visit Diagnoses Diagnosis Chronic bilateral low back pain, unspecified whether sciatica present documented in this encounter Care Teams Gaming Table Operator Relationship Specialty Start Date End Date Isabel Ayala DO [address] [place] [address] PCP - General Family Medicine 03/31/11 documented as of this encounter
--- OUTSIDE RECORDS SUMMARY | 2024-05-22 17:06 | XMS_ITS | Encounter Summary ---
Author Organization [employer] Address [address] [facility] 7t [place] [address] Care Team Providers Care Child Psychologist Name Role Phone Isabel Ayala DO Primary Care Provider + [phone] Reason for Visit * Reason Onset Date Comments Nurse Triage 01/28/2023 Encounter Details Date Type Department Care Team ([facility] st Contact Info) Description 01/28/2023 Telephone [facility] MEDICINE [address] [place], [place] [phone] Isabel Ayala DO [address] [place], [place] [phone] Nurse Triage Social History Tobacco Use Types [...] states that he was referred to a Police Officer [employer] in the past and he has been thinking about PCP suggestion and he is ready to get referral to [employer]. Pt. States he feels fine at rest but does develop SOB doing easy tasks and ADL's such as washing dishes walking long distances etc. So he has 3 requests Referral to Police Officer [employer] that he states you have suggested several [...] PM EDT Telemedicine [facility] MED[facility]INE [address] [place] [address] Brea Bender, RN documented as of this encounter Visit Diagnoses Not on filedocumented in this encounter Additional Health Concerns Assessment Noted Time PHQ-9 Depression Total Score: 0 10/13/19 11:41 AM EDT documented as of this encounter Care Teams Child Psychologist Relationship Specialty Start Date End Date Isabel Ayala DO [address] [place] [address] PCP - General Family Medicine 03/31/11 documented as of this encounter
--- OUTSIDE RECORDS SUMMARY | 2024-05-22 17:06 | XMS_ITS | Encounter Summary ---
Author Organization [employer] Address [address] [facility] 7[address] [place] [address] Care Team Providers Care Logistics Analyst Name Role Phone Isabel Ayala DO Primary Care Provider + [phone] Reason for Visit * Reason Comments Med Refill Encounter Details Date Type Department Care Team ([facility] st Contact Info) Description 12/13/2023 Refill [facility] MEDICINE [address] [place], [place] [phone] Isabel Ayala DO [address] [place] [address] Depression, unspecified depression type Social History Tobacco [...] EDT Telemedicine [facility] MEDICINE [address] [place] [address] Brea Bender RN documented as of this encounter Visit Diagnoses Diagnosis Depression, unspecified depression type documented in this encounter Additional Health Concerns Assessment Noted Time PHQ-9 Depression Total Score: 0 10/13/19 11:41 AM EDT documented as of this encounter Care Teams Logistics Analyst Relationship Specialty Start Date End Date Isabel Ayala DO [address] [place] [address] PCP - General Family Medicine 03/31/11 documented as of this encounter
--- OUTSIDE RECORDS SUMMARY | 2024-05-22 17:06 | XMS_ITS | Encounter Summary ---
Author Organization [employer] Address [address] [facility] [address] [place] [address] Care Team Providers Care Insurance Salesperson Name Role Phone Isabel Ayala DO Primary Care Provider + [phone] Encounter Details Date Type Department Care Team (Late st Contact Info) Description 05/19/2023 Orders Only [facility] MEDICINE [address] [place] [address] ProviderPhill MD Social History Tobacco Use Types [...] PM EDT Telemedicine [facility] MED[facility]INE [address] [place] [address] Brea Bender, YARI documented as of this [...] as of this encounter Care Teams Insurance Salesperson Relationship Specialty Start Date End Date Isabel Ayala DO [address] [place] [address] PCP - General Family Medicine 03/31/11 documented as of this encounter
--- OUTSIDE RECORDS SUMMARY | 2024-05-22 17:06 | XMS_ITS | Encounter Summary ---
Author Organization [employer] Address [address] [facility] [address] 7[address] [place] [address] Care Team Providers Care Cargo Agent Name Role Phone Isabel Ayala DO Primary Care Provider + [phone] Encounter Details Date Type Department Care Team ([facility] st Contact Info) Description 09/05/2023 Telephone [facility] MEDICINE [address] [place] [address] Isabel Ayala DO [address] [place], [place] [phone] Social History Tobacco Use Types Packs/Day Years [...] t he electric, gas, oil or water [employer] threatened to shut off services in your [...] 06/29/2024 1:30 PM EDT Telemedicine [facility] MEDICINE [address] [place] [address] Brea Bender RN documented as of this encounter Visit Diagnoses Not on filedocumented in this encounter Additional Health Concerns Assessment Noted Time PHQ-9 Depression Total Score: 0 10/13/19 23 11:41 AM EDT documented as of this encounter Care Teams Cargo Agent Relationship Specialty Start Date End Date Isabel Ayala DO [address] [place] [address] PCP - General Family Medicine 03/31/11 documented as of this encounter
--- OUTSIDE RECORDS SUMMARY | 2024-05-22 17:06 | XMS_ITS | Encounter Summary ---
Author Organization [employer] Address [address] [facility] 7t [place] [address] Care Team Providers Care Inspector Clip On Sunglasses Name Role Phone Isabel Ayala DO Primary Care Provider + [phone] Reason for Visit * Reason Comments Med Refill Encounter Details Date Type Department Care Team ([facility] st Contact Info) Description 02/26/2023 Refill [facility] MEDICINE [address] [place], [place] [phone] Isabel Ayala DO [address] [place], [place] [phone] Social History Tobacco Use Types Packs/Day Years [...] Info) Description 06/29/2024 1:30 PM EDT Telemedicine [facility] MEDICINE [address] [place] [address] Brea Bender RN documented as of this encounter Visit Diagnoses Not on filedocumented in this encounter Additional Health Concerns Assessment Noted Time PHQ-9 Depression Total Score: 0 10/13/19 23 11:41 AM EDT documented as of this encounter Care Teams Inspector Clip On Sunglasses Relationship Specialty Start Date End Date Isabel Ayala DO [address] [place] [address] PCP - General Family Medicine 03/31/11 documented as of this encounter
== END 2024-05-22 14:47 | disposition home or self-care (01) ==
LOC: HO.PMCPRC 13:53
PROVIDERS: PCP Family Medicine; Visit Provider Anesthesiology
DX: M47.816 Spondylosis without myelopathy or radiculopathy, lumbar region (principal); G89.4 Chronic pain syndrome
CPT/HCPCS: 64493; 64494

== ENCOUNTER 2024-05-24 12:53 | Outpatient (AMB) | payer MEDICARE, SELFPAY ==
[2024-05-24 13:03] VITALS: BP 111/63; PULSE 76; O2SAT 97; BMI 35.3
--- NOTE | 2024-05-24 13:03 | MHC.OFFVIS ---
Vital Signs 05/24/24 13:03 Height 6 ft Weight 260 lb BMI 35.3 BP 111/63 Blood Pressure Location Lt brachial Position Sitting Pulse 76 Pulse Source Pulse Oximeter Pulse Oximetry (%) 97 Oxygen Delivery Method Room Air Intake Visit Reasons: BILATERAL DIAGNOSTIC L3, L4, DRL5 MBB Intake Note: Pain today 510 Deep Tissue Massage Therapist Required: No Accompanied by: Self / Same As Patient Allergies No Known Allergies [No Known Allergies*] Allergy (Verified 05/24/24 13:03) HPI Comments Details: Ubaldo is back in my office after diagnostic medial branch block L3-L4 dorsal ramus L5 bilateral which was performed 2 days ago. He reports that his walking improved he found himself capable of walking with most straight posture, he had improvement with standing up and with mobility. He reported 75% overall pain improvement for the past 2 days after the procedure. He stated that he still felt some pain relief this morning until he went to a laundry and had to lift a heavy basket. He is asking me if there is anything available to treat his pain on more permanent basis then it would be sprint PNS. I explained to him that we can try Nevro SCS, I explained to the patient the nature of the procedure and need for psychological evaluation. [facility] [facility]CS brochure and [employer] brochure were given to the patient. T the patient asked multiple questions all those questions were very appropriate. I recommended him to schedule an appointment with us 10 days after he will sit for psychological evaluation. He has computer with camera ride home. His pain is mostly axial and minimally radiates to the hip and right flank. Loading test is positive on the right. His pain is mostly axial and most likely facetogenic in nature. We administered to the patient Oswestry disability lower back pain : his disability scale is 19 / moderate disability. He was 2 and 1/2 years ago under care of Dr. Alanis who performed medial branch blocks and after that he did sprint PNS on the patient. The patient lost his PNS device soon after the implantation. Now he is in my office requesting me to reestablish care. I told him that I will go the same very way and schedule him for medial branch block L3-L4 dorsel ramus L5 bilaterally. After establishing that medial branch block helps his lower back pain we will go for Sprint PNS. [facility] Medical History Influenza A Atrial fibrillation Dyspnea on exertion ELIZABETH (obstructive sleep apnea) Obesity (BMI 35.0-39.9 without comorbidity) HTN (hypertension) Paroxysmal atrial fibrillation Sick sinus syndrome Surgical History Hx of sinus surgery History of tonsillectomy and adenoidectomy History of back surgery Family History Father Lung cancer Mother Cancer Social History Household Members: Spouse Housing: House Do you presently have visiting nurse or other home services: No Alcohol intake: current Alcohol intake frequency: does not drink Patient Tobacco Use Status: Former Tobacco user Years Smoked: stopped 30 years ago e-Cigarette/Vaping Use: Former Use Second Hand Smoke Exposure: No Advance Directives Date on File: 08/28/20 service: No Review of Systems Const All systems reviewed & are unremarkable except as noted in HPI and below Physical Exam Vital Signs: Last Vital Signs Pulse 76 05/24/24 13:03 BP 111/63 05/24/24 13:03 Pulse Ox 97 05/24/24 13:03 Oxygen Delivery Method Room Air 05/24/24 13:03 BMI result Body Mass Index 35.3 Const General: cooperative and no acute distress Orientation/consciousness: patient oriented x3 Resp Effort & Inspection: normal respiratory effort, able to speak in complete sentences and no audible wheezes Back/Spine/Pelvis Other: Most of the tenderness is on palpation of paraspinal right lumbar region. Flexing forward alleviates his pain. Flexing backwards makes his pain stronger. Demonstrates normal strength of bilateral lower extremities. Loading test is positive on the right. Neuro General: patient oriented x3 Psych Mental Status: mental status grossly normal Speech and movement: Clear speech present Attitude: cooperative Thought process: Normal thought process present Thought content: Normal thought content present Insight: Good insight present (Psych) Judgement: Good judgement present (Psych) Assessment & Plan Assessment & Plan (1) Spondylosis of lumbar region without myelopathy or radiculopathy: Code(s): M47.816 - Spondylosis without myelopathy or radiculopathy, lumbar region Category: Medical (2) Chronic pain syndrome: Code(s): G89.4 - Chronic pain syndrome Category: Medical Plan Overall good results of diagnostic medial branch block L3-L4 does ramus L5. However the patient is interested in something more permanent in terms of helping his pain relief. Nevro SCS discussed. Trial of Nevro SCS discussed. Psychological evaluation discussed. Brochure of Nevro SCS was given to the patient as well as [employer] brochure. The patient was informed about 100 dollars co-pay he needs to do with [employer]. Patient Instructions: I here by testify that I spent 30 minutes in conversation with this patient as well as planning his care and organizing this note. Coding Level of Care Code Est Pt Level 4 (57860) Diagnoses Spondylosis of lumbar region without myelopathy or radiculopathy M47.816 Chronic pain syndrome G89.4
== END 2024-05-24 13:17 | disposition home or self-care (01) ==
PROVIDERS: PCP Family Medicine; Visit Provider Anesthesiology
DX: M47.816 Spondylosis without myelopathy or radiculopathy, lumbar region (principal); G89.4 Chronic pain syndrome
CPT/HCPCS: 99214

== ENCOUNTER → 2024-05-24 12:53 | Outpatient (BNVA) | payer MEDICARE, SELFPAY | PROVIDERS: PCP Family Medicine; Visit Provider Anesthesiology | DX: M47.816 Spondylosis without myelopathy or radiculopathy, lumbar region (principal); G89.4 Chronic pain syndrome | CPT/HCPCS: 99212 ==

== ENCOUNTER 2024-06-14 13:47 | Outpatient (AMB) | payer MEDICARE, MEDICAID, SELFPAY ==
--- NOTE | 2024-06-14 14:03 | A.OFFVIS_ITS ---
Vital Signs 06/14/24 14:04 Height 6 ft Weight 263 lb 10.766 oz BMI 35.8 BP 114/62 Blood Pressure Location Lt brachial Position Sitting Pulse 66 Pulse Source Monitor Intake Visit Reasons: 1 yr follow up Performance Engineer Required: No Allergies No Known Allergies [No Known Allergies*] Allergy (Verified 06/14/24 14:07) Medication List - Last Reconciled 06/14/24 by JOSÉ MIGUEL Shields albuterol sulfate 90 mcg/actuation (Ventolin HFA) 2 puffs inhalation Q4H PRN atorvastatin 10 mg PO BEDTIME baclofen 10 mg PO TID cetirizine 10 mg PO DAILY cholecalciferol (vitamin D3) (Vitamin D3) 50 mcg PO DAILY dutasteride (Avodart) 0.5 mg PO DAILY fluoxetine 60 mg PO DAILY gabapentin 300 mg PO TID metoprolol tartrate 50 mg PO BID 90 days oxycodone-acetaminophen 5-325 mg 1 tab PO QID PRN rivaroxaban (Xarelto) 20 mg PO DAILY@1700 tamsulosin 0.4 mg PO DAILY triamcinolone acetonide 2 sprays intranasal DAILY HPI HPI 1 yr follow up: Details: Cirilo is a 73-year-old male with past medical history of hypertension, hyperlipidemia, persistent atrial fibrillation who presents for follow-up. His last prior visit to our office was 06/16/23. Today he reports that he has been feeling generally well over the last year. He has not had any hospitalizations or ER trips. He has chronic issues with low back pain. He admits to being mostly sedentary. He does have issues with fatig ue and some shortness of breath with exertion which he relates to his COPD. No PND, orthopnea or edema. No chest discomfort, palpitations, dizziness, presyncope, syncope, falls. He has no bleeding issues. Reports taking meds as directed. [facility] Medical History Influenza A Atrial fibrillation Dyspnea on exertion ELIZABETH (obstructive sleep apnea) Obesity (BMI 35.0-39.9 without comorbidity) HTN (hypertension) Paroxysmal atrial fibrillation Sick sinus syndrome Surgical History Hx of sinus surgery History of tonsillectomy and adenoidectomy History of back surgery Family History Father Lung cancer Mother Cancer Social History (Updated 06/14/24 @ 14:09 by Merlene Florian CMA) Household Members: Spouse Housing: House Do you presently have visiting nurse or other home services: No Alcohol intake: current Alcohol intake frequency: former alcohol drinker Patient Tobacco Use Status: Former Tobacco user Years Smoked: stopped 30 years ago e-Cigarette/Vaping Use: Former Use Second Hand Smoke Exposure: No Advance Directives Date on File: 08/28/20 service: No Review of Systems Const All systems reviewed & are unremarkable except as noted in HPI and below Reports fatigue and Reports lethargy ENT Denies dizziness Card Denies chest pain, Denies chest pain at rest, Denies chest pain with activity, Denies rapid heart rate, Denies pedal edema, Denies edema, Denies leg edema, Denies lightheadedness, Denies palpitations, Denies dyspnea, Denies dyspnea on exertion and Denies orthopnea Resp Denies cough, Denies dyspnea and Denies dyspnea on exertion GI Denies hematochezia and Denies change in stool character Musc Denies abnormal gait, Denies limited range of motion, Denies muscle cramps, Denies muscle weakness, Denies numbness, Denies radiating pain into limb, Denies stiffness and Denies tingling Neuro Denies abnormal gait, Denies dizziness, Denies numbness and Denies tingling Endo Reports fatigue and Denies palpitations Physical Exam Vital Signs: BMI result Body Mass Index 35.8 Const General: cooperative, healthy appearing, comfortable and no acute distress Orientation/consciousness: patient oriented x3 Neck Neck: Yes normal visual inspection Resp Effort & Inspection: normal respiratory effort Auscultation: clear to auscultation bilaterally, no rales, no rhonchi and no wheezes Cardio Jugular venous distension: no JVD Rate: regular rate Heart sounds: S1 normal heart sound present, S2 normal heart sound present, no g allops, no murmurs and no rubs Neuro General: patient oriented x3 Extrem General: Yes normal to inspection and No no pedal edema Psych Appearance: grossly normal Mental Status: mental status grossly normal Speech and movement: Normal speech and movement present Office Procedures EKG Details: Today, read by me, atrial flutter, variable AV block, rate 66, QTC 444 millisecond [id number], Complete Assessment & Plan Assessment & Plan (1) Persistent atrial fibrillation: Code(s): I48.19 - Other persistent atrial fibrillation Category: Medical Plan: History of chronic, mostly asymptomatic atrial fibrillation that is treated with heart rate control. He has failed attempts at rhythm control in the past using cardioversion and antiarrhythmic therapy. Prior cardioversion showed good rate control on metoprolol. Last echocardiogram done 08/19/2022 shows EF 60-65%, moderate dilation of the left atrium, no valve abnormalities, ascending aorta 3.8 cm. EKG done today shows atrial fibrillation, rate 66, QTC 444 millisecond. Continue on metoprolol tartrate 50 mg b.i.d.. Continue Xarelto 20 mg daily for anticoagulation. Labs done 02/02/2024 showed creatinine 0.89, labs 02/03/2024 showed hematocrit 43.4. He should have CBC and BMP at least twice yearly. Cardiology follow-up in 1 year, sooner if needed (2) HTN (hypertension): Code(s): I10 - Essential (primary) hypertension Category: Medical Plan: Blood pressure goal less than 130/80. Well controlled at present time. No medication changes being made (3) Hyperlipidemia: Code(s): E78.5 - Hyperlipidemia, unspecified Category: Medical Plan: [place] LDL goal less than 100. Labs followed by his PCP. Continue atorvastatin. Plan During our discussion, we reviewed the management strategies for chronic atrial fibrillation, focusing on the importance of adhering to metoprolol to maintain heart rate control. We discussed the influence of caffeine on heart rhythm and encouraged the patient to limit intake. While current anticoagulation therapy with Xarelto is appropriate, I emphasized monitoring for bleeding signs and advised on potential adjustments should symptoms of dyspnea escalate or new symptoms appear. Follow-up is scheduled for one year, with a plan for earlier intervention should the need arise. The patient is informed of return precautions, including worsening dyspnea or new chest pains. I emphasized regular medication review and clarified any confusions regarding his daily regimen. Time spent on chart review, documentation, interview and assessment Patient was informed and verbally consented to the use of an ambient scribe for clinic note documentation during this visit. Patient Instructions: - Take metoprolol twice daily as prescribed - Limit coffee to two cups per day; consider decaf alternatives - Watch for any signs of bleeding and report immediately - Seek immediate care for increased shortness of breath or new chest pains - Follow-up appointment in one year, contact if symptoms change Coding Level of Care Code Est Pt Level 4 (43243) Complex EM visit Add On G2211 Diagnoses Persistent atrial fibrillation I48.19 HTN (hypertension) I10 Hyperlipidemia E78.5 CPT Codes EKG - CPT: 06537-[id number], Complete ([id number]) Time Spent (min) 28
[2024-06-14 14:04] VITALS: BP 114/62; PULSE 66; BMI 35.8
--- OUTSIDE RECORDS SUMMARY | 2024-06-14 14:43 | XMS_ITS | Encounter Summary ---
Author Organization [employer] Address [address] [facility] 7t [place] [address] Care Team Providers Care Cash Controller Name Role Phone Isabel Ayala DO Primary Care Provider Encounter Details Date Type Department Care Team (Late st Contact Info) Description 02/10/2022 Orders Only [facility] [address] [place] [address] Isabel Paz LPN Social History Tobacco Use [...] PM EDT Telemedicine [facility] [address] [place] [address] Brea Bender, RN documented as of this encounter Visit Diagnoses Not on filedocumented in this encounter Care Teams Cash Controller Relationship Specialty Start Date End Date Isabel Ayala DO [address] [place] [address] PCP - General Family Medicine 03/31/11 documented as of this encounter
--- OUTSIDE RECORDS SUMMARY | 2024-06-14 14:43 | XMS_ITS | Encounter Summary ---
Author Organization [employer] Address [address] [facility] 7t [place] [address] Care Team Providers Care Gambling Box Person Name Role Phone Isabel Ayala DO Primary Care Provider Encounter Details Date Type Department Care Team (Late st Contact Info) Description 01/22/2022 Orders Only [facility] [address] [place] [address] Isabel Paz LPN Social History Tobacco Use [...] Info) Description 06/29/2024 1:30 PM EDT Telemedicine [facility] [address] [place] [address] Brea Bender, RN documented as of this encounter Visit Diagnoses Not on filedocumented in this encounter Care Teams Gambling Box Person Relationship Specialty Start Date End Date Isabel Ayala DO [address] [place] [address] PCP - General Family Medicine 03/31/11 documented as of this encounter
--- OUTSIDE RECORDS SUMMARY | 2024-06-14 14:43 | XMS_ITS | Encounter Summary ---
Author Organization [email or web address] Address [address] [facility] 7 [place] [address] Care Team Providers Care Filing Writer Name Role Phone Isabel Ayala DO Primary Care Provider + [phone] Reason for Visit * Reason Comments Med Refill Encounter Details Date Type Department Care Team (Late Contact Info) Description 09/27/2022 Refill [facility] [address] [place] [phone] [place] Magdalene [facility] [address] [place] [address] Seasonal allergies Social History Tobacco Use Types [...] Info) Description 06/29/2024 1:30 PM EDT Telemedicine [facility] [address] [place] [phone] Brea Bender RN documented as of this encounter Visit Diagnoses Diagnosis Seasonal allergies Allergic rhinitis, cause unspecified documented in this encounter Care Teams Filing Writer Relationship Specialty Start Date End Date Isabel Ayala DO [address] [place] [phone] PCP - General Family Medicine 03/31/11 documented as of this encounter
--- OUTSIDE RECORDS SUMMARY | 2024-06-14 14:43 | XMS_ITS | Encounter Summary ---
Author Organization [employer] Address [address] [facility] 7t [place] [address] Care Team Providers Care Steel Crane Operator Name Role Phone Isabel Ayala DO Primary Care Provider [phone] Reason for Visit * Reason Comments Med Refill Encounter Details Date Type Department Care Team (Late st Contact Info) Description 08/02/2022 Refill [facility] [address] [place], [place] [phone] Isabel Ayala DO [address] [place] [address] Chronic bilateral low back pain, unspecified whether [...] 06/29/2024 1:30 PM EDT Telemedicine [facility] [address] [place] [address] Brea Bender RN documented as of this encounter Visit Diagnoses Diagnosis Chronic bilateral low back pain, unspecified whether sciatica present documented in this encounter Care Teams Steel Crane Operator Relationship Specialty Start Date End Date Isabel Ayala DO [address] [place] [address] PCP - General Family Medicine 03/31/11 documented as of this encounter
--- OUTSIDE RECORDS SUMMARY | 2024-06-14 14:43 | XMS_ITS | Encounter Summary ---
Author Organization [employer] Address [address] [facility] 7t [place] [address] Care Team Providers Care Principal Solutions Architect Name Role Phone Isabel Ayala DO Primary Care Provider + [phone] Reason for Visit * Reason Comments Med Refill Encounter Details Date Type Department Care Team ([facility] st Contact Info) Description 12/13/2023 Refill [facility] [address] [place], [place] [phone] Isabel Ayala DO [address] [place] [address] Depression, unspecified depression type Social History Tobacco [...] Info) Description 06/29/2024 1:30 PM EDT Telemedicine [facility] [address] [place] [address] Brea Bender RN documented as of this encounter Visit Diagnoses Diagnosis Depression, unspecified depression type documented in this encounter Additional Health Concerns Assessment Noted Time PHQ-9 Depression Total Score: 0 10/13/19 11:41 AM EDT documented as of this encounter Care Teams Principal Solutions Architect Relationship Specialty Start Date End Date Isabel Ayala DO [address] [place] [address] PCP - General Family Medicine 03/31/11 documented as of this encounter
--- OUTSIDE RECORDS SUMMARY | 2024-06-14 14:44 | XMS_ITS | Encounter Summary ---
Author Organization [employer] Address [address] [facility] [address] 7[address] [place] [address] Care Team Providers Care Child Care Group Leader Name Role Phone Isabel Ayala DO Primary Care Provider + [phone] Encounter Details Date Type Department Care Team ([facility] st Contact Info) Description 09/05/2023 Telephone [facility]INE [address] [place] [address] Isabel Ayala DO [address] [place] [address] Social History Tobacco Use Types Packs/Day Years [...] the past 12 months, has t he [employer], oil or water company threatened to shut [...] Info) Description 06/29/2024 1:30 PM EDT Telemedicine [facility] [address] [place] [address] Brea Bender RN documented as of this encounter Visit Diagnoses Not on filedocumented in this encounter Additional Health Concerns Assessment Noted Time PHQ-9 Depression Total Score: 0 10/13/19 11:41 AM EDT documented as of this encounter Care Teams Child Care Group Leader Relationship Specialty Start Date End Date Isabel Ayala DO [address] [place] [address] PCP - General Family Medicine 03/31/11 documented as of this encounter
--- OUTSIDE RECORDS SUMMARY | 2024-06-14 14:44 | XMS_ITS | Clinical Summary ---
Author Organization [employer] Address [address] [facility] 7t [place] [address] Care Team Providers Care Maitre D Name Role Phone Jamie Isabel Primary Care Provider [phone] Allergies No known active allergies Medications * [...] TABLET BY MOUTH ONCE DAILY PLEASE CALL [phone] TO SCHEDULE FOLLOW UP FOR 2022. 023 Active albuterol 108 (90 Base) MCG/ACT inhaler Inhale 2 puffs every 4 (four) hours if needed for wheezing or shortness of breath. 18 g 1 023 Active cetirizine (ZyrTEC) 10 MG tablet Take 1 tablet (10 mg) by mouth Once per day. 30 tablet 11 024 2024 Active Diclofenac Sodium 1 % gel Apply 2 g topically if needed in the morning, at noon, in the evening, and at bedtime (pain). 150 g 3 024 Active fluticasone (Flonase) 50 MCG/ACT nasal spray Administer 2 sprays into each nostril Once per day. Shake gently. Before first use, prime pump. After use, clean tip and replace cap. 16 g 2024 Active fluticasone furoate (Arnuity Ellipta) 100 [...] AT BEDTIME 90 tablet 1 025 Active tamsulosin (Flomax) 0.4 MG 24 hr capsule TAKE 1 CAPSULE BY MOUTH EVERY DAY 30 capsule 5 025 Active dutasteride (Avodart) 0.5 MG capsule 025 Active gabapentin (Neurontin) 300 MG capsuleIndication s:Other chronic pain TAKE 1 CAPSULE BY MOUTH THREE TIMES DAILY 90 capsule 5 025 Active oxyCODONE-acetami nophen (Percocet) 5-325 MG tabletIndications :Chronic bilateral low back pain, unspecified whether sciatica present Take 1 tablet by mouth every 6 (six) hours if needed for severe pain for up to 28 days. 112 tablet 025 2024 Active baclofen (Lioresal) 10 MG tablet TAKE 1 TABLET BY MOUTH IN THE MORNING, NOON AND AT BEDTIME NEEDED FOR MUSCLE SPASMS 60 tablet 3 025 Active escitalopram (Lexapro) 10 MG tabletIndications :Major depression, recurrent, chronic (CMS/HCC) Take 1 tablet (10 mg) by mouth in the morning. 30 tablet 025 2024 Active baclofen (Lioresal) 10 MG tablet Take 1 tablet (10 mg) by mouth if needed in the morning, at noon, and at bedtime for muscle spasms. 60 tablet 3 024 2024 Discontinued(R eorder (will not trigger notification to Pharmacy)) FLUoxetine (PROzac) 20 MG capsuleIndication s:Depression, unspecified depression type TAKE 3 CAPSULES BY MOUTH EVERY DAY IN THE MORNING 90 capsule 2 025 2024 Discontinued(I neffective) oxyCODONE-acetami nophen (Percocet) 5-325 MG tabletIndications :Chronic bilateral low back pain, unspecified whether sciatica present Take 1 tablet by mouth every 6 (six) hours if needed for severe pain for up to 28 days. 112 tablet 025 2024 Discontinued(R eorder (will not trigger notification to Pharmacy)) Active Problems Problem Noted Date Diagnosed Date Alcohol use disorder 06/11/2024 Hyperlipidemia 07/26/2023 Atrial fibrillation 06/24/2021 Interstitial lung [...] normalized patient's emotions. Provided contact information for HC crisis programs. Pt agreed with plan to [...] organization. Date Type Department Care Team Description 06/06/2024 Refill [facility] [address] [place] [address] Isabel Ayala DO 05/31/2024 Refill [facility] PEDS [address] [place] [address] Isabel Ayala DO Chronic bilateral low back pain, unspecified whether sciatica present 05/06/2024 Refill [facility] [address] [place] [address] Jennifer Bauman MD Other chronic pain 05/03/2024 Refill [facility] PED[facility] [address] [place], [place] [phone] Isabel Ayala DO Chronic bilateral low back pain, unspecified whether sciatica present 04/20/2024 Population Health Risk Score Community Care [facility] (C[facility]) Department [address] [place] [phone] Provider, Population Health Generic 04/13/2024 10:00 AM EST Telemedicine [facility] [address] [place] [address] Brea Bender RN Chronic bilateral low back pain without sciatica 04/13/2024 Telephone [facility] [address] [place] [address] Brea Bender, RN BPI Scoring 04/13/2024 Travel 04/03/2024 Refill [facility] [address] [place], [place] [phone] Isabel Ayala DO Chronic bilateral low back pain, unspecified whether sciatica present 04/02/2024 1:00 PM EST Office Visit [facility] [address] [place] [address] Vernon, Rama, OD Choroidal nevus, left eye (Primary Dx); Soreness of eye; Combined forms of age-related cataract of both eyes; 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; Epiretinal membrane (ERM) of left eye; Presbyopia 04/02/2024 Travel 03/27/2024 Refill [facility] [address] [place] [address] Isabel Ayala DO from Last 3 Months Immunizations Name Administration [...] [facility] [address] [place] [address] Brea Bender, RN Health Maintenance Due Date Last Done Comments CT Colonography 1948 FIT DNA/Cologuard 1948 FIT 1948 FOBT 1948 Sigmoidoscopy 1950 Colonoscopy 05/18/2020 05/19/2015 Colorectal Cancer Screening 05/18/2020 RSV Patients and Patients Aged 60 years or older (1 - 1-dose 75+ series) 10/21/2023 DTaP/Tdap/Td Vaccines (3 - Td or Tdap) 12/07/2023 12/06/2013, 08/09/2011 Alcohol/Substance Use Screening 03/06/2025 03/06/2024 Depression Screening 03/06/2025 03/06/2024, 03/06/19 25 SDOH Screening 03/06/2025 03/06/2024 Tobacco Screening 06/11/2025 06/11/2024 Lipid Panel 08/08/2028 08/09/2023, 03/2022, 12/11/2021, Additional [...] PM EDT) Hepatitis C Antibody Nonreactive Nonreactive [facility] Comment:Antibodies to HCV no t detected; does not exclude early acuteHCV infection. Blood Venous blood specimen / Unknown 08/09/2023 1:05 PM EDT 08/09/2023 4:08 PM EDT us Isabel Ayala DO LAB BLOOD ORDERABLES Final R esult [facility] [address] [place] [address] [phone] * Lipid Panel, Standard (08/09/2023 1:05 PM EDT) Triglycerides 84 <150 mg/dL [facility] Comment:Desirable Triglyceri de: less than 150 mg/dLBorderline High Triglyceride 150-199 mg/dLHigh Triglyceride: 200-499 mg/dLVery High Triglyceride: greater than or equal to 5OO mg/dL Cholesterol 134 <200 mg/dL [facility] Comment:Desirable Cholestero l: less than 200 mg/dLBorderline High Cholesterol: 200-239 mg/dLHigh Cholesterol: greater than 239 mg/dL LDL Cholesterol Calculated 74 <100 mg/dL [facility] Comment:Desirable LDL: less than 100 mg/dLNear Optimal/Above Optimal LDL: 110- 129 mg/dLBorderline High LDL: 130-159 mg/dLHigh LDL: 160-189 mg/dLVery High LDL: greater than or equal to 190 mg/dL HDL Cholesterol 44 >40 mg/dL [facility] Comment:Desirable HDL: great er than 40 mg/dL Note: This HDL assay may give artificially low results in patients with liver disease. Blood Venous blood specimen / Unknown 08/09/2023 1:05 PM EDT 08/09/2023 4:08 PM EDT Isabel Ayala DO LAB BLOOD ORDERABLES Final R esult [facility] [address] [place] [phone] [phone] * Hm Colonoscopy (05/19/2015 9:47 AM EDT) Historical Provider HEALTH MAINTENANCE Final Result from Last 3 Months or Most Recently Relevant to Health Maintenance Insurance [employer] [facility] MEDIC[facility] Care Teams Maitre D Relationship Specialty Start Date End Date Isabel Ayala DO [address] [place] [phone] PCP - General Family Medicine 03/31/11
--- OUTSIDE RECORDS SUMMARY | 2024-06-14 14:44 | XMS_ITS | Encounter Summary ---
Author Organization [employer] Address [address] [facility] [address] [place] [address] Care Team Providers Care Pipe Organ Mechanic Apprentice Name Role Phone Isabel Ayala DO Primary Care Provider + [phone] Reason for Visit * Reason Comments Med Refill Encounter Details Date Type Department Care Team ([facility] st Contact Info) Description 07/29/2023 Refill [facility] & PEDS [address] [place], [place] [phone] Isabel Ayala DO [address] [facility] [place] [address] Chronic bilateral low back pain, unspecified whether [...] Info) Description 06/29/2024 1:30 PM EDT Telemedicine [facility] MEDICINE [address] [place] [address] Brea Bender RN documented as of this encounter Visit Diagnoses Diagnosis Chronic bilateral low back pain, unspecified whether sciatica present documented in this encounter Additional Health Concerns Assessment Noted Time PHQ-9 Depression Total Score: 0 10/13/19 11:41 AM EDT documented as of this encounter Care Teams Pipe Organ Mechanic Apprentice Relationship Specialty Start Date End Date Isabel Ayala DO [address] [place] [address] PCP - General Family Medicine 03/31/11 documented as of this encounter
--- OUTSIDE RECORDS SUMMARY | 2024-06-14 14:44 | XMS_ITS | Encounter Summary ---
Author Organization [employer] Address [address] [facility] [address] [place] [address] Care Team Providers Care Social Science Teacher Name Role Phone Isabel Ayala DO Primary Care Provider + [phone] Reason for Visit * Reason Comments Med Refill Encounter Details Date Type Department Care Team ([facility] st Contact Info) Description 02/26/2023 Refill [facility] [address] [place], [place] [phone] Isabel Ayala DO [address] [place], [place] [phone] Social History Tobacco Use Types Packs/Day Years [...] Info) Description 06/29/2024 1:30 PM EDT Telemedicine [facility] [address] [place], [place] [phone] Brea Bender RN documented as of this encounter Visit Diagnoses Not on filedocumented in this encounter Additional Health Concerns Assessment Noted Time PHQ-9 Depression Total Score: 0 10/13/19 23 11:41 AM EDT documented as of this encounter Care Teams Social Science Teacher Relationship Specialty Start Date End Date Isabel Ayala DO [address] [place] [address] PCP - General Family Medicine 03/31/11 documented as of this encounter
--- OUTSIDE RECORDS SUMMARY | 2024-06-14 14:44 | XMS_ITS | Encounter Summary ---
Author Organization [employer] Address [address] [facility] 7t [place] [address] Care Team Providers Care Journeyman Tool And Die Maker Name Role Phone Isabel Ayala DO Primary Care Provider [phone] Reason for Visit * Reason Onset Date Comments Nurse Triage 01/28/2023 Encounter Details Date Type Department Care Team ([facility] st Contact Info) Description 01/28/2023 Telephone [facility] [address] [place] [address] Isabel Ayala DO [address] [place] [address] Nurse Triage Social History Tobacco Use Types [...] states that he was referred to a Sewer Inspector in the past and he has been thinking about PCP suggestion and he is ready to get referral to Sewer Inspector. Pt. States he feels fine at rest but does develop SOB doing easy tasks and ADL's such as washing dishes walking long distances etc. So he has 3 requests Referral to Sewer Inspector that he states you have suggested several [...] Description 06/29/2024 1:30 PM EDT Telemedicine [facility] [address] [place] [address] Brea Bender RN documented as of this encounter Visit Diagnoses Not on filedocumented in this encounter Additional Health Concerns Assessment Noted Time PHQ-9 Depression Total Score: 0 10/13/19 11:41 AM EDT documented as of this encounter Care Teams Journeyman Tool And Die Maker Relationship Specialty Start Date End Date Isabel Ayala DO [address] [place] [address] PCP - General Family Medicine 03/31/11 documented as of this encounter
--- OUTSIDE RECORDS SUMMARY | 2024-06-14 14:44 | XMS_ITS | Encounter Summary ---
Author Organization [employer] Address [address] 7[address] [place] [address] Care Team Providers Care Credit Control Clerk Name Role Phone Isabel Ayala DO Primary Care Provider + [phone] Encounter Details Date Type Department Care Team ([facility] st Contact Info) Description 05/19/[address] [facility] [address] [place] [address] Provider, MD Phill Social History Tobacco Use Types Packs/Day Years [...] Info) Description 06/29/2024 1:30 PM EDT Telemedicine [facility] [address] [place] [address] Brea Bender, RN documented as of this encounter Procedures [...] documented as of this encounter Care Teams Credit Control Clerk Relationship Specialty Start Date End Date Isabel Ayala DO [address] [place] [address] PCP - General Family Medicine 03/31/11 documented as of this encounter
--- OUTSIDE RECORDS SUMMARY | 2024-06-14 14:44 | XMS_ITS | Encounter Summary ---
Author Organization [employer] Address [address] [facility] 7t [place] [address] Care Team Providers Care Physical Therapy Supervisor Name Role Phone Isabel Ayala DO Primary Care Provider Encounter Details Date Type Department Care Team (Late st Contact Info) Description 03/30/2022 Orders Only [facility] CHC MED & PEDS [address] [place] [address] Isabel Paz LPN Social History Tobacco Use [...] Info) Description 06/29/2024 1:30 PM EDT Telemedicine [facility] [address] [place] [address] Brea Bender, RN documented as of this encounter Visit Diagnoses Not on filedocumented in this encounter Care Teams Physical Therapy Supervisor Relationship Specialty Start Date End Date Isabel Ayala DO [address] [place] [address] PCP - General Family Medicine 03/31/11 documented as of this encounter
--- OUTSIDE RECORDS SUMMARY | 2024-06-14 14:44 | XMS_ITS | Encounter Summary ---
Author Organization [employer] Address [address] [facility] 7t [place] [address] Care Team Providers Care Financial Services Internship Name Role Phone Isabel Ayala DO Primary Care Provider [phone] Reason for Visit * Reason Comments Med Refill Encounter Details Date Type Department Care Team (Late Contact Info) Description 11/04/2022 Refill [facility] CHC MED & PEDS [address] [place] [address] Isabel Ayala DO 230 [place], [place] [phone] Social History Tobacco Use Types Packs/Day Years [...] Telemedicine [facility] [address] [place], [place] [phone] Brea Bender RN documented as of this encounter Visit Diagnoses Not on filedocumented in this encounter Additional Health Concerns Assessment Noted Time PHQ-9 Depression Total Score: 0 10/13/19 23 11:41 AM EDT documented as of this encounter Care Teams Financial Services Internship Relationship Specialty Start Date End Date Isabel Ayala DO [address] [place] [id number] PCP - General Family Medicine 03/31/11 documented as of this encounter
--- OUTSIDE RECORDS SUMMARY | 2024-06-14 14:44 | XMS_ITS | Encounter Summary ---
Author Organization [employer] Address [address] [facility] [address] 7[address] [place] [address] Care Team Providers Care Quarter Section Ironer Name Role Phone Isabel Ayala DO Primary Care Provider + [phone] Reason for Visit * Reason Comments Med Refill Encounter Details Date Type Department Care Team ([facility] st Contact Info) Description 06/20/2023 Refill [facility] [address] [place], [place] [phone] Isabel Ayala DO [address] [place] [address] Urinary frequency Social History Tobacco Use Types [...] Info) Description 06/29/2024 1:30 PM EDT Telemedicine [facility] [address] [place], [place] [phone] Brea Bender RN documented as of this encounter Visit Diagnoses Diagnosis Urinary frequency documented in this encounter Additional Health Concerns Assessment Noted Time PHQ-9 Depression Total Score: 0 10/13/19 23 11:41 AM EDT documented as of this encounter Care Teams Quarter Section Ironer Relationship Specialty Start Date End Date Isabel Ayala DO [address] [place] [address] PCP - General Family Medicine 03/31/11 documented as of this encounter
--- OUTSIDE RECORDS SUMMARY | 2024-06-14 14:44 | XMS_ITS | Encounter Summary ---
Author Organization [employer] Address [address] [facility] 7t [place] [address] Care Team Providers Care Electric Solderer Name Role Phone Isabel Ayala DO Primary Care Provider Encounter Details Date Type Department Care Team (Late st Contact Info) Description 03/11/2022 Orders Only [facility] CHC MED & PEDS [address] [place] [address] Isabel Paz LPN Social History Tobacco Use [...] Info) Description 06/29/2024 1:30 PM EDT Telemedicine [facility] [address] [place] [address] Brea Bender, RN documented as of this encounter Visit Diagnoses Not on filedocumented in this encounter Care Teams Electric Solderer Relationship Specialty Start Date End Date Isabel Ayala DO 230 [place] [address] PCP - General Family Medicine 03/31/11 documented as of this encounter
== END 2024-06-14 14:46 | disposition home or self-care (01) ==
LOC: HO.HCS 13:48
PROVIDERS: PCP Family Medicine; Visit Provider Nurse Practitioner Family
DX: I48.19 Other persistent atrial fibrillation (principal); I10 Essential (primary) hypertension; E78.5 Hyperlipidemia, unspecified
CPT/HCPCS: 93010; 99214; G2211

== ENCOUNTER → 2024-06-14 13:47 | Outpatient (BNVA) | payer MEDICARE, MEDICAID, SELFPAY | PROVIDERS: PCP Family Medicine; Visit Provider Nurse Practitioner Family | DX: I10 Essential (primary) hypertension (principal); I48.19 Other persistent atrial fibrillation; E78.5 Hyperlipidemia, unspecified; Z87.891 Personal history of nicotine dependence | CPT/HCPCS: 93005; 99212 ==

== ENCOUNTER 2024-09-12 11:53 | Outpatient (REF) | payer MEDICARE, OTHER, SELFPAY ==
--- OUTSIDE RECORDS SUMMARY | 2024-09-13 12:22 | XMS_ITS | Clinical Summary ---
Author Organization [facility] Address [facility] [address] [place] [phone] Phone Care Team Providers Care Coordinator Of Rehabilitation Services Name Role Phone Pcp, Unknown Primary Care Provider Unavailabl e Active Problems Problem Noted Date Diagnosed Date Low back pain 08/07/2013 Overview (03/29/2014): Low back pain Social History Tobacco Use Types Packs/Day Years Used Date Smoking Tobacco: Former Sex and Gender Information Value Date Recorded Sex Assigned at Not on file Legal Sex Male 8:51 AM EDT Gender Identity Not on file Sexual Orientation Not on file Plan of Treatment Not on file Medical Devices Not on file Insurance MEDICARE PART A & B HEALTH [employer]AF[employer] NET MEDICARE PART A & B HEALTH SAFETY NET MEDICARE PART A & B [employer] SAFETY NET MEDICARE PART A & B [employer] SAFETY NET MEDICARE PART A & B [employer] SAFETY NET MEDICARE PART A & B [employer] NET Member Subscriber Plan / Payer ( fective 2013-Present) Name:Cirilo Ruiz Relation to Subscriber:Self Name:Cirilo Ruiz Payer ID:Not on file Group ID:Not on file Type:Medicaid Address: [place] [id number] MEDICARE PART A & B HEALTH SAFETY NET MEDICARE PART A & B HEALTH SAFETY NET MEDICARE PART A & B [facility] Care Teams Coordinator Of Rehabilitation Services Relationship Specialty Start Date End Date Pcp, Unknown PCP - General 08/07/13 Additional Source Comments The information contained in this document represents components of the legal health record. It is not the complete legal health record.[facility]
--- OUTSIDE RECORDS SUMMARY | 2024-09-13 12:22 | XMS_ITS | Encounter Summary ---
Author Organization [employer] Address [address] [facility] 7t [place] [address] Care Team Providers Care Water Treatment Plant Supervisor Name Role Phone Isabel Ayala DO Primary Care Provider + [phone] Encounter Details Date Type Department Care Team (Late st Contact Info) Description 01/22/2022 Orders Only [facility] CHC MED & PEDS [address] [place] [address] Isabel Paz LPN Social History Tobacco Use [...] Care Team (Late st Contact Info) Description 09/14/2024 11:00 AM EDT Telemedicine [facility] MEDICINE [address] [place] [address] Brea Bender, YARI 09/19/2024 11:15 AM EDT Office Visit [facility] MEDICINE [address] [place] [address] Isabel Ayala DO [address] [place] [address] 10/16/2024 2:30 PM EDT Office Visit [facility] ADULT DENTAL [address] [place] [phone] Jovanni Page DDS [address] [place] [address] documented as of this encounter Visit Diagnoses Not on filedocumented in this encounter Care Teams Water Treatment Plant Supervisor Relationship Specialty Start Date End Date Isabel Ayala DO [address] [place] [address] PCP - General Family Medicine 03/31/11 documented as of this encounter
== END 2024-09-12 11:54 | disposition home or self-care (01) ==
LOC: HO.HHCLNP 11:53
PROVIDERS: Visit Provider Nurse Practitioner
DX: R39.9 Unspecified symptoms and signs involving the genitourinary system (principal)
CPT/HCPCS: 87086

== ENCOUNTER 2024-10-18 16:04 | Outpatient (AMB) | payer MEDICARE, MEDICAID, SELFPAY ==
--- OUTSIDE RECORDS SUMMARY | 2024-10-16 14:30 | XMS_ITS | Encounter Summary ---
Author Organization [employer] Address [address] [facility] 7t [place] [address] Care Team Providers Care Hot Dipper Name Role Phone Isabel Ayala DO Primary Care Provider + [phone] Reason for Visit * Reason Comments Dental Exam Panorex taken Encounter Details Date Type Department Care Team (Late st Contact Info) Description 10/16/2024 2:30 PM EDT Office Visit [facility] ADULT DENTAL [address] [place] [address] Jovanni Page, DDS [address] [place], [place] [phone] Complete edentulism, unspecified edentulism class (Primary Dx); Ill-fitting dentures Social History Tobacco Use Types Packs/Day Years Used Date Smoking Tobacco: Never Passive Smoke Exposure: Never Smokeless Tobacco: Never Alcohol Use Standard [...] Sign Reading Time Taken Comments Blood Pressure 138/74 10/16/2024 2:49 PM EDT Pulse 70 10/16/2024 2:49 PM EDT Temperature - - Respiratory Rate - - Oxygen Saturation - - Inhaled Oxygen Concentration - - Weight - - Height - - Body Mass Index - - documented in this encounter Progress Notes * Jovanni Page DDS - 10/16/2024 2:30 PM EDT Dental procedures in this visit D0120 - PERIODIC ORAL EVALUATION - ESTABLISHED PATIENT (Completed) Service provider: Jovanni Page DDS Billing provider: Jovanni Page DDS D0330 - PANORAMIC RADIOGRAPHIC IMAGE (Completed) Service provider: Jovanni Page DDS Billing provider: Jovanni Page DDS D9450 - CASE PRESENTATION, DETAILED AND EXTENSIVE TREATMENT PLANNING (Completed) Service provider: Jovanni Page DDS Billing provider: Jovanni Page DDS Patient ID: Cirilo Ruiz is a 73 y.o. male. Time Out: Timeout Date: 10/16/24, Timeout Time: 1442 (panorx taken) Location: [facility] Tooth: Maxilla and Mandible Procedure: Exam, X-rays, and Dentures Verified the above with patient, farm assistant, and provider. Confirmed via patient's chart, intraorally and by radiographs. Automotive Detailer: not applicable Chief Complaint Patient presents with Dental Exam Panorex taken Medical Hx: Vitals: Blood pressure 138/74, pulse 70. Medical History[1] Medications: Encounter Medications[2] Objective HPI Symptomatic on mid line maxillae and right side mandible Head and Neck Exam: Lymph Nodes, Lips, Palate, Buccal Mucosa, Floor of Mouth, Tongue, Tonsils, Alveolar Ridges, Oropharynx, Salivary Ducts, and Vestibules normal appearance Details: Skin NSF OCS: negative Dental Exam Complete edentulism Laceration on mid maxillae Laceration on right isak. Ridge Existing dentures - Ill fitting Reference tooth chart for additional findings. Oral Cancer Risk: Low Risk Oral Hygiene Instructions: [place] Tongue Caries Risk Assessment: N/ A Complete edentulism Assessment/Plan AMELIA X rays Prescription sent to [facility] on file - Chlorhexidine Let lacerations to heal before attempting to insert dentures Imp. To fabricate ne set of dentured Patient tolerated procedure well, all questions answered and expressed understanding. Dismissed in good condition. 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 18 g 1 Arnuity Ellipta 100 MCG/ACT inhaler INHALE 1 PUFF BY MOUTH EVERY DAY AT THE SAME TIME, RINSE MOUTH AFTER USING., DO NOT SWALLOW 30 each 11 atorvastatin (Lipitor) 10 MG tablet TAKE 1 TABLET BY MOUTH DAILY AT BEDTIME 90 tablet 1 baclofen (Lioresal) 10 MG tablet TAKE 1 TABLET BY MOUTH THREE TIMES DAILY IN THE MORNING, AT NOON, AND AT BEDTIME NEEDED FOR MUSCLE SPASMS 60 tablet 3 cetirizine (ZyrTEC) 10 MG tablet TAKE 1 TABLET BY MOUTH EVERY DAY 30 tablet 11 D3 Super Strength 50 MCG (2000 UT) capsule TAKE 1 CAPSULE BY MOUTH ONCE DAILY 90 capsule 3 Diclofenac Sodium 1 % gel Apply 2 g topically if needed in the morning, at noon, in the evening, and at bedtime (pain). 150 g 3 dutasteride (Avodart) 0.5 MG capsule escitalopram (Lexapro) 10 MG tablet Take 1 tablet (10 mg) by mouth in the morning. 30 tablet 1 gabapentin (Neurontin) 300 MG capsule TAKE 1 CAPSULE BY MOUTH THREE TIMES DAILY 90 capsule 5 metoprolol tartrate (Lopressor) 50 MG tablet TAKE 1 TABLET BY MOUTH TWICE DAILY. MUST MAKE CARDIOLOGY APPOINTMENT FOR MORE REFILLS naloxone (Narcan) 4 mg/0.1 mL nasal spray Administer 1 spray (4 mg) into affected nostril(s) if needed for opioid reversal. May repeat every 2-3 minutes if needed, alternating nostrils, until medicalassistance becomes available. 2 each 3 oxybutynin XL (Ditropan XL) 10 MG 24 hr tablet TAKE 1 TABLET BY MOUTH EVERY DAY. 90 tablet 0 oxyCODONE-acetaminophen (Percocet) 5-325 MG tablet TAKE 1 TABLET BY MOUTH EVERY 6 HOURS NEEDED FOR SEVERE PAIN FOR UP TO 28 DAYS 112 tablet 0 tamsulosin (Flomax) 0.4 MG 24 hr capsule TAKE 1 CAPSULE BY MOUTH EVERY DAY 30 capsule 5 Xarelto 20 MG tablet TAKE 1 TABLET BY MOUTH ONCE DAILY PLEASE CALL [phone] TO SCHEDULE FOLLOW UP FOR 2022. fluticasone (Flonase) 50 MCG/ACT nasal spray Administer 2 sprays into each nostril Once per day. Shake gently. Before first use, prime pump. After use, clean tip and replace cap. 16 g 11 Lidoderm 5 % patch APPLY 1 PATCH TOPICALLY TO SKIN, LEAVE ON FOR 12 HOURS AND OFF FOR 12 HOURS DIRECTED (Patient not taking: Reported on 10/16/2024) 30 patch 5 [DISCONTINUED] baclofen (Lioresal) 10 MG tablet TAKE 1 TABLET BY MOUTH IN THE MORNING, NOON AND AT BEDTIME NEEDED FOR MUSCLE SPASMS 60 tablet 3 No facility-administered encounter medications on file as of 10/16/2024. documented in this encounter Plan of Treatment Upcoming Encounters Date Type Department Care Team (Late st Contact Info) Description 11/16/2024 11:00 AM EDT Telemedicine [facility] [address] [place] [address] Brea Bender RN Scheduled Orders Name Type Priority Associated Diagnoses Orde r Schedule Max Max COMPLETE DENTURE - MAXILLARY Dental Routine [address] arting 10/16/2024 Isak Isak COMPLETE DENTURE - MANDIBULAR Dental Routine 1 Occurrenc es starting 10/16/2024 DENTURE IMPRESSION Dental Routine 1 Occu rrences starting 10/16/2024 BITE REGISTRATION Dental Routine 1 Occur rences starting 10/16/2024 WAX TRY IN Dental Routine 1 Occurrences starting 10/16/2024 documented as of this encounter Procedures Procedure Name Priority Date/Time Associated Diagnosis Comments PERIODIC ORAL EVALUATION - ESTABLISHED PATIENT Routine 10/16/2024 2:30 PM EDT PANORAMIC RADIOGRAPHIC IMAGE Routine 10/16/2024 2:30 PM EDT CASE PRESENTATION, DETAILED AND EXTENSIVE TREATMENT PLANNING Routine 10/16/2024 2:30 PM EDT documented in this encounter Visit Diagnoses Diagnosis Complete edentulism, unspecified edentulism class- Primary Ill-fitting dentures documented in this encounter Additional Health Concerns Assessment Noted Time PHQ-9 Depression Total Score: 12 03/06/ 025 11:28 AM EST documented as of this encounter Care Teams Hot Dipper Relationship Specialty Start Date End Date Isabel Ayala DO [address] [place] [id number] PCP - General Family Medicine 03/31/11 documented as of this encounter
--- NOTE | 2024-10-18 16:05 | A.OFFVIS_ITS ---
Intake Visit Reasons: follow up Intake Note: Patient is present via telehealth for a follow up Urology Meds: Tamsulosin Antibiotic Allergies: NKA Blood Thinners: Xarelto Consulting Sales Executive Required: No Accompanied by: Self / Same As Patient Allergies No Known Allergies (No Known Allergies*) Allergy (Verified 10/18/24 16:07) Medication List - Last Reconciled 10/18/24 by Reji Quijano MD albuterol sulfate 90 mcg/actuation (Ventolin HFA) 2 puffs inhalation Q4H PRN atorvastatin 10 mg PO BEDTIME baclofen 10 mg PO TID cetirizine 10 mg PO DAILY cholecalciferol (vitamin D3) (Vitamin D3) 50 mcg PO DAILY dutasteride (Avodart) 0.5 mg PO DAILY fluoxetine 60 mg PO DAILY gabapentin 300 mg PO TID metoprolol tartrate 50 mg PO BID 90 days oxycodone-acetaminophen 5-325 mg 1 tab PO QID PRN rivaroxaban (Xarelto) 20 mg PO DAILY@1700 tamsulosin 0.4 mg PO DAILY triamcinolone acetonide 2 sprays intranasal DAILY HPI Comments Details: 10/18/24-- History of Present Illness The patient is a 73-year-old male presenting with benign prostatic hyperplasia and associated urinary symptoms. Telehealth video attempted History of left kidney mass cryotherapy in 2012. He has been taking dutasteride and tamsulosin for the management of his prostate condition. The patient reports that his urine flow is fast and normal, and he generally feels like he is emptying his bladder, although there is sometimes residual urine that he tries to expel. The patient mentions that urinary urgency and incontinence is not as problematic as it was previously, and he does not require the use of pads during the day or night. Plan - Continue current medications: dutasteride and tamsulosin. - Order PSA test to monitor prostate health. - Schedule renal ultrasound to assess follow-up history of renal mass - Follow-up in six months to evaluate treatment efficacy and symptom progression. 03/30/2024--Cirilo is a 73-year-old male who presents for follow-up. He was initially evaluated on 12/15/2023. The patient is on tamsulosin. In review he states he is on oxycodone not oxybutynin. I have reviewed renal ultrasound 12/22/2023. History of cryotherapy left renal mass 2012. Cystoscopy findings: No suspicious bladder lesions, trilobar enlargement of the prostate. Discussed starting Avodart, alternatively consider GreenLight laser. The patient agreeable to starting the Avodart and will consider further intervention pending changes/improvement in symptoms. 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 12/15/23 --Cirilo is a 73-year-old male with urinary symptoms of urgency and slowing of urinary stream. The patient has been on oxybutynin and tamsulosin, he is here as a new patient evaluation due to worsening urinary symptoms. He denies dysuria denies gross hematuria. History of AFib on anticoagulation. Patient has chronic low back pain, history of back surgery, comorbidity obesity. I have discussed further evaluation with ultrasound of kidney and bladder and follow-up office cystoscopy. [facility] Medical History Influenza A Atrial fibrillation Dyspnea on exertion ELIZABETH (obstructive sleep apnea) Obesity (BMI 35.0-39.9 without comorbidity) HTN (hypertension) Paroxysmal atrial fibrillation Sick sinus syndrome Surgical History Hx of sinus surgery History of tonsillectomy and adenoidectomy History of back surgery Family History Father Lung cancer Mother Cancer Social History Household Members: Spouse Housing: House Do you presently have visiting nurse or other home services: No Alcohol intake: current Alcohol intake frequency: former alcohol drinker Patient Tobacco Use Status: Former Tobacco user Years Smoked: stopped 30 years ago e-Cigarette/Vaping Use: Former Use Second Hand Smoke Exposure: No Advance Directives Date on File: 08/28/20 service: No Review of Systems Const All systems reviewed & are unremarkable except as noted in HPI and below Reports no additional complaints Eyes Reports no additional complaints ENT Reports no additional complaints Card Reports no additional complaints Resp Reports no additional complaints GI Reports no additional complaints Reports as per HPI Musc Reports no additional complaints Skin/Breast Reports system reviewed and no additional complaints, except as documented Neuro Reports no additional complaints Psych Reports no additional complaints Endo Reports no additional complaints Josesito/Lymph Reports no additional complaints Aller/Immun Reports no additional complaints Telehealth Telehealth Telehealth Platform: IP Street Location of provider rendering services: practice address Location of patient: address on file Telehealth method: voice only Patient verbally consented to treatment: Yes Patient verbally consented to billing insurance company: Yes Patient informed of any privacy concerns related to visit: Yes Minutes spent on Phone/Video with Pt.: 15 Results Reviewed Results Reviewed: Date of Service: 12/27/23 US RETROPERITONEAL COMPLETE (RENAL) CLINICAL INFORMATION: Follow-up renal mass status-post cryoablation in 2012. COMPARISON: CT abdomen and pelvis dated 01/26/2019; abdominal ultrasound dated 11/24/2018. TECHNIQUE: Real-time imaging of the kidneys and bladder. FINDINGS: RIGHT KIDNEY: 11.1 x 6.3 x 7.4 cm (SAG x AP x TRV). The kidney is normal in size, contour, and echogenicity. Renal cortical thickness is normal. No calculi or focal parenchymal lesions. No hydronephrosis. LEFT KIDNEY: 11.9 x 5.7 x 7.8 cm (SAG x AP x TRV). The kidney is normal in size, contour, and echogenicity. Renal cortical thickness is normal. No calculi or hydronephrosis. At the lower pole, a 9 mm benign, simple exophytic cyst seen. Arising exophytically from the lower pole, a 3.1 x 2.2 x 2.9 cm heterogeneous cystic and solid collection is seen, with shadowing calcifications. On the ultrasound examination of 12/25/2018, this measured 2.7 x 1.9 x 3.2 cm. IMPRESSION: There is a similar ultrasound appearance of a previously characterized exophytic left renal lower pole mass, status-post cryotherapy. Assessment & Plan Assessment & Plan (1) BPH loc w urin obs/LUTS: Code(s): N40.1 - Benign prostatic hyperplasia with lower urinary tract symptoms Category: Medical (2) Screening PSA (prostate specific antigen): Code(s): Z12.5 - Encounter for screening for malignant neoplasm of prostate Category: Medical (3) Renal mass: Code(s): N28.89 - Other specified disorders of kidney and ureter Category: Medical Plan - Continue current medications: dutasteride and tamsulosin. - Order PSA test to monitor prostate health. - Schedule renal ultrasound to assess follow-up history of renal mass - Follow-up in six months to evaluate treatment efficacy and symptom progression. Orders: Orders PSA,Total (Free>4and<10) 4 Months N40.1 - Benign prostatic hyperplasia with lower urinary tract symptoms, Z12.5 - Encounter for screening for malignant neoplasm of prostate US renal BI 5 Months N28.89 - Other specified disorders of kidney and ureter Medications: New tamsulosin 0.4 mg PO DAILY 90 caps 2RF Refilled dutasteride (Avodart) 0.5 mg PO DAILY 90 caps 3RF Patient Instructions: The patient had an opportunity to ask questions regarding treatment plan. The patient expressed understanding and agreement with the above treatment plan. The patient is aware they should contact our office by phone for worsening of their current condition or the appearance of new symptoms. Compliance is encouraged with any medications and followup testing that is ordered. It is a privilege to be allowed the opportunity to participate in the urologic care of your patient. If you have any questions or concerns regarding treatment for the above conditions please do not hesitate to contact me. The office telephone contact is [phone]. This note is constructed in part using voice recognition software. While every effort has been made to ensure accuracy metal fabrication supervisor errors may have been included. Yours sincerely, Reji Quijano MD Scribe Plan - Not visible on output: Patient was informed and verbally consented to the use of an ambient scribe for clinic note documentation during this visit. Coding Level of Care Code Tele Est Pt Level 4 (90599) Diagnoses BPH loc w urin obs/LUTS N40.1 Screening PSA (prostate specific antigen) Z12.5 Renal mass N28.89
--- OUTSIDE RECORDS SUMMARY | 2024-10-18 18:52 | XMS_ITS | Clinical Summary ---
Author Organization [facility] Address [facility] [employer] [facility] [address] [place] [phone] Phone Care Team Providers Care Line Patroller Name Role Phone Pcp, Unknown Primary Care [...] SAFETY NET MEDICARE PART A & B Offees SAFETY NET MEDICARE PART A & B Offees SAFETY NET MEDICARE PART A & B Offees SAFETY NET MEDICARE PART A & B RABT NET Member Subscriber Plan / Payer ( fective 2013-Present) Name:Cirilo Ruiz Relation to Subscriber:Self Name:Cirilo Ruiz Payer ID:Not on file Group ID:Not on file Type:Medicaid Address: [place] [id number] MEDICARE PART A & B HEALTH SAFETY NET MEDICARE PART A & B HEALTH SAFETY NET MEDICARE PART A & B [facility] Care Teams Line Patroller Relationship Specialty Start Date End Date Pcp, Unknown PCP - General 08/07/13 Additional Source Comments The information contained in this document represents components of the legal health record. It is not the complete legal health record.[facility]
--- OUTSIDE RECORDS SUMMARY | 2024-10-18 18:52 | XMS_ITS | Encounter Summary ---
Author Organization [employer] Address [address] [place] [address] [address] [place] [address] Care Team Providers Care Drop Hammer Set Up Operator Name Role Phone Isabel Ayala DO Primary Care Provider + [phone] Reason for Visit * Reason Comments Med Refill Encounter Details Date Type Department Care Team (Late Contact Info) Description 09/27/2022 Refill [facility] [address] [place], [place] [phone] [place] [facility] 230 [place], [place] [phone] Seasonal allergies Social History Tobacco Use Types [...] Info) Description 11/16/2024 11:00 AM EDT Telemedicine [facility] [address] [place] [address] [phone] Brea Bender RN documented as of this encounter Visit Diagnoses Diagnosis Seasonal allergies Allergic rhinitis, cause unspecified documented in this encounter Care Teams Drop Hammer Set Up Operator Relationship Specialty Start Date End Date Isabel Ayala DO [address] [place] [address] [phone] PCP - General Family Medicine 03/31/11 documented as of this encounter
--- OUTSIDE RECORDS SUMMARY | 2024-10-18 18:52 | XMS_ITS | Encounter Summary ---
Author Organization [employer] Address [address] [facility] 7t [place] [address] Care Team Providers Care Microbiological Analyst Name Role Phone Isabel Ayala DO Primary Care Provider + [phone] Reason for Visit * Reason Comments Med Refill Encounter Details Date Type Department Care Team ([facility] st Contact Info) Description 12/13/2023 Refill [facility] [address] [place], [place] [phone] Isabel Ayala DO [address] [place] [address] Depression, unspecified depression type Social History Tobacco [...] Info) Description 11/16/2024 11:00 AM EDT Telemedicine [facility] [address] [place] [address] Brea Bender RN documented as of this encounter Visit Diagnoses Diagnosis Depression, unspecified depression type documented in this encounter Additional Health Concerns Assessment Noted Time PHQ-9 Depression Total Score: 0 10/13/19 23 11:41 AM EDT documented as of this encounter Care Teams Microbiological Analyst Relationship Specialty Start Date End Date Isabel Ayala DO [address] [place] [address] PCP - General Family Medicine 03/31/11 documented as of this encounter
--- OUTSIDE RECORDS SUMMARY | 2024-10-18 18:52 | XMS_ITS | Encounter Summary ---
Author Organization [employer] Address [address] [facility] 7t [place] [address] Care Team Providers Care Metallurgical Tester Name Role Phone Isabel Ayala DO Primary Care Provider + [phone] Encounter Details Date Type Department Care Team ([facility] st Contact Info) Description 09/05/2023 Telephone [facility] [address] [place], [place] [phone] Isabel Ayala DO 230 [place], [place] [phone] Social History Tobacco Use Types Packs/Day Years [...] t he electric, gas, oil or water [employer] threatened to shut off services in your [...] Description 11/16/2024 11:00 AM EDT Telemedicine [facility] [address] [place] [address] Brea Bender RN documented as of this encounter Visit Diagnoses Not on filedocumented in this encounter Additional Health Concerns Assessment Noted Time PHQ-9 Depression Total Score: 0 10/13/19 23 11:41 AM EDT documented as of this encounter Care Teams Metallurgical Tester Relationship Specialty Start Date End Date Isabel Ayala DO [address] [place] [address] PCP - General Family Medicine 03/31/11 documented as of this encounter
--- OUTSIDE RECORDS SUMMARY | 2024-10-18 18:52 | XMS_ITS | Encounter Summary ---
Author Organization [employer] Address [address] [facility] 7t [place] [address] Care Team Providers Care Shuttle Bus Driver Name Role Phone Isabel Ayala DO Primary Care Provider + [phone] Reason for Visit * Reason Onset Date Comments Lab Orders 10/04/2024 Encounter Details Date Type Department Care Team ([facility] st Contact Info) Description 10/04/2024 Telephone [facility] [address] [place], [place] [phone] Isabel Ayala DO 230 [place], [place] [phone] Lab Orders Social History Tobacco Use Types Packs/Day Years [...] encounter Miscellaneous Notes * Telephone Encounter - Hayley Rush RN - 10/18/2024 10:06 AM EDT Labs ordered, to be completed fasting. TC placed to patient [phone] to inform of BW being ordered however patient did not answer, RN unable to leave VM d/t VM being full. TC placed to [phone] however no answer, RN left VM requesting CB to red team nurses. TC placed to [phone] howeveralso no answer, RN left VM requesting CB to red team nurses. Patient to f/u PRN. * Telephone Encounter - Eliecer Frost - 10/15/2024 4:18 PM EDT Pt returned call reports labs that he was to gigi done were routine . * Telephone Encounter - Cheryl Yao RN - 10/05/2024 2:45 PM EDT TC placed to patient [phone] regarding below message. Patient Karma answered the phone and reported the patient is not home and she will give home the message that his PCP office called. RN informed patient to have the patient CB at his earliest convenience. Patient verbalizedunderstanding. PT to F/U PRN. * Telephone Encounter - Chuck Florian - 10/04/2024 4:12 PM EDT Tc from pt stating pcp was supposed to order lab work for pt but when pt attempted to have it done he was informed there is no active lab work at the moment. Please contact pt at [phone]. documented in this encounter Plan of Treatment Upcoming Encounters Date Type Department Care Team (Late st Contact Info) Description 11/16/2024 11:00 AM EDT Telemedicine [facility] [address] [place] [address] Brea Bender RN documented as of this encounter Visit Diagnoses Not on filedocumented in this encounter Additional Health Concerns Assessment Noted Time PHQ-9 Depression Total Score: 12 025 11:28 AM EST documented as of this encounter Care Teams Shuttle Bus Driver Relationship Specialty Start Date End Date Isabel Ayala DO [address] [place] [address] PCP - General Family Medicine 03/31/11 documented as of this encounter
--- OUTSIDE RECORDS SUMMARY | 2024-10-18 18:52 | XMS_ITS | Encounter Summary ---
Author Organization [employer] Address [address] [facility] 7t [place] [address] Care Team Providers Care Certified Medical Assistant Name Role Phone Isabel Ayala DO Primary Care Provider + [phone] Reason for Visit * Reason Comments Med Refill Encounter Details Date Type Department Care Team ([facility] st Contact Info) Description 07/29/2023 Refill [facility] PEDS [address] [place], [place] [phone] Isabel Ayala DO [address] [facility] [place], [place] [phone] Chronic bilateral low back pain, unspecified whether [...] Info) Description 11/16/2024 11:00 AM EDT Telemedicine [facility] [address] [place] [address] Brea Bender RN documented as of this encounter Visit Diagnoses Diagnosis Chronic bilateral low back pain, unspecified whether sciatica present documented in this encounter Additional Health Concerns Assessment Noted Time PHQ-9 Depression Total Score: 0 10/13/19 23 11:41 AM EDT documented as of this encounter Care Teams Certified Medical Assistant Relationship Specialty Start Date End Date Isabel Ayala DO [address] [place] [address] PCP - General Family Medicine 03/31/11 documented as of this encounter
--- OUTSIDE RECORDS SUMMARY | 2024-10-18 18:52 | XMS_ITS | Encounter Summary ---
Author Organization [employer] Address [address] [facility] [address] [place] [address] Care Team Providers Care Armature Winder Repairer Name Role Phone Isabel Ayala DO Primary Care Provider + [phone] Reason for Visit * Reason Comments Med Refill Encounter Details Date Type Department Care Team (Late st Contact Info) Description 11/04/2022 Refill [facility] MED [facility] PEDS [address] [place] [address] Isabel Ayala DO 230 [place], [place] [phone] Social History Tobacco Use Types Packs/Day Years [...] Info) Description 11/16/2024 11:00 AM EDT Telemedicine [facility] MEDIC[facility] [address] [place], [place] [phone] Brea Bender RN documented as of this encounter Visit Diagnoses Not on filedocumented in this encounter Additional Health Concerns Assessment Noted Time PHQ-9 Depression Total Score: 0 10/13/19 11:41 AM EDT documented as of this encounter Care Teams Armature Winder Repairer Relationship Specialty Start Date End Date Isabel Ayala DO 230 [place] [address] PCP - General Family Medicine 03/31/11 documented as of this encounter
--- OUTSIDE RECORDS SUMMARY | 2024-10-18 18:52 | XMS_ITS | Encounter Summary ---
Author Organization [employer] Address [address] [facility] [address] [place] [address] Care Team Providers Care Claim Professional Name Role Phone Isabel Ayala DO Primary Care Provider + [phone] Encounter Details Date Type Department Care Team (Late st Contact Info) Description 05/19/2023 Orders Only [facility] MEDICINE [address] [place] [address] Provider, MD Phill Social History Tobacco Use [...] Info) Description 11/16/2024 11:00 AM EDT Telemedicine [facility] MEDICINE [address] [place] [address] Brea Bender, YARI documented as of this [...] documented as of this encounter Care Teams Claim Professional Relationship Specialty Start Date End Date Isabel Ayala DO 230 [place] [address] PCP - General Family Medicine 03/31/11 documented as of this encounter
--- OUTSIDE RECORDS SUMMARY | 2024-10-18 18:52 | XMS_ITS | Encounter Summary ---
Author Organization [employer] Address [address] [facility] 7t [place] [address] Care Team Providers Care Air Press Operator Name Role Phone Isabel Ayala DO Primary Care Provider + [phone] Reason for Visit * Reason Comments Med Refill Encounter Details Date Type Department Care Team ([facility] st Contact Info) Description 06/20/2023 Refill [facility] [address] [place], [place] [phone] Isabel Ayala DO [address] [place], [place] [phone] Urinary frequency Social History Tobacco Use Types [...] Info) Description 11/16/2024 11:00 AM EDT Telemedicine [facility] [address] [place] [address] Brea Bender RN documented as of this encounter Visit Diagnoses Diagnosis Urinary frequency documented in this encounter Additional Health Concerns Assessment Noted Time PHQ-9 Depression Total Score: 0 10/13/19 23 11:41 AM EDT documented as of this encounter Care Teams Air Press Operator Relationship Specialty Start Date End Date Isabel Ayala DO 230 [place] [address] PCP - General Family Medicine 03/31/11 documented as of this encounter
--- OUTSIDE RECORDS SUMMARY | 2024-10-18 18:52 | XMS_ITS | Encounter Summary ---
Author Organization [employer] Address [address] [facility] 7t [place] [address] Care Team Providers Care Surgical Corsetier Name Role Phone Isabel Ayala DO Primary Care Provider + [phone] Reason for Visit * Reason Onset Date Comments Nurse Triage 01/28/2023 Encounter Details Date Type Department Care Team ([facility] st Contact Info) Description 01/28/2023 Telephone [facility] MED[facility]INE 230 [place], [place] [phone] Isabel Ayala DO [address] [place], [place] [phone] Nurse Triage Social History Tobacco Use Types [...] states that he was referred to a Pot Fireman in the past and he has been thinking about PCP suggestion and he is ready to get referral to Pot Fireman. Pt. States he feels fine at rest but does develop SOB doing easy tasks and ADL's such as washing dishes walking long distances etc. So he has 3 requests Referral to Pot Fireman that he states you have suggested several [...] Info) Description 11/16/2024 11:00 AM EDT Telemedicine [facility] MED[facility]INE [address] [place] [address] Brea Bender, RN documented as of this encounter Visit Diagnoses Not on filedocumented in this encounter Additional Health Concerns Assessment Noted Time PHQ-9 Depression Total Score: 0 10/13/19 23 11:41 AM EDT documented as of this encounter Care Teams Surgical Corsetier Relationship Specialty Start Date End Date Isabel Ayala DO [address] [place] [address] PCP - General Family Medicine 03/31/11 documented as of this encounter
--- OUTSIDE RECORDS SUMMARY | 2024-10-18 18:52 | XMS_ITS | Encounter Summary ---
Author Organization [employer] Address [address] [facility] 7t [place] [address] Care Team Providers Care Hotel Controller Name Role Phone Isabel Ayala DO Primary Care Provider + [phone] Reason for Visit * Reason Comments Med Refill Encounter Details Date Type Department Care Team ([facility] st Contact Info) Description 02/26/2023 Refill [facility] 230 [place], [place] [phone] Isabel Ayala DO 230 [place], [place] [phone] Social History Tobacco Use Types Packs/Day Years [...] Info) Description 11/16/2024 11:00 AM EDT Telemedicine [facility] MEDICINE 230 [place], [place] [phone] Brea Bender RN documented as of this encounter Visit Diagnoses Not on filedocumented in this encounter Additional Health Concerns Assessment Noted Time PHQ-9 Depression Total Score: 0 10/13/19 23 11:41 AM EDT documented as of this encounter Care Teams Hotel Controller Relationship Specialty Start Date End Date Isabel Ayala DO [address] [place] [address] PCP - General Family Medicine 03/31/11 documented as of this encounter
--- OUTSIDE RECORDS SUMMARY | 2024-10-18 18:52 | XMS_ITS | Encounter Summary ---
Author Organization [employer] Address [address] [facility] 7t [place] [address] Care Team Providers Care Tongsman Name Role Phone Isabel Ayala DO Primary Care Provider + [phone] Encounter Details Date Type Department Care Team (Late st Contact Info) Description 02/10/2022 Orders Only [facility] MED & PEDS [address] [place] [address] Isabel Paz LPN Social History Tobacco Use [...] Info) Description 11/16/2024 11:00 AM EDT Telemedicine [facility] MEDICINE 230 [place] [address] Brea Bender, RN documented as of this encounter Visit Diagnoses Not on filedocumented in this encounter Care Teams Tongsman Relationship Specialty Start Date End Date Isabel Ayala DO 230 [place] [address] PCP - General Family Medicine 03/31/11 documented as of this encounter
--- OUTSIDE RECORDS SUMMARY | 2024-10-18 18:52 | XMS_ITS | Encounter Summary ---
Author Organization [employer] Address [address] [facility] 7t [place] [address] Care Team Providers Care Director Employee Safety And Health Name Role Phone Isabel Ayala DO Primary Care Provider + [phone] Encounter Details Date Type Department Care Team (Late st Contact Info) Description 01/22/2022 Orders Only [facility] [address] [place] [address] Isabel Paz LPN Social History Tobacco Use [...] Info) Description 11/16/2024 11:00 AM EDT Telemedicine [facility] [address] [place] [address] Brea Bender, RN documented as of this encounter Visit Diagnoses Not on filedocumented in this encounter Care Teams Director Employee Safety And Health Relationship Specialty Start Date End Date Isabel Ayala DO [address] [place] [address] PCP - General Family Medicine 03/31/11 documented as of this encounter
--- OUTSIDE RECORDS SUMMARY | 2024-10-18 18:53 | XMS_ITS | Encounter Summary ---
Author Organization [employer] Address 75 [facility] 7t [place] [address] Care Team Providers Care Reference Test Clerk Name Role Phone Isabel Ayala DO Primary Care Provider + [phone] Encounter Details Date Type Department Care Team (Late st Contact Info) Description 03/11/2022 Orders Only [facility] [address] [place] [address] Isabel Paz LPN Social History Tobacco Use [...] 11/16/2024 11:00 AM EDT Telemedicine [facility] [address] [place] [address] Brea Bender, RN documented as of this encounter Visit Diagnoses Not on filedocumented in this encounter Care Teams Reference Test Clerk Relationship Specialty Start Date End Date Isabel Ayala DO [address] [place] [address] PCP - General Family Medicine 03/31/11 documented as of this encounter
--- OUTSIDE RECORDS SUMMARY | 2024-10-18 18:53 | XMS_ITS | Clinical Summary ---
Author Organization [employer] Address 75 [facility] 7t [place] [address] Care Team Providers Care Doctor Podiatric Medicine Name Role Phone Isabel Ayala DO Primary Care Provider + [phone] Allergies No known active allergies Medications * [...] HOURS DIRECTED 30 patch 5 023 Active Additional Information Patient not taking.Reported on 10/16/2024 metoprolol tartrate (Lopressor) 50 MG tablet TAKE 1 TABLET BY MOUTH TWICE DAILY. MUST MAKE CARDIOLOGY APPOINTMENT FOR MORE REFILLS Active Xarelto 20 MG tablet TAKE 1 TABLET BY MOUTH ONCE DAILY PLEASE CALL [phone] TO SCHEDULE FOLLOW UP FOR 2022. 023 Active albuterol 108 (90 Base) MCG/ACT inhaler Inhale 2 puffs every 4 (four) hours if needed for wheezing or shortness of breath. 18 g 1 023 Active Diclofenac Sodium 1 % gel Apply 2 g topically if needed in the morning, at noon, in the evening, and at bedtime (pain). 150 g 3 024 Active fluticasone (Flonase) 50 MCG/ACT nasal spray Administer 2 sprays into each nostril Once per day. Shake gently. Before first use, prime pump. After use, clean tip and replace cap. 16 g 11 024 Active oxybutynin XL (Ditropan XL) 10 MG 24 hr tablet TAKE 1 TABLET BY MOUTH EVERY DAY. 90 tablet 024 Active D3 Super Strength 50 MCG (2000 UT) capsule TAKE 1 CAPSULE BY MOUTH ONCE DAILY 90 capsule 3 024 Active dutasteride (Avodart) 0.5 MG capsule Active gabapentin (Neurontin) 300 MG capsuleIndication s:Other chronic pain TAKE 1 CAPSULE BY MOUTH THREE TIMES DAILY 90 capsule 5 Active Arnuity Ellipta 100 MCG/ACT inhaler INHALE 1 PUFF BY MOUTH EVERY DAY AT THE SAME TIME, RINSE MOUTH AFTER USING., DO NOT SWALLOW 30 each Active atorvastatin (Lipitor) 10 MG tabletIndications :Hyperlipidemia, unspecified hyperlipidemia type TAKE 1 TABLET BY MOUTH DAILY AT BEDTIME 90 tablet 1 025 Active naloxone (Narcan) 4 mg/0.1 mL nasal sprayIndications: Long-term current use of opiate analgesic Administer 1 spray (4 mg) into affected nostril(s) if needed for opioid reversal. May repeat every 2-3 minutes if needed, alternating nostrils, until medical assistance becomes available. 2 each 3 025 2025 Active escitalopram (Lexapro) 10 MG tabletIndications :Major depression, recurrent, chronic (CMS/HCC) Take 1 tablet (10 mg) by mouth in the morning. 30 tablet 1 025 2024 Active cetirizine (ZyrTEC) 10 MG tablet TAKE 1 TABLET BY MOUTH EVERY DAY 30 tablet 11 025 Active oxyCODONE-acetami nophen (Percocet) 5-325 MG tabletIndications :Chronic bilateral low back pain, unspecified whether sciatica present TAKE 1 TABLET BY MOUTH EVERY 6 HOURS NEEDED FOR SEVERE PAIN FOR UP TO 28 DAYS 112 tablet 025 2024 Active tamsulosin (Flomax) 0.4 MG 24 hr capsule TAKE 1 CAPSULE BY MOUTH EVERY DAY 30 capsule 5 025 Active baclofen (Lioresal) 10 MG tablet TAKE 1 TABLET BY MOUTH THREE TIMES DAILY IN THE MORNING, AT NOON, AND AT BEDTIME NEEDED FOR MUSCLE SPASMS 60 tablet 3 025 Active chlorhexidine (Peridex) 0.12 % solution Swish 15 mL morning and night for 1 minute. Spit, do not swallow. Do not eat or drink for 30 minutes following use. 473 mL Active cetirizine (ZyrTEC) 10 MG tablet Take 1 tablet (10 mg) by mouth Once per day. 30 tablet 11 024 2024 Discontinued(R eorder (will not trigger notification to Pharmacy)) tamsulosin (Flomax) 0.4 MG 24 hr capsule TAKE 1 CAPSULE BY MOUTH EVERY DAY 30 capsule 5 025 2024 Discontinued baclofen (Lioresal) 10 MG tablet TAKE 1 TABLET BY MOUTH IN THE MORNING, NOON AND AT BEDTIME NEEDED FOR MUSCLE SPASMS 60 tablet 3 025 2024 Discontinued oxyCODONE-acetami nophen (Percocet) 5-325 MG tabletIndications :Chronic bilateral low back pain, unspecified whether sciatica present Take 1 tablet by mouth every 6 (six) hours if needed for severe pain for up to 28 days. 112 tablet 025 2024 Discontinued Active Problems Problem Noted Date Diagnosed Date Complete edentulism 10/16/2024 Ill-fitting dentures 10/16/2024 Long-term current use of opiate analgesic 2024 Alcohol use disorder 06/11/2024 Hyperlipidemia 07/26/2023 Atrial [...] normalized patient's emotions. Provided contact information for [facility] crisis programs. Pt agreed with plan to [...] organization. Date Type Department Care Team Description 10/16/2024 2:30 PM EDT Office Visit [facility] [address] [place] [address] Jovanni Page DDS Complete edentulism, unspecified edentulism class (Primary Dx); Ill-fitting dentures 10/11/[address] [facility] [address] [place] [address] Isabel Ayala DO 10/04/[address] [facility] [address] [place], [place] [phone] Isabel Ayala DO Lab Orders 10/03/[address] [facility] [address] [place], [place] [phone] Shefali Sherwood MD 09/25/[address] [facility] & PEDS [address] [place], [place] [phone] Isabel Ayala DO Chronic bilateral low back pain, unspecified whether sciatica present 09/25/2024 Refill [facility] MED & PEDS [address] [facility] [phone] Isabel Ayala DO 09/21/2024 Results Follow-Up [facility] [address] [place] [phone] Sarah Brown NP POCT Urinalysis, Culture, Urine, Routine 09/19/2024 11:15 AM EDT Office Visit [facility] [address] [place] [phone] Isabel Ayala DO Essential hypertension (Primary Dx); Other hyperlipidemia; Major depression, recurrent, chronic (CMS/HCC); Atrial fibrillation, unspecified type (CMS/HCC); Benign prostatic hyperplasia with lower urinary tract symptoms, symptom details unspecified; Pulmonary nodules; Abnormal chest CT; Obstructive sleep apnea; Chronic nasal congestion; Healthcare maintenance 09/19/2024 Travel 09/18/[address] [address] Isabel Ayala DO Chart Prep 09/17/2024 Refill [facility] [address] [place] [address] Isabel Ayala DO Major depression, recurrent, chronic (CMS/HCC) 09/14/2024 11:00 AM EDT Telemedicine [address] [address] Brea Bender, RN Long-term current use of opiate analgesic 09/14/[address] [facility] [address] [place] [phone] Brea Bender, RN Long-term current use of opiate analgesic (Primary Dx) 09/14/2024 Travel 09/12/2024 6:40 PM EDT Office Visit [facility] [address] [place] [phone] Sarah Brown NP UTI symptoms (Primary Dx); Forgetfulness; Irregular heart rhythm 09/12/2024 Travel 09/12/[address] [facility] [address] [place] [address] Isabel Ayala, Nurse Triage 09/12/[address] [facility] [address] [place] [address] Isabel Ayala, Hyperlipidemia, unspecified hyperlipidemia type 08/29/[address] [facility] [address] [place], [place] [phone] Isabel Ayala, Chronic bilateral low back pain, unspecified whether sciatica present 08/24/[address] [facility] [address] [place] [address] Isabel Ayala, 08/01/[address] [facility] [address] [place] [address] Isabel Ayala, Chronic bilateral low back pain, unspecified whether sciatica present from Last 3 Months Immunizations Immunization Administration Dates Next Due Hep A, Adult [...] Passive Smoke Exposure: Never Smokeless Tobacco: Never Tobacco Cessation:Counseling Given: [...] Pulse 70 10/16/2024 2:49 PM EDT Temperature 36.6 C (97.9 F) 09/19/2024 12:09 PM EDT Respiratory Rate 20 09/19/2024 12:09 PM EDT Oxygen Saturation 96% 09/19/2024 12:09 PM EDT Inhaled Oxygen Concentration - - Weight 122 kg (269 lb) 09/19/2024 12:09 PM EDT Height 182.9 cm (6') 09/19/2024 12:09 PM EDT Body Mass Index 36.48 09/19/2024 12:09 PM EDT Plan of Treatment Upcoming Encounters Date Type Department Care Team (Late st Contact Info) Description 11/16/2024 11:00 AM EDT Telemedicine [facility] [address] [place] [address] Brea Bender, RN Health Maintenance Due Date Last Done Comments CT Colonography 1948 Dental Prophylaxis 1948 FIT DNA/Cologuard 1948 FIT 1948 FOBT 1948 Sigmoidoscopy 1948 Dental X-Ray: Bitewings 05/03/2013 05/02/2012 Colonoscopy 05/18/2020 05/19/2015 Colorectal Cancer Screening 05/18/2020 RSV Patients and Patients Aged 60 years or older (1 - 1-dose 75+ series) 10/21/2023 DTaP/Tdap/Td Vaccines (3 - Td or Tdap) 12/07/2023 12/06/2013, 08/09/2011 Depression Monitoring 09/03/2024 03/06/2024, 025 COVID-19 Vaccine ( season) 2024 03/06/2024, 02/11/2023, 12/10/2021, Additional history exists Influenza Vaccine (#1) 2024 , 02/11/2023, 10/30/2021, Additional history exists Alcohol/Substance Use Screening 03/06/2025 03/06/2024 SDOH Screening 03/06/2025 03/06/2024 Dental Oral Exam 04/16/2025 10/16/2024, 06/2020, 07/12/2017, Additional history exists Tobacco Screening 10/16/2025 10/16/2024 Dental X-Ray: Full Mouth 10/18/2027 025, 05/12/2020, 06/17/2015, Additional history exists Lipid Panel 08/08/2028 08/09/2023, 03/2022, 12/11/2021, Additional history exists Hepatitis A Vaccines Aged Out 03/22/2017, 03/11/19 17 No longer eligible based on patient's age to complete this topic Hepatitis B Vaccines Completed 03/22/2017, 05/03/2016, 03/11/2016 Zoster Vaccines Completed 01/16/2020, 08/2019, 08/29/2015 Pneumococcal Vaccine: 50+ Years Completed 07/26/2023, 08/29/2015, 11/29/2014, Additional history exists Hepatitis C Screening Completed 08/09/2023, 020 HIB Vaccines Aged Out No longer eligi ble based on patient's age to complete this topic HPV Vaccines Aged Out No longer eligi ble based on patient's age to complete this topic IPV Vaccines Aged Out No longer eligi ble based on patient's age to complete this topic Meningococcal B Vaccine Aged Out No l onger eligible based on patient's age to complete [...] Procedure Name Priority Date/Time Associated Diagnosis Comments CASE PRESENTATION, DETAILED AND EXTENSIVE TREATMENT PLANNING Routine 10/16/2024 2:30 PM EDT PANORAMIC RADIOGRAPHIC IMAGE Routine 10/16/2024 2:30 PM EDT PERIODIC ORAL EVALUATION - ESTABLISHED PATIENT Routine 10/16/2024 2:30 PM EDT CULTURE, URINE, ROUTINE Routine 09/12/2024 7:27 PM EDT UTI symptoms POCT URINALYSIS DIPSTICK Routine 09/12/2024 7:18 PM EDT UTI symptoms HEPATITIS C AB W/REFL TO HCV RNA, QN, PCR Routine 08/09/2023 1:05 PM EDT Healthcare maintenance LIPID PANEL, STANDARD Routine 08/09/2023 1:05 PM EDT Essential hypertension HM COLONOSCOPY Routine 05/19/2015 9:47 AM EDT INTRAORAL - COMPLETE SERIES OF RADIOGRAPHIC IMAGES Routine 05/02/2012 12:00 AM EDT from Last 3 Months or Most Recently Relevant to Health Maintenance Results * Culture, Urine, Routine (09/12/2024 7:27 PM EDT) Urine Urine specimen obtained by clean catch procedure / Unknown 09/12/2024 7:27 PM EDT 09/13/2024 11:54 AM EDT Comment:UACC Narrative [facility] - 09/14/2024 10:51 AM EDT Urine Culture Report Result Urine Culture < 10,000 cfu/ml Specimen Source: Urine clean catch us Sarah Brown NP LAB MICROBIOLOGY - GENERAL MICAELA MAHONEY Final Result [facility] [address] [place] [address] [phone] * (ABNORMAL) POCT Urinalysis (09/12/2024 7:18 PM EDT) Color, UA Yellow Clarity, UA Clear Glucose, UA Negative Bilirubin, UA Trace Comment:small Ketones, UA Negative Spec Grav, UA 1.030 Blood, UA Positive(A) Negative, None Detected Comment:trace-intact pH, UA 6.5 Protein, UA Trace Comment:30mg/dL Urobilinogen, UA >=8.0 Leukocytes, UA Negative Negative, Rare, Trace Nitrite, UA Negative Negative, None Detected Appearance, UA yellow QC Media Lot # [id number] Lot# Expiration Date [id number] Urine 09/12/2024 7:18 PM EDT us Sarah Brown TAX RECORD CLERK POINT OF CARE TEST ENTER/EDIT O RDERABLES Final Result * Hepatitis C Antibody with Reflex to HCV, RNA, Quantitative, Real-Time PCR (08/09/2023 1:05 PM EDT) Hepatitis C Antibody Nonreactive Nonreactive [facility] Comment:Antibodies to HCV no t detected; does not exclude early acuteHCV infection. Blood Venous blood specimen / Unknown 08/09/2023 1:05 PM EDT 08/09/2023 4:08 PM EDT Isabel Ayala DO LAB BLOOD ORDERABLES Final R esult [facility] [address] [place] [phone] * Lipid Panel, Standard (08/09/2023 1:05 PM EDT) Triglycerides 84 <150 mg/dL [facility] Comment:Desirable Triglyceri de: less than 150 mg/dLBorderline High Triglyceride 150-199 mg/dLHigh Triglyceride: 200-499 mg/dLVery High Triglyceride: greater than or equal to 5OO mg/dL Cholesterol 134 <200 mg/dL [facility] Comment:Desirable Cholestero l: less than 200 mg/dLBorderline High Cholesterol: 200-239 mg/dLHigh Cholesterol: greater than 239 mg/dL LDL Cholesterol Calculated 74 <100 mg/dL [facility] Comment:Desirable LDL: less than 100 mg/dLNear Optimal/Above Optimal LDL: 110- 129 mg/dLBorderline High LDL: 130-159 mg/dLHigh LDL: 160-189 mg/dLVery High LDL: greater than or equal to 190 mg/dL HDL Cholesterol 44 >40 mg/dL [facility] Comment:Desirable HDL: great er than 40 mg/dL Note: This HDL assay may give artificially low results in patients with liver disease. Blood Venous blood specimen / Unknown 08/09/2023 1:05 PM EDT 08/09/2023 4:08 PM EDT us Isabel Jurcsak DO LAB BLOOD ORDERABLES Final R esult [facility] [address] [place] [phone] * Hm Colonoscopy (05/19/2015 9:47 AM EDT) Historical Provider MD HEALTH MAINTENANCE Final Result from Last 3 Months or Most Recently Relevant to Health Maintenance Insurance HSN FULL [employer] MEDICARE DENTAL - HSN FULL (MEDICAID) DENTAL - [employer] DENTAL Care Teams Doctor Podiatric Medicine Relationship Specialty Start Date End Date Isabel Ayala DO [address] [place] [phone] PCP - General Family Medicine 03/31/11
--- OUTSIDE RECORDS SUMMARY | 2024-10-18 18:53 | XMS_ITS | Encounter Summary ---
Author Organization [employer] Address [address] [facility] 7t [place] [address] Care Team Providers Care Professional Bass Fisherman Name Role Phone Isabel Ayala DO Primary Care Provider + [phone] Encounter Details Date Type Department Care Team (Late st Contact Info) Description 03/30/2022 Orders Only [facility] [address] [place] [address] Isabel Paz LPN Social History Tobacco Use [...] Info) Description 11/16/2024 11:00 AM EDT Telemedicine [facility] [address] [place] [address] Brea Bender, RN documented as of this encounter Visit Diagnoses Not on filedocumented in this encounter Care Teams Professional Bass Fisherman Relationship Specialty Start Date End Date Isabel Ayala DO [address] [place] [address] PCP - General Family Medicine 03/31/11 documented as of this encounter
--- OUTSIDE RECORDS SUMMARY | 2024-10-18 18:53 | XMS_ITS | Encounter Summary ---
Author Organization [employer] Address [address] [facility] [address]t [place] [address] Care Team Providers Care Supervisor Detasseling Crew Name Role Phone Isabel Ayala DO Primary Care Provider + [phone] Reason for Visit * Reason Comments Med Refill Encounter Details Date Type Department Care Team ([facility] st Contact Info) Description 08/02/2022 Refill [facility] [address] [place], [place] [phone] Isabel Ayala DO [address] [place] [address] Chronic bilateral low back pain, unspecified whether [...] Info) Description 11/16/2024 11:00 AM EDT Telemedicine [facility] [address] [place] [address] Brea Bender RN documented as of this encounter Visit Diagnoses Diagnosis Chronic bilateral low back pain, unspecified whether sciatica present documented in this encounter Care Teams Supervisor Detasseling Crew Relationship Specialty Start Date End Date Isabel Ayala DO [address] [place] [phone] PCP - General Family Medicine 03/31/11 documented as of this encounter
== END 2024-10-18 16:30 | disposition home or self-care (01) ==
LOC: HO.HUSH 16:04
PROVIDERS: PCP Family Medicine; Visit Provider Urology
DX: N40.1 Benign prostatic hyperplasia with lower urinary tract symptoms (principal); Z12.5 Encounter for screening for malignant neoplasm of prostate; N28.89 Other specified disorders of kidney and ureter
CPT/HCPCS: 99214